=== PATIENT | female | born 1960 | race Caucasian/White ===

== ENCOUNTER 2016-11-16 14:03 | Outpatient (CLI) | payer OTHER | END 2016-11-16 14:04 | disposition home or self-care (01) | DX: Z79.899 Other long term (current) drug therapy (principal) ==

== ENCOUNTER 2017-03-09 10:32 | Outpatient (CLI) | payer OTHER ==
--- NOTE | 2017-03-09 14:31 | Ultrasound Report ---
LEFT BREAST ULTRASOUND: 03/09/2017 CLINICAL INDICATION: Palpable abnormality. TECHNIQUE: Real-time scanning was performed with personal financial representative static images obtained. FINDINGS: Ultrasound of the left breast was performed, directed to the palpable abnormality identified by the patient. Unremarkable parenchymal lobules are seen. No discrete solid or cystic mass is appreciated. No sonographically suspicious findings are seen. IMPRESSION: NEGATIVE EXAMINATION. RECOMMENDATION: ROUTINE ANNUAL SCREENING UNLESS OTHERWISE CLINICALLY INDICATED. BIRADS CATEGORY 1-NEGATIVE. JOB #: [id number] EXT JOB #: [id number] [facility]
--- NOTE | 2017-03-09 17:13 | Mammography Report ---
DIGITAL DIAGNOSTIC BILATERAL MAMMOGRAM: 03/09/2017 CLINICAL INDICATION: Palpable abnormality left breast. TECHNIQUE: Bilateral CC and MLO views, left true lateral view. A marker was placed at the site of p alpable abnormality identified by the patient. COMPARISON: 04/22/2016, 02/18/2015, 11/16/2013, 11/09/2011, 10/21/2010, 08/25/2009. The breasts demonstrate scattered fibroglandular densities bilaterally. No suspicious masses, cluste red microcalcifications, or regions of architectural distortion are identified. Specifically, no chano mographic abnormality is seen in the left upper-outer quadrant, at the site of palpable abnormality i dentified with the marker. Please also refer to left breast ultrasound of the same day. IMPRESSION: NEGATIVE EXAMINATION. RECOMMENDATION: ROUTINE ANNUAL SCREENING UNLESS OTHERWISE CLINICALLY INDICATED. BIRADS CATEGORY: 1, NEGATIVE. STANDARD QUALIFYING STATEMENTS 1. This examination was reviewed with the aid of Computed-Aided Detection (CAD). 2. A negative or benign imaging report should not delay biopsy if clinically suspicious findings are present. Consider surgical consultation if warranted. More than 5% of cancers are not identified b y imaging. 3. Dense breasts may obscure an underlying neoplasm. JOB #: [id number] EXT JOB #:[id number]
== END 2017-03-09 10:33 | disposition home or self-care (01) ==
LOC: DI 10:32
PROVIDERS: ATTEND Internal Medicine
DX: N63 Unspecified lump in breast (principal)
CPT/HCPCS: 76642; 77066

== ENCOUNTER 2017-04-27 10:35 | Outpatient (CLI) | payer OTHER ==
[2017-04-27 18:25] LABS: BASOPHILS # (AUTO) 0.1 10^3/uL (0.0-0.1); BASOPHILS % (AUTO) 1.2 %; EOSINOPHILS % (AUTO) 0.9 %; HCT - HEMATOCRIT 41.1 % (37.0-47.0); HGB - HEMOGLOBIN 13.6 g/dL (12.0-16.0); LYMPHOCYTES # (AUTO) 1.9 10^3/uL (1.5-3.5); LYMPHOCYTES % (AUTO) 36.4 %; MEAN CORPUSCULAR HGB CONC 33.2 g/dL (32.0-36.0); MEAN CORPUSCULAR VOLUME 93.4 fL (81.0-99.0); MEAN PLATELET VOLUME 7.8 fL (7.9-10.8); MONOCYTES # (AUTO) 0.3 10^3/uL (0.0-1.0); MONOCYTES % (AUTO) 6.7 %; NEUTROPHILS # (AUTO) 2.8 10^3/uL (1.5-6.6); NEUTROPHILS % (AUTO) 54.8 %; RED CELL DISTRIBUTION WIDTH 13.5 % (12.0-15.0); UNCORRECTED WHITE BLOOD COUNT 5.1 x10^3/uL; WHITE BLOOD COUNT 5.1 x10^3/uL (4.8-10.8)
[2017-04-27 18:27] LABS: BILIRUBIN,URINE NEGATIVE (NEGATIVE); PH,URINE 6.5 PH (5.0-7.5)
[2017-04-27 18:30] LABS: UA CHARGE (STRIP ONLY) YES; UR CULTURE IF IND NOT INDICATED
[2017-04-27 18:50] LABS: ALBUMIN/GLOBULIN RATIO 1.5 (1.0-2.2); BUN - BLOOD UREA NITROGEN 14 mg/dL (6-20); CALCIUM 9.2 mg/dL (8.5-10.3); CARBON DIOXIDE - CO2 30 mmol/L (21-32); CHLORIDE 96 mmol/L (101-111); CHOL/HDL RATIO 3.3 (<4.4); CHOLESTEROL 239 mg/dL; CREATININE 0.6 mg/dL (0.4-1.0); GFR - MDRD 103 (>89); GLUCOSE 116 mg/dL (70-100); HDL CHOLESTEROL 72 mg/dL; LDL/HDL RATIO 2.1 (<4.4); POTASSIUM 4.4 mmol/L (3.5-5.0); SODIUM 134 mmol/L (135-145); TRIGLYCERIDES 68 mg/dL; VLDL CHOLESTEROL 14 mg/dL
[2017-04-27 19:03] LABS: HEMOGLOBIN A1C 0.53 g/dL
== END 2017-04-27 10:36 | disposition home or self-care (01) ==
LOC: LAB.F 10:35
PROVIDERS: ATTEND Internal Medicine
DX: Z00.00 Encounter for general adult medical examination without abnormal findings (principal); I10 Essential (primary) hypertension; M19.90 Unspecified osteoarthritis, unspecified site; M81.0 Age-related osteoporosis without current pathological fracture; E78.5 Hyperlipidemia, unspecified; R73.9 Hyperglycemia, unspecified; D72.819 Decreased white blood cell count, unspecified
CPT/HCPCS: 36415; 80050; 80061; 81001; 81003; 83036; 87086

== ENCOUNTER 2017-05-10 08:17 | Outpatient (CLI) | payer OTHER ==
--- NOTE | 2017-05-10 12:53 | DEXA Report ---
DEXA SCAN: 05/10/2017 CLINICAL INDICATION: Osteoporosis. TECHNIQUE: Dual energy x-ray absorptiometry (DXA) was performed on a [employer] system. Regions measured are the AP spine, femoral neck, and, if needed, forearm. COMPARISON: None. In accordance with the International Society for Clinical Densitometry (ISCD) guidelines, data from previous exams may be reanalyzed using current recommendations and techniques. This is done to allow a more accurate basis for comparison with the current study. FINDINGS: The data for the lumbar spine is as follows: REGION BMD (g/cm/cm) T-SCORE Z-SCORE L1 0.669 -3.8 -2.9 L2 0.743 -3.8 -2.8 L3 0.937 -2.2 -1.2 L4 0.942 -2.2 -1.2 TOTAL 0.826 -3.0 -2.0 NOTE: All evaluable vertebrae are used for classification. The data for the hip is as follows: REGION BMD (g/cm/cm) T-SCORE Z-SCORE Neck 0.695 -2.5 -1.3 TOTAL 0.646 -2.9 -2.1 NOTE: The femoral neck or total proximal femur, whichever is lowest, is used for classification. IMPRESSION: THE WHO CLASSIFICATION BASED ON THE INTERNATIONAL REFERENCE STANDARD IS OSTEOPOROSIS. THE FRACTURE RISK IS HIGH. RECOMMENDATION: Patients with diagnosis of osteoporosis or osteopenia should have regular bone mineral density assessment. For those eligible for Medicare, routine testing is allowed once every 2 years. Testing frequency can be increased for patients who have rapidly progressing disease or for those who are receiving medical therapy to restore bone mass. COMMENT: World Health Organization (WHO) definitions for osteoporosis and osteopenia: NORMAL BMD: T-score at -1.0 or higher, fracture risk is low. OSTEOPENIA BMD: T-score between -1.0 and -2.5, fracture risk is increased. OSTEOPOROSIS BMD: T-score at -2.5 or lower, fracture risk high. National Osteoporosis Foundation recommends: 1. Obtain adequate dietary calcium (at least 1200 mg per day) and vitamin D (400 -800 international units per day). 2. Participate, as appropriate, in regular weightbearing and muscle- strengthening exercise. 3. Avoid tobacco use and reduce alcohol and caffeine intake. 4. For more detailed information see the website at www.NOF.org. MTDD
== END 2017-05-10 08:18 | disposition home or self-care (01) ==
LOC: DI 08:17
PROVIDERS: ATTEND Internal Medicine
DX: M81.0 Age-related osteoporosis without current pathological fracture (principal)
CPT/HCPCS: 77080

== ENCOUNTER 2017-07-26 11:16 | Outpatient (CLI) | payer OTHER ==
--- NOTE | 2017-07-26 18:10 | XRAY Report ---
TWO VIEW CHEST: 07/26/2017 CLINICAL INDICATION: Cough, rib pain. COMPARISON: 02/05/2015 Frontal and lateral views of the chest demonstrate a normal cardiac silhouette. The lungs are clear. No effusion or pneumothorax is present. IMPRESSION: NORMAL CHEST, UNCHANGED. JOB #: [id number] EXT JOB #:[id number]
== END 2017-07-26 11:17 | disposition home or self-care (01) ==
LOC: DI 11:16
PROVIDERS: ATTEND Internal Medicine
DX: R05 Cough (principal); R07.81 Pleurodynia
CPT/HCPCS: 71020

== ENCOUNTER 2018-06-08 10:31 | Outpatient (CLI) | payer OTHER ==
--- NOTE | 2018-06-08 12:46 | Ultrasound Report ---
Procedure Date: 06/08/2018 Accession Number: [id number] / [id number] Procedure: US - Abdomen Limited CPT Code: FULL RESULT: EXAM: Abdomen Limited DATE: 06/08/2018 12:01 PM CLINICAL HISTORY: RUQ PAIN COMPARISON: None. TECHNIQUE: Real-time scanning was performed with static images obtained. FINDINGS: Liver: Normal in size and echotexture. At least 15 cm. Main portal vein flow: Hepatopetal. Gallbladder: The gallbladder demonstrates a thin wall and no pericholecystic fluid and no calculi. There is no pericholecystic fluid. The sonographic Cintron's sign is negative. A 2 mm gallbladder polyp is noted. Biliary System: Common bile duct measures 4 mm. No intrahepatic or extrahepatic ductal dilatation. Pancreas: Visualized portion is unremarkable. Kidneys: Right: 10.4 cm longitudinally. Normal. No contour-deforming mass, stones, or hydronephrosis. The IVC is unremarkable by color Doppler. IMPRESSION: No evidence of cholecystitis or hepatitis. There is a 2 mm gallbladder polyp. Consensus guidelines are not universally excepted. Some literature advocates annual sonographic follow-up. RADIA
== END 2018-06-08 10:32 | disposition home or self-care (01) ==
LOC: DI 10:31
PROVIDERS: ATTEND Internal Medicine
DX: R10.11 Right upper quadrant pain (principal); K82.4 Cholesterolosis of gallbladder
CPT/HCPCS: 76705

== ENCOUNTER 2018-07-11 10:31 | Outpatient (CLI) | payer OTHER ==
--- NOTE | 2018-07-21 19:13 | Mammography Report ---
Reason: ROUTINE MAMMO Procedure Date: 07/11/2018 Accession Number: [id number] / [id number] Procedure: PANCHITO - Screening Mammo w/Reynaldo CPT Code: FULL RESULT: EXAM: Screening Mammo w/Reynaldo DATE: 07/11/2018 11:06 AM CLINICAL HISTORY: 57-year-old nulliparous female. TECHNIQUE: Bilateral CC and MLO views were obtained. COMPARISON: 03/09/2017, 04/22/2016, 02/18/2015, 11/16/2013. FINDINGS: The breasts demonstrate heterogeneously dense fibroglandular parenchyma bilaterally. No suspicious masses, clustered microcalcifications, or regions of architectural distortion are identified. IMPRESSION: Negative examination RECOMMENDATION: Routine annual screening unless otherwise clinically indicated. BIRADS CATEGORY 1: Negative STANDARD QUALIFYING STATEMENTS: 1. This examination was not reviewed with the aid of Computer-Aided Detection (CAD). 2. A negative or benign imaging report should not delay biopsy if clinically suspicious findings are present. Consider surgical consultation if warrented. More than 5% of cancers are not identified by imaging. 3. Dense breasts may obscure an underlying neoplasm. 4. This examination was reviewed with the aid of 3D imaging (tomography).
== END 2018-07-11 10:32 | disposition home or self-care (01) ==
LOC: DI 10:31
PROVIDERS: ATTEND Internal Medicine
DX: Z12.31 Encounter for screening mammogram for malignant neoplasm of breast (principal)
CPT/HCPCS: 77063; 77067

== ENCOUNTER 2019-06-19 08:04 | Outpatient (CLI) | payer OTHER ==
--- NOTE | 2019-06-19 16:33 | DEXA Report ---
Reason: OSTEOPOROSIS Procedure Date: 06/19/2019 Accession Number: [id number] / [id number] Procedure: DEX - Dexa Spine and/or Hip CPT Code: FULL RESULT: EXAM: Dexa Spine and/or Hip DATE: 06/19/2019 9:21 AM CLINICAL HISTORY: OSTEOPOROSIS TECHNIQUE: Dual energy x-ray absorptiometry (DXA) was performed on a [employer] System. Regions measured are the AP Spine, femoral neck, and if needed forearm. COMPARISON: 05/10/2017 In accordance with the International Society for Clinical Densitometry (ISCD) guidelines, data from previous exams may be reanalyzed using current recommendations and techniques. This is done to allow a more accurate basis for comparison with the current study. FINDINGS: The data for the lumbar spine is as follows: BMD (g/cm/cm) T-SCORE Z-SCORE REGION L1 0.721 -3.4 -2.2 L2 0.833 -3.1 -1.9 L3 0.915 -2.4 -1.2 L4 1.064 -1.1 0.0 TOTAL 0.880 -2.5 -1.3 NOTE: All evaluable vertebrae are used for classification The data for the hip is as follows: BMD (g/cm/cm) T-SCORE Z-SCORE REGION Neck 0.671 -2.6 -1.4 TOTAL 0.701 -2.4 -1.5 NOTE: The femoral neck or total proximal femur, whichever is lowest, is used for classification. DXA RESULTS SUMMARY: Spine SCAN DATE AGE BMD CHANGE VS CHANGE VS PREVIOUS PREVIOUS % 6[birth year]2019 [age] 0[age]880 0.054* 6.5* 05[birth year]10/2017 56.4 0.826 * Denotes significant change at the 95% confidence level. Denotes dissimilar scan types or analysis methods. DXA RESULTS SUMMARY: Hip SCAN DATE AGE BMD CHANGE VS CHANGE VS PREVIOUS PREVIOUS % [birth year]2019 58.5 0.701 0.055* 8.5* 05[birth year]10[birth year]2017 56.4 0.646 * Denotes significant change at the 95% confidence level. Denotes dissimilar scan types or analysis methods. IMPRESSION: THE WHO CLASSIFICATION BASED ON THE INTERNATIONAL REFERENCE STANDARD IS OSTEOPOROSIS. THE FRACTURE RISK IS HIGH. RECOMMENDATION: Patients with diagnosis of osteoporosis or osteopenia should have regular bone mineral density assessment. For those eligible for Medicare, routine testing is allowed once every 2 years. Testing frequency can be increased for patients who have rapidly progressing disease or for those who are receiving medical therapy to restore bone mass. COMMENT: World Health Organization (WHO) definitions for osteoporosis and osteopenia: NORMAL BMD: T-score at -1.0 or higher, fracture risk is low OSTEOPENIA BMD: T-score between -1.0 and -2.5, fracture risk is increased. OSTEOPOROSIS BMD: T-score at -2.5 or lower, fracture risk is high. National Osteoporosis Foundation recommends: 1. Obtain adequate dietary calcium (at least 1200 mg per day) and vitamin D (400-800 international units per day). 2. Participate, as appropriate, in regular weightbearing and muscle-strengthening exercise. 3. Avoid tobacco use and reduce alcohol and caffeine intake. 4. For more detailed information see the website at www.NOF.org.
--- NOTE | 2019-06-20 08:11 | Ultrasound Report ---
Reason: RUQ PAIN, POLYP OF GALLBLADDER Procedure Date: 06/19/2019 Accession Number: [id number] / [id number] Procedure: US - Abdomen Limited CPT Code: FULL RESULT: EXAM: ABDOMEN LIMITED EXAM DATE: 06/19/2019 08:46 AM INDICATION: RUQ PAIN, POLYP OF GALLBLADDER. COMPARISONS: 06/19/2019 8:43 AM. TECHNIQUE: Real-time scanning was performed with static images obtained. FINDINGS: Liver: Liver parenchyma is heterogeneous and mildly hyperechoic. No discrete liver masses or intrahepatic bile duct dilation. However, evaluation for masses is limited secondary to the echogenicity. Right liver measures 15.3 cm. Main portal vein flow: Hepatopetal. Gallbladder: 0.3 cm gallbladder polyp. No stones, wall thickening, or sonographic Cintron's sign. Biliary System: CBD measures 3.2 mm. No intrahepatic or extrahepatic ductal dilatation. Pancreas: Normal. Right kidney: 10.8 cm. No hydronephrosis. Abdominal aorta and IVC: Normal. Other: None. IMPRESSION: 1. No liver mass or intrahepatic dilation.Echogenic, fatty liver. No liver enlargement. 2. 0.3 cm gallbladder polyp. Otherwise, normal gallbladder and common bile duct. 3. Normal pancreas. RADIA
== END 2019-06-19 08:05 | disposition home or self-care (01) ==
LOC: DI 08:04
PROVIDERS: ATTEND Internal Medicine
DX: R10.11 Right upper quadrant pain (principal); K82.4 Cholesterolosis of gallbladder; M81.0 Age-related osteoporosis without current pathological fracture; K76.0 Fatty (change of) liver, not elsewhere classified
CPT/HCPCS: 76705; 77080

== ENCOUNTER 2019-06-29 08:19 | Outpatient (CLI) | payer OTHER ==
[2019-06-29] MEDS ORDERED: IOVERSOL 320 50 ML VIAL ONE (08:32)
[2019-06-29] MEDS ORDERED: IOVERSOL 320 100 ML VIAL IVP ONE (08:32)
--- NOTE | 2019-07-01 04:32 | CT Report ---
Reason: UNSPECIFIED ABDOMINAL PAIN Procedure Date: 06/29/2019 Accession Number: [id number] / [id number] Procedure: CT - Abdomen/Pelvis W CPT Code: FULL RESULT: EXAM: CT ABDOMEN AND PELVIS EXAM DATE: 06/29/2019 09:43 AM. CLINICAL HISTORY: UNSPECIFIED ABDOMINAL PAIN. COMPARISONS: None. TECHNIQUE: Routine helical CT imaging was performed through the abdomen and pelvis. IV contrast: OPTI 320 90ML. Enteric contrast: Yes. Reconstructions: Coronal and sagittal. In accordance with CT protocol optimization, one or more of the following dose reduction techniques were utilized for this exam: automated exposure control, adjustment of mA and/or KV based on patient size, or use of iterative reconstructive technique. FINDINGS: Lung Bases: Unremarkable. 2 nodules in the right lower lobe both measure 4 mm. Liver: Normal. No masses. Gallbladder/Bile Ducts: Unremarkable. Spleen: Normal. Pancreas: Normal. Adrenal Glands: Normal. Kidneys: Normal. No masses or hydronephrosis. Peritoneal Cavity/Bowel: Colonic diverticula. Otherwise normal caliber and contour of the large and small bowel.. No free fluid, free air or adenopathy. No masses or acute inflammatory process. The appendix is well visualized and normal. Pelvic Organs: Lobulated uterus likely reflects involvement by fibroids.. The bladder and visualized pelvic organs are within normal limits. Vasculature: No aneurysms or other significant abnormality. Bones: No significant abnormality. Other: None. IMPRESSION: 1. No acute process in the abdomen or pelvis. 2. Diverticulosis without findings of diverticulitis. 3. Two pulmonary nodules in the right lower lobe; both measure 4 mm. In the absence of known malignancy these are likely benign and no additional follow-up is recommended. 4. Lobulated uterine contour likely reflects fibroids. RADIA
== END 2019-06-29 08:20 | disposition home or self-care (01) ==
LOC: DI 08:19
PROVIDERS: ATTEND Internal Medicine
DX: R10.9 Unspecified abdominal pain (principal); K57.30 Diverticulosis of large intestine without perforation or abscess without bleeding; R91.8 Other nonspecific abnormal finding of lung field
CPT/HCPCS: 74177; Q9967

== ENCOUNTER 2019-07-11 13:37 | Outpatient (CLI) | payer OTHER ==
--- NOTE | 2019-07-16 14:48 | Mammography Report ---
Reason: SCREENING MAMMO Procedure Date: 07/11/2019 Accession Number: [id number] / [id number] Procedure: PANCHITO - Screening Mammo w/Reynaldo CPT Code: FULL RESULT: EXAM: Screening Mammo w/Reynaldo DATE: 07/11/2019 2:30 PM CLINICAL HISTORY: Routine screening TECHNIQUE: (B) - Bilateral CC and MLO views were obtained. COMPARISON: 07/11/2018, 03/09/2017 and 04/22/2016 PARENCHYMAL PATTERN: (A) - The breasts demonstrate scattered fibroglandular densities bilaterally. FINDINGS: No significant interval change. There are no suspicious masses, calcifications, or areas of distortion. IMPRESSION: Negative examination. BI-RADS category 1. RECOMMENDATION: (ANNUAL) - Recommend routine annual screening mammography. BI-RADS CATEGORY: (1) - Negative. STANDARD QUALIFYING STATEMENTS: 1. This examination was not reviewed with the aid of Computer-Aided Detection (CAD). 2. A negative or benign imaging report should not preclude biopsy if clinically suspicious findings are present. 3. Dense breasts may obscure an underlying neoplasm. 4. This examination was reviewed with the aid of 3D breast imaging (tomosynthesis).
== END 2019-07-11 13:38 | disposition home or self-care (01) ==
LOC: DI 13:37
PROVIDERS: ATTEND Internal Medicine
DX: Z12.31 Encounter for screening mammogram for malignant neoplasm of breast (principal)
CPT/HCPCS: 77063; 77067

== ENCOUNTER 2020-07-08 07:53 | Outpatient (CLI) | payer OTHER | END 2020-07-08 07:54 | disposition home or self-care (01) | LOC: DI 07:53 | PROVIDERS: ATTEND Internal Medicine | DX: I49.3 Ventricular premature depolarization (principal) | CPT/HCPCS: 93306 ==

== ENCOUNTER 2020-07-08 07:56 | Outpatient (CLI) | payer OTHER ==
--- NOTE | 2020-07-08 09:42 | CT Report ---
PROCEDURE: CHEST WO INDICATIONS: F/I PULMONARY NODULE TECHNIQUE: Noncontrast 5 mm thick sections acquired from the pulmonary apices to the posterior costophrenic angl es. 7 mm thick coronal and sagittal MIP reformats were then acquired. For radiation dose reduction, the following was used: automated exposure control, adjustment of mA and/or kV according to patient size. COMPARISON: Chest radiograph dated 07/26/[address] abdomen and pelvis dated 06/29/2019 FINDINGS: Image quality: Excellent. Lungs and pleura: No acute air space opacities. No pleural effusions or pneumothorax. Central and peripheral airways are patent and normal in caliber. A 4 mm right upper lobe pulmonary nodule seen o n axial image 143, series 4. There is a 3 mm right lower lobe pulmonary nodule seen on image 222, ser ies 4. A 3 mm right lower lobe pulmonary nodule seen on image 240, series 4. The right lower lobe nod ules appear stable accounting for slight differences in imaging technique. Mediastinum: Heart size is normal. No pericardial effusion. No mediastinal adenopathy by size crit eria. Thoracic aorta and central pulmonary arteries are normal in size. Esophagus is normal in [place]ha jaylin. No hiatal hernia. Bones and chest wall: No suspicious bony lesions. No acute vertebral body compression fractures. N o axillary or supraclavicular adenopathy by size criteria. The thyroid is normal in size. Abdomen: Visualized upper abdominal solid organs and bowel loops appear normal in the absence of con trast. IMPRESSION: 1. CT chest without acute cardiopulmonary abnormalities. 2. There are 3 sub-5 mm right sided pulmonary nodules, 2 of which remain stable since July 2017. Right upper lobe nodule was not previously imaged. Consider follow-up CT chest in one year to docume nt continued stability. Reviewed by: Raman Dai MD on 07/08/2020 9:41 AM PDT Approved by: Raman Dai MD on 07/08/2020 9:41 AM PDT Station ID: [id number]
== END 2020-07-08 07:57 | disposition home or self-care (01) ==
LOC: DI 07:56
PROVIDERS: ATTEND Internal Medicine
DX: R91.8 Other nonspecific abnormal finding of lung field (principal); I49.3 Ventricular premature depolarization
CPT/HCPCS: 71250; 93306

== ENCOUNTER 2020-07-29 08:56 | Outpatient (CLI) | payer OTHER ==
--- NOTE | 2020-07-29 13:26 | Mammography Report ---
BILATERAL DIGITAL SCREENING MAMMOGRAM 3D/2D: 07/29/2020 CLINICAL: Routine screening. Comparison is made to exams dated: 07/11/2019 mammogram, 07/11/2018 mammogram, 03/09/2017 mammogram, an d 04/22/2016 mammogram - [facility]. There are scattered fibroglandular elements in both breasts. No significant masses, calcifications, or other findings are seen in either breast. There has been no significant interval change. IMPRESSION: NEGATIVE There is no mammographic evidence of malignancy. A 1 year screening mammogram is recommended. This exam was interpreted at Station ID: [id number]. NOTE: For mammograms, a report in lay terms will be sent to the patient. Approximately 15% of breast malignancies will not be visualized mammographically. In the management of a palpable breast mass, a negative mammogram must not discourage biopsy of a clinically suspicious lesion. Electronically Signed By: Frank tiwari/abhijit:07/29/2020 09:41:14 ACR BI-RADS Category 1: Negative 3341F PARENCHYMAL PATTERN: (A) - The breast(s) demonstrate(s) scattered fibroglandular densities. BI-RADS CATEGORY: (1) - 1 RECOMMENDATION: (ANNUAL) - Recommend routine annual screening mammography. [id number] 1 year screening LATERALITY: (B)
== END 2020-07-29 08:57 | disposition home or self-care (01) ==
LOC: DI 08:56
PROVIDERS: ATTEND Internal Medicine
DX: Z12.31 Encounter for screening mammogram for malignant neoplasm of breast (principal)
CPT/HCPCS: 77063; 77067

== ENCOUNTER 2021-07-30 07:59 | Outpatient (CLI) | payer OTHER ==
--- NOTE | 2021-07-30 21:24 | CT Report ---
PROCEDURE: CHEST WO INDICATIONS: PULMONARY NODULES TECHNIQUE: Noncontrast 1mm axial images were acquired from the pulmonary apices to the posterior costophrenic an gles. Axial 5 mm soft tissue kernel reconstructions were performed as well as 8 mm axial MIP and cor onal and sagittal 5 mm reformations. For radiation dose reduction, the following was used: automate d exposure control, adjustment of mA and/or kV according to patient size. COMPARISON: 07/08/2020. On that prior study, 3 pulmonary nodules were discussed. FINDINGS: Image quality: Excellent. Lungs and pleura: Pulmonary nodules are as follows: Nodule 1: Right upper lobe. Previous image 143/4 and current image 118/4. 4 mm, unchanged. Nodule 2: Right lower lobe, 3 mm, previous image 222/4 and current image 195/4 Nodule 3: Right lower lobe, 3 mm, previous image 241/4 and current image 214/4 Also present is a fissural nodule measuring approximately 4 mm in the left major fissure, unchanged. Reference previous image 185/4 and current image 158/4. Interval development of extensive subtle groundglass opacities distributed throughout both lungs. Fin dings are consistent with active inflammation. They are relatively diffuse. Consider viral pneumoniti s versus hypersensitivity pneumonitis. No pleural effusions or pneumothorax. Central and peripheral airways are patent and normal in calibe r. Mediastinum: Heart size is normal. No pericardial effusion. No mediastinal adenopathy by size crit eria. Thoracic aorta and central pulmonary arteries are normal in size. Esophagus is normal in mustapha jaylin. No hiatal hernia. Bones and chest wall: No suspicious bony lesions. No vertebral body compression fractures. No axil yolanda or supraclavicular adenopathy by size criteria. The thyroid is normal in size and there are no incidental findings. Abdomen: Visualized upper abdominal solid organs and bowel loops appear normal in the absence of con trast. IMPRESSION: 1. Stable bilateral pulmonary nodules, likely representing benign disease. 2. Interval development of extensive patchy bilateral groundglass opacities. These are consistent wit h active infection or inflammation. Consider viral pneumonia versus hypersensitivity pneumonitis. CLINICAL RECOMMENDATION STATEMENTS: In patients <35 years with an ITN detected on CT, MRI, or extrathyroidal ultrasound, the Committee re commends further evaluation with dedicated thyroid ultrasound if the nodule is "e1 cm and has no susp icious imaging features, and if the patient has normal life expectancy. In patients "e35 years with an ITN detected on CT, MRI, or extrathyroidal ultrasound, the Committee r ecommends further evaluation with dedicated thyroid ultrasound if the nodule is "e1.5 cm and has no s uspicious imaging features, and if the patient has normal life expectancy. (ACR, 2014) Reviewed by: Hernandez Garcia MD on 07/30/2021 9:22 PM PDT Approved by: Hernandez Garcia MD on 07/30/2021 9:22 PM PDT Station ID: [id number]
== END 2021-07-30 08:00 | disposition home or self-care (01) ==
LOC: DI 07:59
PROVIDERS: ATTEND Internal Medicine
DX: R91.8 Other nonspecific abnormal finding of lung field (principal); N60.82 Other benign mammary dysplasias of left breast

== ENCOUNTER 2021-07-30 08:01 | Outpatient (CLI) | payer OTHER ==
--- NOTE | 2021-07-31 09:53 | Mammography Report ---
BILATERAL DIGITAL DIAGNOSTIC MAMMOGRAM 3D/2D: 07/30/2021 CLINICAL: Palpable left breast lump. Comparison is made to exams dated: 07/29/2020 mammogram, 07/11/2019 mammogram, 07/11/2018 mammogram, 07/2017 ultrasound, 03/09/2017 mammogram, and 04/22/2016 mammogram - [facility]. The re are scattered fibroglandular elements in both breasts. There is a new 0.5 cm round mass with a circumscribed margin in the left breast at 12 o'clock posteri or depth. No other significant masses, calcifications, or other findings are seen in either breast. IMPRESSION: INCOMPLETE: NEEDS ADDITIONAL IMAGING EVALUATION The new 0.5 cm round mass in the left breast is indeterminate. An ultrasound is recommended. This exam was interpreted at Station ID: [id number]. NOTE: For mammograms, a report in lay terms will be sent to the patient. Approximately 15% of breast malignancies will not be visualized mammographically. In the management of a palpable breast mass, a negative mammogram must not discourage biopsy of a clinically suspicious lesion. Electronically Signed By: Brendan Brian acr/:07/30/2021 09:52:09 ACR BI-RADS Category 0: Incomplete 3340F PARENCHYMAL PATTERN: (A) - The breast(s) demonstrate(s) scattered fibroglandular densities. BI-RADS CATEGORY: (0) - 0 Ultrasound [id number] Immediate follow-up LATERALITY: (L)
--- NOTE | 2021-07-31 09:53 | Ultrasound Report ---
LIMITED ULTRASOUND OF LEFT BREAST: 07/30/2021 CLINICAL: Palpable left breast lump. Comparison is made to exams dated: 07/30/2021 mammogram, 07/29/2020 mammogram, 07/11/2019 mammogram, 08/2018 mammogram, 03/09/2017 ultrasound, and 03/09/2017 mammogram - [facility]. Color flow and real-time ultrasound of the left breast 1 o'clock region were performed. Costa scale images of the real-time examination were reviewed. There is a benign 0.5 cm cyst in the left breast at 12 o'clock posterior depth. IMPRESSION: BENIGN There is no sonographic evidence of malignancy. The 0.5 cm cyst in the left breast is consistent with a sebaceous cyst and is benign. A 1 year screening mammogram is recommended. This exam was interpreted at Station ID: [id number]. Electronically Signed By: Brendan Brian acr/abhijit:07/30/2021 10:18:11 Ultrasound BI-RADS: 2 Benign BI-RADS CATEGORY: (2) - 2 RECOMMENDATION: (ANNUAL) - Recommend routine annual screening mammography. [id number] 1 year screening LATERALITY: (B)
== END 2021-07-30 08:02 | disposition home or self-care (01) ==
LOC: DI 08:01
PROVIDERS: ATTEND Internal Medicine
DX: N60.82 Other benign mammary dysplasias of left breast (principal)

== ENCOUNTER 2021-10-21 11:23 | Outpatient (CLI) | payer OTHER ==
--- NOTE | 2021-10-21 16:57 | CT Report ---
PROCEDURE: CHEST WO INDICATIONS: GROUND GLASS OPACITIES TECHNIQUE: Noncontrast 1mm axial images were acquired from the pulmonary apices to the posterior costophrenic an gles. Axial 5 mm soft tissue kernel reconstructions were performed as well as 8 mm axial MIP and cor onal and sagittal 5 mm reformations. For radiation dose reduction, the following was used: automate d exposure control, adjustment of mA and/or kV according to patient size. COMPARISON: CT chest 07/30/2021, 07/18/2020 FINDINGS: Image quality: Excellent. Lungs and pleura: There is interval near complete resolution of the previously described patchy groun d glass opacities with a few residual indistinct groundglass opacities. A few scattered pulmonary nod ules are redemonstrated including within the right upper lobe on series 4 image 119 measuring 4 mm. A right lower lobe nodule 3 mm nodule is present on series 4 image 184. A right lower lobe 3 mm nodule is present on series 4 image 213. Findings are stable compared to the prior studies. No new suspicio us nodules or mass lesions. No pleural effusions or pneumothorax. The trachea and central airways are patent. Mediastinum: Heart size is normal. No pericardial effusion. No mediastinal adenopathy by size crit eria. Thoracic aorta and central pulmonary arteries are normal in size. Esophagus is normal in [place]ha jaylin. No hiatal hernia. Bones and chest wall: No suspicious bony lesions. No vertebral body compression fractures. No axil yolanda or supraclavicular adenopathy by size criteria. The thyroid demonstrates no discrete nodules. Abdomen: Visualized upper abdominal solid organs and bowel loops appear normal in the absence of con trast. IMPRESSION: 1. Interval near-complete resolution of previously described patchy groundglass opacities compatible with a resolving inflammatory or infectious process. 2. Stable small pulmonary nodules as described compatible with a benign process. Reviewed by: Eliu Caballero MD on 10/21/2021 4:56 PM PST Approved by: Eliu Caballero MD on 10/21/2021 4:56 PM PST Station ID: [id number]
== END 2021-10-21 11:24 | disposition home or self-care (01) ==
LOC: DI 11:23
PROVIDERS: ATTEND Internal Medicine
DX: R91.8 Other nonspecific abnormal finding of lung field (principal)

== ENCOUNTER 2022-08-02 08:00 | Outpatient (CLI) | payer OTHER ==
[2022-08-02 15:49] LABS: BASOPHILS # (AUTO) 0.1 10^3/uL (0.0-0.1); BASOPHILS % (AUTO) 1.6 %; EOSINOPHILS # (AUTO) 0.2 10^3/uL (0.0-0.7); EOSINOPHILS % (AUTO) 3.9 %; HCT - HEMATOCRIT 43.6 % (37.0-47.0); HGB - HEMOGLOBIN 14.4 g/dL (12.0-16.0); LYMPHOCYTES # (AUTO) 1.5 10^3/uL (1.5-3.5); LYMPHOCYTES % (AUTO) 29.5 %; MEAN CORPUSCULAR HEMOGLOBIN 32.3 pg (27.0-31.0); MEAN CORPUSCULAR VOLUME 97.8 fL (81.0-99.0); MEAN PLATELET VOLUME 9.9 fL (7.9-10.8); MONOCYTES # (AUTO) 0.5 10^3/uL (0.0-1.0); MONOCYTES % (AUTO) 9.1 %; NEUTROPHILS # (AUTO) 2.7 10^3/uL (1.5-6.6); NEUTROPHILS % (AUTO) 55.7 %; PLT - PLATELET COUNT 313 10^3/uL (130-450); RED BLOOD COUNT 4.46 10^6/uL (4.20-5.40); RED CELL DISTRIBUTION WIDTH 11.8 % (12.0-15.0); WHITE BLOOD COUNT 4.9 x10^3/uL (4.8-10.8)
[2022-08-02 16:01] LABS: ALBUMIN 4.4 g/dL (3.2-5.5); ALBUMIN/GLOBULIN RATIO 1.6 (1.0-2.2); ALKALINE PHOSPHATASE 58 IU/L (42-121); ALT ALANINE AMINOTRANSFERASE 36 IU/L (10-60); AST ASPARTATE AMINOTRANSFERASE 38 IU/L (10-42); BILIRUBIN,TOTAL 0.7 mg/dL (0.2-1.0); BUN - BLOOD UREA NITROGEN 14 mg/dL (6-20); CALCIUM 9.3 mg/dL (8.5-10.3); CARBON DIOXIDE - CO2 30 mmol/L (21-32); CHLORIDE 94 mmol/L (101-111); CHOL/HDL RATIO 3.6 (<4.4); CHOLESTEROL 296 mg/dL; CREATININE 0.7 mg/dL (0.4-1.0); GFR - MDRD 85 (>89); GLUCOSE 90 mg/dL (70-100); HDL CHOLESTEROL 82 mg/dL; LDL CHOLESTEROL,CALCULATED 194 mg/dL; LDL/HDL RATIO 2.4 (<4.4); POTASSIUM 3.9 mmol/L (3.5-5.0); SODIUM 134 mmol/L (135-145); TOTAL PROTEIN 7.2 g/dL (6.7-8.2); TRIGLYCERIDES 98 mg/dL; VLDL CHOLESTEROL 20 mg/dL
[2022-08-02 20:45] LABS: ESTIMATED AVERAGE GLUCOSE 100 mg/dL (70-100); HEMOGLOBIN A1c% 5.1 % (4.27-6.07)
== END 2022-08-02 23:59 | disposition home or self-care (01) ==
LOC: LAB.R 08:00
PROVIDERS: ATTEND Internal Medicine
DX: Z00.00 Encounter for general adult medical examination without abnormal findings (principal); K76.0 Fatty (change of) liver, not elsewhere classified; Z86.010 Personal history of colon polyps; R73.9 Hyperglycemia, unspecified; E78.5 Hyperlipidemia, unspecified; I10 Essential (primary) hypertension; D72.819 Decreased white blood cell count, unspecified; M81.0 Age-related osteoporosis without current pathological fracture; R91.8 Other nonspecific abnormal finding of lung field
CPT/HCPCS: 80050; 80061; 82306; 83036; 83721

== ENCOUNTER 2022-08-09 09:08 | Outpatient (CLI) | payer OTHER ==
--- NOTE | 2022-08-10 11:34 | Mammography Report ---
BILATERAL DIGITAL SCREENING MAMMOGRAM 3D/2D: 08/09/2022 CLINICAL: Routine screening. Comparison is made to exams dated: 07/30/2021 mammogram, 07/29/2020 mammogram, 07/11/2019 mammogram, 08/2018 mammogram, and 03/09/2017 mammogram - [facility]. There are scattered areas of fibroglandular density in both breasts (category b / 25%-50% glandular t issue). No significant masses, calcifications, or other findings are seen in either breast. There has been no significant interval change. IMPRESSION: NEGATIVE There is no mammographic evidence of malignancy. A 1 year screening mammogram is recommended. Based on the Tyrer Cuzick model (a risk assessment model) the patients lifetime risk is 8.3% and her 10 year risk is 3.5%. According to the ACR, ACS, and NCCN guidelines, an annual breast MRI exam leslie g with mammogram is recommended if the patients lifetime risk is 20% or greater. This exam was interpreted at Station ID: [id number]. NOTE: For mammograms, a report in lay terms will be sent to the patient. Approximately 15% of breast malignancies will not be visualized mammographically. In the management of a palpable breast mass, a negative mammogram must not discourage biopsy of a clinically suspicious lesion. Electronically Signed By: Fadia pinto/abhijit:08/09/2022 12:14:05 ACR BI-RADS Category 1: Negative 3341F PARENCHYMAL PATTERN: (A) - The breast(s) demonstrate(s) scattered fibroglandular densities. BI-RADS CATEGORY: (1) - 1 RECOMMENDATION: (ANNUAL) - Recommend routine annual screening mammography. [id number] 1 year screening LATERALITY: (B)
== END 2022-08-09 09:09 | disposition home or self-care (01) ==
LOC: DI 09:08
PROVIDERS: ATTEND Internal Medicine
DX: Z12.31 Encounter for screening mammogram for malignant neoplasm of breast (principal)

== ENCOUNTER 2023-06-23 06:49 | Emergency (ER) | payer OTHER ==
[2023-06-23 07:21] LABS: BASOPHILS # (AUTO) 0.1 10^3/uL (0.0-0.1); BASOPHILS % (AUTO) 0.9 %; EOSINOPHILS # (AUTO) 0.1 10^3/uL (0.0-0.7); HCT - HEMATOCRIT 44.6 % (37.0-47.0); HGB - HEMOGLOBIN 15.4 g/dL (12.0-16.0); LYMPHOCYTES # (AUTO) 0.9 10^3/uL (1.5-3.5); LYMPHOCYTES % (AUTO) 15.2 %; MEAN CORPUSCULAR HGB CONC 34.5 g/dL (32.0-36.0); MEAN CORPUSCULAR VOLUME 95.5 fL (81.0-99.0); MEAN PLATELET VOLUME 10.1 fL (7.9-10.8); MONOCYTES # (AUTO) 0.5 10^3/uL (0.0-1.0); MONOCYTES % (AUTO) 7.7 %; NEUTROPHILS # (AUTO) 4.4 10^3/uL (1.5-6.6); NEUTROPHILS % (AUTO) 74.9 %; PLT - PLATELET COUNT 201 10^3/uL (130-450); RED BLOOD COUNT 4.67 10^6/uL (4.20-5.40); RED CELL DISTRIBUTION WIDTH 12.1 % (12.0-15.0); WHITE BLOOD COUNT 5.9 x10^3/uL (4.8-10.8)
[2023-06-23 07:43] LABS: ALBUMIN 4.5 g/dL (3.2-5.5); ALBUMIN/GLOBULIN RATIO 1.4 (1.0-2.2); BILIRUBIN,TOTAL 1.1 mg/dL (0.2-1.0); CALCIUM 10.2 mg/dL (8.5-10.3); CREATININE 0.8 mg/dL (0.6-1.3); POTASSIUM 3.1 mmol/L (3.5-4.5); TOTAL PROTEIN 7.7 g/dL (6.4-8.9)
[2023-06-23] MEDS ORDERED: SODIUM CHLORIDE 0.9% 1,000 ML IV STA ×2 (07:48→08:36)
[2023-06-23] MEDS ORDERED: ONDANSETRON 4 MG/2 ML VIAL IVP STA (07:49)
[2023-06-23 08:07] LABS: TROPONIN I HIGH SENSITIVITY 7.5 ng/L (2.3-14.8)
--- NOTE | 2023-06-23 08:09 | XRAY Report ---
PROCEDURE: Chest 1 View X-Ray INDICATIONS: Chest pain TECHNIQUE: One view of the chest was acquired. COMPARISON: CT chest dated 10/21/2021 and chest 2 views dated 2616. FINDINGS: Surgical changes and devices: None. Lungs and pleura: No pleural effusions or pneumothorax. Lungs are clear. Mediastinum: Mediastinal contours appear normal. Heart size is normal. Bones and chest wall: No suspicious bony lesions. Overlying soft tissues appear unremarkable. IMPRESSION: No acute cardiopulmonary process. Findings are concordant with preliminary interpretation provided by [facility]. Reviewed by: Mauricio Pimentel MD on 06/23/2023 8:08 AM PDT Approved by: Mauricio Pimentel MD on 06/23/2023 8:08 AM PDT Station ID: [id number]
[2023-06-23] MEDS ORDERED: POTASSIUM CHLORIDE 20 MEQ TABLET PO STA (08:37)
--- NOTE | 2023-06-23 08:52 | ED Physician Documentation ---
History of Present Illness - Stated complaint Stated Complaint: CHEST PX, VOMIT, NAUSEA - Chief complaint Chief Complaint: Cardiac - History obtained from History obtained from: Patient - Additonal information Additional information: The patient comes to the emergency department for chief complaint of heart racing, nausea, shaking, and shortness of breath for the last couple of weeks. She states that she has never had these symptoms before. She did not start with any illness in particular. No history of thyroid issues. She states that initially, the symptoms started more mild but seem to have gotten worse over the last couple of weeks. She states that anytime she tries to drink water, she ends up regurgitating "white foam". She feels like she keeps some of the water in, but that she has not been able to drink as much as usual. She has been able to continue having Alcoholic drinks a few times a week. She states she does not drink every day. She states she has a sense of shortness of breath when she walks around, and somewhat less so when she is just at rest. No chest pain. She states that she has not been urinating as much as usual lately. She has had some mild diarrhea. She has a history of anxiety. No history of PE. No other complaints at this time. PD PAST MEDICAL HISTORY - Past Medical History Past Medical History: Yes Cardiovascular: Hypertension Psych: Depression Musculoskeletal: Osteoarthritis - Past Surgical History Past Surgical History: Yes Ortho: Knee replacement HEENT: Tonsil/Adenoidectomy - Present Medications Home Medications: Ambulatory Orders Medication Instructions Recorded Confirmed ALPRAZolam [Alprazolam] 0.5 mg PO DAILY 06/23/23 06/23/23 Citalopram Hydrobromide [Celexa] 20 mg PO DAILY 06/23/23 06/23/23 Ibuprofen [Motrin] 1 tablet PO Q8H PRN 06/23/23 06/23/23 Losartan Potassium 25 mg PO DAILY 06/23/23 06/23/23 Ondansetron Odt [Zofran] 4 mg TL Q6H PRN #10 tablet 06/23/23 amLODIPine [Norvasc] 5 mg PO DAILY 06/23/23 06/23/23 glucosamine HCL [Glucosamine HCl] 1,500 mg PO DAILY 06/23/23 06/23/23 hydroCHLOROthiazide 25 mg PO DAILY 06/23/23 06/23/23 [Hydrochlorothiazide] - Allergies Allergies/Adverse Reactions: Allergies Allergy/AdvReac Type Severity Reaction Status Date / Time No Known Drug Allergies Allergy Verified 06/23/23 07:07 - Social History Does the pt smoke?: No Smoking Status: Never smoker Does the pt drink ETOH?: Yes Does the pt have substance abuse?: No PD ED PE NORMAL - Vitals Vital signs reviewed: Yes - General General: Alert and oriented X 3, No acute distress, Well developed/nourished - HEENT HEENT: Atraumatic, PERRL, EOMI, Moist mucous membranes - Neck Neck: Supple, no meningeal sign, Thyroid normal - Cardiac Cardiac: Strong equal pulses, Other (Mild tachycardia. 3 out of 6 systolic murmur. Regular rhythm.) - Respiratory Respiratory: No respiratory distress, Clear bilaterally - Abdomen Abdomen: Soft, Non tender, Non distended - Derm Derm: Normal color, Warm and dry, No rash - Extremities Extremities: No deformity, No edema - Neuro Neuro: Alert and oriented X 3, block operator 2-12 intact, Normal speech - Psych Psych: Normal mood, Normal affect Results - Vitals Vitals: Vital Signs - 24 hr 06/23/23 06/23/23 06/23/23 07:04 07:37 08:07 Temperature 36.6 C Heart Rate 125 H 97 99 Respiratory 16 16 16 Rate Blood Pressure 129/97 H 116/91 H 139/91 H O2 Saturation 99 99 95 06/23/23 06/23/23 06/23/23 08:30 09:00 09:30 Temperature 37.1 C Heart Rate 83 96 84 Respiratory 16 20 16 Rate Blood Pressure 136/86 H 133/84 H 129/74 O2 Saturation 94 96 98 06/23/23 06/23/23 06/23/23 10:00 10:30 11:00 Temperature Heart Rate 84 79 86 Respiratory 15 14 14 Rate Blood Pressure 134/78 H 127/80 136/83 H O2 Saturation 98 94 98 06/23/23 06/23/23 06/23/23 11:30 12:23 12:49 Temperature Heart Rate 85 80 84 Respiratory 16 17 18 Rate Blood Pressure 130/84 H 118/77 128/81 H O2 Saturation 94 94 94 Oxygen O2 Source Room air - EKG (time done) 0700 EKG releavant findings:: EKG personally interpreted by author of this note. Relevant findings are: Rate: Rate (enter#) (122) Rhythm: Sinus tachycardia [place]: LAD Intervals: Normal [place] Ischemia: Q waves (small, inf leads) Compare to prior EKG: Old EKG unavailable Computer interpretation: Agree with computer - Labs Labs: Laboratory Tests 06/23/23 06/23/23 06/23/23 07:15 07:15 07:15 WBC 5.9 RBC 4.67 Hgb 15.4 Hct 44.6 MCV 95.5 MCH 33.0 H MCHC 34.5 RDW 12.1 Plt Count 201 MPV 10.1 Neut # (Auto) 4.4 Lymph # (Auto) 0.9 L [place] # (Auto) 0.5 Eos # (Auto) 0.1 Baso # (Auto) 0.1 Absolute Nucleated RBC 0.00 Nucleated RBC % 0.0 D-Dimer Sodium 133 L Potassium 3.1 L Chloride 89 L Carbon Dioxide 32 Anion Gap 12.0 BUN 19 Creatinine 0.8 Estimated GFR (MDRD) 73 L Glucose 173 H Calcium 10.2 Total Bilirubin 1.1 H AST 271 H ALT 270 H Alkaline Phosphatase 117 Troponin I High Sens 7.5 B-Natriuretic Peptide 19 Total Protein 7.7 Albumin 4.5 Globulin 3.2 Albumin/Globulin Ratio 1.4 Lipase 68 TSH Urine Opiates Screen Ur Oxycodone Screen Urine Methadone Screen Ur Propoxyphene Screen Ur Barbiturates Screen Ur Tricyclics Screen Ur Phencyclidine Scrn Ur Amphetamine Screen U Methamphetamines Scrn U Benzodiazepines Scrn Urine Cocaine Screen U Cannabinoids Screen 06/23/23 06/23/23 06/23/23 07:15 07:15 10:09 WBC RBC Hgb Hct MCV MCH MCHC RDW Plt Count MPV Neut # (Auto) Lymph # (Auto) [place] # (Auto) Eos # (Auto) Baso # (Auto) Absolute Nucleated RBC Nucleated RBC % D-Dimer 302.4 H Sodium Potassium Chloride Carbon Dioxide Anion Gap BUN Creatinine Estimated GFR (MDRD) Glucose Calcium Total Bilirubin AST ALT Alkaline Phosphatase Troponin I High Sens B-Natriuretic Peptide Total Protein Albumin Globulin Albumin/Globulin Ratio Lipase TSH 2.43 Urine Opiates Screen NEGATIVE Ur Oxycodone Screen NEGATIVE Urine Methadone Screen NEGATIVE Ur Propoxyphene Screen NEGATIVE Ur Barbiturates Screen NEGATIVE Ur Tricyclics Screen NEGATIVE Ur Phencyclidine Scrn NEGATIVE Ur Amphetamine Screen NEGATIVE U Methamphetamines Scrn NEGATIVE U Benzodiazepines Scrn POSITIVE H Urine Cocaine Screen NEGATIVE U Cannabinoids Screen POSITIVE H - Rads (name of study) CXR Relevant Findings:: Final report received, See rad report (neg) abd US Relevant Findings:: Final report received, See rad report (Hepatomegaly otherwise negative) CTA chest Relevant Findings:: Final report received, See rad report (Negative) PD Medical Decision Making - ED course Complexity details: reviewed results, re-evaluated patient, considered differential, d/w patient, d/w family ED course: The patient was worked up extensively including with laboratory studies, chest x-ray, EKG, and ultimately, CT scan of the chest. The patient's TSH was normal. Her BNP was also normal. LFTs were elevated broadly and right upper quadrant ultrasound of the abdomen was performed and negative other than hepatomegaly. Patient's D-dimer was elevated and so she was sent for a CTA of the chest. In the meantime, she had been given 2 L of 0.9 normal saline with drastic normalization of her heart rate to the 70's-low 80's. The patient CTA of the chest was negative. I feel that most likely at least some of her symptoms are attributable to dehydration, but the patient is also likely drinking more than she admits. I discussed her hepatomegaly with her. Patient has been given Zofran and Ativan in the emergency department to have helped her symptoms. She will be given a small prescription for each, but is encouraged to get help with her drinking. Departure - Departure Disposition: 01 Home, Self Care Clinical Impression: Anxiety, Alcoholic liver disease, unspecified, Dehydration Dyspnea Qualifiers: Dyspnea type: unspecified Qualified Code(s): R06.00 - Dyspnea, unspecified Condition: Stable Instructions: ED Dehydration, ED Panic Attack, ED Dyspnea Shortness of Breath, ED Alcohol Abuse Prescriptions: Ondansetron Odt [Zofran] 4 mg TL Q6H PRN #10 tablet PRN Reason: Nausea / Vomiting Comments: Your laboratory studies show that your thyroid function is normal and that your liver is under some stress, most likely from the drinking. The ultrasound did not show any gallstones or other inflammation to explain your elevated liver enzymes. However, your liver itself is enlarged. It is important that you curtail your drinking and that you get help with this if needed. The lab that we did to determine whether you may have a blood clot was elevated and since you are having some racing of your heart and shortness of breath along with this, we did send you for a CT scan of your chest which did not show a clot. Your heart rate has responded very well to the 2 L of saline solution that we gave you through the IV. It is very important that you be sure you are drinking at least 8 to 10 cups of water every day. This should be outside of any coffee, alcohol, or other beverages you are consuming. You may take your medications as usual. Since you have run out of your Xanax early, you will need to call your doctors office to discuss having another prescription for this sent in. A prescription for the nausea medication has been [facility] in [place] at your request. Please pick this up and take as needed. Forms: PCP List
[2023-06-23 10:16] LABS: MUDS CUTOFF CONCENTRATIONS CUTOFF CONC BELOW:
[2023-06-23 10:36] LABS: AMPHETAMINE SCREEN,URINE NEGATIVE (NEGATIVE); BARBITURATE SCREEN,UR NEGATIVE (NEGATIVE); BENZODIAZEPINES SCREEN, URINE POSITIVE (NEGATIVE); COCAINE SCREEN URINE NEGATIVE (NEGATIVE); METHADONE SCREEN, URINE NEGATIVE (NEGATIVE); METHAMPHETAMINES SCREEN, URINE NEGATIVE (NEGATIVE); OPIATE SCREEN, URINE NEGATIVE (NEGATIVE); OXYCODONE SCREEN, URINE NEGATIVE (NEGATIVE); PROPOXYPHENE SCREEN, URINE NEGATIVE (NEGATIVE); THC CANNABINOID SCREEN, URINE POSITIVE (NEGATIVE); TRICYCLIC ANTIDEPRESSANT,URINE NEGATIVE (NEGATIVE)
[2023-06-23 10:48] VITALS: O2SAT 94
[2023-06-23] MEDS ORDERED: LORazepam 1 MG TABLET PO STA (10:58)
--- NOTE | 2023-06-23 11:27 | Ultrasound Report ---
PROCEDURE: Abdomen Limited INDICATIONS: N/V, elev LFTs TECHNIQUE: Real-time focused scanning was performed of the abdomen, with image documentation. COMPARISONS: None. FINDINGS: Liver: Increased liver echogenicity, commonly mild hepatic steatosis. Gallbladder: Unremarkable. Biliary ducts: Intrahepatic bile ducts are non-dilated. Extrahepatic bile duct caliber measures 6.5 mm. Normal is 6-7 mm or less in diameter, or 10 mm or less post-cholecystectomy. Pancreas: Visualized portions of the pancreas are sonographically normal. Right kidney: Normal in size and echotexture. Right kidney measures 11.6 cm long. No hydronephrosis or nephrolithiasis. No solid masses. No complex renal cystic lesions which require follow-up. Miscellaneous: No free abdominal fluid. IMPRESSION: Diffusely coarsened and echogenic hepatic parenchyma consistent with hepatic steatosis. Findings may explain patient's elevated liver function tests. Otherwise, no acute sonographic abnormalities identi fied. Reviewed by: Raman Dai MD on 06/23/2023 11:25 AM PDT Approved by: Raman Dai MD on 06/23/2023 11:25 AM PDT Station ID: [id number]
--- NOTE | 2023-06-23 12:46 | CT Report ---
PROCEDURE: ANGIO CHEST W/WO INDICATIONS: dyspnea, tachycardia, elev d-dimer CONTRAST: 80ml Omni 300 TECHNIQUE: After the administration of intravenous contrast, 2 mm axial images were acquired from the pulmonary apices to the posterior costophrenic angles during the arterial phase. In addition, 1 mm lung kernel and 5 mm soft tissue kernel reconstructions were performed. 3-dimensional coronal oblique maximum int ensity projection (MIP) reformats, 8 mm axial MIP, and 5 mm coronal and sagittal MPR reformats were t hen performed through the thorax. For radiation dose reduction, the following was used: automated exp osure control, adjustment of mA and/or kV according to patient size. COMPARISON: None FINDINGS: Image quality: Excellent. Large vessels: No filling defects within the opacified pulmonary arteries, accounting for motion and contrast timing. No evidence of acute aortic syndrome or aortic aneurysm. Lungs and pleura: No consolidation. No pleural effusions. No pneumothorax. A few small pulmonary nod ules. For instance, the 2 mm solid nodule in the lateral right lower lobe (series 4, image 164), and the 2 mm solid nodule in the lateral right lower lobe (series 4, image 152). Mediastinum: Heart size is normal. No pericardial effusion. No large vessel abnormality. No mediastin al adenopathy by size criteria. Chest wall and lower neck: Thyroid is unremarkable. No axillary or supraclavicular adenopathy by size . Subcutaneous nodule in the upper left chest wall (series 3, image 27). Bones: No aggressive osseous abnormality. Upper Abdomen: Marked hepatic steatosis. IMPRESSION: No pulmonary embolus. Subcutaneous days nodule in the upper left chest wall measuring 1.1 cm. This probably represents a se baceous cyst. Recommend direct visualization to exclude melanoma. Marked hepatic steatosis. A few solid pulmonary micronodules. Consider 12 month follow-up if this patient is at high risk for d eveloping lung cancer, per Fleischner Society guidelines. Reviewed by: Pato Ashton on 06/23/2023 12:44 PM PDT Approved by: Pato Ashton on 06/23/2023 12:44 PM PDT Station ID: [id number]
[2023-06-23 12:58] VITALS: BP 128/81
[2023-06-23] MEDS ORDERED: iohexoL-300 100 ML VIAL IVP ONE (15:31)
== END 2023-06-23 13:22 | disposition home or self-care (01) ==
LOC: ED 06:49
DX: F41.9 Anxiety disorder, unspecified (principal); E86.0 Dehydration; K70.9 Alcoholic liver disease, unspecified; R06.00 Dyspnea, unspecified; R79.1 Abnormal coagulation profile
CPT/HCPCS: 36415; 71045; 71275; 76705; 80053; 80306; 83690; 83880; 84443; 84484; 85025; 85379; 93005; 96361; 96374; 99284; A9270; J8499; Q9967

== ENCOUNTER 2023-08-21 08:38 | Outpatient (CLI) | payer OTHER | END 2023-08-21 08:39 | disposition short-term general hospital (02) | LOC: EMS 08:38 | DX: I21.9 Acute myocardial infarction, unspecified (principal); S69.91XA Unspecified injury of right wrist, hand and finger(s), initial encounter; R55 Syncope and collapse; R42 Dizziness and giddiness; I95.9 Hypotension, unspecified; W10.8XXA Fall (on) (from) other stairs and steps, initial encounter; Y92.008 Other place in unspecified non-institutional (private) residence as the place of occurrence of the external cause | CPT/HCPCS: A0425; A0427 ==

== ENCOUNTER 2023-10-02 08:20 | Outpatient (CLI) | payer OTHER | END 2023-10-02 08:21 | disposition critical access hospital (66) | LOC: EMS 08:20 | DX: S01.112A Laceration without foreign body of left eyelid and periocular area, initial encounter (principal); R46.4 Slowness and poor responsiveness; W18.30XA Fall on same level, unspecified, initial encounter; Y92.008 Other place in unspecified non-institutional (private) residence as the place of occurrence of the external cause; R42 Dizziness and giddiness; R11.2 Nausea with vomiting, unspecified; R00.0 Tachycardia, unspecified; R10.817 Generalized abdominal tenderness | CPT/HCPCS: A0425; A0429 ==

== ENCOUNTER 2023-10-02 08:53 | Inpatient (IN) | payer OTHER ==
[2023-10-02] MEDS ORDERED: SODIUM CHLORIDE 0.9% 1,000 ML IV STA ×2 (09:07→10:13)
[2023-10-02] MEDS ORDERED: ONDANSETRON 4 MG/2 ML VIAL IVP STA (09:07)
[2023-10-02 09:19] LABS: BASOPHILS % (AUTO) 0.4 %; HCT - HEMATOCRIT 45.4 % (37.0-47.0); HGB - HEMOGLOBIN 15.1 g/dL (12.0-16.0); LYMPHOCYTES # (AUTO) 0.2 10^3/uL (1.5-3.5); LYMPHOCYTES % (AUTO) 4.3 %; MEAN CORPUSCULAR HGB CONC 33.3 g/dL (32.0-36.0); MEAN CORPUSCULAR VOLUME 96.2 fL (81.0-99.0); MEAN PLATELET VOLUME 9.9 fL (7.9-10.8); MONOCYTES # (AUTO) 0.4 10^3/uL (0.0-1.0); MONOCYTES % (AUTO) 8.4 %; NEUTROPHILS # (AUTO) 4.1 10^3/uL (1.5-6.6); NEUTROPHILS % (AUTO) 86.9 %; PLT - PLATELET COUNT 332 10^3/uL (130-450); RED BLOOD COUNT 4.72 10^6/uL (4.20-5.40); RED CELL DISTRIBUTION WIDTH 11.9 % (12.0-15.0); WHITE BLOOD COUNT 4.7 x10^3/uL (4.8-10.8)
[2023-10-02 09:24] LABS: ALBUMIN 3.1 g/dL (3.2-5.5); ALBUMIN/GLOBULIN RATIO 1.1 (1.0-2.2); ALKALINE PHOSPHATASE 47 IU/L (42-121); ALT ALANINE AMINOTRANSFERASE 19 IU/L (10-60); AST ASPARTATE AMINOTRANSFERASE 34 IU/L (10-42); BUN - BLOOD UREA NITROGEN 47 mg/dL (6-20); CALCIUM 9.2 mg/dL (8.5-10.3); CARBON DIOXIDE - CO2 30 mmol/L (21-32); CHLORIDE 92 mmol/L (101-111); CREATININE 1.1 mg/dL (0.6-1.3); ETOH - ETHANOL < 10.0 mg/dL; GFR - MDRD 50 (>89); GLUCOSE 234 mg/dL (74-104); POTASSIUM 3.4 mmol/L (3.5-4.5); SODIUM 134 mmol/L (135-145)
[2023-10-02 09:36] LABS: LIPASE < 10 U/L (11-82)
[2023-10-02 09:45] LABS: RBC MORPHOLOGY (MULTIPLE) 1+ ANISOCYTOSIS (NORMAL); SLIDE REVIEW? Indicated
[2023-10-02] MEDS ORDERED: iohexoL-300 100 ML VIAL IVP ONE (09:57)
--- NOTE | 2023-10-02 10:11 | CT Report ---
PROCEDURE: ABDOMEN/PELVIS W INDICATIONS: R abd pain CONTRAST: 100ml omni 300 TECHNIQUE: After the administration of intravenous contrast, 5 mm thick sections acquired from the diaphragms to the symphysis. 5 mm thick coronal and sagittal reformats were acquired. For radiation dose reducti on, the following was used: automated exposure control, adjustment of mA and/or kV according to mandy ent size. COMPARISON: None FINDINGS: Image quality: Excellent. Lung bases and heart: Unremarkable. Liver: No solid mass. Gallbladder and biliary tree: No radiopaque stones or wall thickening. No biliary dilation. Spleen: No splenomegaly. Pancreas: No pancreatic ductal dilation. Adrenals: No adrenal nodule. Kidneys and ureters: No hydronephrosis. No renal cystic lesion which requires follow up. No solid mas s. Bowel and peritoneum: Diffuse bowel wall thickening, with wall striation. There is moderate volume fr ee air and free fluid, and peritoneal thickening. The appendix is not identified, but would be in the left lower quadrant (series 5, image 17). Lymph nodes: No central or retroperitoneal adenopathy. Vessels: No infrarenal aortic aneurysm. PELVIS Reproductive organs: Unremarkable. Bladder: No abnormal wall thickening, accounting for underdistension. Pelvic lymph nodes: No pelvic adenopathy by size criteria. Bones: No aggressive osseous abnormality. Other: No significant ventral or inguinal hernia. IMPRESSION: Moderate volume free air, free fluid and peritonitis. No source of bowel perforation is present, but is highly suspected. The appendix is is not identified, but would be in the left lower quadrant. No e vidence of diverticulitis. Severe small bowel edema, most likely reactive. Patent SMA. Above discussed with Stephanie Pinedo MD at the time of dictation. Reviewed by: Pato Ashton on 10/02/2023 9:10 AM [facility] Approved by: Pato Ashton on 10/02/2023 9:10 AM [facility] Station ID: [id number]
--- NOTE | 2023-10-02 10:13 | CT Report ---
PROCEDURE: CERVICAL SPINE WO INDICATIONS: fall head injury/LOC TECHNIQUE: Noncontrast 3 mm thick sections acquired from the skull base to the T4 level. Sagittal and coronal r eformats were then constructed. For radiation dose reduction, the following was used: automated exp osure control, adjustment of mA and/or kV according to patient size. COMPARISON: None. FINDINGS: Image quality: Excellent. Bones: No fractures or dislocations. Visualized superior ribs are intact. Soft tissues: Prevertebral soft tissues are normal in thickness. No paravertebral hematomas. No ap ical pneumothoraces. IMPRESSION: No acute, displaced fracture or traumatic subluxation. Reviewed by: Pato Ashton on 10/02/2023 9:12 AM [facility] Approved by: Pato Ashton on 10/02/2023 9:12 AM [facility] Station ID: [id number]
--- NOTE | 2023-10-02 10:16 | CT Report ---
PROCEDURE: HEAD WO INDICATIONS: fall/head inj/LOC TECHNIQUE: Noncontrast 4.5 mm thick angled axial sections acquired from the foramen magnum to the vertex. For r adiation dose reduction, the following was used: automated exposure control, adjustment of mA and/or kV according to patient size. COMPARISON: None. FINDINGS: Image quality: Excellent. CSF spaces: Basal cisterns are patent. No extra-axial fluid collections. Ventricles are normal in size and shape. Brain: No midline shift. No intracranial masses or hemorrhage. [place]-white matter interface is norm al. Skull and face: Calvarium and visualized facial bones are intact, without suspicious lesions. Sinuses: Visualized sinuses and mastoids are clear. IMPRESSION: No acute intracranial pathology. Reviewed by: Pato Ashton on 10/02/2023 9:15 AM [facility] Approved by: Pato Ashton on 10/02/2023 9:15 AM [facility] Station ID: [id number]
[2023-10-02] MEDS ORDERED: PIPERACILLIN/TAZOBACTAM 3.375 GM in SODIUM CHLORIDE 0.9% MINIBAG 100 ML IV STA (10:24)
--- NOTE | 2023-10-02 10:24 | ED Physician Documentation ---
History of Present Illness - Stated complaint Stated Complaint: GLF - Chief complaint Chief Complaint: Trauma Hd/Nk - History obtained from History obtained from: Patient - Additonal information Additional information: Patient is brought to the emergency department by EMS for chief complaint of syncopal episode dizziness today, As well as abdominal pain for 4 days. The patient states she saw her primary doctor on the first did the abdominal pain and nothing specific was identified as a cause. The patient states the pain has worsened and she just has not had any appetite. She has been nauseated but has not been able to vomit. No fevers or chills. She states that she has not had much stool output. Medics reports she told them she was taking laxatives but she tells me that she has not. Patient has a history of alcoholism but states that she is not currently drinking. No tremors. She states that she had just gotten up from being down and was walking to the bathroom when she suddenly became lightheaded. She remembers falling to the floor at which time she bumped her head and then believes she lost consciousness right around that same time. She is not on any anticoagulants. No other complaints at this time. PD PAST MEDICAL HISTORY - Past Medical History Past Medical History: Yes Cardiovascular: Hypertension Psych: Depression Musculoskeletal: Osteoarthritis - Past Surgical History Past Surgical History: Yes Ortho: Knee replacement HEENT: Tonsil/Adenoidectomy - Present Medications Home Medications: Ambulatory Orders Medication Instructions Recorded Confirmed ALPRAZolam [Alprazolam] 0.5 mg PO DAILY 06/23/23 06/23/23 Citalopram Hydrobromide [Celexa] 20 mg PO DAILY 06/23/23 06/23/23 Ibuprofen [Motrin] 1 tablet PO Q8H PRN 06/23/23 06/23/23 Losartan Potassium 25 mg PO DAILY 06/23/23 06/23/23 Ondansetron Odt [Zofran] 4 mg TL Q6H PRN #10 tablet 06/23/23 amLODIPine [Norvasc] 5 mg PO DAILY 06/23/23 06/23/23 glucosamine HCL [Glucosamine HCl] 1,500 mg PO DAILY 06/23/23 06/23/23 hydroCHLOROthiazide 25 mg PO DAILY 06/23/23 06/23/23 [Hydrochlorothiazide] - Allergies Allergies/Adverse Reactions: Allergies Allergy/AdvReac Type Severity Reaction Status Date / Time No Known Drug Allergies Allergy Verified 10/02/23 09:08 - Social History Does the pt smoke?: No Smoking Status: Never smoker Does the pt drink ETOH?: Yes Does the pt have substance abuse?: No - Immunizations Immunizations are current?: Yes - POLST Patient has POLST: No PD ED PE NORMAL - Vitals Vital signs reviewed: Yes - General General: No acute distress, Well developed/nourished, Other (Awake, slow to answer, but answers seem appropriate.) - HEENT HEENT: Atraumatic, PERRL, EOMI, Moist mucous membranes - Neck Neck: Supple, no meningeal sign, No bony TTP, Other (C-collar in place.) - Cardiac Cardiac: RRR, No murmur - Respiratory Respiratory: No respiratory distress, Clear bilaterally - Abdomen Abdomen: Soft, Non distended, Other (Diffuse exquisite tenderness with voluntary guarding. 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, Normal speech, Other (Awake, grossly intact.) - Psych Psych: Normal mood, Normal affect Results - Vitals Vitals: Vital Signs - 24 hr 10/02/23 10/02/23 10/02/23 09:01 10:17 10:33 Temperature 36.0 C L Heart Rate 109 H 104 H 96 Respiratory 32 H 29 H 25 H Rate Blood Pressure 130/94 H 127/78 130/89 H O2 Saturation 95 93 92 10/02/23 11:09 Temperature Heart Rate 109 H Respiratory 16 Rate Blood Pressure 124/82 H O2 Saturation 95 Oxygen O2 Source Room air - Labs Labs: Laboratory Tests 10/02/23 10/02/23 09:00 09:00 WBC 4.7 L RBC 4.72 Hgb 15.1 Hct 45.4 MCV 96.2 MCH 32.0 H MCHC 33.3 RDW 11.9 L Plt Count 332 MPV 9.9 Neut # (Auto) 4.1 Lymph # (Auto) 0.2 L Alcorn # (Auto) 0.4 Eos # (Auto) 0.0 Baso # (Auto) 0.0 Absolute Nucleated RBC 0.00 Nucleated RBC % 0.0 Manual Slide Review Indicated RBC Morph Micro Appear 1+ ANISOCYTOSIS Sodium 134 L Potassium 3.4 L Chloride 92 L Carbon Dioxide 30 Anion Gap 12.0 BUN 47 H Creatinine 1.1 Estimated GFR (MDRD) 50 L Glucose 234 H Calcium 9.2 Total Bilirubin 2.0 H AST 34 ALT 19 Alkaline Phosphatase 47 Total Protein 6.0 L Albumin 3.1 L Globulin 2.9 Albumin/Globulin Ratio 1.1 Lipase < 10 L Ethyl Alcohol < 10.0 - Rads (name of study) Head CT Relevant Findings:: Final report received, See rad report (No acute findings) Cervical spine CT Relevant Findings:: Final report received, See rad report (No acute findings) CT abdomen pelvis With contrast Relevant Findings:: Final report received, See rad report (Diffuse free air with peritonitis. No specific source found. No diverticuli. Appendix not visualized.) PD Medical Decision Making - ED course Complexity details: reviewed old records, reviewed results, re-evaluated patient, considered differential, d/w patient, d/w [facility] consultant ED course: The patient was worked up with laboratory studies including CBC which showed slightly low white blood cell count, ER abdominal panel which was unremarkable, and lactic acid level which was 3.7. She was sent for CT scans of the head, neck, and abdomen pelvis. She was cleared from her c-collar after the cervical spine CT came back negative. Head CT was also negative. The patient was found to have free air and diffuse peritonitis strongly suspicious for perforated viscus. I spoke with Dr. Wilburn who is on-call for surgery and he did come and see the patient in the ED and ultimately took her to the operating room. The patient was advised of the findings and started on Zosyn in the meantime. Departure - Departure Disposition: 66 [facility] DC/Xfer Clinical Impression: Perforated abdominal viscus Condition: Serious Forms: PCP List
[2023-10-02] MEDS ORDERED: HYDROmorphone 1 MG/ML CARPUJECT IVP STA (11:28)
--- NOTE | 2023-10-02 11:53 | HISTORY & PHYSICAL EXAMINATION ---
Chief Complaint - Chief Complaint Chief Complaint: abdominal pain History of Present Illness - History Obtained From Records Reviewed: yes History obtained from: pt Exam Limitations: none - History of Present Illness HPI Comment/Other: mid to upper abdominal pain starting 5 days ago. much worse and pain everywhere. fell due to weakness/ illness. states otherwise health had been ok. History - Past Medical History Cardiovascular: reports: Hypertension Psych: reports: Depression Musculoskeletal: reports: Osteoarthritis - Past Surgical History Ortho: reports: Knee replacement HEENT: reports: Tonsil/Adenoidectomy - POLST Patient has POLST: No Meds/Allgy - Home Medications Home Medications: Ambulatory Orders Medication Instructions Recorded Confirmed ALPRAZolam [Alprazolam] 0.5 mg PO DAILY 06/23/23 10/02/23 Citalopram Hydrobromide [Celexa] 20 mg PO DAILY 06/23/23 10/02/23 Ibuprofen [Motrin] 1 tablet PO Q8H PRN 06/23/23 10/02/23 Losartan Potassium 25 mg PO DAILY 06/23/23 10/02/23 Ondansetron Odt [Zofran] 4 mg TL Q6H PRN #10 tablet 06/23/23 10/02/23 amLODIPine [Norvasc] 5 mg PO DAILY 06/23/23 10/02/23 glucosamine HCL [Glucosamine HCl] 1,500 mg PO DAILY 06/23/23 10/02/23 hydroCHLOROthiazide 25 mg PO DAILY 06/23/23 10/02/23 [Hydrochlorothiazide] - Allergies Allergies/Adverse Reactions: Allergies Allergy/AdvReac Type Severity Reaction Status Date / Time No Known Drug Allergies Allergy Verified 10/02/23 09:08 Exam - Vital Signs Reviewed Vital Signs: Yes Vital Signs: Vital Signs x48h Temp Pulse Resp BP Pulse Ox 10/02/23 11:32 106 H 29 H 110/78 93 10/02/23 11:09 109 H 16 124/82 H 95 10/02/23 10:33 96 25 H 130/89 H 92 10/02/23 10:17 104 H 29 H 127/78 93 10/02/23 09:01 36.0 C L 109 H 32 H 130/94 H 95 - Physical Exam General Appearance: positive: Alert, Mild distress Eyes Bilateral: positive: PERRL, EOMI, No scleral icterus Neck: positive: No JVD, Trachea midline Respiratory: positive: No respiratory distress Cardiovascular: positive: Regular rate & rhythm Abdomen: positive: Other (moderate distension. diffuse tenderness with rigid abdomen and peritonitis) Neurologic/Psychiatric: positive: Oriented x3 Conclusion/Plan - Problem List (1) Perforated abdominal viscus Conclusion/Plan: rigid abdomen with diffuse peritonitis. plan x lap, possibe repair ruptured stomach, possible colectomy and colostomy. parq held and consent obtained - Lab Results Fish Bones: 10/02/23 09:00 10/02/23 09:00 - Diagnostic Imaging Results Diagnostic Imaging Results: positive: Read independently (free air and fluid through out her abdomen. diverticulosis present. significant inflammation entire abdomen)
[2023-10-02] MEDS ORDERED: ePHEDrine 50 MG/ML VIAL IVP ONE (11:56)
[2023-10-02] MEDS ORDERED: HYDROmorphone 1 MG/ML CARPUJECT ONE (11:56)
[2023-10-02] MEDS ORDERED: fentaNYL 100 MCG/2 ML VIAL ONE (11:56)
[2023-10-02] MEDS ORDERED: PHENYLEPHRINE HCL 0.5 MG/5 ML AMPULE ONE ×2 (11:56→13:24)
[2023-10-02] MEDS ORDERED: LIDOCAINE-PF 2% 10 ML AMP SUBQ ONE (11:56)
[2023-10-02] MEDS ORDERED: PROPOFOL 200 MG/20 ML VIAL IVP ONE (11:56)
[2023-10-02] MEDS ORDERED: ROCURONIUM 50 MG/5 ML VIAL ONE (11:56)
[2023-10-02] MEDS ORDERED: SUGAMMADEX 200 MG/2 ML VIAL IVP ONE (11:56)
[2023-10-02] MEDS ORDERED: ONDANSETRON 4 MG/2 ML VIAL ONE (11:56)
[2023-10-02] MEDS ORDERED: MIDAZOLAM 2 MG/2 ML VIAL ONE (11:56)
[2023-10-02] MEDS ORDERED: BUPIVACAINE 0.25% PF 10 ML VIAL ONE (12:04)
[2023-10-02] MEDS ORDERED: BUPIVACAINE 0.25% PF 30 ML VIAL ONE (12:04)
[2023-10-02] MEDS ORDERED: ePHEDrine 50 MG/ML VIAL IVP PRN (12:24)
[2023-10-02] MEDS ORDERED: ONDANSETRON 4 MG/2 ML VIAL IVP PRN (12:24)
[2023-10-02] MEDS ORDERED: fentaNYL 100 MCG/2 ML VIAL IVP PRN (12:24)
[2023-10-02] MEDS ORDERED: NALOXONE 0.4 MG/ML VIAL IVP PRN (12:24)
[2023-10-02] MEDS ORDERED: HYDROmorphone 0.5 MG/0.5 ML SYRINGE IVP PRN (12:24)
[2023-10-02] MEDS ORDERED: ATROPINE ABBOJECT 1 MG/10 ML SYRINGE IVP PRN (12:24)
[2023-10-02] MEDS ORDERED: MORPHINE 2 MG/ML CARPUJECT IVP PRN (12:24)
--- NOTE | 2023-10-02 12:24 | ANESTHESIA ---
Pre-Anesthesia VS, & Labs - Diagnosis free air, perforation - Procedure exploratory laparotomy Vital Signs: Temp Pulse Resp BP Pulse Ox O2 Flow Rate 36.0 C L 102 H 20 101/77 97 10/02/23 09:01 10/02/23 12:00 10/02/23 12:00 10/02/23 12:00 10/02/23 12:00 Height: 5 ft 6 in Weight (kg): 68.855 kg Body Mass Index: 24.5 BMI Classification: Normal - NPO >8 hours - Is Patient ?: No - Lab Results Current Lab Results: Laboratory Tests 10/02/23 10:46: Lactic Acid 3.2 H* 10/02/23 09:00: Sodium 134 L, Potassium 3.4 L, Chloride 92 L, Carbon Dioxide 30, Anion Gap 12.0, BUN 47 H, Creatinine 1.1, Estimated GFR (MDRD) 50 L, Glucose 234 H, Calcium 9.2, Total Bilirubin 2.0 H, AST 34, ALT 19, Alkaline Phosphatase 47, Total Protein 6.0 L, Albumin 3.1 L, Globulin 2.9, Albumin/Globulin Ratio 1.1, Lipase < 10 L, Ethyl Alcohol < 10.0 10/02/23 09:00: WBC 4.7 L, RBC 4.72, Hgb 15.1, Hct 45.4, MCV 96.2, MCH 32.0 H, MCHC 33.3, RDW 11.9 L, Plt Count 332, MPV 9.9, Neut # (Auto) 4.1, Lymph # (Auto) 0.2 L, Phillips # (Auto) 0.4, Eos # (Auto) 0.0, Baso # (Auto) 0.0, Absolute Nucleated RBC 0.00, Nucleated RBC % 0.0, Manual Slide Review Indicated, RBC Morph Micro Appear 1+ ANISOCYTOSIS Fish Bones: 10/02/23 09:00 10/02/23 09:00 Home Medications and Allergies ALPRAZolam [Alprazolam] 0.5 mg PO DAILY 06/23/23 Citalopram Hydrobromide [Celexa] 20 mg PO DAILY 06/23/23 Ibuprofen [Motrin] 1 tablet PO Q8H PRN 06/23/23 Losartan Potassium 25 mg PO DAILY 06/23/23 amLODIPine [Norvasc] 5 mg PO DAILY 06/23/23 glucosamine HCL [Glucosamine HCl] 1,500 mg PO DAILY 06/23/23 hydroCHLOROthiazide [Hydrochlorothiazide] 25 mg PO DAILY 06/23/23 Allergies/Adverse Reactions: Allergies Allergy/AdvReac Type Severity Reaction Status Date / Time No Known Drug Allergies Allergy Verified 10/02/23 09:08 Anes History & Medical History - Anesthetic History Anesthesia Complications: reports: No previous complications Family history of Anesthesia Complications: Denies Family history of Malignant Hyperthermia: Denies - Medical History Cardiovascular: reports: Hypertension Pulmonary: reports: None Gastrointestinal: reports: Other Urinary: reports: None Neuro: reports: None Musculoskeletal: reports: Osteoarthritis Endocrine/Autoimmune: reports: None Smoking Status: Never smoker Psychosocial: reports: Alcohol, Cannabis History of Cancer?: No - Surgical History Eyes Ears Nose Throat (EENT): reports: Tonsil/Adenoidectomy Orthopedic: reports: Knee replacement Exam General: Alert, Oriented x3, Cooperative Dental: Poor dentition Mouth Openin Fingerbreadth Neck Mobility: Normal Mallampati classification: II Thyromental Distance: 4-6 cm Respiratory: Lungs clear Cardiovascular: Regular rate Plan Anesthesia Type: General Consent for Procedure(s) Verified and Reviewed: Yes Code Status: Attempt Resuscitation ASA classification: 3-Severe systemic disease Is this case an emergency?: Yes
[2023-10-02] MEDS ORDERED: LACTATED RINGERS 1,000 ML IV SCH (13:00)
[2023-10-02] MEDS ORDERED: BUPIVACAINE 0.25% PF 30 ML VIAL SUBQ ONE (13:21)
[2023-10-02] MEDS ORDERED: ACETAMINOPHEN 1,000 MG/100 ML 1,000 MG/100 ML BAG IV ONE (13:47)
[2023-10-02] MEDS ORDERED: LACTATED RINGERS 1,000 ML IV ONE ×2 (15:14→15:22)
[2023-10-02] MEDS ORDERED: SODIUM CHLORIDE FLUSH 0.9% 10 ML SYRINGE IVP PRN (15:19)
--- NOTE | 2023-10-02 15:39 | OPERATIVE REPORT ---
Operative Report - General Admit Date: 10/02/23 Procedure Date: 10/02/23 Planned Procedure: ex lap for perforated viscous Pre-Op Diagnosis: perforated viscous with rigid abdomen and diffuse peritonitis Procedure Performed: ex lap, sigmoid colectomy, colostomy Post Op Diagnosis: perforated diverticulitis with diffuse soilage abdomen - Procedure Note Primary Surgeon: ayse campbell Anesthesia Technique: General ET tube, Local Pathology: sigmoid colon Estimated Blood Loss (mL): 5 Drain/Tube Type: Other (none) Indications: rigid abdomen with diffuse peritonitis Findings: as above Complications: none - Other Other Information/Narrative: The patient was properly identified brought to the operating room and placed in supine position. Sequential compression devices were placed. General endotracheal anesthesia was induced. NG tube and Pradhan catheter were placed. She was prepped and draped in a sterile fashion and given preoperative antibiotics. on CT scan she had free fluid and free air throughout her abdomen including in her pelvis and over the dome of her right lobe of her liver. She stated she first developed upper abdominal pain 5 days prior to surgery. A 5 cm incision was made just cephalad of her umbilicus. Exploratory laparotomy was performed. She had significant thin purulent fluid cephalad of her liver. She had stool particles throughout her abdomen. She had significant thick stool in her pelvis. Incision was then extended right lateral of her umbilicus and towards the pelvis. Abdomen is further opened. She had multiple loops of bowel which were adherent to 1 another with pockets of thick stool within the mesentery. The abdomen was thoroughly irrigated. The sigmoid colon was mobilized along the white line of Toldt. She had a segment of sigmoid colon approximately 8 cm which was very hard and had a 4 mm hole. The distal descending colon proximal sigmoid and colon was divided with a linear stapler. Mesentery was taken taken down with clamps and 2-0 Vicryl ties. The mid to distal sigmoid colon was then divided with a TA stapler. 0 Prolene sutures were placed at the ends of the stapled anastomosis. Specimen was removed. The sigmoid colon was further mobilized by the mesentery. Hemostasis was assured. The abdomen was further thoroughly irrigated and inspected and cleaned of loose of feculent debris. She had a considerable amount of exudate throughout her small bowel which was densely adherent to the small bowel and left on her small bowel. A 3 to 4 cm incision was made left lower abdomen over the rectus. Sigmoid colon was brought up for a stoma. Omentum was brought down beneath the incision. Fascia was closed with 2 running #1 PDS sutures. Subcutaneous tissue was irrigated. Stoma was fashioned with interrupted 3-0 Vicryl suture. Stoma was pink and viable. Bag was placed. Skin edges were loosely reapproximated in the umbilical area otherwise left open. Moist gauze was applied to the open wound followed by dry gauze. She tolerated the procedure well was awakened and brought to recovery in good condition.
--- NOTE | 2023-10-02 16:27 | ANESTHESIA POST OP EVALUATION ---
Anesthesia Post Eval - Post Anesthesia Eval Vitals: Last Vital Signs Temp 36.3 C L 10/02/23 16:00 Pulse 105 H 10/02/23 16:10 Resp 11 L 10/02/23 16:10 BP 113/75 10/02/23 16:10 Pulse Ox 98 10/02/23 16:10 O2 Flow Rate CV Function Including HR & BP: Stable Pain Control: Satisfactory Nausea & Vomiting: Negative Mental Status: Baseline Respiratory Status: Airway Patent Hydration Status: Satisfactory Anesthesia Complications: None
[2023-10-02] MEDS: D5.45NS W/20 MEQ KCL 1,000 ML IV SCH (17:10)
[2023-10-02] MEDS: PIPERACILLIN/TAZOBACTAM 3.375 GM in SODIUM CHLORIDE 0.9% MINIBAG 100 ML IV SCH ×2 (17:10→22:08)
[2023-10-02] MEDS: SODIUM CHLORIDE FLUSH 0.9% 10 ML SYRINGE IVP SCH (17:11)
[2023-10-02] MEDS ORDERED: SODIUM CHLORIDE 0.9% 500 ML IV ONE ×2 (18:11→18:15)
[2023-10-02] MEDS: FAMOTIDINE 20 MG TABLET PO SCH (21:57)
[2023-10-03] MEDS: D5.45NS W/20 MEQ KCL 1,000 ML IV SCH ×3 (01:09→17:19)
[2023-10-03] MEDS: SODIUM CHLORIDE FLUSH 0.9% 10 ML SYRINGE IVP SCH ×3 (01:09→16:43)
[2023-10-03] MEDS: PIPERACILLIN/TAZOBACTAM 3.375 GM in SODIUM CHLORIDE 0.9% MINIBAG 100 ML IV SCH ×4 (03:40→21:38)
[2023-10-03] MEDS: ACETAMINOPHEN 325 MG TABLET PO PRN ×4 (04:39→18:29)
--- NOTE | 2023-10-03 06:45 | PROVIDER PROGRESS NOTE ---
Subjective - General Admit Date: 10/02/23 Procedure Date: 10/02/23 Post Op Days: 1 - Other Other Information/Narrative: General Surgery Progress Note Hospital Day # 2 - Perforated sigmoid diverticulitis with peritonitis POD # 1, Left colectomy, colostomy ASSESSMENT: 1) Hemodynamically stable 18 hours after operative source control of her intra- abdominal infection. UOP has been marginally adequate. She is mentating reasonably well. Her abdominal pain is under control. She is thirsty. Ostomy is pink and edematous as expected. 2) Right wrist fracture - splint in place. Will look for out-patient report as this occurred 5 days ago according to patient PLAN: 1) Continue IV Zosyn for 4-7 days 2) May have ice chips 3) Labs this morning 4) Consider adding Ketorolac - will check serum Creatinine first 5) Continue maintenance IV fluids and bolus as required 6) Continue VTEP (Heparin/SCDs) 7) Consider OOB later today 8) Consider removing NGT later today or tomorrow <><><><><> PERTINENT INTERVAL ISSUES: Blood culture initial report: Gm - organisms S: Thirsty, moderated abdominal discomfort. OBJECTIVE: I/O: See below VS: See below EXAMINATION: MENTAL STATUS: AAO; Lethargic but easily awakened. Answers questions approp riately EYES: Pupils equal, round and reactive to light, sclera anicteric, EARS, NOSE, MOUTH, THROAT: Normal hearing, Oral mucous membranes desiccated; NECK: No crepitus, lymphadenopathy, or thyromegaly LUNGS: Clear to auscultation without wheezing; No use of accessory muscles to breathe CARDIOVASCULAR: Heart-NSR; II/ CORINNE; ABD: Soft, non-distended, Incision clean with gauze in open areas of wound. No purulence or cellulitis; LLQ ostomy pink and edematous EXTREMITIES: No clubbing, cyanosis, infections; Brace right wrist SKIN: Anicteric; No rashes, lesions, ulcerations LABS: See below CULTURES: Blood: Gm - organisms IMAGING: None today ANTIMICROBIALS: Zosyn PAIN CONTROL: Dilaudid IV prn, Oxycodone PO prn, Acetaminophen VTEP: Chemical: Heparin, 5,000 units SQ Q 12 hrs Mechanical: SCD Zelalem Frankel MD General Surgery Service Objective - Patient Data Vital Signs: Vital Signs x48h Temp Pulse Resp BP Pulse Ox O2 Flow Rate 10/03/23 06:00 97 19 127/84 H 95 2 10/03/23 05:00 104 H 21 121/85 H 96 2 10/03/23 04:00 106 H 20 120/75 96 2 10/03/23 03:00 97.7 F 110 H 19 120/79 96 2 10/03/23 02:00 105 H 17 115/81 H 98 2 10/03/23 01:00 104 H 16 109/77 96 2 10/03/23 00:00 104 H 14 110/80 97 2 10/02/23 23:00 105 H 13 117/83 H 93 2 Weight: Weight 10/01/23 10/02/23 10/03/23 23:59 23:59 23:59 Weight (kg) 73.5 kg Intake & Output: Intake and Output Totals x24h 10/01/23 10/02/23 10/03/23 23:59 23:59 23:59 Intake Total 2802.083 1167.5 Output Total 362 175 Balance 2440.083 992.5 - Lab Results Lab Results: 10/02/23 09:00 10/02/23 09:00 Other Lab Results: Lab Results x24hrs 10/02/23 10/02/23 10/02/23 Range/Units 20:40 10:46 09:00 WBC (4.8-10.8) x10^3/uL RBC (4.20-5.40) 10^6/uL Hgb (12.0-16.0) g/dL Hct (37.0-47.0) % MCV (81.0-99.0) fL MCH (27.0-31.0) pg MCHC (32.0-36.0) g/dL RDW (12.0-15.0) % Plt Count (130-450) 10^3/uL MPV (7.9-10.8) fL Neut # (Auto) (1.5-6.6) 10^3/uL Lymph # (Auto) (1.5-3.5) 10^3/uL Addison # (Auto) (0.0-1.0) 10^3/uL Eos # (Auto) (0.0-0.7) 10^3/uL Baso # (Auto) (0.0-0.1) 10^3/uL Absolute Nucleated RBC x10^3/uL Nucleated RBC % /100WBC Manual Slide Review RBC Morph Micro Appear (NORMAL) Sodium 134 L (135-145) mmol/L Potassium 3.4 L (3.5-4.5) mmol/L Chloride 92 L (101-111) mmol/L Carbon Dioxide 30 (21-32) mmol/L Anion Gap 12.0 (6-13) BUN 47 H (6-20) mg/dL Creatinine 1.1 (0.6-1.3) mg/dL Estimated GFR (MDRD) 50 L (>89) Glucose 234 H (74-104) mg/dL Lactic Acid 3.2 H* (0.5-2.2) mmol/L Calcium 9.2 (8.5-10.3) mg/dL Total Bilirubin 2.0 H (0.2-1.0) mg/dL AST 34 (10-42) IU/L ALT 19 (10-60) IU/L Alkaline Phosphatase 47 (42-121) IU/L Total Protein 6.0 L (6.4-8.9) g/dL Albumin 3.1 L (3.2-5.5) g/dL Globulin 2.9 (2.1-4.2) g/dL Albumin/Globulin Ratio 1.1 (1.0-2.2) Lipase < 10 L (11-82) U/L Nasal Screen MRSA (PCR) NEGATIVE (NEGATIVE) Ethyl Alcohol < 10.0 mg/dL 10/02/23 Range/Units 09:00 WBC 4.7 L (4.8-10.8) x10^3/uL RBC 4.72 (4.20-5.40) 10^6/uL Hgb 15.1 (12.0-16.0) g/dL Hct 45.4 (37.0-47.0) % MCV 96.2 (81.0-99.0) fL MCH 32.0 H (27.0-31.0) pg MCHC 33.3 (32.0-36.0) g/dL RDW 11.9 L (12.0-15.0) % Plt Count 332 (130-450) 10^3/uL MPV 9.9 (7.9-10.8) fL Neut # (Auto) 4.1 (1.5-6.6) 10^3/uL Lymph # (Auto) 0.2 L (1.5-3.5) 10^3/uL Addison # (Auto) 0.4 (0.0-1.0) 10^3/uL Eos # (Auto) 0.0 (0.0-0.7) 10^3/uL Baso # (Auto) 0.0 (0.0-0.1) 10^3/uL Absolute Nucleated RBC 0.00 x10^3/uL Nucleated RBC % 0.0 /100WBC Manual Slide Review Indicated RBC Morph Micro Appear 1+ ANISOCYTOSIS (NORMAL) Sodium (135-145) mmol/L Potassium (3.5-4.5) mmol/L Chloride (101-111) mmol/L Carbon Dioxide (21-32) mmol/L Anion Gap (6-13) BUN (6-20) mg/dL Creatinine (0.6-1.3) mg/dL Estimated GFR (MDRD) (>89) Glucose (74-104) mg/dL Lactic Acid (0.5-2.2) mmol/L Calcium (8.5-10.3) mg/dL Total Bilirubin (0.2-1.0) mg/dL AST (10-42) IU/L ALT (10-60) IU/L Alkaline Phosphatase (42-121) IU/L Total Protein (6.4-8.9) g/dL Albumin (3.2-5.5) g/dL Globulin (2.1-4.2) g/dL Albumin/Globulin Ratio (1.0-2.2) Lipase (11-82) U/L Nasal Screen MRSA (PCR) (NEGATIVE) Ethyl Alcohol mg/dL - Current Medications Current Medications: Current Medications Generic Name Dose Route Start Last Admin Trade Name Freq PRN Reason Stop Dose Admin Acetaminophen 650 mg 10/02/23 15:19 10/03/23 04:39 Acetaminophen 325 Mg Tablet PO 650 mg Q4HR PRN Administration Pain 1 to 4, or Fever Famotidine 20 mg 10/02/23 21:00 10/02/23 21:57 Famotidine 20 Mg Tablet PO 20 mg BID SANDRA Administration Potassium Chloride/Dextrose/Sod Cl 1,000 mls @ 125 mls/hr 10/02/23 16:00 10/03/23 01:09 D5.45ns W/20 Meq Kcl IV 125 mls/hr .Q8H SANDRA Administration Piperacillin Sod/Tazobactam 100 mls @ 200 mls/hr 10/02/23 16:00 10/03/23 04:31 Sod 3.375 gm/ Sodium Chloride IV Infused Q6H SANDRA Infusion Sodium Chloride 10 ml 10/02/23 17:00 10/03/23 01:09 Sodium Chloride Flush 0.9% 10 Ml Syringe IVP 10 ml 0100,0900,1700 SANDRA Administration
[2023-10-03 07:24] LABS: CREATININE 1.3 mg/dL (0.6-1.3); POTASSIUM 3.5 mmol/L (3.5-4.5)
[2023-10-03 07:30] LABS: EOSINOPHILS % (AUTO) 0.1 %; HCT - HEMATOCRIT 36.9 % (37.0-47.0); HGB - HEMOGLOBIN 12.1 g/dL (12.0-16.0); LYMPHOCYTES % (AUTO) 3.7 %; MEAN CORPUSCULAR HEMOGLOBIN 32.4 pg (27.0-31.0); MEAN CORPUSCULAR HGB CONC 32.8 g/dL (32.0-36.0); MEAN CORPUSCULAR VOLUME 98.7 fL (81.0-99.0); MEAN PLATELET VOLUME 10.3 fL (7.9-10.8); NEUTROPHILS % (AUTO) 88.6 %; PLT - PLATELET COUNT 297 10^3/uL (130-450); RED BLOOD COUNT 3.74 10^6/uL (4.20-5.40); RED CELL DISTRIBUTION WIDTH 12.5 % (12.0-15.0)
[2023-10-03 07:43] LABS: ABNORMAL LYMPHS % (MANUAL) 0 %
[2023-10-03 08:06] LABS: BAND NEUTROPHILS % (MANUAL) 26 %; LYMPHOCYTES # (MANUAL) 0.3 10^3/uL (1.5-3.5); LYMPHOCYTES % (MANUAL) 3 %; METAMYELOCYTES % (MANUAL) 4 %; MONOCYTES # (MANUAL) 0.8 10^3/uL (0.0-1.0); NEUTROPHILS # (MANUAL) 5.7 10^3/uL (1.5-6.6); RBC MORPHOLOGY (MULTIPLE) 1+ ANISOCYTOSIS (NORMAL); REACTIVE LYMPHS % (MANUAL) 1 %
[2023-10-03 08:07] LABS: DIFFERENTIAL COMMENT MANUAL DIFFERENTIAL; PLATELET ESTIMATE, MANUAL NORMAL (130-450,000) (NORMAL)
[2023-10-03] MEDS: FAMOTIDINE 20 MG TABLET PO SCH ×2 (08:40→19:53)
[2023-10-03] MEDS: CITALOPRAM HYDROBROMIDE 20 MG TABLET PO SCH (08:50)
[2023-10-03] MEDS: HEPARIN 5,000 UNIT/ML VIAL SUBQ SCH ×2 (09:16→20:10)
[2023-10-03] MEDS ORDERED: SODIUM CHLORIDE 0.9% 500 ML IV ONE (14:36)
--- NOTE | 2023-10-03 14:41 | PROVIDER PROGRESS NOTE ---
Progress Note General Surgery Afternoon Progress Note S: Patient is more awake. Pain under good control with Tylenol. O: VSS afeb; Awake and much more alert than this morning; Abdomen is soft; Stoma pink; Lungs clear UOP just above low normal; NGT with 250 ml output since this morning. A: Stable. May benefit from a fluid bolus. Plan: NS bolus (500 ml) over 2 hours Leave NGT in ICU tonight but may be transferred to floor if unit bed is needed. Zelalem Frankel MD General Surgery Service
--- NOTE | 2023-10-03 15:38 | PHARMACY PROGRESS NOTE ---
- Best Possible Medication History Admit Date and Time: 10/02/23 1125 Processed by: Pharmacy Medication History completed: Yes Patient Interview: Completed Secondary Source(s): Insurance records As the person ultimately responsible for medication therapy, providers are able to order a medication from an existing home medication list in [facility] via the "Reconcile Routine" prior to Confirmation of that medication by donor support technician. Such practice is discouraged except when the physician, in their clinical judgment, deems that a medical need exists for a medication without regard to previous use.
[2023-10-03] MEDS: oxyCODONE 5 MG TABLET PO PRN (16:10)
[2023-10-03] MEDS ORDERED: ACETAMINOPHEN 1,000 MG/100 ML 1,000 MG/100 ML BAG IV PRN (19:40)
[2023-10-03] MEDS: HYDROmorphone 0.5 MG/0.5 ML SYRINGE IVP PRN (21:38)
[2023-10-04] MEDS: D5.45NS W/20 MEQ KCL 1,000 ML IV SCH ×3 (01:14→17:19)
[2023-10-04] MEDS: SODIUM CHLORIDE FLUSH 0.9% 10 ML SYRINGE IVP SCH ×3 (02:11→15:37)
[2023-10-04] MEDS: PIPERACILLIN/TAZOBACTAM 3.375 GM in SODIUM CHLORIDE 0.9% MINIBAG 100 ML IV SCH ×4 (04:21→21:24)
[2023-10-04] MEDS: HYDROmorphone 0.5 MG/0.5 ML SYRINGE IVP PRN ×2 (04:21→21:24)
--- NOTE | 2023-10-04 06:50 | PROVIDER PROGRESS NOTE ---
Subjective - General Admit Date: 10/02/23 Procedure Date: 10/02/23 Post Op Days: 2 Procedure Performed: Exploratory laparotomy, sigmoid colectomy, colostomy, washout - Review of Systems Wound/Incisions: positive: Dressing dry and intact - Other Other Information/Narrative: Patient is lethargic and sleepy. According to her family member, this is usual behavior for her following surgery. She does awaken and answer questions and complains of no discomfort. Objective - Patient Data Vital Signs: Vital Signs x48h Temp Pulse Resp BP Pulse Ox O2 Flow Rate 10/04/23 06:00 95 15 109/67 95 2 10/04/23 05:00 96 13 106/61 94 2 10/04/23 04:00 98.6 F 97 15 113/76 95 2 10/04/23 03:00 98 17 106/74 95 2 10/04/23 02:00 92 15 105/67 93 10/04/23 01:00 91 18 97/63 92 10/04/23 00:00 90 12 104/68 93 10/03/23 23:30 2 10/03/23 23:00 92 14 108/70 92 Weight: Weight 10/02/23 10/03/23 10/04/23 23:59 23:59 23:59 Weight (kg) 73.5 kg Intake & Output: Intake and Output Totals x24h 10/02/23 10/03/23 10/04/23 23:59 23:59 23:59 Intake Total 2802.083 4047.5 1089.583 Output Total 362 1550 440 Balance 2440.083 2497.5 649.583 - Lab Results Lab Results: 10/03/23 06:51 10/03/23 06:51 Other Lab Results: Lab Results x24hrs 10/03/23 10/03/23 Range/Units 06:51 06:51 WBC 7.0 (4.8-10.8) x10^3/uL RBC 3.74 L (4.20-5.40) 10^6/uL Hgb 12.1 (12.0-16.0) g/dL Hct 36.9 L (37.0-47.0) % MCV 98.7 (81.0-99.0) fL MCH 32.4 H (27.0-31.0) pg MCHC 32.8 (32.0-36.0) g/dL RDW 12.5 (12.0-15.0) % Plt Count 297 (130-450) 10^3/uL MPV 10.3 (7.9-10.8) fL Neut # (Auto) Not Reportable Lymph # (Auto) Not Reportable [place] # (Auto) Not Reportable Eos # (Auto) Not Reportable Baso # (Auto) Not Reportable Absolute Nucleated RBC Not Reportable Total Counted 100 Band Neuts % (Manual) 26 H (0 - 10) % Reactive Lymphs % (Man) 1 % Abnorm Lymph % (Manual) 0 % Metamyelocytes % 4 H ( - 0) % Nucleated RBC % Not Reportable Neutrophils # (Manual) 5.7 (1.5-6.6) 10^3/uL Lymphocytes # (Manual) 0.3 L (1.5-3.5) 10^3/uL Monocytes # (Manual) 0.8 (0.0-1.0) 10^3/uL Eosinophils # (Manual) 0.0 (0-0.7) 10^3/uL Basophils # (Manual) 0.0 (0-0.1) 10^3/uL Differential Comment MANUAL DIFFERENTIAL Platelet Estimate NORMAL (130-450,000) (NORMAL) RBC Morph Micro Appear 1+ ANISOCYTOSIS (NORMAL) Sodium 137 (135-145) mmol/L Potassium 3.5 (3.5-4.5) mmol/L Chloride 103 (101-111) mmol/L Carbon Dioxide 24 (21-32) mmol/L Anion Gap 10.0 (6-13) BUN 54 H (6-20) mg/dL Creatinine 1.3 (0.6-1.3) mg/dL Estimated GFR (MDRD) 42 L (>89) Glucose 252 H (74-104) mg/dL Calcium 8.0 L (8.5-10.3) mg/dL - Current Medications Current Medications: Current Medications Generic Name Dose Route Start Last Admin Trade Name Freq PRN Reason Stop Dose Admin Acetaminophen 650 mg 10/02/23 15:19 10/03/23 18:29 Acetaminophen 325 Mg Tablet PO 650 mg Q4HR PRN Administration Pain 1 to 4, or Fever Citalopram Hydrobromide 20 mg 10/03/23 09:00 10/03/23 08:50 Citalopram Hydrobromide 20 Mg Tablet PO 20 mg DAILY SANDRA Administration Famotidine 20 mg 10/02/23 21:00 10/03/23 19:53 Famotidine 20 Mg Tablet PO Not Given BID [facility] Heparin Sodium (Porcine) 5,000 unit 10/03/23 09:00 10/03/23 20:10 Heparin 5,000 Unit/Ml Vial SUBQ 5,000 unit BID [facility] Administration Hydromorphone HCl 0.5 mg 10/02/23 15:19 10/04/23 04:21 Hydromorphone 0.5 Mg/0.5 Ml Syringe IVP 0.5 mg Q2H PRN Administration Pain 8 to 10 Potassium Chloride/Dextrose/Sod Cl 1,000 mls @ 125 mls/hr 10/02/23 16:00 10/04/23 01:14 D5.45ns W/20 Meq Kcl IV 125 mls/hr .Q8H SANDRA Administration Piperacillin Sod/Tazobactam 100 mls @ 200 mls/hr 10/02/23 16:00 10/04/23 04:54 Sod 3.375 gm/ Sodium Chloride IV Infused Q6H SANDRA Infusion Oxycodone HCl 5 mg 10/02/23 15:19 10/03/23 16:10 Oxycodone 5 Mg Tablet PO 5 mg Q4HR PRN Administration Pain 5 to 7 Sodium Chloride 10 ml 10/02/23 17:00 10/04/23 02:11 Sodium Chloride Flush 0.9% 10 Ml Syringe IVP 10 ml 0100,0900,1700 [facility] Administration - Physical Exam Wound/Incisions: positive: Dressing dry and intact, No drainage, Other (Colostomy pink and viable. No air or stool in pouch) General Appearance: positive: No acute distress, Lethargic Eyes Bilateral: positive: Normal inspection Respiratory: positive: Chest non-tender, No respiratory distress Cardiovascular: positive: Regular rate & rhythm, Systolic murmur Abdomen: positive: Nml bowel sounds, No distention Skin: positive: Color nml, Warm Extremities: positive: Non-tender, Other (Right wrist brace) ABX Reporting Has patient been on IV antibiotics over the past 48 hours?: Yes Impression/Plan - Problem List Problem List: Assessment: 1) S/P laparotomy for intra-abdominal infection due to perforated diverticulitis. UOP has improved. She pulled out her NGT last night and has tolerated sips without gastric drainage. She remains somewhat lethargic. Her tachycardia has improved. 2) Right wrist fracture Plan: 1) Oral meds for pain control; May also have sips and chips 2) PT and SS consult for discharge planning/preparation 3) Transfer to surgical floor 4) Continue IV Zosyn for at least 5 days 5) Labs today 6) OOB in chair today
[2023-10-04 07:29] LABS: BASOPHILS % (AUTO) 0.1 %; EOSINOPHILS % (AUTO) 0.6 %; HCT - HEMATOCRIT 33.7 % (37.0-47.0); HGB - HEMOGLOBIN 10.9 g/dL (12.0-16.0); LYMPHOCYTES % (AUTO) 10.2 %; MEAN CORPUSCULAR HEMOGLOBIN 32.4 pg (27.0-31.0); MEAN CORPUSCULAR HGB CONC 32.3 g/dL (32.0-36.0); MEAN CORPUSCULAR VOLUME 100.3 fL (81.0-99.0); MEAN PLATELET VOLUME 9.8 fL (7.9-10.8); MONOCYTES % (AUTO) 2.1 %; NEUTROPHILS % (AUTO) 86.1 %; PLT - PLATELET COUNT 296 10^3/uL (130-450); RED BLOOD COUNT 3.36 10^6/uL (4.20-5.40); RED CELL DISTRIBUTION WIDTH 12.7 % (12.0-15.0); WHITE BLOOD COUNT 9.1 x10^3/uL (4.8-10.8)
[2023-10-04 07:34] LABS: ABNORMAL LYMPHS % (MANUAL) 0 %
[2023-10-04 07:47] LABS: CALCIUM 8.3 mg/dL (8.5-10.3); CREATININE 0.6 mg/dL (0.6-1.3); POTASSIUM 3.5 mmol/L (3.5-4.5)
[2023-10-04] MEDS: ACETAMINOPHEN 325 MG TABLET PO PRN ×3 (08:07→20:30)
[2023-10-04 08:08] LABS: BAND NEUTROPHILS % (MANUAL) 1 %; EOSINOPHILS # (MANUAL) 0.1 10^3/uL (0-0.7); LYMPHOCYTES # (MANUAL) 0.9 10^3/uL (1.5-3.5); LYMPHOCYTES % (MANUAL) 10 %; MONOCYTES # (MANUAL) 0.2 10^3/uL (0.0-1.0); MYELOCYTES % (MANUAL) 1 %; NEUTROPHILS # (MANUAL) 7.8 10^3/uL (1.5-6.6)
[2023-10-04 08:12] LABS: DIFFERENTIAL COMMENT MANUAL DIFFERENTIAL; PLATELET ESTIMATE, MANUAL NORMAL (130-450,000) (NORMAL); PLATELET MORPHOLOGY NORMAL APPEARANCE (NORMAL); RBC MORPHOLOGY (MULTIPLE) NORMAL APPEARANCE (NORMAL)
[2023-10-04] MEDS: HEPARIN 5,000 UNIT/ML VIAL SUBQ SCH ×2 (08:42→20:31)
[2023-10-04] MEDS: FAMOTIDINE 20 MG TABLET PO SCH ×2 (12:40→20:31)
[2023-10-04] MEDS: CITALOPRAM HYDROBROMIDE 20 MG TABLET PO SCH (14:15)
[2023-10-04] MEDS: KETOROLAC 30 MG/ML VIAL IVP SCH ×2 (15:35→21:24)
[2023-10-05] MEDS: SODIUM CHLORIDE FLUSH 0.9% 10 ML SYRINGE IVP SCH ×3 (01:28→16:00)
[2023-10-05] MEDS: D5.45NS W/20 MEQ KCL 1,000 ML IV SCH ×3 (01:28→17:13)
[2023-10-05] MEDS: KETOROLAC 30 MG/ML VIAL IVP SCH ×3 (04:17→16:00)
[2023-10-05] MEDS: PIPERACILLIN/TAZOBACTAM 3.375 GM in SODIUM CHLORIDE 0.9% MINIBAG 100 ML IV SCH ×4 (04:17→21:41)
[2023-10-05] MEDS: ONDANSETRON ODT 4 MG TABLET TL PRN (05:03)
--- NOTE | 2023-10-05 07:04 | PROVIDER PROGRESS NOTE ---
Subjective - General Admit Date: 10/02/23 Procedure Date: 10/02/23 Post Op Days: 3 Procedure Performed: Exploratory laparotomy, sigmoid colectomy, colostomy, washout - Review of Systems Wound/Incisions: positive: Dressing dry and intact, No drainage, Other (Colostomy pink and viable. No air or stool in pouch) - Other Other Information/Narrative: General Surgery Progress Note S: Awakes and will answer questions but is drowsy and a bit disoriented. Asking to go home soon. No complaint of abdominal pain. Tolerating Ice chips. No nausea or vomiting after NGT removal O: VSS, afeb; Lungs clear; Heart NSR; Abd soft, non-distended, ostomy viable now with stool in the pouch Labs: see below A: Progressing well although still disoriented and drowsy, albeit less so every day Plan: 1) Check BMP to make sure her creatinine doesn't rise with the use of ketorolac 2) Start clear liquids but maintain her current IV rate 3) Increase activity 4) Delayed Primary Closure of the midline wound is planned by Dr. Wilburn at the bedside tomorrow Zelalem Frankel MD General Surgery Service Objective - Patient Data Vital Signs: Vital Signs x48h Temp Pulse Pulse Resp BP Pulse Ox O2 Flow Rate 10/05/23 04:13 98.1 F 85 17 127/84 H 95 1 10/05/23 01:00 98.2 F 81 18 130/82 H 92 1 10/04/23 23:45 1 Weight: Weight 10/03/23 10/04/23 10/05/23 23:59 23:59 23:59 Weight (kg) 73.5 kg Intake & Output: Intake and Output Totals x24h 10/03/23 10/04/23 10/05/23 23:59 23:59 23:59 Intake Total 4047.5 3499.583 1100 Output Total 1550 815 425 Balance 2497.5 2684.583 675 - Lab Results Lab Results: 10/04/23 07:07 10/04/23 07:07 Other Lab Results: Lab Results x24hrs 10/04/23 10/04/23 10/04/23 Range/Units 07:07 07:07 07:07 WBC 9.1 (4.8-10.8) x10^3/uL RBC 3.36 L (4.20-5.40) 10^6/uL Hgb 10.9 L (12.0-16.0) g/dL Hct 33.7 L (37.0-47.0) % MCV 100.3 H (81.0-99.0) fL MCH 32.4 H (27.0-31.0) pg MCHC 32.3 (32.0-36.0) g/dL RDW 12.7 (12.0-15.0) % Plt Count 296 (130-450) 10^3/uL MPV 9.8 (7.9-10.8) fL Neut # (Auto) Not Reportable Lymph # (Auto) Not Reportable [place] # (Auto) Not Reportable Eos # (Auto) Not Reportable Baso # (Auto) Not Reportable Absolute Nucleated RBC Not Reportable Total Counted 100 Band Neuts % (Manual) 1 (0 - 10) % Abnorm Lymph % (Manual) 0 % Myelocytes % 1 H ( - 0) % Nucleated RBC % Not Reportable Neutrophils # (Manual) 7.8 H (1.5-6.6) 10^3/uL Lymphocytes # (Manual) 0.9 L (1.5-3.5) 10^3/uL Monocytes # (Manual) 0.2 (0.0-1.0) 10^3/uL Eosinophils # (Manual) 0.1 (0-0.7) 10^3/uL Basophils # (Manual) 0.0 (0-0.1) 10^3/uL Differential Comment MANUAL DIFFERENTIAL Platelet Estimate NORMAL (130-450,000) (NORMAL) Platelet Morphology NORMAL APPEARANCE (NORMAL) RBC Morph Micro Appear NORMAL APPEARANCE (NORMAL) Sodium 138 (135-145) mmol/L Potassium 3.5 (3.5-4.5) mmol/L Chloride 106 (101-111) mmol/L Carbon Dioxide 27 (21-32) mmol/L Anion Gap 5.0 L (6-13) BUN 34 H (6-20) mg/dL Creatinine 0.6 (0.6-1.3) mg/dL Estimated GFR (MDRD) 101 (>89) Glucose 139 H (74-104) mg/dL Lactic Acid 1.4 (0.5-2.2) mmol/L Calcium 8.3 L (8.5-10.3) mg/dL - Current Medications Current Medications: Current Medications Generic Name Dose Route Start Last Admin Trade Name Freq PRN Reason Stop Dose Admin Acetaminophen 650 mg 10/02/23 15:19 10/04/23 20:30 Acetaminophen 325 Mg Tablet PO 650 mg Q4HR PRN Administration Pain 1 to 4, or Fever Citalopram Hydrobromide 20 mg 10/03/23 09:00 10/04/23 14:15 Citalopram Hydrobromide 20 Mg Tablet PO 20 mg DAILY SANDRA Administration Famotidine 20 mg 10/02/23 21:00 10/04/23 20:31 Famotidine 20 Mg Tablet PO 20 mg BID SANDRA Administration Heparin Sodium (Porcine) 5,000 unit 10/03/23 09:00 10/04/23 20:31 Heparin 5,000 Unit/Ml Vial SUBQ 5,000 unit BID SANDRA Administration Hydromorphone HCl 0.5 mg 10/02/23 15:19 10/04/23 21:24 Hydromorphone 0.5 Mg/0.5 Ml Syringe IVP 0.5 mg Q2H PRN Administration Pain 8 to 10 Potassium Chloride/Dextrose/Sod Cl 1,000 mls @ 125 mls/hr 10/02/23 16:00 10/05/23 01:28 D5.45ns W/20 Meq Kcl IV 125 mls/hr .Q8H SANDRA Administration Piperacillin Sod/Tazobactam 100 mls @ 200 mls/hr 10/02/23 16:00 10/05/23 04:58 Sod 3.375 gm/ Sodium Chloride IV Infused Q6H SANDRA Infusion Ketorolac Tromethamine 30 mg 10/04/23 16:00 10/05/23 04:17 Ketorolac 30 Mg/Ml Vial IVP 10/05/23 16:01 30 mg Q6H SANDRA Administration Ondansetron HCl 4 mg 10/02/23 15:19 10/05/23 05:03 Ondansetron Odt 4 Mg Tablet TL 4 mg Q6HR PRN Administration Nausea / Vomiting Oxycodone HCl 5 mg 10/02/23 15:19 10/03/23 16:10 Oxycodone 5 Mg Tablet PO 5 mg Q4HR PRN Administration Pain 5 to 7 Sodium Chloride 10 ml 10/02/23 15:19 10/05/23 04:17 Sodium Chloride Flush 0.9% 10 Ml Syringe IVP 10 ml PRN PRN Administration NEEDED PER PROVIDER ORDERS Sodium Chloride 10 ml 10/02/23 17:00 10/05/23 01:28 Sodium Chloride Flush 0.9% 10 Ml Syringe IVP 10 ml 0100,0900,1700 SANDRA Administration
[2023-10-05 07:32] LABS: CALCIUM 8.5 mg/dL (8.5-10.3); CREATININE 0.5 mg/dL (0.6-1.3); POTASSIUM 3.7 mmol/L (3.5-4.5)
[2023-10-05] MEDS: FAMOTIDINE 20 MG TABLET PO SCH ×2 (09:26→21:41)
[2023-10-05] MEDS: oxyCODONE 5 MG TABLET PO PRN (09:26)
[2023-10-05] MEDS: CITALOPRAM HYDROBROMIDE 20 MG TABLET PO SCH (09:26)
[2023-10-05] MEDS: HEPARIN 5,000 UNIT/ML VIAL SUBQ SCH ×2 (09:59→21:48)
[2023-10-05] MEDS: HYDROmorphone 0.5 MG/0.5 ML SYRINGE IVP PRN (17:22)
[2023-10-06] MEDS: D5.45NS W/20 MEQ KCL 1,000 ML IV SCH (00:33)
[2023-10-06] MEDS: SODIUM CHLORIDE FLUSH 0.9% 10 ML SYRINGE IVP SCH ×4 (00:33→15:02)
[2023-10-06] MEDS: ACETAMINOPHEN 325 MG TABLET PO PRN (00:39)
[2023-10-06] MEDS: PIPERACILLIN/TAZOBACTAM 3.375 GM in SODIUM CHLORIDE 0.9% MINIBAG 100 ML IV SCH ×4 (03:51→22:28)
[2023-10-06] MEDS ORDERED: SODIUM CHLORIDE 0.9% 500 ML IV ONE ×2 (06:15→07:03)
--- NOTE | 2023-10-06 07:11 | PROVIDER PROGRESS NOTE ---
Progress Note General Surgery Progress Note S: Asked to evaluate Mrs Swann by the nursing staff because she was found to be SOB this morning. There was a small bile stain on her clothing and when her oral pharynx was aspirated, some bilios fluid was suctioned. A ENVIRONMENTAL MONITORING SPECIALIST event occurred and she was placed on Bipap, a bolus of IV fluid was started, and a CXR was obtained. I was called to evaluate the patient. O: Her VS are normal and her O2 sat in > 95% on Bipap. She is awake and aware of my presence and is expresses displeasure with the Bipap mask. Her lungs are clear from anterior examination without rhonci or rales. Her cardiac exam is normal. Her abdomen is soft, minimally distended, with bile, stool and air in the ostomy pouch. There is no edema of her lower extremities and no calf discomfort. Labs: Pending CXR: To my exam she has a moderate sized right pleural effusion. Left lung is clear. Review of her net I/O since admission indicates that she is +10,000 ml since admission A: Acute respiratory failure related to volume overload and possible aspiration. At the present time her oxygenation is supported using Bipap but she will need diuresis, volume restriction, and possibly right thoracentesis. PE is a possibility but she has been on VTEP. A CTA might be warranted. Plan: 1) Transfer to ICU 2) Stop IV saline bolus and decrease maintenance IV fluids to 50 ml/hr 3) Continue Bipap support 4) EKG, Troponin, CBC, BMP, 5) Medical Hospitalist Consult Zelalem Frankel MD General Surgery Service
--- NOTE | 2023-10-06 08:02 | XRAY Report ---
PROCEDURE: Chest 1 View X-Ray INDICATIONS: Low SpO2 TECHNIQUE: One view of the chest was acquired. COMPARISON: Chest x-ray, 06/23/2023. FINDINGS: Surgical changes and devices: None. Lungs and pleura: Large right pleural effusion. Right basilar consolidation or atelectasis. Bilatera l perihilar infiltrates. No pneumothorax. Mediastinum: Mediastinal contours appear normal. Heart size is normal. Bones and chest wall: No suspicious bony lesions. Overlying soft tissues appear unremarkable. IMPRESSION: 1. New large right pleural effusion. 2. Bilateral perihilar infiltrates may be secondary to bilateral pneumonia or pulmonary edema. 3. Right basilar consolidation or atelectasis. Findings are concordant with preliminary interpretation provided by [facility]. Reviewed by: James Plaza MD on 10/06/2023 8:01 AM PST Approved by: James Plaza MD on 10/06/2023 8:01 AM PST Station ID: [id number]
[2023-10-06] MEDS: FUROSEMIDE 40 MG/4 ML VIAL IVP SCH (08:16)
[2023-10-06 08:22] LABS: ABG PH 7.37 (7.35-7.45)
[2023-10-06 08:23] LABS: ABG BASE EXCESS 1.6 mmol/L (-2.0-3.0); ABG HCO3 27.5 mmol/L (22.0-26.0); ABG OXYGEN SATURATION 96 % (94-98); ABG PCO2 49 mmHg (34-45); ABG PO2 84 mmHg (80-100); ABG RESPIRATORY RATE 20 b/min; ALLEN TEST POSITIVE
[2023-10-06 08:45] LABS: CALCIUM 8.4 mg/dL (8.5-10.3); CREATININE 0.4 mg/dL (0.6-1.3); POTASSIUM 4.5 mmol/L (3.5-4.5)
[2023-10-06] MEDS: HYDROmorphone 0.5 MG/0.5 ML SYRINGE IVP PRN ×3 (09:01→22:08)
[2023-10-06] MEDS: CITALOPRAM HYDROBROMIDE 20 MG TABLET PO SCH (09:41)
[2023-10-06] MEDS: HEPARIN 5,000 UNIT/ML VIAL SUBQ SCH ×2 (09:45→21:00)
[2023-10-06] MEDS: FAMOTIDINE 20 MG TABLET PO SCH (10:00)
[2023-10-06] MEDS: LORazepam 2 MG/ML VIAL IVP PRN ×3 (10:47→16:16)
[2023-10-06 11:03] LABS: BASOPHILS % (AUTO) 0.1 %; HCT - HEMATOCRIT 36.5 % (37.0-47.0); HGB - HEMOGLOBIN 11.4 g/dL (12.0-16.0); LYMPHOCYTES # (AUTO) 0.7 10^3/uL (1.5-3.5); MEAN CORPUSCULAR HEMOGLOBIN 31.4 pg (27.0-31.0); MEAN CORPUSCULAR HGB CONC 31.2 g/dL (32.0-36.0); MEAN CORPUSCULAR VOLUME 100.6 fL (81.0-99.0); MEAN PLATELET VOLUME 9.8 fL (7.9-10.8); MONOCYTES # (AUTO) 0.4 10^3/uL (0.0-1.0); MONOCYTES % (AUTO) 2.9 %; NEUTROPHILS # (AUTO) 11.2 10^3/uL (1.5-6.6); NEUTROPHILS % (AUTO) 89.7 %; PLT - PLATELET COUNT 352 10^3/uL (130-450); RED BLOOD COUNT 3.63 10^6/uL (4.20-5.40); RED CELL DISTRIBUTION WIDTH 13.1 % (12.0-15.0); WHITE BLOOD COUNT 12.4 x10^3/uL (4.8-10.8)
[2023-10-06 11:06] LABS: SLIDE REVIEW? Indicated
[2023-10-06 11:46] LABS: PLATELET ESTIMATE, MANUAL NORMAL (130-450,000) (NORMAL); PLATELET MORPHOLOGY NORMAL APPEARANCE (NORMAL); RBC MORPHOLOGY (MULTIPLE) 1+ MACROCYTOSIS (NORMAL); WBC MORPHOLOGY (MULTIPLE) NORMAL APPEARANCE (NORMAL)
[2023-10-06] MEDS: FAMOTIDINE 20 MG/2 ML VIAL IVP SCH ×2 (11:52→21:40)
--- NOTE | 2023-10-06 16:16 | CT Report ---
PROCEDURE: CHEST WO INDICATIONS: right lung infiltrate vs effusion? TECHNIQUE: Noncontrast 1mm axial images were acquired from the pulmonary apices to the posterior costophrenic an gles. Axial 5 mm soft tissue kernel reconstructions were performed as well as 8 mm axial MIP and cor onal and sagittal 5 mm reformations. For radiation dose reduction, the following was used: automate d exposure control, adjustment of mA and/or kV according to patient size. COMPARISON: CT angiogram of the chest dated 06/23/2023 FINDINGS: Image quality: Excellent. Lungs and pleura: There is mucous plugging involving the right lower lobe pulmonary bronchus. Referen ce axial image 28 of series 2. There is collapse and probable consolidation as well involving the lef t lower lobe. There is a mild to moderate right pleural effusion. There is a small left pleural effus ion with minimal left basilar atelectasis. There is minimal patchy infiltrate in the anterior medial right upper lobe. Mediastinum: Heart size is normal. No pericardial effusion. No large vessel abnorma lity. No mediastinal adenopathy by size criteria. Chest wall and lower neck: Thyroid is unremarkable. No axillary or supraclavicular adenopathy by size . Bones: No aggressive osseous abnormality. Upper Abdomen: Unremarkable. IMPRESSION: 1. There is mucous plugging in the right lower lobe pulmonary bronchus. 2. There is collapse and probable consolidation involving the right lower lobe. 3. There is collapse of the right middle lobe. 4. Mild to moderate right pleural effusion. 5. Minimal focal anterior right upper lobe pneumonia. 6. Small left pleural effusion with minimal left basilar atelectasis. Reviewed by: Hernandez Garcia MD on 10/06/2023 4:15 PM PST Approved by: Hernandez Garcia MD on 10/06/2023 4:15 PM PST Station ID: [id number]
--- NOTE | 2023-10-06 18:47 | CONSULTATION NOTE ---
Referring Provider Name of Referring Provider:: Dr. Maier Consult Date: 10/06/23 Chief Complaint - Chief Complaint Chief Complaint: Sudden shortness of breath History of Present Illness - Admitted From Admitted From:: Home via EMS - History Obtained From Records Reviewed: [facility] History obtained from: Surgeon and nurse Exam Limitations: BiPAP mask - History of Present Illness HPI Comment/Other: This is a 62-year-old female who has a past medical history of hypertension, depression and osteoarthritis with knee replacement that presented to the emergency room October 02 with mid to upper abdominal pain 5 days prior to admission. Pain became diffuse, generalized, and was so severe that she fell. When she came to the emergency room she was afebrile, tachycardic in the low 100s, tachypneic at 32, blood pressure 130/92 with a pulse ox of 95% on room air. She had a moderately distended abdomen with diffuse tenderness that was also rigid with peritonitis. On CT scan she had free air and fluid throughout her abdomen with diverticulosis present. She was taken to the operating room on October 02 and had a perforated diverticulitis with diffuse spillage of stool into her abdomen. She had an exploratory lap, sigmoid colectomy, and a colostomy now. Postoperatively there is been slow progress. Her bowels been slow to open but she is getting some gas and stool in her ostomy bag now. This started a day ago. She has not had any fevers. She has been consistently tachycardic throughout her stay at 103-112. Blood pressure has been stable in the 120s to 130s. Today she is mildly hypertensive at 151/87, 148/94. In reviewing her fluid balance she has been consistently positive at over 2-1/2 L a day. Weight was 68.8 kg on admission. She is 72.5 kg today. Rapid response was called this morning where she was found very short of breath this morning. She was struggling to breathe and it looks like she had aspirated because her oropharynx had vomitus in it. Bile on her clothing. She was given Lasix, put on BiPAP and transferred to the ICU. A chest x-ray was obtained and shows a right pleural effusion. I ordered a chest CT prior to evaluating her in the chest CT shows mucous plugging in the right lower lobe, collapse and conso lidation of the right lower lobe, collapse of the right middle lobe, mild to moderate pleural effusion, and minimal right upper lobe pneumonia. History - Past Medical History Cardiovascular: reports: Hypertension Respiratory: reports: None Neuro: reports: None Endocrine/Autoimmune: reports: None GI: reports: Other : reports: None Psych: reports: Depression Musculoskeletal: reports: Osteoarthritis Other Past Medical History: Fall 5 days ago per chart review - Past Surgical History Ortho: reports: Knee replacement HEENT: reports: Tonsil/Adenoidectomy - POLST Patient has POLST: No Meds/Allgy - Home Medications Home Medications: Ambulatory Orders Medication Instructions Recorded Confirmed ALPRAZolam [Alprazolam] 0.5 mg PO HS PRN 06/23/23 10/03/23 Citalopram Hydrobromide [Celexa] 20 mg PO DAILY 06/23/23 10/02/23 Ibuprofen [Motrin] 1 tablet PO Q8H PRN 06/23/23 10/02/23 Losartan Potassium 25 mg PO DAILY 06/23/23 10/02/23 amLODIPine [Norvasc] 5 mg PO DAILY 06/23/23 10/02/23 hydroCHLOROthiazide 25 mg PO DAILY 06/23/23 10/02/23 [Hydrochlorothiazide] - Allergies Allergies/Adverse Reactions: Allergies Allergy/AdvReac Type Severity Reaction Status Date / Time No Known Drug Allergies Allergy Verified 10/02/23 09:08 Review of Systems - Constitutional Constitutional: reports: Fatigue, Weakness, Poor appetite - Eyes Eyes: reports: Vision loss (Chronic). denies: Pain, Irritation - Ears, Nose & Throat Ears, Nose & Throat: reports: Hearing loss (Mild with aging and chronic) - Cardiovascular Cariovascular: reports: Decr. exercise tolerance. denies: Irregular heart rate, Palpitations, Chest pain - Respiratory Respiratory: reports: Cough - Gastrointestinal Gastrointestinal: reports: Bloating - Genitourinary Genitourinary: reports: Incontinence - Musculoskeletal Musculoskeletal: reports: Muscle weakness (generalized) - Integumentary Integumentary: denies: Rash - Psychiatric Psychiatric: reports: Depression - Endocrine Endocrine: denies: Polyuria, Polydypsia, Polyphagia - Hematologic/Lymphatic Hematologic/Lymphatic: denies: Anemia, Bruising, Petechiae Exam - Vital Signs Reviewed Vital Signs: Yes Vital Signs: Vital Signs x48h Pulse Pulse Resp BP BP Pulse Ox O2 Flow Rate 10/06/23 18:27 105 H 10/06/23 17:00 100 24 148/94 H 97 10/06/23 16:16 102 H 10/06/23 16:00 100 21 151/87 H 100 10/06/23 15:00 86 13 128/79 97 10/06/23 14:00 87 14 135/83 H 94 10/06/23 13:00 85 19 153/90 H 90 L 10/06/23 12:59 90 10/06/23 12:00 83 11 L 106/71 94 3 10/06/23 11:00 100 21 142/90 H 97 5 - Physical Exam General Appearance: positive: No acute distress, Alert (BiPAP mask is on. Answering questions appropriately.) Eyes Bilateral: positive: PERRL ENT: positive: Pharynx nml Neck: positive: No JVD. negative: Stiff neck Respiratory: positive: Other (Diminished breath sounds right mid side compared to left side of lung. Rhonchi both midlung simental. Diminished at bases. No respiratory distress. Comfortable. Really does not like the BiPAP) Cardiovascular: positive: Regular rate & rhythm Abdomen: positive: Other (Bloated. But ostomy bag has stool and air. No real tenderness.) Skin: positive: Warm, Dry Extremities: positive: Full ROM, Pedal edema Neurologic/Psychiatric: positive: Oriented x3, CN's nml (2-12), Motor nml Conclusion/Plan - Problem List (1) Acute respiratory failure with hypoxia Conclusion/Plan: Combination of factors. She has fluid overload but was well-tolerated up until this morning. Now with mucous plug on CT with complete consolidation because of obstruction.Once transferred to the ICU she is already improved tremendously. Alert, appropriate, no longer struggling to breathe. Plan: Aggressive pulmonary toilet, chest PT, and diuresis. I may need to have intervention with bronchoscopy tomorrow but I do not know if we have the equipment for general surgery to do this. (2) Perforated abdominal viscus Conclusion/Plan: Status post exploratory lap, colectomy, and colostomy. Postop day #4. She will continue to be followed by surgery for her wounds, and any surgical interventions needed She is on Zosyn. Today would be day #5. Will defer to general surgery about when they are going to stop antibiotics. No fevers, white cell count has been low or normal until this morning when she bumped to 12.4. I think the bump in white cell count is due more to the consolidation of the lung with collapsed not abdominal infection. (3) Nutrition deficiency due to insufficient food Conclusion/Plan: She had not eaten for a few days prior to admission. And has not eaten very much since surgery. Yesterday she ate maybe 10%. Plan: PPN. Encourage p.o. intake if possible. (4) Generalized weakness Conclusion/Plan: This unfortunate patient has had a sudden severe illness. Surgery. Now with a colostomy. She has been very, very slow to progress. Reluctant to get up out of bed. I would recommend physical therapy make sure she gets out of bed tomorrow. In respiratory therapy do work with incentive spirometry, positive end expiratory pressure with something like a valve. - Lab Results Lab results reviewed: Yes Fish Bones: 10/06/23 10:57 10/06/23 08:16 - Diagnostic Imaging Results Diagnostic Imaging Results: positive: Final report reviewed - Other Other Results/Comments: EKG was unremarkable for ischemic changes. Troponin was 11.8.
[2023-10-06] MEDS: FAT EMULSION 20% 250 ML IV SCH (19:10)
[2023-10-06] MEDS ORDERED: ACETAMINOPHEN 650 MG SUPP PR PRN (21:26)
[2023-10-06] MEDS: PPN (CLINIMIX E 4.25/5) 2,000 ML with MULTIVITAMIN 10 ML, TRACE ELEMENTS 1 ML IV SCH ×3 (21:38)
[2023-10-06] MEDS: ACETAMINOPHEN 1,000 MG/100 ML 1,000 MG/100 ML BAG IV PRN (22:03)
[2023-10-07] MEDS: SODIUM CHLORIDE FLUSH 0.9% 10 ML SYRINGE IVP SCH ×3 (01:22→19:26)
[2023-10-07] MEDS: PIPERACILLIN/TAZOBACTAM 3.375 GM in SODIUM CHLORIDE 0.9% MINIBAG 100 ML IV SCH ×4 (03:34→22:35)
[2023-10-07 05:40] LABS: CALCIUM, IONIZED 1.08 mmol/L (1.15-1.33); VBG PH 7.5 (7.31-7.41)
[2023-10-07 05:46] LABS: BASOPHILS # (AUTO) 0.1 10^3/uL (0.0-0.1); BASOPHILS % (AUTO) 0.5 %; EOSINOPHILS % (AUTO) 0.3 %; HGB - HEMOGLOBIN 10.2 g/dL (12.0-16.0); LYMPHOCYTES # (AUTO) 0.9 10^3/uL (1.5-3.5); LYMPHOCYTES % (AUTO) 8.3 %; MEAN CORPUSCULAR HEMOGLOBIN 32.4 pg (27.0-31.0); MEAN CORPUSCULAR HGB CONC 31.9 g/dL (32.0-36.0); MEAN CORPUSCULAR VOLUME 101.6 fL (81.0-99.0); MEAN PLATELET VOLUME 10.8 fL (7.9-10.8); MONOCYTES # (AUTO) 0.4 10^3/uL (0.0-1.0); MONOCYTES % (AUTO) 3.7 %; NEUTROPHILS # (AUTO) 9.6 10^3/uL (1.5-6.6); NEUTROPHILS % (AUTO) 85.8 %; PLT - PLATELET COUNT 271 10^3/uL (130-450); RED BLOOD COUNT 3.15 10^6/uL (4.20-5.40); RED CELL DISTRIBUTION WIDTH 13.4 % (12.0-15.0); WHITE BLOOD COUNT 11.2 x10^3/uL (4.8-10.8)
[2023-10-07 06:04] LABS: CALCIUM 8.4 mg/dL (8.5-10.3); CREATININE 0.4 mg/dL (0.6-1.3); MAGNESIUM 1.7 mg/dL (1.7-2.3); PHOSPHORUS 4.3 mg/dL (2.5-5.0); POTASSIUM 3.4 mmol/L (3.5-4.5)
[2023-10-07] MEDS ORDERED: CALCIUM GLUC 1,000MG/50ML-NACL 1,000 MG/50 ML BAG IV ONE ×3 (06:30→20:48)
[2023-10-07] MEDS ORDERED: MAGNESIUM SULFATE 2 GRAM 2 GM/50 ML BAG IV ONE ×2 (06:30→14:08)
[2023-10-07] MEDS: POTASSIUM CHLOR 10 MEQ/100 ML 10 MEQ/100 ML BAG IV SCH ×10 (06:59→23:18)
--- NOTE | 2023-10-07 08:30 | PROVIDER PROGRESS NOTE ---
Progress Note General Surgery Progress Note Kourtney has a mucous plug contributing to her respiratory distress. I have been asked to perform bronchoscopy to eliminate the plug. Kourtney is breathing better today. i discussed the procedure with her and then obtained witnessed verbal consent for the bronchoscopy and associated anesthesia from her brother. The procedure will be performed this morning. Zelalem Frankel MD General Surgery Service
[2023-10-07] MEDS: CITALOPRAM HYDROBROMIDE 20 MG TABLET PO SCH (08:54)
[2023-10-07] MEDS: HEPARIN 5,000 UNIT/ML VIAL SUBQ SCH ×2 (09:10→22:05)
[2023-10-07] MEDS: FAT EMULSION 20% 250 ML IV SCH ×2 (09:15→19:48)
[2023-10-07] MEDS: FAMOTIDINE 20 MG/2 ML VIAL IVP SCH ×2 (09:15→20:35)
[2023-10-07] MEDS: ACETAMINOPHEN 1,000 MG/100 ML 1,000 MG/100 ML BAG IV PRN ×2 (09:25→21:00)
[2023-10-07] MEDS: FUROSEMIDE 40 MG/4 ML VIAL IVP SCH (09:25)
[2023-10-07] MEDS ORDERED: PROPOFOL 200 MG/20 ML VIAL IVP ONE (11:20)
[2023-10-07] MEDS ORDERED: fentaNYL 100 MCG/2 ML VIAL ONE (11:20)
[2023-10-07] MEDS ORDERED: LIDOCAINE-PF 2% 10 ML AMP SUBQ ONE (11:20)
[2023-10-07] MEDS ORDERED: MIDAZOLAM 2 MG/2 ML VIAL ONE (11:20)
[2023-10-07] MEDS ORDERED: ROCURONIUM 50 MG/5 ML VIAL ONE (11:21)
--- NOTE | 2023-10-07 11:36 | ANESTHESIA ---
Pre-Anesthesia VS, & Labs - Diagnosis mucous plug - Procedure brochoscopy with lavage Vital Signs: Temp Pulse Resp BP Pulse Ox O2 Flow Rate 37.9 C 89 20 146/85 H 99 3 10/07/23 08:00 10/07/23 11:00 10/07/23 11:00 10/07/23 11:00 10/07/23 11:00 10/06/23 12:00 Height: 5 ft 6 in Weight (kg): 73.2 kg Body Mass Index: 26.0 BMI Classification: Overweight - NPO >8 hours - Is Patient ?: No - Lab Results Current Lab Results: Laboratory Tests 10/07/23 05:06: VBG pH 7.500 H, Ionized Calcium 1.08 L 10/07/23 05:06: Sodium 142, Potassium 3.4 L, Chloride 106, Carbon Dioxide 31, Anion Gap 5.0 L, BUN 19, Creatinine 0.4 L, Estimated GFR (MDRD) 162, Glucose 137 H, Calcium 8.4 L, Phosphorus 4.3, Magnesium 1.7, Prealbumin 5 L, Triglycerides 218 10/07/23 05:06: WBC 11.2 H, RBC 3.15 L, Hgb 10.2 L, Hct 32.0 L, MCV 101.6 H, MCH 32.4 H, MCHC 31.9 L, RDW 13.4, Plt Count 271, MPV 10.8, Neut # (Auto) 9.6 H, Lymph # (Auto) 0.9 L, Bath # (Auto) 0.4, Eos # (Auto) 0.0, Baso # (Auto) 0.1, Absolute Nucleated RBC 0.00, Nucleated RBC % 0.0 10/06/23 10:57: WBC 12.4 H, RBC 3.63 L, Hgb 11.4 L, Hct 36.5 L, MCV 100.6 H, MCH 31.4 H, MCHC 31.2 L, RDW 13.1, Plt Count 352, MPV 9.8, Neut # (Auto) 11.2 H, Lymph # (Auto) 0.7 L, Bath # (Auto) 0.4, Eos # (Auto) 0.0, Baso # (Auto) 0.0, Absolute Nucleated RBC 0.00, Nucleated RBC % 0.0, Manual Slide Review Indicated, WBC Morphology NORMAL APPEARANCE, Platelet Estimate NORMAL (130-450,000), Platelet Morphology NORMAL APPEARANCE, RBC Morph Micro Appear 1+ MACROCYTOSIS 10/06/23 08:16: Sodium 139, Potassium 4.5, Chloride 110, Carbon Dioxide 23, Anion Gap 6.0, BUN 18, Creatinine 0.4 L, Estimated GFR (MDRD) 162, Glucose 153 H , Calcium 8.4 L 10/06/23 07:20: Bld Gas Analysis Time 0720, Sample Site RIGHT RADIAL, ABG pH 7.37, ABG pCO2 49 H, ABG pO2 84, ABG HCO3 27.5 H, ABG Total CO2 29.0, ABG O2 Saturation 96, ABG Base Excess 1.6, Anuj Test POSITIVE, Respiration Rate 20, O2 Delivery Device BiPAP, FiO2 60.00, EPAP 5, IPAP 14 10/06/23 06:38: Troponin I High Sens 11.8 10/05/23 07:10: Sodium 137, Potassium 3.7, Chloride 106, Carbon Dioxide 27, Anion Gap 4.0 L, BUN 28 H, Creatinine 0.5 L, Estimated GFR (MDRD) 125, Glucose 152 H, Calcium 8.5 10/04/23 07:07: Sodium 138, Potassium 3.5, Chloride 106, Carbon Dioxide 27, Anion Gap 5.0 L, BUN 34 H, Creatinine 0.6, Estimated GFR (MDRD) 101, Glucose 139 H, Calcium 8.3 L 10/04/23 07:07: WBC 9.1, RBC 3.36 L, Hgb 10.9 L, Hct 33.7 L, MCV 100.3 H, MCH 32.4 H, MCHC 32.3, RDW 12.7, Plt Count 296, MPV 9.8, Neut # (Auto) Not Reportable, Lymph # (Auto) Not Reportable, Bath # (Auto) Not Reportable, Eos # (Auto) Not Reportable, Baso # (Auto) Not Reportable, Absolute Nucleated RBC Not Reportable, Total Counted 100, Band Neuts % (Manual) 1, Abnorm Lymph % (Manual) 0, Myelocytes % 1 H, Nucleated RBC % Not Reportable, Neutrophils # (Manual) 7.8 H, Lymphocytes # (Manual) 0.9 L, Monocytes # (Manual) 0.2, Eosinophils # (Manual) 0.1, Basophils # (Manual) 0.0, Differential Comment MANUAL DIFFERENTIAL, Platelet Estimate NORMAL (130-450,000), Platelet Morphology NORMAL APPEARANCE, RBC Morph Micro Appear NORMAL APPEARANCE 10/04/23 07:07: Lactic Acid 1.4 10/03/23 06:51: Sodium 137, Potassium 3.5, Chloride 103, Carbon Dioxide 24, Anion Gap 10.0, BUN 54 H, Creatinine 1.3, Estimated GFR (MDRD) 42 L, Glucose 252 H, Calcium 8.0 L 10/03/23 06:51: WBC 7.0, RBC 3.74 L, Hgb 12.1, Hct 36.9 L, MCV 98.7, MCH 32.4 H, MCHC 32.8, RDW 12.5, Plt Count 297, MPV 10.3, Neut # (Auto) Not Reportable, Lymph # (Auto) Not Reportable, Bath # (Auto) Not Reportable, Eos # (Auto) Not Reportable, Baso # (Auto) Not Reportable, Absolute Nucleated RBC Not Reportable, Total Counted 100, Band Neuts % (Manual) 26 H, Reactive Lymphs % (Man) 1, Abnorm Lymph % (Manual) 0, Metamyelocytes % 4 H, Nucleated RBC % Not Reportable, Neutrophils # (Manual) 5.7, Lymphocytes # (Manual) 0.3 L, Monocytes # (Manual) 0.8, Eosinophils # (Manual) 0.0, Basophils # (Manual) 0.0, Differential Comment MANUAL DIFFERENTIAL, Platelet Estimate NORMAL (130-450,000), RBC Morph Micro Appear 1+ ANISOCYTOSIS 10/02/23 10:46: Lactic Acid 3.2 H* 10/02/23 09:00: Sodium 134 L, Potassium 3.4 L, Chloride 92 L, Carbon Dioxide 30, Anion Gap 12.0, BUN 47 H, Creatinine 1.1, Estimated GFR (MDRD) 50 L, Glucose 234 H, Calcium 9.2, Total Bilirubin 2.0 H, AST 34, ALT 19, Alkaline Phosphatase 47, Total Protein 6.0 L, Albumin 3.1 L, Globulin 2.9, Albumin/Globulin Ratio 1.1, Lipase < 10 L, Ethyl Alcohol < 10.0 10/02/23 09:00: WBC 4.7 L, RBC 4.72, Hgb 15.1, Hct 45.4, MCV 96.2, MCH 32.0 H, MCHC 33.3, RDW 11.9 L, Plt Count 332, MPV 9.9, Neut # (Auto) 4.1, Lymph # (Auto) 0.2 L, Bath # (Auto) 0.4, Eos # (Auto) 0.0, Baso # (Auto) 0.0, Absolute Nucleated RBC 0.00, Nucleated RBC % 0.0, Manual Slide Review Indicated, RBC Morph Micro Appear 1+ ANISOCYTOSIS Lab results reviewed: Yes Fish Bones: 10/07/23 05:06 10/07/23 05:06 Home Medications and Allergies Active Medications Acetaminophen (Acetaminophen 325 Mg Tablet) 650 mg PO Q4HR PRN PRN Reason: Pain 1 to 4, or Fever Last Admin: 10/06/23 00:39 Dose: 650 mg Acetaminophen (Acetaminophen 650 Mg Supp) 650 mg SD Q6HR PRN PRN Reason: Pain or Fever > 38C (100.4F) Citalopram Hydrobromide (Citalopram Hydrobromide 20 Mg Tablet) 20 mg PO DAILY [facility] Last Admin: 10/07/23 08:54 Dose: Not Given Famotidine (Famotidine 20 Mg/2 Ml Vial) 20 mg IVP BID [facility] Last Admin: 10/07/23 09:15 Dose: 20 mg Furosemide (Furosemide 40 Mg/4 Ml Vial) 40 mg IVP DAILY [facility] Last Admin: 10/07/23 09:25 Dose: 40 mg Heparin Sodium (Porcine) (Heparin 5,000 Unit/Ml Vial) 5,000 unit SUBQ BID [facility] Last Admin: 10/07/23 09:10 Dose: 5,000 unit Hydromorphone HCl (Hydromorphone 0.5 Mg/0.5 Ml Syringe) 0.5 mg IVP Q2H PRN PRN Reason: Pain 8 to 10 Last Admin: 10/06/23 22:08 Dose: 0.5 mg Piperacillin Sod/Tazobactam (Sod 3.375 gm/ Sodium Chloride) 100 mls @ 200 mls/hr IV Q6H [facility] Last Infusion: 10/07/23 10:22 Dose: Infused Multivitamins 10 ml/ TRACE ELEMENTS 1 ml/ Amino Acids/Electrolytes/Dextrose 2,011 mls @ 63 mls/hr IV 1900 [facility]; Protocol Last Admin: 10/06/23 21:38 Dose: 63 mls/hr Fat Emulsion Intravenous (Intralipid 20%) 250 mls @ 21 mls/hr IV 1900 [facility] Last Admin: 10/07/23 09:15 Dose: 21 mls/hr Acetaminophen (Acetaminophen) 1,000 mg in 100 mls @ 400 mls/hr IV Q6HR PRN PRN Reason: FEVER > 100.5 F Last Infusion: 10/07/23 09:47 Dose: Infused Lorazepam (Lorazepam 2 Mg/Ml Vial) 0.5 mg IVP Q2H PRN PRN Reason: Anxiety Last Admin: 10/06/23 16:16 Dose: 0.5 mg Ondansetron HCl (Ondansetron Odt 4 Mg Tablet) 4 mg TL Q6HR PRN PRN Reason: Nausea / Vomiting Last Admin: 10/05/23 05:03 Dose: 4 mg Ondansetron HCl (Ondansetron 4 Mg/2 Ml Vial) 4 mg IVP Q6HR PRN PRN Reason: Nausea / Vomiting Oxycodone HCl (Oxycodone 5 Mg Tablet) 5 mg PO Q4HR PRN PRN Reason: Pain 5 to 7 Last Admin: 10/03/23 16:10 Dose: 5 mg Sodium Chloride (Sodium Chloride Flush 0.9% 10 Ml Syringe) 10 ml IVP 0100,0900,1700 [facility] Last Admin: 10/07/23 09:16 Dose: Not Given Sodium Chloride (Sodium Chloride Flush 0.9% 10 Ml Syringe) 10 ml IVP PRN PRN PRN Reason: NEEDED PER PROVIDER ORDERS ALPRAZolam [Alprazolam] 0.5 mg PO HS PRN 06/23/23 Citalopram Hydrobromide [Celexa] 20 mg PO DAILY 06/23/23 Ibuprofen [Motrin] 1 tablet PO Q8H PRN 06/23/23 Losartan Potassium 25 mg PO DAILY 06/23/23 amLODIPine [Norvasc] 5 mg PO DAILY 06/23/23 hydroCHLOROthiazide [Hydrochlorothiazide] 25 mg PO DAILY 06/23/23 Allergies/Adverse Reactions: Allergies Allergy/AdvReac Type Severity Reaction Status Date / Time No Known Drug Allergies Allergy Verified 10/02/23 09:08 Anes History & Medical History - Anesthetic History Anesthesia Complications: reports: No previous complications - Medical History Cardiovascular: reports: Hypertension Pulmonary: reports: None Gastrointestinal: reports: Other Urinary: reports: None Neuro: reports: None Musculoskeletal: reports: Osteoarthritis Endocrine/Autoimmune: reports: None Smoking Status: Never smoker Psychosocial: reports: Alcohol, Cannabis Other Past Medical History: Fall 5 days ago per chart review - Surgical History Eyes Ears Nose Throat (EENT): reports: Tonsil/Adenoidectomy Orthopedic: reports: Knee replacement Exam General: Mild distress Dental: Poor dentition Mouth Openin Fingerbreadth Neck Mobility: Normal Mallampati classification: II Thyromental Distance: 4-6 cm Respiratory: Decreased breath sounds (RLL) Cardiovascular: Regular rate (tachy t/o stay) Neurological: Normal speech Mental/Cognitive Status: Normal for patient Cognitive Status: Within normal limits Plan Anesthesia Type: General Consent for Procedure(s) Verified and Reviewed: Yes Code Status: Attempt Resuscitation ASA classification: 3-Severe systemic disease Is this case an emergency?: Yes
[2023-10-07] MEDS ORDERED: METOCLOPRAMIDE 10 MG/2 ML VIAL IVP PRN (11:39)
[2023-10-07] MEDS ORDERED: MORPHINE 2 MG/ML CARPUJECT IVP PRN (11:39)
[2023-10-07] MEDS ORDERED: HYDROmorphone 0.5 MG/0.5 ML SYRINGE IVP PRN (11:39)
[2023-10-07] MEDS ORDERED: ePHEDrine 50 MG/ML VIAL IVP PRN (11:39)
[2023-10-07] MEDS ORDERED: ATROPINE ABBOJECT 1 MG/10 ML SYRINGE IVP PRN (11:39)
[2023-10-07] MEDS ORDERED: ONDANSETRON 4 MG/2 ML VIAL IVP PRN (11:39)
[2023-10-07] MEDS ORDERED: fentaNYL 100 MCG/2 ML VIAL IVP PRN (11:39)
[2023-10-07] MEDS ORDERED: NALOXONE 0.4 MG/ML VIAL IVP PRN (11:39)
[2023-10-07] MEDS ORDERED: LACTATED RINGERS 1,000 ML IV SCH (12:00)
[2023-10-07] MEDS ORDERED: SUGAMMADEX 200 MG/2 ML VIAL IVP ONE (12:20)
--- NOTE | 2023-10-07 12:23 | OPERATIVE REPORT ---
Operative Report - General Admit Date: 10/02/23 - Other Other Information/Narrative: PROCEDURE DATE: 10/07/2023 SURGEON: Vicente Frankel MD, FACS PREOPERATIVE DIAGNOSIS: Kourtney is a 62 year old femalewhom I am asked by Dr. Herman to perform bronchoscopy for the following reason: Mucous plug right lower lobe bronchus on CT of the lung performed 10/06/2023. The patient has been on BiPap and receiving pulmonary hygiene for the last 24 hours. Her clinical (pulmonary) status today is improved POSTOPERATIVE DIAGNOSIS: No evidence of mucous plug in the RLL or any portion of the tracheal bronchial tree. NAME OF PROCEDURE: Flexible bronchoscopy LOCATION of PROCEDURE: OR ANESTHESIA: IV sedation SPECIMEN: None DESCRIPTION OF PROCEDURE FOLLOWS: Consent for the procedure was obtained from the patients POA as the patient was somewhat disorientated. The patient was brought to the operating room where a surgical time out was performed indicating the patient and the procedure to be performed. An adaptor was placed on the end of the endotracheal tube to permit continuous ventilation during the procedure. An intubating flexible bronchoscope was inserted through the adapter into the endotracheal tube and the examination was begun. The distal trachea appeared normal. The kamari was normal and not distorted. The right mainstem bronchus was normal and the right upper lobe bronchial orifice was open and normal. The truncus intermedius was normal and the middle and lower lobe bronchi were patent and without mucous plugs. There was no bile staining in the right tracheal bronchial tree. The origin of the left mainstem bronchus was normal. The orifices of the left upper lobe, left lower lobe, and lingula appeared normal. The bronchoscope and adaptor were removed. The patient tolerated the procedure well. ASSESSMENT: No bronchoscopic evidence of mucous plugs or bile staining. RECOMMENDATION: Continue respiratory support and management of suspected aspiration pneumonia.
[2023-10-07] MEDS ORDERED: LACTATED RINGERS 400 ML IV ONE (12:38)
--- NOTE | 2023-10-07 13:01 | ANESTHESIA POST OP EVALUATION ---
Anesthesia Post Eval - Post Anesthesia Eval Vitals: Last Vital Signs Temp 36.2 C L 10/07/23 12:50 Pulse 88 10/07/23 12:50 Resp 14 10/07/23 12:50 BP 134/81 H 10/07/23 12:50 Pulse Ox 100 10/07/23 12:50 O2 Flow Rate 3 10/06/23 12:00 CV Function Including HR & BP: Stable Pain Control: Satisfactory Nausea & Vomiting: Negative Mental Status: Baseline Respiratory Status: Airway Patent Hydration Status: Satisfactory Anesthesia Complications: None
[2023-10-07 13:55] LABS: CALCIUM, IONIZED 1.03 mmol/L (1.15-1.33); VBG PH 7.538 (7.31-7.41)
[2023-10-07 14:07] LABS: MAGNESIUM 1.7 mg/dL (1.7-2.3); POTASSIUM 3.1 mmol/L (3.5-4.5)
[2023-10-07] MEDS: SODIUM CHLORIDE FLUSH 0.9% 10 ML SYRINGE IVP PRN (14:29)
[2023-10-07] MEDS: HYDROmorphone 0.5 MG/0.5 ML SYRINGE IVP PRN ×3 (15:28→22:17)
--- NOTE | 2023-10-07 17:08 | PROVIDER PROGRESS NOTE ---
Progress Note October 07, 2023 5 PM This morning I saw the patient and she was stable on BiPAP. She had been on BiPAP overnight. Oxygenating well at 100% saturation with 40% FiO2. We had started PPN on her last night but not lipids. Today lipids will be resumed. She then underwent a bronchoscopy to see if we could do a bronchoalveolar lavage of the mucous plug causing collapse of her right upper lung. She was clear on the bronchoalveolar lavage. Since return from the bronchoscopy she is now on 2 L nasal cannula. 97% saturated. Exam: Temperature is 37, heart rate 95, blood pressure 159/89. Respirations 18. 96% saturated on 2 L. Intermittently she has a pain that is 10 out of 10 over her incisional site. Flat affect. While she hears me and stares at me as a speak to her, I I do not get an active response for her. It is delayed. Speech is sometimes difficult to hear. Unfortunate I do not know what this woman's baseline is. She has been ill and slowly recovering from her surgery. Lungs are clear with diminished breath sounds at the bases. Shallow unlabored respiration. Regular rate and rhythm Abdomen is tender over the incision site. Is a vertical incision and the upper incision is open then you have closed incision and then the lower incision is also open. There is no drainage, redness, heat. This is mostly where her pain is over this incisional site. Hypoactive bowel sounds. No rebound or guarding. Pradhan is draining yellow clear urine. Ostomy bag does have air and scant stool. Mild edema of ankles. Her wrist is in a brace from the fracture. She tells me that she knows that she is in the hospital, and why she is here. But's conversation is slow, difficult for me to understand because of her speech. I cannot tell if this is a baseline impediment or not. No focal deficits. Will use her hands to reach for things. Even the bad wrist. Lab: Sodium 142, potassium 3.4. On ICU protocol. BUN 19, creatinine 0.4. Random glucose 137. Calcium 8.4, phosphorus 4.3, magnesium 1.7. Prealbumin 5. White cell count is 11.2. She had been normal on the fourth and the fifth and then bumped up with her respiratory event to 12.4 yesterday. There is no bandemia. She is on antibiotics. Hemoglobin is 10.2. On admission she was 15.1. Platelets are 271. Conclusion/Plan - Problem List (1) Acute respiratory failure with hypoxia resolved Conclusion/Plan: From a combination of factors. She has fluid overload that was well-tolerated up until 12/7 am. Had sudden drop in 02 sats with respiratory distress that resulted in transfer to ICU with use of BiPap until today. Mucous plug seen on CT with complete consolidation because of obstruction.Once transferred to the ICU she improved tremendously. Alert, appropriate, no longer struggling to breathe. Remained on BiPAP until this morning. When she came back from the OR and there was no mucous plug and no collapsing, she has been on nasal cannula. Plan: She was already on antibiotics for the perforated abdominal viscus. I have not added to change antibiotics. Mucous plug not visualized. Lungs look open. Oxygenation has improved. Down to 2 L nasal cannula. I would anticipate transitioning her back to [facility] status by tomorrow if she stays stable overnight in ICU (2) Perforated abdominal viscus Conclusion/Plan: Status post exploratory lap, colectomy, and colostomy. Postop day #5. She will continue to be followed by surgery for her wounds, and any surgical interventions needed She is on Zosyn. Today would be day #6. Will defer to general surgery about when they are going to stop antibiotics. No fevers, white cell count has been low or normal until 12/7 am when she bumped to 12.4. I think the bump in white cell count is due more to the consolidation of the lung with collapsed not abdominal infection. Her incisions are clean and not infected. Long-term plan is to leave the upper and lower part of incision to close by secondary intention. She is not to return to the OR. I have let nursing know that they need to emphasize colostomy education for this patient. She lives alone. She will not be able to do this with the broken wrist. She does have a brother that can help her but he also needs to be brought into the hospital for us to teach him ostomy care. We are starting to think that she may need placement for a short time until her wrist can be taken out of the cast. PT and OT will be working with her (3) Nutrition deficiency due to insufficient food Conclusion/Plan: She had not eaten for a few days prior to admission. And has not eaten very much since surgery. 10/05 she ate maybe 10%. PPN started October 06. To continue today. But we are going to encourage her to do p.o. intake as well.Glucose is mildly elevated with the PPN. But I will not be using sliding scale insulin unless she is consistently above 180. (4) Generalized weakness Conclusion/Plan: This unfortunate patient has had a sudden severe illness. Surgery. Now with a colostomy. She has been very, very slow to progress. Reluctant to get up out of bed. I would recommend physical therapy make sure she gets out of bed tomorrow. In respiratory therapy do work with incentive spirometry, positive end expiratory pressure with something like a valve.
[2023-10-07] MEDS: PPN (CLINIMIX E 4.25/5) 2,000 ML with MULTIVITAMIN 10 ML, TRACE ELEMENTS 1 ML IV SCH ×3 (18:47)
[2023-10-07 20:25] LABS: CALCIUM, IONIZED 1.04 mmol/L (1.15-1.33); VBG PH 7.508 (7.31-7.41)
[2023-10-07 20:37] LABS: MAGNESIUM 2.1 mg/dL (1.7-2.3); POTASSIUM 3.4 mmol/L (3.5-4.5)
[2023-10-07] MEDS: ONDANSETRON 4 MG/2 ML VIAL IVP PRN (22:22)
[2023-10-08] MEDS: POTASSIUM CHLOR 10 MEQ/100 ML 10 MEQ/100 ML BAG IV SCH ×8 (00:19→18:26)
[2023-10-08] MEDS: SODIUM CHLORIDE FLUSH 0.9% 10 ML SYRINGE IVP SCH ×3 (01:05→16:12)
[2023-10-08] MEDS: HYDROmorphone 0.5 MG/0.5 ML SYRINGE IVP PRN ×3 (02:57→13:18)
[2023-10-08] MEDS: PIPERACILLIN/TAZOBACTAM 3.375 GM in SODIUM CHLORIDE 0.9% MINIBAG 100 ML IV SCH ×4 (03:15→22:13)
[2023-10-08 05:28] LABS: CALCIUM, IONIZED 1.07 mmol/L (1.15-1.33); VBG PH 7.466 (7.31-7.41)
[2023-10-08] MEDS ORDERED: CALCIUM GLUC 1,000MG/50ML-NACL 1,000 MG/50 ML BAG IV ONE ×2 (05:58→14:00)
[2023-10-08] MEDS: CITALOPRAM HYDROBROMIDE 20 MG TABLET PO SCH (07:44)
[2023-10-08] MEDS: FAMOTIDINE 20 MG/2 ML VIAL IVP SCH ×2 (08:10→22:03)
[2023-10-08] MEDS: LORazepam 2 MG/ML VIAL IVP PRN ×6 (08:10→23:12)
[2023-10-08] MEDS: FUROSEMIDE 40 MG/4 ML VIAL IVP SCH (08:10)
[2023-10-08] MEDS: ACETAMINOPHEN 1,000 MG/100 ML 1,000 MG/100 ML BAG IV PRN ×3 (08:10→21:26)
[2023-10-08] MEDS: HEPARIN 5,000 UNIT/ML VIAL SUBQ SCH (08:10)
[2023-10-08 08:13] LABS: MAGNESIUM 1.8 mg/dL (1.7-2.3); PHOSPHORUS 3.7 mg/dL (2.5-5.0); POTASSIUM 3.6 mmol/L (3.5-4.5)
[2023-10-08] MEDS ORDERED: MAGNESIUM SULFATE 2 GRAM 2 GM/50 ML BAG IV ONE (08:27)
--- NOTE | 2023-10-08 08:37 | PROVIDER PROGRESS NOTE ---
Subjective - General Admit Date: 10/02/23 Procedure Date: 10/02/23 Post Op Days: 6 Procedure Performed: Exploratory laparotomy, sigmoid colectomy, colostomy, washout - Review of Systems Wound/Incisions: positive: Dressing dry and intact, No drainage, Other (Colostomy pink and viable. No air or stool in pouch) - Other Other Information/Narrative: General Surgery Progress Note S: Awake and alert; On the phone calling for a taxi. No complaint of SOB. Mild incisional discomfort O: VSS, afeb; Lungs clear with decreased sounds right base; no rales or wheezing; Heart NSR; Abdomen soft, active BS, small amount of bile and fecal material in ostomy pouch; ostomy pink and viable; Midline wound clean with BID local wound care. Labs: See remainder of this note A: Clinically improved with good respiratory effort and no evidence of respiratory distress; GI tract function; no wound issues. Dementia persists - unknown if this is her baseline Recommendations: 1) Continue PPN and slowly start clears 2) PT/OT to assist in strengthening 3) Will likely require HH referral or SNF for wound and ostomy care 4) Appreciate Medical hospitalist involvement with her care Zelalem Fraknel MD General Surgery Service Objective - Patient Data Vital Signs: Vital Signs x48h Temp Pulse Resp BP Pulse Ox O2 Flow Rate 10/08/23 08:00 98 21 155/91 H 96 2 10/08/23 07:00 94 16 153/87 H 96 2 10/08/23 06:00 98.8 F 89 16 149/88 H 2 10/08/23 05:00 88 17 141/88 H 97 2 10/08/23 04:00 88 15 147/89 H 97 2 10/08/23 03:00 97.9 F 89 19 156/92 H 95 2 10/08/23 02:00 89 17 156/95 H 97 2 10/08/23 01:00 86 17 148/97 H 96 2 Weight: Weight 10/06/23 10/07/23 10/08/23 23:59 23:59 23:59 Weight (kg) 72.5 kg 73.2 kg 71 kg Intake & Output: Intake and Output Totals x24h 10/06/23 10/07/23 10/08/23 23:59 23:59 23:59 Intake Total 3000.00 3302.283 800 Output Total 4050 3300 915 Balance -1050.00 2.283 -115 - Lab Results Lab Results: 10/07/23 05:06 10/08/23 07:24 Other Lab Results: Lab Results x24hrs 10/08/23 10/08/23 10/07/23 Range/Units 07:24 04:35 20:05 VBG pH 7.466 H 7.508 H (7.31-7.41) Ionized Calcium 1.07 L 1.04 L (1.15-1.33) mmol/L Potassium 3.6 (3.5-4.5) mmol/L Phosphorus 3.7 (2.5-5.0) mg/dL Magnesium 1.8 (1.7-2.3) mg/dL 10/07/23 10/07/23 10/07/23 Range/Units 20:05 13:47 13:47 VBG pH 7.538 H (7.31-7.41) Ionized Calcium 1.03 L (1.15-1.33) mmol/L Potassium 3.4 L 3.1 L (3.5-4.5) mmol/L Phosphorus (2.5-5.0) mg/dL Magnesium 2.1 1.7 (1.7-2.3) mg/dL - Current Medications Current Medications: Current Medications Generic Name Dose Route Start Last Admin Trade Name Freq PRN Reason Stop Dose Admin Acetaminophen 650 mg 10/02/23 15:19 10/06/23 00:39 Acetaminophen 325 Mg Tablet PO 650 mg Q4HR PRN Administration Pain 1 to 4, or Fever Citalopram Hydrobromide 20 mg 10/03/23 09:00 10/08/23 07:44 Citalopram Hydrobromide 20 Mg Tablet PO Not Given DAILY [facility] Famotidine 20 mg 10/06/23 12:00 10/08/23 08:10 Famotidine 20 Mg/2 Ml Vial IVP 20 mg BID [facility] Administration Furosemide 40 mg 10/06/23 09:00 10/08/23 08:10 Furosemide 40 Mg/4 Ml Vial IVP 40 mg DAILY [facility] Administration Heparin Sodium (Porcine) 5,000 unit 10/03/23 09:00 10/08/23 08:10 Heparin 5,000 Unit/Ml Vial SUBQ 5,000 unit BID [facility] Administration Hydromorphone HCl 0.5 mg 10/02/23 15:19 10/08/23 06:26 Hydromorphone 0.5 Mg/0.5 Ml Syringe IVP 0.5 mg Q2H PRN Administration Pain 8 to 10 Piperacillin Sod/Tazobactam 100 mls @ 200 mls/hr 10/02/23 16:00 10/08/23 03:55 Sod 3.375 gm/ Sodium Chloride IV Infused Q6H [facility] Infusion Multivitamins 10 ml/ TRACE 2,011 mls @ 63 mls/hr 10/06/23 19:00 10/07/23 18:47 ELEMENTS 1 ml/ Amino Acids/ IV 63 mls/hr Electrolytes/Dextrose 1900 [facility] Administration Protocol Fat Emulsion Intravenous 250 mls @ 21 mls/hr 10/06/23 19:00 10/08/23 07:44 Intralipid 20% IV Infused 1900 [facility] Infusion Acetaminophen 1,000 mg in 100 mls @ 400 mls/hr 10/06/23 21:27 10/08/23 08:29 Acetaminophen IV Infused Q6HR PRN Infusion FEVER > 100.5 F Lorazepam 0.5 mg 10/06/23 10:32 10/08/23 08:10 Lorazepam 2 Mg/Ml Vial IVP 0.5 mg Q2H PRN Administration Anxiety Ondansetron HCl 4 mg 10/02/23 15:19 10/05/23 05:03 Ondansetron Odt 4 Mg Tablet TL 4 mg Q6HR PRN Administration Nausea / Vomiting Ondansetron HCl 4 mg 10/02/23 15:19 10/07/23 22:22 Ondansetron 4 Mg/2 Ml Vial IVP 4 mg Q6HR PRN Administration Nausea / Vomiting Oxycodone HCl 5 mg 10/02/23 15:19 10/03/23 16:10 Oxycodone 5 Mg Tablet PO 5 mg Q4HR PRN Administration Pain 5 to 7 Sodium Chloride 10 ml 10/06/23 09:00 10/08/23 08:10 Sodium Chloride Flush 0.9% 10 Ml Syringe IVP 10 ml 0100,0900,1700 [facility] Administration Sodium Chloride 10 ml 10/06/23 07:17 10/07/23 14:29 Sodium Chloride Flush 0.9% 10 Ml Syringe IVP 10 ml PRN PRN Administration NEEDED PER PROVIDER ORDERS
[2023-10-08] MEDS: oxyCODONE 5 MG TABLET PO PRN (09:53)
[2023-10-08] MEDS: ONDANSETRON 4 MG/2 ML VIAL IVP PRN (10:50)
[2023-10-08 12:13] LABS: VBG PH 7.5 (7.31-7.41)
[2023-10-08 12:14] LABS: CALCIUM, IONIZED 1.07 mmol/L (1.15-1.33)
[2023-10-08 12:30] LABS: MAGNESIUM 2.3 mg/dL (1.7-2.3); POTASSIUM 3.5 mmol/L (3.5-4.5)
[2023-10-08] MEDS ORDERED: POTASSIUM CHLORIDE 20 MEQ/15 ML UDC PO SCH (14:00)
[2023-10-08] MEDS ORDERED: PROMETHAZINE INJ 25 MG in SODIUM CHLORIDE 0.9% 50 ML IV PRN (14:14)
[2023-10-08] MEDS: PROCHLORPERAZINE 10 MG/2 ML VIAL IVP PRN (14:21)
[2023-10-08] MEDS ORDERED: SODIUM CHLORIDE 0.9% 50 ML IV ONE (15:15)
--- NOTE | 2023-10-08 15:41 | XRAY Report ---
PROCEDURE: Chest 1 View X-Ray INDICATIONS: rigid belly, postop pain TECHNIQUE: One view of the chest was acquired. COMPARISON: None. FINDINGS: Surgical changes and devices: None. Lungs and pleura: There is moderate right pleural effusion with right basilar consolidation or atelec tasis. Left lung is clear. Increased pulmonary vascularity. No pneumothorax. Mediastinum: Mediastinal contours appear normal. Heart size is normal. Bones and chest wall: No suspicious bony lesions. Overlying soft tissues appear unremarkable. IMPRESSION: Persistent moderate right pleural effusion with right basilar consolidation or atelectasis. Reviewed by: James Plaza MD on 10/08/2023 3:39 PM PST Approved by: James Plaza MD on 10/08/2023 3:39 PM PST Station ID: [id number]
--- NOTE | 2023-10-08 15:42 | XRAY Report ---
PROCEDURE: Abdomen 1 View X-Ray INDICATIONS: rigid belly, inc pain in postop pat TECHNIQUE: One view of the abdomen acquired. COMPARISON: None. FINDINGS: Surgical changes and devices: None. Bowel: Air-filled loops of small and large bowel with a large dilated stomach. There are a few loops within the right lower quadrant suspicious for ileus versus obstructive etiologies. Soft tissues: No suspicious abdominal calcifications. Visualized solid organ contours appear normal in size. Bones: No suspicious bony lesions. IMPRESSION: Prominent loops of small bowel within the right abdomen concerning for ileus versus obstructive etiol ogies. Air-filled stomach. Reviewed by: John Back MD on 10/08/2023 2:40 PM AKST Approved by: John Back MD on 10/08/2023 2:40 PM [place] Station ID: [id number]
--- NOTE | 2023-10-08 15:43 | PROVIDER PROGRESS NOTE ---
Progress Note October 08, 2023 3:30 PM Stable all day today. But in the last hour or so a change in status.Speech seems slightly garbled. She is talking to me but I really do not understand what she is saying. It does not help that the BiPAP is back on again because of certain respiratory distress. It muffles her speech. Lungs have rhonchi but they are not worsening. All day yesterday her pulse was in the 80s but She is tachycardic at 104, 108 in the last hour. Hypertensive at 150/100. Slightly tachypneic at 27. But she is smiling. Reaches for my hand and says "thank you very much". But I do not think she knows where she is or who I am. She had vomiting and Zofran is not helping. Belly is now distended, firm. Last fever was October 06 at 8:00 at night. Exam: Blood pressure 150/100, respirations 27, 104 pulse. 50% FiO2 on BiPAP with 96% saturated. Alert, I do not think she is oriented, but is trying to speak to me. Occasionally a clear sentence will come through. Supple neck Coarse upper airway sounds. While she is tachypneic, there is no use of accessory muscles. She is laying at about 30 degrees and comfortable. Tachycardic regular rate and rhythm Abdomen is firm, slightly distended and tympanitic. Very few bowel sounds today and more diminished than yesterday. Also more tympanitic than yesterday. Ostomy bag does have air and stool in it. Nurse just emptied it of air about an hour ago. Pradhan is draining clear yellow urine. Bandages covering the wound. I looked at general surgery notes and the wound is looking good. Surrounding skin without erythema or redness or tenderness. No leg edema with overall diffuse muscle mass in this very thin lady Oriented to person and place. Speech is garbled intermittently right now but she uses both her arms to raise her hands toward me. She then grabs my right hand and shakes my right hand using both of her hands even with her right splint in place. Moving legs spontaneously to reposition herself and make her self are comfortable. Per PT notes today: Pt remains significantly limited in mobility, ADLs, and cognition. Today she is A&O to self and situation but unclear about date, location, CLOF and dc plan. Pt states she can go home and "my brother can help me." Pt remains maxAx2 for bed mobility, unable to perform ostomy care or other ADLs due to confusion and R wrist fracture (pt R handed). Able to move BLE but significant strength loss and unable to transfer EOB or OOB today due to pain, variable sats, confusion and weakness. Pt may benefit from continued PT in acute setting to improve mobility. PT cont to rec dc to SNF as pt is far below reported baseline of indep mobility. Lab: Potassium normal today has has been phosphorus calcium and magnesium. I had not ordered CBC or CMP because the patient seemed to be slightly improving yesterday Conclusion/Plan - Problem List (1) Perforated abdominal viscus Conclusion/Plan: Status post exploratory lap, colectomy, and colostomy. October 06 she had a postop complication of mucous plug causing collapse of right lung. Bronchoscopy the next day showed that it had resolved. Today is Postop day #6. Again another setback with regards to respiratory distress back on BiPAP. And a change in abdominal exam. She had an episode of emesis, and belly seems more distended and tympanitic. Not more painful. But she is uncomfortable. Ostomy is pink, and gas and stool are in the bag.Her incisions are clean and not infected. Long-term plan is to leave the upper and lower part of incision to close by secondary intention. She is not to return to the OR. She is on Zosyn. Today would be day #7. Plan: Stat chest x-ray Stat CBC and CMP Stat KUB Compazine IV push since Zofran is not helping Phenergan will also be ordered if Compazine does not help Today she will be stopping her Zosyn when she finishes her last dose of the day. I would revisit that if the chest x-ray and KUB show me something else (2) Acute respiratory failure with hypoxia resolved Conclusion/Plan: From a combination of factors. When she came back from the OR and there was no mucous plug and no collapsing, she has been on nasal cannula. She has fluid overload that was well-tolerated up until 12/7 am. Had sudden drop in 02 sats with respiratory distress that resulted in transfer to ICU with use of BiPap until 10/07. Mucous plug seen on CT with complete consolidation because of obstruction. Once transferred to the ICU she improved immediately with the Bipap. She was alert, appropriate, no longer struggling to breathe. Remained on BiPAP until 12/8 am. All day on the she was stable off Bipap. Oxygen needs stable. PT is working with her. Bronchoscopy was done on the to see if the mucous plug needed to be addressed. A flexible bronchoscope was inserted through adapter into the endotracheal tube and right mainstem bronchus was normal in the right upper lobe bronchial orifice was open and normal. Truncus intermedius was normal in the middle and lower lobe bronchi were patent and without mucous plug. Plan: Start chest x-ray and reassessment to see what her lung looks like (3) Nutrition deficiency due to insufficient food Conclusion/Plan: She had not eaten for a few days prior to admission. And has not eaten very much since surgery. 10/05 she ate maybe 10%. PPN started October 06. She has stayed on PPN on the and has 1 more bag today. I would like to reassess her later this afternoon. I have started clear liquids. If she can keep p.o. down, I Would have discontinued the PPN after today's bag. But in view of the vomiting, tympanitic belly, I will keep her on PPN and TPN (4) Generalized weakness Conclusion/Plan: This unfortunate patient has had a sudden severe illness. Surgery. Now with a colostomy. She has been very, very slow to progress. Reluctant to get up out of bed. I would recommend physical therapy make sure she gets out of bed tomorrow. In respiratory therapy do work with incentive spirometry, positive end expiratory pressure with something like a valve. She keeps on telling physical therapy that she wants to go home. But it is very clear that she is unable to ambulate on her own. Much less change her ostomy bag because of the right wrist fracture. And family has not come in to learn how to do ostomy care.
[2023-10-08 17:05] LABS: ABG PCO2 43 mmHg (34-45); ABG PH 7.46 (7.35-7.45)
[2023-10-08 17:06] LABS: ABG BASE EXCESS 5.5 mmol/L (-2.0-3.0); ABG HCO3 29.9 mmol/L (22.0-26.0); ABG MODE OF VENTILATION SYNCHRONOUS/TIMES; ABG OXYGEN SATURATION 98 % (94-98); ABG PO2 102 mmHg (80-100); ABG TCO2 31.2 MMOL/L (21.0-29.0); ALLEN TEST POSITIVE
--- NOTE | 2023-10-08 17:49 | XRAY Report ---
PROCEDURE: Chest for Line Placement INDICATIONS: NGT TECHNIQUE: One view of the chest was acquired. COMPARISON: Chest radiograph October 08, 2023, abdominal radiograph October 08, 2023 FINDINGS: Surgical changes and devices: Enteric tube courses below the diaphragm with the side port projecting over the gastric bubble. Lungs and pleura: Limited evaluation of the chest. Partially visualized right effusion. Right basila r consolidation and/or atelectasis. No pneumothorax Mediastinum: Mediastinal contours appear normal. Heart size is normal. Bones and chest wall: No suspicious bony lesions. Overlying soft tissues appear unremarkable. IMPRESSION: Enteric tube projects over the stomach. Persistent pleural effusion with right lower lobe consolidation. Reviewed by: John Back MD on 10/08/2023 4:48 PM AKST Approved by: John Back MD on 10/08/2023 4:48 PM AKST Station ID: [id number]
[2023-10-08 17:54] LABS: BASOPHILS # (AUTO) 0.1 10^3/uL (0.0-0.1); BASOPHILS % (AUTO) 0.5 %; EOSINOPHILS % (AUTO) 0.1 %; HCT - HEMATOCRIT 37.7 % (37.0-47.0); HGB - HEMOGLOBIN 12.2 g/dL (12.0-16.0); LYMPHOCYTES # (AUTO) 0.6 10^3/uL (1.5-3.5); LYMPHOCYTES % (AUTO) 4.9 %; MEAN CORPUSCULAR HEMOGLOBIN 31.9 pg (27.0-31.0); MEAN CORPUSCULAR HGB CONC 32.4 g/dL (32.0-36.0); MEAN CORPUSCULAR VOLUME 98.7 fL (81.0-99.0); MEAN PLATELET VOLUME 9.4 fL (7.9-10.8); MONOCYTES # (AUTO) 0.4 10^3/uL (0.0-1.0); MONOCYTES % (AUTO) 3.3 %; NEUTROPHILS # (AUTO) 10.7 10^3/uL (1.5-6.6); NEUTROPHILS % (AUTO) 90.3 %; PLT - PLATELET COUNT 538 10^3/uL (130-450); RED BLOOD COUNT 3.82 10^6/uL (4.20-5.40); RED CELL DISTRIBUTION WIDTH 13.3 % (12.0-15.0); WHITE BLOOD COUNT 11.9 x10^3/uL (4.8-10.8)
[2023-10-08 18:10] LABS: ALBUMIN 2.6 g/dL (3.2-5.5); ALBUMIN/GLOBULIN RATIO 0.7 (1.0-2.2); BILIRUBIN,TOTAL 0.6 mg/dL (0.2-1.0); CALCIUM 8.7 mg/dL (8.5-10.3); CREATININE 0.5 mg/dL (0.6-1.3); POTASSIUM 3.8 mmol/L (3.5-4.5); TOTAL PROTEIN 6.2 g/dL (6.4-8.9)
[2023-10-08] MEDS: PPN (CLINIMIX E 4.25/5) 2,000 ML with MULTIVITAMIN 10 ML, TRACE ELEMENTS 1 ML IV SCH ×3 (18:34)
--- NOTE | 2023-10-08 22:02 | ANESTHESIA PROCEDURE NOTE ---
Anesth Central Line Template - Central Line Central Line Preparation: Unable to obtain consent, Time out completed, Ultra sound used, Sterile prep and drape Central line location: Right IJ Central line type: Triple lumen Central line catheter tip site resides: Superior vena cava (SVC) Central line aftercare: Chlorhexidine disc placed, Secured, Placement confirmed (first CVL tip noted to be in subclavian vein projecting lateral from midline against flow, removed with pressure dressing x 5 mins. New 20cm triple lumen placed at R again after sterile prep drape. Sutured at 18, caps easily aspirate and flush x 3. Dressing applied. Call for new PXCR), No pneumothorax, No complications, Bundle checklist complete, Pt tolerated well, Other Other Info/Details: secured at 16cm, 3 caps easily aspirate and flush blood, secured, dressing. PCXR reveals CVL tip in SCV but heading lateral from midline against flow. Removed, replaced. New 20cm placed at R IJ, wire to ectopy, cath then threaded t o 18, caps easily aspirate and flush x 3. PCXR reveals tip in SVC
--- NOTE | 2023-10-08 23:11 | XRAY Report ---
PROCEDURE: Chest for Line Placement INDICATIONS: ne R IJ CVL TECHNIQUE: One view of the chest was acquired. COMPARISON: Prior chest plain film and CT 10/06/2023. FINDINGS: Surgical changes and devices: An esophagogastric tube extends into the gastric lumen. A right-sided central line deviates laterally to overlie the right axillary soft tissues.. Lungs and pleura: A moderately large right pleural effusion layers posteriorly rather than subpulmon ic as was previously the case. No pneumothorax. Mediastinum: Mediastinal contours appear normal. Heart size is normal. Bones and chest wall: No suspicious bony lesions. Overlying soft tissues appear unremarkable. IMPRESSION: Esophagogastric tube in normal position. Right-sided central line deviates laterally and it is unclea r whether it is traversing into a vascular structure during this deviation or whether it is free with in the soft tissues instead. Moderately large right free-flowing pleural effusion. No pneumothorax. Reviewed by: Florentino Taylor MD on 10/08/2023 11:10 PM PST Approved by: Florentino Taylor MD on 10/08/2023 11:10 PM PST Station ID: [id number]
--- NOTE | 2023-10-09 00:35 | XRAY Report ---
PROCEDURE: Chest for Line Placement INDICATIONS: new CVL @R IJ TECHNIQUE: One view of the chest was acquired. COMPARISON: Prior chest plain films from 10/06/2023 and earlier same day.. FINDINGS: Surgical changes and devices: Central line placed from right internal jugular approach, with tip ext ending into the superior right atrium. Esophagogastric tube extends below the imaging margin at least into the gastric body.. Lungs and pleura: Moderate right pleural effusion, no pneumothorax. Lungs are edematous, right grea ter than left. Mediastinum: Mediastinal contours appear normal. Heart size is normal. Bones and chest wall: No suspicious bony lesions. Overlying soft tissues appear unremarkable. IMPRESSION: Right pleural effusion, bilateral pulmonary edema greater on the right than the left. Esophagogastric tube positioning normal. Central line positioning extends into the superior right atrium. No pneumot horax after central line placement. Reviewed by: Florentino Taylor MD on 10/09/2023 12:33 AM PST Approved by: Florentino Taylor MD on 10/09/2023 12:33 AM PST Station ID: [id number]
[2023-10-09] MEDS: SODIUM CHLORIDE FLUSH 0.9% 10 ML SYRINGE IVP SCH ×3 (01:21→16:46)
[2023-10-09] MEDS: HEPARIN 5,000 UNIT/ML VIAL SUBQ SCH ×3 (01:21→20:55)
[2023-10-09 02:02] LABS: CALCIUM, IONIZED 1.1 mmol/L (1.15-1.33); VBG PH 7.431 (7.31-7.41)
[2023-10-09 02:28] LABS: PHOSPHORUS 3.9 mg/dL (2.5-5.0); POTASSIUM 3.5 mmol/L (3.5-4.5)
[2023-10-09] MEDS ORDERED: POTASSIUM CHLOR 20 MEQ/100 ML 20 MEQ/100 ML BAG IV ONE ×6 (02:49→20:36)
[2023-10-09] MEDS ORDERED: CALCIUM GLUC 1,000MG/50ML-NACL 1,000 MG/50 ML BAG IV ONE ×3 (02:49→15:30)
[2023-10-09] MEDS: ONDANSETRON 4 MG/2 ML VIAL IVP PRN (03:20)
[2023-10-09] MEDS: LORazepam 2 MG/ML VIAL IVP PRN ×6 (04:42→19:23)
[2023-10-09 06:18] LABS: ALBUMIN 2.3 g/dL (3.2-5.5); ALBUMIN/GLOBULIN RATIO 0.7 (1.0-2.2); BILIRUBIN,TOTAL 0.4 mg/dL (0.2-1.0); CALCIUM 8.6 mg/dL (8.5-10.3); CREATININE 0.3 mg/dL (0.6-1.3); MAGNESIUM 1.9 mg/dL (1.7-2.3); PHOSPHORUS 3.5 mg/dL (2.5-5.0); POTASSIUM 3.7 mmol/L (3.5-4.5); TOTAL PROTEIN 5.6 g/dL (6.4-8.9)
[2023-10-09 06:48] LABS: CALCIUM, IONIZED 1.12 mmol/L (1.15-1.33); VBG PH 7.458 (7.31-7.41)
[2023-10-09 07:32] LABS: BASOPHILS # (AUTO) 0.1 10^3/uL (0.0-0.1); BASOPHILS % (AUTO) 0.7 %; EOSINOPHILS # (AUTO) 0.1 10^3/uL (0.0-0.7); EOSINOPHILS % (AUTO) 0.6 %; HGB - HEMOGLOBIN 10.1 g/dL (12.0-16.0); LYMPHOCYTES # (AUTO) 0.7 10^3/uL (1.5-3.5); LYMPHOCYTES % (AUTO) 5.2 %; MEAN CORPUSCULAR HEMOGLOBIN 31.9 pg (27.0-31.0); MEAN CORPUSCULAR HGB CONC 32.6 g/dL (32.0-36.0); MEAN CORPUSCULAR VOLUME 97.8 fL (81.0-99.0); MEAN PLATELET VOLUME 10.6 fL (7.9-10.8); MONOCYTES # (AUTO) 0.6 10^3/uL (0.0-1.0); MONOCYTES % (AUTO) 4.8 %; NEUTROPHILS # (AUTO) 11.2 10^3/uL (1.5-6.6); NEUTROPHILS % (AUTO) 87.9 %; PLT - PLATELET COUNT 373 10^3/uL (130-450); RED BLOOD COUNT 3.17 10^6/uL (4.20-5.40); RED CELL DISTRIBUTION WIDTH 13.4 % (12.0-15.0); WHITE BLOOD COUNT 12.7 x10^3/uL (4.8-10.8)
[2023-10-09] MEDS: FAMOTIDINE 20 MG/2 ML VIAL IVP SCH ×2 (07:55→19:59)
[2023-10-09] MEDS: FUROSEMIDE 40 MG/4 ML VIAL IVP SCH (07:55)
--- NOTE | 2023-10-09 08:14 | PROVIDER PROGRESS NOTE ---
Subjective - General Admit Date: 10/02/23 Procedure Date: 10/02/23 Post Op Days: 7 Procedure Performed: Exploratory laparotomy, sigmoid colectomy, colostomy, washout - Review of Systems Wound/Incisions: positive: Dressing dry and intact, No drainage, Other (Colostomy pink and viable. Air and bile in pouch; BID dressings changes in progress) - Other Other Information/Narrative: Sleepy; Mild abdominal discomfort; No SOB or CP Objective - Patient Data Vital Signs: Vital Signs x48h Temp Pulse Resp BP Pulse Ox O2 Flow Rate 10/09/23 07:00 105 H 22 141/77 H 96 2 10/09/23 06:00 102 H 26 H 144/89 H 96 2 10/09/23 05:00 101 H 25 H 144/79 H 96 2 10/09/23 04:00 98.1 F 90 22 139/80 H 95 2 10/09/23 03:00 87 21 109/66 97 2 10/09/23 02:00 87 20 100/68 98 2 10/09/23 01:00 87 20 103/66 100 2 Weight: Weight 10/07/23 10/08/23 10/09/23 23:59 23:59 23:59 Weight (kg) 73.2 kg 74 kg 69.5 kg Intake & Output: Intake and Output Totals x24h 10/07/23 10/08/23 10/09/23 23:59 23:59 23:59 Intake Total 3302.283 3558.100 190 Output Total 3300 5601 1532 Balance 2.283 -2042.900 -1342 - Lab Results Lab Results: 10/09/23 05:30 10/09/23 05:30 Other Lab Results: Lab Results x24hrs 10/09/23 10/09/23 10/09/23 Range/Units 05:30 05:30 05:30 WBC 12.7 H (4.8-10.8) x10^3/uL RBC 3.17 L (4.20-5.40) 10^6/uL Hgb 10.1 L (12.0-16.0) g/dL Hct 31.0 L (37.0-47.0) % MCV 97.8 (81.0-99.0) fL MCH 31.9 H (27.0-31.0) pg MCHC 32.6 (32.0-36.0) g/dL RDW 13.4 (12.0-15.0) % Plt Count 373 (130-450) 10^3/uL MPV 10.6 (7.9-10.8) fL Neut # (Auto) 11.2 H (1.5-6.6) 10^3/uL Lymph # (Auto) 0.7 L (1.5-3.5) 10^3/uL Whitman # (Auto) 0.6 (0.0-1.0) 10^3/uL Eos # (Auto) 0.1 (0.0-0.7) 10^3/uL Baso # (Auto) 0.1 (0.0-0.1) 10^3/uL Absolute Nucleated RBC 0.00 x10^3/uL Nucleated RBC % 0.0 /100WBC Bld Gas Analysis Time Sample Site ABG pH (7.35-7.45) ABG pCO2 (34-45) mmHg ABG pO2 (80-100) mmHg ABG HCO3 (22.0-26.0) mmol/L ABG Total CO2 (21.0-29.0) MMOL/L ABG O2 Saturation (94-98) % ABG Base Excess (-2.0-3.0) mmol/L Anuj Test VBG pH 7.458 H (7.31-7.41) Ionized Calcium 1.12 L (1.15-1.33) mmol/L O2 Delivery Device Vent Mode FiO2 EPAP cmH2O IPAP cmH2O Sodium 137 (135-145) mmol/L Potassium 3.7 (3.5-4.5) mmol/L Chloride 99 L (101-111) mmol/L Carbon Dioxide 34 H (21-32) mmol/L Anion Gap 4.0 L (6-13) BUN 18 (6-20) mg/dL Creatinine 0.3 L (0.6-1.3) mg/dL Estimated GFR (MDRD) 225 (>89) Glucose 134 H (74-104) mg/dL Calcium 8.6 (8.5-10.3) mg/dL Phosphorus 3.5 (2.5-5.0) mg/dL Magnesium 1.9 (1.7-2.3) mg/dL Total Bilirubin 0.4 (0.2-1.0) mg/dL AST 15 (10-42) IU/L ALT 8 L (10-60) IU/L Alkaline Phosphatase 73 (42-121) IU/L Total Protein 5.6 L (6.4-8.9) g/dL Albumin 2.3 L (3.2-5.5) g/dL Globulin 3.3 (2.1-4.2) g/dL Albumin/Globulin Ratio 0.7 L (1.0-2.2) Prealbumin 7 L (17-34) mg/dL Triglycerides 211 (48-352) mg/dL 10/09/23 10/09/23 10/08/23 Range/Units 01:30 01:30 17:40 WBC (4.8-10.8) x10^3/uL RBC (4.20-5.40) 10^6/uL Hgb (12.0-16.0) g/dL Hct (37.0-47.0) % MCV (81.0-99.0) fL MCH (27.0-31.0) pg MCHC (32.0-36.0) g/dL RDW (12.0-15.0) % Plt Count (130-450) 10^3/uL MPV (7.9-10.8) fL Neut # (Auto) (1.5-6.6) 10^3/uL Lymph # (Auto) (1.5-3.5) 10^3/uL Whitman # (Auto) (0.0-1.0) 10^3/uL Eos # (Auto) (0.0-0.7) 10^3/uL Baso # (Auto) (0.0-0.1) 10^3/uL Absolute Nucleated RBC x10^3/uL Nucleated RBC % /100WBC Bld Gas Analysis Time Sample Site ABG pH (7.35-7.45) ABG pCO2 (34-45) mmHg ABG pO2 (80-100) mmHg ABG HCO3 (22.0-26.0) mmol/L ABG Total CO2 (21.0-29.0) MMOL/L ABG O2 Saturation (94-98) % ABG Base Excess (-2.0-3.0) mmol/L Anuj Test VBG pH 7.431 H (7.31-7.41) Ionized Calcium 1.10 L (1.15-1.33) mmol/L O2 Delivery Device Vent Mode FiO2 EPAP cmH2O IPAP cmH2O Sodium 136 (135-145) mmol/L Potassium 3.5 3.8 (3.5-4.5) mmol/L Chloride 95 L (101-111) mmol/L Carbon Dioxide 34 H (21-32) mmol/L Anion Gap 7.0 (6-13) BUN 18 (6-20) mg/dL Creatinine 0.5 L (0.6-1.3) mg/dL Estimated GFR (MDRD) 125 (>89) Glucose 130 H (74-104) mg/dL Calcium 8.7 (8.5-10.3) mg/dL Phosphorus 3.9 (2.5-5.0) mg/dL Magnesium 2.0 (1.7-2.3) mg/dL Total Bilirubin 0.6 (0.2-1.0) mg/dL AST 17 (10-42) IU/L ALT 9 L (10-60) IU/L Alkaline Phosphatase 76 (42-121) IU/L Total Protein 6.2 L (6.4-8.9) g/dL Albumin 2.6 L (3.2-5.5) g/dL Globulin 3.6 (2.1-4.2) g/dL Albumin/Globulin Ratio 0.7 L (1.0-2.2) Prealbumin (17-34) mg/dL Triglycerides (48-352) mg/dL 10/08/23 10/08/23 10/08/23 Range/Units 17:40 16:42 12:05 WBC 11.9 H (4.8-10.8) x10^3/uL RBC 3.82 L (4.20-5.40) 10^6/uL Hgb 12.2 (12.0-16.0) g/dL Hct 37.7 (37.0-47.0) % MCV 98.7 (81.0-99.0) fL MCH 31.9 H (27.0-31.0) pg MCHC 32.4 (32.0-36.0) g/dL RDW 13.3 (12.0-15.0) % Plt Count 538 H (130-450) 10^3/uL MPV 9.4 (7.9-10.8) fL Neut # (Auto) 10.7 H (1.5-6.6) 10^3/uL Lymph # (Auto) 0.6 L (1.5-3.5) 10^3/uL Whitman # (Auto) 0.4 (0.0-1.0) 10^3/uL Eos # (Auto) 0.0 (0.0-0.7) 10^3/uL Baso # (Auto) 0.1 (0.0-0.1) 10^3/uL Absolute Nucleated RBC 0.00 x10^3/uL Nucleated RBC % 0.0 /100WBC Bld Gas Analysis Time 1646 Sample Site RIGHT RADIAL ABG pH 7.46 H (7.35-7.45) ABG pCO2 43 (34-45) mmHg ABG pO2 102 H (80-100) mmHg ABG HCO3 29.9 H (22.0-26.0) mmol/L ABG Total CO2 31.2 H (21.0-29.0) MMOL/L ABG O2 Saturation 98 (94-98) % ABG Base Excess 5.5 H (-2.0-3.0) mmol/L Anuj Test POSITIVE VBG pH 7.500 H (7.31-7.41) Ionized Calcium 1.07 L (1.15-1.33) mmol/L O2 Delivery Device BiPAP Vent Mode SYNCHRONOUS/TIMES FiO2 50.00 EPAP 5 cmH2O IPAP 10 cmH2O Sodium (135-145) mmol/L Potassium (3.5-4.5) mmol/L Chloride (101-111) mmol/L Carbon Dioxide (21-32) mmol/L Anion Gap (6-13) BUN (6-20) mg/dL Creatinine (0.6-1.3) mg/dL Estimated GFR (MDRD) (>89) Glucose (74-104) mg/dL Calcium (8.5-10.3) mg/dL Phosphorus (2.5-5.0) mg/dL Magnesium (1.7-2.3) mg/dL Total Bilirubin (0.2-1.0) mg/dL AST (10-42) IU/L ALT (10-60) IU/L Alkaline Phosphatase (42-121) IU/L Total Protein (6.4-8.9) g/dL Albumin (3.2-5.5) g/dL Globulin (2.1-4.2) g/dL Albumin/Globulin Ratio (1.0-2.2) Prealbumin (17-34) mg/dL Triglycerides (48-352) mg/dL 10/08/23 10/08/23 Range/Units 12:05 07:24 WBC (4.8-10.8) x10^3/uL RBC (4.20-5.40) 10^6/uL Hgb (12.0-16.0) g/dL Hct (37.0-47.0) % MCV (81.0-99.0) fL MCH (27.0-31.0) pg MCHC (32.0-36.0) g/dL RDW (12.0-15.0) % Plt Count (130-450) 10^3/uL MPV (7.9-10.8) fL Neut # (Auto) (1.5-6.6) 10^3/uL Lymph # (Auto) (1.5-3.5) 10^3/uL Whitman # (Auto) (0.0-1.0) 10^3/uL Eos # (Auto) (0.0-0.7) 10^3/uL Baso # (Auto) (0.0-0.1) 10^3/uL Absolute Nucleated RBC x10^3/uL Nucleated RBC % /100WBC Bld Gas Analysis Time Sample Site ABG pH (7.35-7.45) ABG pCO2 (34-45) mmHg ABG pO2 (80-100) mmHg ABG HCO3 (22.0-26.0) mmol/L ABG Total CO2 (21.0-29.0) MMOL/L ABG O2 Saturation (94-98) % ABG Base Excess (-2.0-3.0) mmol/L Anuj Test VBG pH (7.31-7.41) Ionized Calcium (1.15-1.33) mmol/L O2 Delivery Device Vent Mode FiO2 EPAP cmH2O IPAP cmH2O Sodium (135-145) mmol/L Potassium 3.5 3.6 (3.5-4.5) mmol/L Chloride (101-111) mmol/L Carbon Dioxide (21-32) mmol/L Anion Gap (6-13) BUN (6-20) mg/dL Creatinine (0.6-1.3) mg/dL Estimated GFR (MDRD) (>89) Glucose (74-104) mg/dL Calcium (8.5-10.3) mg/dL Phosphorus 3.7 (2.5-5.0) mg/dL Magnesium 2.3 1.8 (1.7-2.3) mg/dL Total Bilirubin (0.2-1.0) mg/dL AST (10-42) IU/L ALT (10-60) IU/L Alkaline Phosphatase (42-121) IU/L Total Protein (6.4-8.9) g/dL Albumin (3.2-5.5) g/dL Globulin (2.1-4.2) g/dL Albumin/Globulin Ratio (1.0-2.2) Prealbumin (17-34) mg/dL Triglycerides (48-352) mg/dL - Current Medications Current Medications: Current Medications Generic Name Dose Route Start Last Admin Trade Name Freq PRN Reason Stop Dose Admin Acetaminophen 650 mg 10/02/23 15:19 10/06/23 00:39 Acetaminophen 325 Mg Tablet PO 650 mg Q4HR PRN Administration Pain 1 to 4, or Fever Citalopram Hydrobromide 20 mg 10/03/23 09:00 10/08/23 07:44 Citalopram Hydrobromide 20 Mg Tablet PO Not Given DAILY SANDRA Famotidine 20 mg 10/06/23 12:00 10/09/23 07:55 Famotidine 20 Mg/2 Ml Vial IVP 20 mg BID SANDRA Administration Furosemide 40 mg 10/06/23 09:00 10/09/23 07:55 Furosemide 40 Mg/4 Ml Vial IVP 40 mg DAILY SANDRA Administration Heparin Sodium (Porcine) 5,000 unit 10/03/23 09:00 10/09/23 01:21 Heparin 5,000 Unit/Ml Vial SUBQ 5,000 unit BID SANDRA Administration Hydromorphone HCl 0.5 mg 10/02/23 15:19 10/08/23 13:18 Hydromorphone 0.5 Mg/0.5 Ml Syringe IVP 0.5 mg Q2H PRN Administration Pain 8 to 10 Multivitamins 10 ml/ TRACE 2,011 mls @ 63 mls/hr 10/06/23 19:00 10/08/23 18:34 ELEMENTS 1 ml/ Amino Acids/ IV 63 mls/hr Electrolytes/Dextrose 1900 SANDRA Administration Protocol Fat Emulsion Intravenous 250 mls @ 21 mls/hr 10/06/23 19:00 10/08/23 07:44 Intralipid 20% IV Infused 1900 [facility] Infusion Acetaminophen 1,000 mg in 100 mls @ 400 mls/hr 10/06/23 21:27 10/08/23 22:02 Acetaminophen IV Infused Q6HR PRN Infusion FEVER > 100.5 F Promethazine HCl 25 mg/ Sodium 51 mls @ 100 mls/hr 10/08/23 14:14 10/08/23 18:10 Chloride IV Infused Q6H PRN Infusion Nausea / Vomiting Lorazepam 1 mg 10/08/23 15:33 10/09/23 07:47 Lorazepam 2 Mg/Ml Vial IVP 1 mg Q2H PRN Administration Anxiety Ondansetron HCl 4 mg 10/02/23 15:19 10/05/23 05:03 Ondansetron Odt 4 Mg Tablet TL 4 mg Q6HR PRN Administration Nausea / Vomiting Ondansetron HCl 4 mg 10/02/23 15:19 10/09/23 03:20 Ondansetron 4 Mg/2 Ml Vial IVP 4 mg Q6HR PRN Administration Nausea / Vomiting Oxycodone HCl 5 mg 10/02/23 15:19 10/08/23 09:53 Oxycodone 5 Mg Tablet PO 5 mg Q4HR PRN Administration Pain 5 to 7 Prochlorperazine Edisylate 10 mg 10/08/23 14:14 10/08/23 14:21 Prochlorperazine 10 Mg/2 Ml Vial IVP 10 mg Q6HR PRN Administration Nausea / Vomiting Sodium Chloride 10 ml 10/06/23 09:00 10/09/23 07:55 Sodium Chloride Flush 0.9% 10 Ml Syringe IVP 10 ml 0100,0900,1700 SANDRA Administration Sodium Chloride 10 ml 10/06/23 07:17 10/07/23 14:29 Sodium Chloride Flush 0.9% 10 Ml Syringe IVP 10 ml PRN PRN Administration NEEDED PER PROVIDER ORDERS - Physical Exam Comments/Other: VSS, Afeb; Mild tachycardia; Lungs clear by anterior exam; Heart without murmur; Abdomen is much softer than yesterday; Bile and air in ostomy pouch; ostomy pink; Wound with two open areas without infection (wet->dry dressings) 2,800 ml out from NGT since placement yesterday evening Right IJ placed for venous access issues last night by anesthesia. CXR last night shows NGT in gastric lumen, Right IJ in SVC, evidence of right pleural effusion (all images reviewed by me - MIAH) 4 kg weight loss over last 3-4 days - on diuretic On Heparin 5,000U SQ BID Completed 7 days of IV antibiotic yesterday ABX Reporting Has patient been on IV antibiotics over the past 48 hours?: Yes Impression/Plan - Problem List Problem List: Assessment: 1) Respiratory failure - acute episode resolved. Patient underwent bronchoscopy (10/07/23), is on a diuretic and has responded well. She still has evidence of a right pleural effusion on CXR but it is not impeding her respiratory status 2) Fecal peritonitis - source control achieved with colectomy/colostomy last week (10/02/23), but she developed an ileus yesterday that required an NGT. She has responded well to this intervention with clinical evidence of slow resumption of bowel function. Given the degree of fecal peritonitis, she is at high risk for development of an intra-abdominal abscess. 3) Protein-calorie malnutrition - on PPN using a PICC. Wound consider starting full TPN through the central line that was placed last evening (10/08/23) until she demonstrates the capacity to take enough calories orally and this won't happen until her ileus resolves which will take several more days 4) Dementia - stable. 5) VTEP - on Heparin BID 6) Midline wound - permit to heal by secondary intention with either continuation of BID local wound care or placement of a wound vac Recommendations: 1) Continue diuresis with Lasix; Consider US guided thoracentesis of right pleural effusion 2) Monitor for development of intra-abdominal abscess (fever, persistent ileus; leukocytosis). CT of chest and abdomen can be used to search for an abscess which could then be managed with IR drainage. 3) Start TPN 4) Continue VTEP (Heparin/SCDs) 5) Local wound care 6) NPO except sips/meds) 7) Continue multimodality pain control Pathology: Sigmoid colon - diverticulitis without evidence of malignancy Vicente Frankel MD General Surgery Service [phone]
[2023-10-09] MEDS: CITALOPRAM HYDROBROMIDE 20 MG TABLET PO SCH (08:37)
[2023-10-09 10:13] LABS: CALCIUM, IONIZED 1.05 mmol/L (1.15-1.33); VBG PH 7.511 (7.31-7.41)
[2023-10-09] MEDS: ACETAMINOPHEN 1,000 MG/100 ML 1,000 MG/100 ML BAG IV PRN ×3 (12:07→23:56)
[2023-10-09] MEDS: SODIUM CHLORIDE FLUSH 0.9% 10 ML SYRINGE IVP PRN (13:19)
[2023-10-09] MEDS: HYDROmorphone 0.5 MG/0.5 ML SYRINGE IVP PRN (13:19)
[2023-10-09 14:13] LABS: CALCIUM, IONIZED 1.1 mmol/L (1.15-1.33); VBG PH 7.456 (7.31-7.41)
--- NOTE | 2023-10-09 15:04 | HISTORY & PHYSICAL EXAMINATION ---
History and Physical - History and Physical She spiked a fever on October 06. Then spiked another temperature last night 7:00. And spiked a temp again at noon and 1:00. I have stopped her Zosyn since she has been on it for 7 days. Yesterday she had a respiratory event again, again suspected aspiration since there was green bile in her mouth. Back on BiPAP. Belly was distended on KUB and I put in an NG tube. She put out close to 1500 cc with the NG tube being placed. And was up to 2400 cc last night before midnight. She does have some drainage from her ostomy site. Gas and a small amount of liquid brown watery stool. She had 50 cc out yesterday. Which was scant. Since midnight last night she is put out 275 as of this dictation. Exam: Temperature 37.8, heart rate 88, blood pressure 113/72, respirations 18, 2 L/min oxy mask is saturating her at 98%. Yesterday she kept on saying "thank you" and I could hear that clearly. But speech continues to be difficult to understand but she does try to speak to the nurses and to me. Overall she appears to be very frail ill appearing female, responsive to voice and questions No JVD Coarse wet lung sounds in all lung simental with diminished breath sounds at the right axilla. Sometimes she is tachypneic, sometimes not. With her fever she was 25 breaths a minute. This morning she was down to 20. Occasionally tachycardic regular rate and rhythm, especially with fever. No edema of the extremities. I would expect her to have anasarca considering her postoperative course but not. Neurologically she is alert and responsive to my voice, answers questions, but speech is garbled. Nurses being very good about providing constant reassurance. She gets very restless, agitated. Lab: CMP today with a chloride of 99. Carbon dioxide 34. BUN 18, creatinine 0.3. Her potassium and sodium are normal. Glucose is 134. Calcium, phosphorus, magnesium and LFTs are acceptable. Total protein 5.6 and dropping, albumin 2.3 and dropping. Her white cell count was normal on October 04. It went to 12.4 October 06 and continues to stay elevated at 12.7 today. Hemoglobin is 10.1. That is stable. Platelets are 373.
--- NOTE | 2023-10-09 15:05 | PROVIDER PROGRESS NOTE ---
Progress Note She spiked a fever on October 06. Then spiked another temperature last night 7:00. And spiked a temp again today at noon and 1:00. I had stopped her Zosyn last night since she has been on it for 7 days. Yesterday she had a respiratory event again, again suspected aspiration since there was green bile in her mouth. Back on BiPAP. Belly was distended on KUB and I put in an NG tube. She put out close to 1500 cc with the NG tube being placed. And was up to 2400 cc last night before midnight. chest x-ray showed continued right pleural effusion. Chest x-ray shows a continued right pleural effusion.She was a difficult IV stick. She lost access twice. And as such I had anesthesia put in a central line for as yesterday afternoon. She does have some output from her ostomy site. Gas and a small amount of liquid brown watery stool. She had 50 cc out yesterday. Which was scant. Since midnight last night she is put out 275 as of this dictation. In looking at her fluid balance she was positive on October 04, October 05, October 07. But she was negative a liter on October 06. -2 L on October 08. And as of this dictation -2 L as well. PPN was started 10/06. Exam: Temperature 37.8, heart rate 88, blood pressure 113/72, respirations 18, 2 L/min oxy mask is saturating her at 98%. Yesterday she kept on saying "thank you" and I could hear that clearly in spite of garbled speech and confusion. But speech continues to be difficult to understand, but she does try to speak to the nurses and to me. Overall she appears to be very frail ill appearing female, responsive to voice and questions No JVD And a new right IJ central line in place now Coarse wet lung sounds in all lung simental with diminished breath sounds at the r ight axilla. Sometimes she is tachypneic, sometimes not. With her fever she was 25 breaths a minute. This morning she was down to 20. Occasionally tachycardic regular rate and rhythm, especially with fever.Yesterday her abdomen had very infrequent bowel sounds. Today I am not hearing anything. I think she is as distended today she was yesterday and spite liquid in her ostomy bag. Ostomy is pink.No rebound or guarding No edema of the extremities. I would expect her to have anasarca considering her postoperative course but she does not have any on exam Neurologically she is alert and responsive to my voice, answers questions, but speech is garbled. Nurses being very good about providing constant reassurance. She gets very restless, agitated.She does move all extremities spontaneously. Lab: CMP today with a chloride of 99. Carbon dioxide 34. BUN 18, creatinine 0.3. Her potassium and sodium are normal. Glucose is 134. Calcium, phosphorus, magnesium and LFTs are acceptable. Total protein 5.6 and dropping, albumin 2.3 and dropping. Her white cell count was normal on October 04. It went to 12.4 October 06 and continues to stay elevated at 12.7 today. Hemoglobin is 10.1. That is stable. Platelets are 373. Conclusion/Plan - Problem List (1) Perforated abdominal viscus Conclusion/Plan: Status post exploratory lap, colectomy, and colostomy. October 06 she had a postop complication of mucous plug causing collapse of right lung. Bronchoscopy the next day showed that it had resolved. 10/08 was Postop day #6. Again another setback with regards to respiratory distress back on BiPAP. Nursing reports that there was bile in her mouth when she had episode of respiratory distress. Combine that with the abdominal exam of distention. She had an episode of emesis, and belly seems more distended and tympanitic. Not more painful. But she was uncomfortable. Nursing feels that she may have aspirated again. She now has an NG tube in because of the KUB distention. Quite a bit of NG drainage. Respiratory status is stable but tenuous on BiPAP because she keeps on pulling off the mask with her restlessness. Her incisions are clean and not infected. Long-term plan is to leave the upper and lower part of incision to close by secondary intention. She is not to return to the OR. Today continues to spike temperatures. She would be at risk for developing abscess 7 to 10 days postop and she is postop day 8. Plan: CT of chest abdomen and pelvis Resume Zosyn Blood and urine cultures (2) Acute respiratory failure with hypoxia resolved and now returned. Postoperatively there was fluid overload, then a mucous plug with consolidation seen on CT of the right lung from the plug. Bronchoscopy done after that and showed open right upper lung. But she continues to have a pleural effusion on chest x-ray done yesterday. Plan: CT of chest. I went to assess the size of the pleural fluid received consolidation has gone away or return. If necessary, I will order a thoracentesis for tomorrow. She is on subcu heparin for DVT prophylaxis and I have asked the nurses not to give her her morning heparin in preparation for possible thoracentesis tomorrow. (3) Nutrition deficiency due to insufficient food Conclusion/Plan: I started PPN on October 06. I then added clear liquids on the but she had the episode of emesis. So she is only on PPN with lipids. Now that central line was placed last night I am changing her to TPN with lipids today. She can have ice chips but no food. (4) Generalized weakness Conclusion/Plan: This unfortunate patient has had a sudden severe illness. Surgery. Now with a colostomy. She has been very, very slow to progress. Reluctant to get up out of bed. Physical therapy has worked with her. She keeps on telling physical therapy that she wants to go home. But she is not going to be able to as manifested by her generalized weakness. She lives alone. Yesterday and today she really has not been able to work with PT. Will see how she does by tomorrow depending on the CT chest abdomen and pelvis results.
[2023-10-09] MEDS ORDERED: PIPERACILLIN/TAZOBACTAM 3.375 GM in SODIUM CHLORIDE 0.9% MINIBAG 100 ML IV ONE (16:00)
[2023-10-09 17:26] LABS: CALCIUM, IONIZED 1.14 mmol/L (1.15-1.33); VBG PH 7.454 (7.31-7.41)
[2023-10-09] MEDS: TPN (CLINIMIX E 5/15) 2,000 ML with MULTIVITAMIN 10 ML, TRACE ELEMENTS 1 ML IV SCH ×3 (18:04)
[2023-10-09] MEDS: FAT EMULSION 20% 250 ML IV SCH (18:08)
[2023-10-09] MEDS ORDERED: iohexoL-300 100 ML VIAL IVP ONE (18:13)
[2023-10-09] MEDS: PIPERACILLIN/TAZOBACTAM 3.375 GM in SODIUM CHLORIDE 0.9% MINIBAG 100 ML IV SCH (18:20)
--- NOTE | 2023-10-09 18:30 | CT Report ---
PROCEDURE: CHEST W INDICATIONS: fever, postop for colectomy ostomy CONTRAST: 100ml omni 300 TECHNIQUE: After the administration of intravenous contrast, 1 mm axial images were acquired from the pulmonary apices through the posterior costophrenic angles. Axial 5 mm soft tissue kernel reconstructions were performed as well as 8 mm axial MIP and coronal and sagittal 5 mm reformations. For radiation dose reduction, the following was used: automated exposure control, adjustment of mA and/or kV according to patient size. COMPARISON: None. FINDINGS: Image quality: Excellent. Lungs and pleura: Compressive atelectasis within the right lower lobe. Increased groundglass opacitie s within the anterior right lung and to a lesser degree within the posterior aspect of the left lower lobe. Small right pleural effusion. Trace left pleural effusion No suspicious pulmonary nodules whic h require follow up. Mediastinum: Heart size is normal. No pericardial effusion. No large vessel abnormality. No mediastin al adenopathy by size criteria. Chest wall and lower neck: Thyroid is unremarkable. No axillary or supraclavicular adenopathy by size . Bones: No aggressive osseous abnormality. Upper Abdomen: Rim-enhancing crescentic shape fluid collection along the posterior aspect of the live r concerning for abscess. IMPRESSION: 1.New complete collapse of the right lower lobe with small to moderate-sized effusion. 2.Groundglass opacities within bilateral lungs concerning for infection. 3.Rim-enhancing fluid collection along the margin of the liver concerning for abscess. Reviewed by: John Back MD on 10/09/2023 5:28 PM [place] Approved by: John Back MD on 10/09/2023 5:28 PM [facility] Station ID: [id number]
--- NOTE | 2023-10-09 18:45 | CT Report ---
PROCEDURE: ABDOMEN/PELVIS W INDICATIONS: postop for colect/ostomy sepsis CONTRAST: 100ml omni 300 TECHNIQUE: After the administration of IV contrast, 5 mm thick sections acquired from the diaphragms to the symp hysis. 5 mm thick coronal and sagittal reformats were acquired. For radiation dose reduction, the f ollowing was used: automated exposure control, adjustment of mA and/or kV according to patient size. COMPARISON: CT chest from same day, FINDINGS: Image quality: Excellent. Lung bases and heart: Groundglass opacities within the visualized bilateral lungs. Small right pleura l effusion with compressive atelectasis. Trace left pleural effusion. On the posterior margins of the liver there is a crescentic loculated fluid-filled rim-enhancing keri ection extending down the colic gutter with additional fluid collection within the pelvis. This fluid collection measures at most 1.5 cm in thickness however extends down the length of the colic gutter. Liver: No solid mass. Gallbladder and biliary tree: No radiopaque stones or wall thickening. No biliary dilation. Spleen: No splenomegaly. Pancreas: No pancreatic ductal dilation. Adrenals: No adrenal nodule. Kidneys and ureters: No hydronephrosis. No renal cystic lesion which requires follow up. No solid mas s. Bowel and peritoneum: Post surgical changes with left abdominal wall ostomy. Midline incision site is open. Multiple air and fluid-filled loops of small bowel most prominent within the mid abdomen with no distinct transition point suggestive of ileus. There is mild under free fluid most prominent withi n the pelvis Lymph nodes: No central or retroperitoneal adenopathy. Vessels: No infrarenal aortic aneurysm. PELVIS Reproductive organs: Unremarkable. Bladder: Pradhan catheter is present. Intravesicular free air. Pelvic lymph nodes: No pelvic adenopathy by size criteria. Bones: No aggressive osseous abnormality. Other: No significant ventral or inguinal hernia. IMPRESSION: 1.A series of thin loculated rim-enhancing fluid collections along the inferior margin liver consiste nt with abscess. Additional smaller loculated fluid collections extending along the right paracolic c utter into the pelvis. 2.Dilated fluid-filled loops of bowel without transition point consistent with ileus. 3.Left abdominal ostomy 4.Post surgical changes along the anterior abdominal wall with open superficial abdominal incision. Reviewed by: John Back MD on 10/09/2023 5:43 PM [facility] Approved by: John Back MD on 10/09/2023 5:43 PM [place] Station ID: [id number]
[2023-10-09 20:29] LABS: CALCIUM, IONIZED 1.12 mmol/L (1.15-1.33); VBG PH 7.435 (7.31-7.41)
[2023-10-10] MEDS: SODIUM CHLORIDE FLUSH 0.9% 10 ML SYRINGE IVP SCH ×4 (02:26→23:16)
[2023-10-10] MEDS: PIPERACILLIN/TAZOBACTAM 3.375 GM in SODIUM CHLORIDE 0.9% MINIBAG 100 ML IV SCH ×2 (03:41→12:18)
[2023-10-10 05:14] LABS: BASOPHILS # (AUTO) 0.1 10^3/uL (0.0-0.1); BASOPHILS % (AUTO) 0.5 %; EOSINOPHILS # (AUTO) 0.1 10^3/uL (0.0-0.7); EOSINOPHILS % (AUTO) 0.6 %; HCT - HEMATOCRIT 31.1 % (37.0-47.0); HGB - HEMOGLOBIN 10.1 g/dL (12.0-16.0); LYMPHOCYTES # (AUTO) 0.8 10^3/uL (1.5-3.5); LYMPHOCYTES % (AUTO) 5.4 %; MEAN CORPUSCULAR HEMOGLOBIN 31.4 pg (27.0-31.0); MEAN CORPUSCULAR HGB CONC 32.5 g/dL (32.0-36.0); MEAN CORPUSCULAR VOLUME 96.6 fL (81.0-99.0); MEAN PLATELET VOLUME 9.6 fL (7.9-10.8); MONOCYTES # (AUTO) 0.8 10^3/uL (0.0-1.0); MONOCYTES % (AUTO) 5.5 %; NEUTROPHILS # (AUTO) 12.9 10^3/uL (1.5-6.6); NEUTROPHILS % (AUTO) 87.1 %; PLT - PLATELET COUNT 599 10^3/uL (130-450); RED BLOOD COUNT 3.22 10^6/uL (4.20-5.40); WHITE BLOOD COUNT 14.8 x10^3/uL (4.8-10.8)
[2023-10-10 05:24] LABS: CALCIUM, IONIZED 1.1 mmol/L (1.15-1.33); VBG PH 7.449 (7.31-7.41)
[2023-10-10 05:32] LABS: CALCIUM 8.3 mg/dL (8.5-10.3); CREATININE 0.3 mg/dL (0.6-1.3); MAGNESIUM 1.8 mg/dL (1.7-2.3); PHOSPHORUS 3.1 mg/dL (2.5-5.0); POTASSIUM 3.6 mmol/L (3.5-4.5)
[2023-10-10] MEDS: HYDROmorphone 0.5 MG/0.5 ML SYRINGE IVP PRN ×6 (05:39→23:14)
[2023-10-10] MEDS: ONDANSETRON 4 MG/2 ML VIAL IVP PRN (05:50)
[2023-10-10] MEDS ORDERED: CALCIUM GLUC 1,000MG/50ML-NACL 1,000 MG/50 ML BAG IV ONE ×2 (05:53→12:00)
[2023-10-10] MEDS ORDERED: POTASSIUM CHLOR 20 MEQ/100 ML 20 MEQ/100 ML BAG IV ONE (05:53)
[2023-10-10] MEDS ORDERED: MAGNESIUM SULFATE 2 GRAM 2 GM/50 ML BAG IV ONE (05:53)
[2023-10-10] MEDS: ACETAMINOPHEN 1,000 MG/100 ML 1,000 MG/100 ML BAG IV PRN ×2 (06:00→23:15)
[2023-10-10] MEDS: HEPARIN 5,000 UNIT/ML VIAL SUBQ SCH ×2 (08:38→21:14)
[2023-10-10] MEDS: FUROSEMIDE 40 MG/4 ML VIAL IVP SCH (08:39)
[2023-10-10] MEDS: oxyCODONE 5 MG TABLET PO PRN ×2 (08:40→13:41)
[2023-10-10] MEDS: FAMOTIDINE 20 MG/2 ML VIAL IVP SCH ×2 (08:40→21:14)
[2023-10-10] MEDS: CITALOPRAM HYDROBROMIDE 20 MG TABLET PO SCH (08:40)
[2023-10-10] MEDS ORDERED: TPN (CLINIMIX E 5/15) 2,000 ML with MULTIVITAMIN 10 ML, TRACE ELEMENTS 1 ML IV SCH ×3 (10:31)
--- NOTE | 2023-10-10 10:38 | PROVIDER PROGRESS NOTE ---
Subjective - General Admit Date: 10/02/23 Procedure Date: 10/02/23 Post Op Days: 8 Procedure Performed: Exploratory laparotomy, sigmoid colectomy, colostomy, washout - Review of Systems Wound/Incisions: positive: Dressing dry and intact, No drainage, Other (Colostomy pink and viable. Air and bile in pouch; BID dressings changes in progress) Objective - Patient Data Vital Signs: Vital Signs x48h Temp Pulse Resp BP Pulse Ox 10/10/23 10:00 37.7 C 95 15 132/85 H 94 10/10/23 08:00 37.8 C 89 20 132/84 H 96 10/10/23 07:03 38.2 C H 96 19 119/78 96 10/10/23 06:06 38.9 C H 98 19 140/84 H 92 10/10/23 05:00 38.6 C H 90 25 H 141/74 H 93 10/10/23 04:50 90 25 H 135/85 H 93 10/10/23 03:05 37.9 C 80 21 147/84 H 93 Weight: Weight 10/08/23 10/09/23 10/10/23 23:59 23:59 23:59 Weight (kg) 74 kg 70.5 kg 69 kg Intake & Output: Intake and Output Totals x24h 10/08/23 10/09/23 10/10/23 23:59 23:59 23:59 Intake Total 3558.100 2665.0 710 Output Total 5601 4502 3390 Balance -2042.900 -1837.0 -2680 - Lab Results Lab Results: 10/10/23 05:00 10/10/23 05:00 Other Lab Results: Lab Results x24hrs 10/10/23 10/10/23 10/10/23 Range/Units 05:00 05:00 05:00 WBC (4.8-10.8) x10^3/uL RBC (4.20-5.40) 10^6/uL Hgb (12.0-16.0) g/dL Hct (37.0-47.0) % MCV (81.0-99.0) fL MCH (27.0-31.0) pg MCHC (32.0-36.0) g/dL RDW (12.0-15.0) % Plt Count (130-450) 10^3/uL MPV (7.9-10.8) fL Neut # (Auto) (1.5-6.6) 10^3/uL Lymph # (Auto) (1.5-3.5) 10^3/uL [place] # (Auto) (0.0-1.0) 10^3/uL Eos # (Auto) (0.0-0.7) 10^3/uL Baso # (Auto) (0.0-0.1) 10^3/uL Absolute Nucleated RBC x10^3/uL Nucleated RBC % /100WBC VBG pH 7.449 H (7.31-7.41) Ionized Calcium 1.10 L (1.15-1.33) mmol/L Sodium 136 (135-145) mmol/L Potassium 3.6 (3.5-4.5) mmol/L Chloride 99 L (101-111) mmol/L Carbon Dioxide 31 (21-32) mmol/L Anion Gap 6.0 (6-13) BUN 17 (6-20) mg/dL Creatinine 0.3 L (0.6-1.3) mg/dL Estimated GFR (MDRD) 225 (>89) Glucose 162 H (74-104) mg/dL Calcium 8.3 L (8.5-10.3) mg/dL Phosphorus 3.1 (2.5-5.0) mg/dL Magnesium 1.8 (1.7-2.3) mg/dL 10/10/23 10/09/23 10/09/23 Range/Units 05:00 20:10 20:10 WBC 14.8 H (4.8-10.8) x10^3/uL RBC 3.22 L (4.20-5.40) 10^6/uL Hgb 10.1 L (12.0-16.0) g/dL Hct 31.1 L (37.0-47.0) % MCV 96.6 (81.0-99.0) fL MCH 31.4 H (27.0-31.0) pg MCHC 32.5 (32.0-36.0) g/dL RDW 13.0 (12.0-15.0) % Plt Count 599 H (130-450) 10^3/uL MPV 9.6 (7.9-10.8) fL Neut # (Auto) 12.9 H (1.5-6.6) 10^3/uL Lymph # (Auto) 0.8 L (1.5-3.5) 10^3/uL [place] # (Auto) 0.8 (0.0-1.0) 10^3/uL Eos # (Auto) 0.1 (0.0-0.7) 10^3/uL Baso # (Auto) 0.1 (0.0-0.1) 10^3/uL Absolute Nucleated RBC 0.00 x10^3/uL Nucleated RBC % 0.0 /100WBC VBG pH 7.435 H (7.31-7.41) Ionized Calcium 1.12 L (1.15-1.33) mmol/L Sodium (135-145) mmol/L Potassium 3.9 (3.5-4.5) mmol/L Chloride (101-111) mmol/L Carbon Dioxide (21-32) mmol/L Anion Gap (6-13) BUN (6-20) mg/dL Creatinine (0.6-1.3) mg/dL Estimated GFR (MDRD) (>89) Glucose (74-104) mg/dL Calcium (8.5-10.3) mg/dL Phosphorus (2.5-5.0) mg/dL Magnesium (1.7-2.3) mg/dL 10/09/23 10/09/23 10/09/23 Range/Units 17:17 17:17 13:53 WBC (4.8-10.8) x10^3/uL RBC (4.20-5.40) 10^6/uL Hgb (12.0-16.0) g/dL Hct (37.0-47.0) % MCV (81.0-99.0) fL MCH (27.0-31.0) pg MCHC (32.0-36.0) g/dL RDW (12.0-15.0) % Plt Count (130-450) 10^3/uL MPV (7.9-10.8) fL Neut # (Auto) (1.5-6.6) 10^3/uL Lymph # (Auto) (1.5-3.5) 10^3/uL [place] # (Auto) (0.0-1.0) 10^3/uL Eos # (Auto) (0.0-0.7) 10^3/uL Baso # (Auto) (0.0-0.1) 10^3/uL Absolute Nucleated RBC x10^3/uL Nucleated RBC % /100WBC VBG pH 7.454 H 7.456 H (7.31-7.41) Ionized Calcium 1.14 L 1.10 L (1.15-1.33) mmol/L Sodium (135-145) mmol/L Potassium 3.9 (3.5-4.5) mmol/L Chloride (101-111) mmol/L Carbon Dioxide (21-32) mmol/L Anion Gap (6-13) BUN (6-20) mg/dL Creatinine (0.6-1.3) mg/dL Estimated GFR (MDRD) (>89) Glucose (74-104) mg/dL Calcium (8.5-10.3) mg/dL Phosphorus (2.5-5.0) mg/dL Magnesium (1.7-2.3) mg/dL 10/09/23 Range/Units 13:53 WBC (4.8-10.8) x10^3/uL RBC (4.20-5.40) 10^6/uL Hgb (12.0-16.0) g/dL Hct (37.0-47.0) % MCV (81.0-99.0) fL MCH (27.0-31.0) pg MCHC (32.0-36.0) g/dL RDW (12.0-15.0) % Plt Count (130-450) 10^3/uL MPV (7.9-10.8) fL Neut # (Auto) (1.5-6.6) 10^3/uL Lymph # (Auto) (1.5-3.5) 10^3/uL [place] # (Auto) (0.0-1.0) 10^3/uL Eos # (Auto) (0.0-0.7) 10^3/uL Baso # (Auto) (0.0-0.1) 10^3/uL Absolute Nucleated RBC x10^3/uL Nucleated RBC % /100WBC VBG pH (7.31-7.41) Ionized Calcium (1.15-1.33) mmol/L Sodium (135-145) mmol/L Potassium 3.7 (3.5-4.5) mmol/L Chloride (101-111) mmol/L Carbon Dioxide (21-32) mmol/L Anion Gap (6-13) BUN (6-20) mg/dL Creatinine (0.6-1.3) mg/dL Estimated GFR (MDRD) (>89) Glucose (74-104) mg/dL Calcium (8.5-10.3) mg/dL Phosphorus (2.5-5.0) mg/dL Magnesium (1.7-2.3) mg/dL - Current Medications Current Medications: Current Medications Generic Name Dose Route Start Last Admin Trade Name Freq PRN Reason Stop Dose Admin Acetaminophen 650 mg 10/02/23 15:19 10/06/23 00:39 Acetaminophen 325 Mg Tablet PO 650 mg Q4HR PRN Administration Pain 1 to 4, or Fever Citalopram Hydrobromide 20 mg 10/03/23 09:00 10/10/23 08:40 Citalopram Hydrobromide 20 Mg Tablet PO 20 mg DAILY SANDAR Administration Famotidine 20 mg 10/06/23 12:00 10/10/23 08:40 Famotidine 20 Mg/2 Ml Vial IVP 20 mg BID SANDRA Administration Furosemide 40 mg 10/06/23 09:00 10/10/23 08:39 Furosemide 40 Mg/4 Ml Vial IVP 40 mg DAILY SANDRA Administration Heparin Sodium (Porcine) 5,000 unit 10/03/23 09:00 10/10/23 08:38 Heparin 5,000 Unit/Ml Vial SUBQ 5,000 unit BID SANDRA Administration Hydromorphone HCl 0.5 mg 10/02/23 15:19 10/10/23 07:59 Hydromorphone 0.5 Mg/0.5 Ml Syringe IVP 0.5 mg Q2H PRN Administration Pain 8 to 10 Fat Emulsion Intravenous 250 mls @ 21 mls/hr 10/06/23 19:00 10/10/23 06:04 Intralipid 20% IV Infused 1900 SANDRA Infusion Acetaminophen 1,000 mg in 100 mls @ 400 mls/hr 10/06/23 21:27 10/10/23 06:29 Acetaminophen IV Infused Q6HR PRN Infusion FEVER > 100.5 F Promethazine HCl 25 mg/ Sodium 51 mls @ 100 mls/hr 10/08/23 14:14 10/08/23 18:10 Chloride IV Infused Q6H PRN Infusion Nausea / Vomiting Multivitamins 10 ml/ TRACE 2,011 mls @ 83 mls/hr 10/09/23 19:00 10/09/23 18:04 ELEMENTS 1 ml/ Amino Ac/ IV 63 mls/hr Electrol/Dextrose/Calcium Q24H SANDRA Administration Protocol Piperacillin Sod/Tazobactam 100 mls @ 25 mls/hr 10/09/23 19:00 10/10/23 03:41 Sod 3.375 gm/ Sodium Chloride IV 25 mls/hr Q8H SANDRA Administration Lorazepam 1 mg 10/08/23 15:33 10/09/23 19:23 Lorazepam 2 Mg/Ml Vial IVP 1 mg Q2H PRN Administration Anxiety Ondansetron HCl 4 mg 10/02/23 15:19 10/05/23 05:03 Ondansetron Odt 4 Mg Tablet TL 4 mg Q6HR PRN Administration Nausea / Vomiting Ondansetron HCl 4 mg 10/02/23 15:19 10/10/23 05:50 Ondansetron 4 Mg/2 Ml Vial IVP 4 mg Q6HR PRN Administration Nausea / Vomiting Oxycodone HCl 5 mg 10/02/23 15:19 10/10/23 08:40 Oxycodone 5 Mg Tablet PO 5 mg Q4HR PRN Administration Pain 5 to 7 Prochlorperazine Edisylate 10 mg 10/08/23 14:14 10/08/23 14:21 Prochlorperazine 10 Mg/2 Ml Vial IVP 10 mg Q6HR PRN Administration Nausea / Vomiting Sodium Chloride 10 ml 10/06/23 09:00 10/10/23 02:26 Sodium Chloride Flush 0.9% 10 Ml Syringe IVP 10 ml 0100,0900,1700 SANDRA Administration Sodium Chloride 10 ml 10/06/23 07:17 10/09/23 13:19 Sodium Chloride Flush 0.9% 10 Ml Syringe IVP 10 ml PRN PRN Administration NEEDED PER PROVIDER ORDERS - Physical Exam Comments/Other: Pain controlled. Patient states she is cold this morning (ice packs in place). She was feeling nauseated, but improved with meds and NG placement yesterday. Increased ostomy output overnight per RN. Patient has not been out of bed due to changes in status and confusion for the last several days. She is interested in getting up today. ABX Reporting Has patient been on IV antibiotics over the past 48 hours?: Yes Impression/Plan - Problem List Problem List: 62 y/o F with: 1. perforated diverticulitis with feculent peritonitis - s/p ex lap with Astrid's, POD#8 - abx stopped POD#6, restarted POD#7, now on zosyn - delayed return of bowel function, as expected given surgery and findings, now with NG in place and on TPN for nutrition. Ostomy starting to work and NG output decreasing. Consider clamping trial and clears tomorrow if nausea improved. Will transition to PO nutrition when able to tolerate. - CT 12 shows small fluid collection extending along R pericolic gutter (1.5cm in largest dimension), not large enough for drain placement. If not improving, will consider repeat imaging in 3-5 days. - multimodal pain control, working to minimize use of narcotics and benzodiazepines as they may contribute to confusion - plan to increase activity today. Patient has not been working with PT for the last several days. - midline incision open to fascia 2/2 dirty procedure. Continue BID dressing changes, plan to allow wound to close by secondary intention. 2. acute respiratory failure - required transfer to ICU, now improving - s/p bronch on 10/07 - on diuretic - small R pleural effusion on repeat imaging yesterday 3. Dementia - patient's baseline function unknown - she continues to be confused this AM Prophylaxis: DVT: BID heparin, SCDs IS GI: pepcid BID Discharge planning: pending PT recs once able to evaluate
[2023-10-10 11:11] LABS: CALCIUM, IONIZED 1.07 mmol/L (1.15-1.33); VBG PH 7.457 (7.31-7.41)
[2023-10-10] MEDS ORDERED: CALCIUM CHLORIDE 1,000 MG in SODIUM CHLORIDE 0.9% 50 ML IV ONE (11:18)
[2023-10-10 11:19] LABS: POTASSIUM 3.3 mmol/L (3.5-4.5)
[2023-10-10] MEDS: POTASSIUM CHLOR 20 MEQ/100 ML 20 MEQ/100 ML BAG IV SCH ×2 (12:17→13:39)
[2023-10-10] MEDS: ACETAMINOPHEN 325 MG TABLET PO PRN ×2 (12:23→17:01)
--- NOTE | 2023-10-10 15:59 | PROVIDER PROGRESS NOTE ---
Subjective - Prog Note Date Prog Note Date: 10/10/23 Prog Note Time: 15:57 - Subjective Subjective: October 10, 2023 3:55 PM She is not completely oriented to situation and has a vague, slow psychomotor affect. But she has always been that way. Speech would be intermittently garbled. But today speech is fine. Able to have a normal conversation with me but poor insight about what is happening to her. Respiratory status has stayed stable with O2 sats on room air. She was able to come off BiPAP yesterday. But she has been febrile all day long. I have redone blood cultures, redone urine cultures. This is in spite of Zosyn being resumed. She has scant small amount coming out of her ostomy bag. Cough is phlegmy but not worse. Cough is weak. She is on TPN with lipids and I have her on ice chips. She says that her mouth is so dry. She really likes the pink sponges that I can dip in water and give to her. We are a critical access hospital. We usually attest that patients will be here 96 hours or less. Clearly this patient is here beyond that timeframe. We have not attempted transfer as of yet. We are well aware that we need to transfer to a higher level of care when we have exceeded the ability to deliver services here. We are getting to the point where we would need infectious disease, interventional radiology, and possibly another general surgery procedure. If this patient does not improve in the next 24 to 48 hours, I would recommend transfer to a higher level of care Current Medications - Current Medications Current Medications: Active Medications Acetaminophen (Acetaminophen 325 Mg Tablet) 650 mg PO Q4HR PRN PRN Reason: Pain 1 to 4, or Fever Last Admin: 10/10/23 12:23 Dose: 650 mg Acetaminophen (Acetaminophen 650 Mg Supp) 650 mg DE Q6HR PRN PRN Reason: Pain or Fever > 38C (100.4F) Citalopram Hydrobromide (Citalopram Hydrobromide 20 Mg Tablet) 20 mg PO DAILY COUNT INCLUDES THE [facility] Last Admin: 10/10/23 08:40 Dose: 20 mg Famotidine (Famotidine 20 Mg/2 Ml Vial) 20 mg IVP BID COUNT INCLUDES THE [facility] Last Admin: 10/10/23 08:40 Dose: 20 mg Furosemide (Furosemide 40 Mg/4 Ml Vial) 40 mg IVP DAILY COUNT INCLUDES THE [facility] Last Admin: 10/10/23 08:39 Dose: 40 mg Heparin Sodium (Porcine) (Heparin 5,000 Unit/Ml Vial) 5,000 unit SUBQ BID COUNT INCLUDES THE [facility] Last Admin: 10/10/23 08:38 Dose: 5,000 unit Hydromorphone HCl (Hydromorphone 0.5 Mg/0.5 Ml Syringe) 0.5 mg IVP Q2H PRN PRN Reason: Pain 8 to 10 Last Admin: 10/10/23 11:07 Dose: 0.5 mg Fat Emulsion Intravenous (Intralipid 20%) 250 mls @ 21 mls/hr IV 1900 SANDRA Last Infusion: 10/10/23 06:04 Dose: Infused Acetaminophen (Acetaminophen) 1,000 mg in 100 mls @ 400 mls/hr IV Q6HR PRN PRN Reason: FEVER > 100.5 F Last Infusion: 10/10/23 06:29 Dose: Infused Promethazine HCl 25 mg/ Sodium (Chloride) 51 mls @ 100 mls/hr IV Q6H PRN PRN Reason: Nausea / Vomiting Last Infusion: 10/08/23 18:10 Dose: Infused Multivitamins 10 ml/ TRACE ELEMENTS 1 ml/ Amino Ac/Electrol/Dextrose/Calcium 2,011 mls @ 83 mls/hr IV Q24H COUNT INCLUDES THE [facility]; Protocol Last Infusion: 10/10/23 13:38 Dose: 83 mls/hr Piperacillin Sod/Tazobactam (Sod 3.375 gm/ Sodium Chloride) 100 mls @ 25 mls/hr IV Q8H COUNT INCLUDES THE [facility] Last Admin: 10/10/23 12:18 Dose: 25 mls/hr Lorazepam (Lorazepam 2 Mg/Ml Vial) 1 mg IVP Q2H PRN PRN Reason: Anxiety Last Admin: 10/09/23 19:23 Dose: 1 mg Ondansetron HCl (Ondansetron Odt 4 Mg Tablet) 4 mg TL Q6HR PRN PRN Reason: Nausea / Vomiting Last Admin: 10/05/23 05:03 Dose: 4 mg Ondansetron HCl (Ondansetron 4 Mg/2 Ml Vial) 4 mg IVP Q6HR PRN PRN Reason: Nausea / Vomiting Last Admin: 10/10/23 05:50 Dose: 4 mg Oxycodone HCl (Oxycodone 5 Mg Tablet) 5 mg PO Q4HR PRN PRN Reason: Pain 5 to 7 Last Admin: 10/10/23 13:41 Dose: 5 mg Prochlorperazine Edisylate (Prochlorperazine 10 Mg/2 Ml Vial) 10 mg IVP Q6HR PRN PRN Reason: Nausea / Vomiting Last Admin: 10/08/23 14:21 Dose: 10 mg Sodium Chloride (Sodium Chloride Flush 0.9% 10 Ml Syringe) 10 ml IVP 0100,0900,1700 SANDRA Last Admin: 10/10/23 14:54 Dose: 10 ml Sodium Chloride (Sodium Chloride Flush 0.9% 10 Ml Syringe) 10 ml IVP PRN PRN PRN Reason: NEEDED PER PROVIDER ORDERS Last Admin: 10/09/23 13:19 Dose: 10 ml ALPRAZolam [Alprazolam] 0.5 mg PO HS PRN 06/23/23 Citalopram Hydrobromide [Celexa] 20 mg PO DAILY 06/23/23 Ibuprofen [Motrin] 1 tablet PO Q8H PRN 06/23/23 Losartan Potassium 25 mg PO DAILY 06/23/23 amLODIPine [Norvasc] 5 mg PO DAILY 06/23/23 hydroCHLOROthiazide [Hydrochlorothiazide] 25 mg PO DAILY 06/23/23 Objective - Vital Signs/Intake & Output Reviewed Vital Signs: Yes Vital Signs: Vital Signs Temp Pulse Resp BP Pulse Ox 10/10/23 15:00 38.6 C H 95 13 122/78 93 10/10/23 14:00 38.6 C H 95 13 122/78 93 10/10/23 13:00 38.7 C H 96 12 132/79 H 92 10/10/23 12:00 38.2 C H 91 13 132/83 H 93 Intake & Output: Intake & Output 10/07/23 10/08/23 10/09/23 10/10/23 23:59 23:59 23:59 23:59 Intake Total 3302.283 3558.100 2665.0 2242.7 Output Total 3300 5601 4502 3890 Balance 2.283 -2042.900 -1837.0 -1647.3 - Objective General Appearance: positive: No acute distress, Other (Again psychomotor slowing with vague affect. But appropriate to my questions. Alert to place, person. Does not remember that I am her doctor.She is sucking on the end of a spoon thinking that it is a straw as she tries to get ice out of a cup) Eyes Bilateral: positive: PERRL, EOMI ENT: positive: No signs of dehydration Neck: positive: No JVD. negative: Stiff neck Respiratory: positive: No respiratory distress, Rhonchi Cardiovascular: positive: Regular rate & rhythm Abdomen: positive: Other (Ostomy pink. Bag with air and liquid stool) Skin: positive: Warm, Dry Extremities: positive: Full ROM (Except for the right wrist in the splint/cast), No pedal edema Neurologic/Psychiatric: positive: CN's nml (2-12), Motor nml, Disoriented to time, Slurred/abnml speech (At times.). negative: Mood/affect nml - Lab Results Fish Bones: 10/10/23 05:00 10/10/23 10:47 Other Labs: Lab Results x24hrs 10/10/23 10/10/23 10/10/23 Range/Units 10:47 10:47 05:00 WBC (4.8-10.8) x10^3/uL RBC (4.20-5.40) 10^6/uL Hgb (12.0-16.0) g/dL Hct (37.0-47.0) % MCV (81.0-99.0) fL MCH (27.0-31.0) pg MCHC (32.0-36.0) g/dL RDW (12.0-15.0) % Plt Count (130-450) 10^3/uL MPV (7.9-10.8) fL Neut # (Auto) (1.5-6.6) 10^3/uL Lymph # (Auto) (1.5-3.5) 10^3/uL [place] # (Auto) (0.0-1.0) 10^3/uL Eos # (Auto) (0.0-0.7) 10^3/uL Baso # (Auto) (0.0-0.1) 10^3/uL Absolute Nucleated RBC x10^3/uL Nucleated RBC % /100WBC VBG pH 7.457 H 7.449 H (7.31-7.41) Ionized Calcium 1.07 L 1.10 L (1.15-1.33) mmol/L Sodium (135-145) mmol/L Potassium 3.3 L (3.5-4.5) mmol/L Chloride (101-111) mmol/L Carbon Dioxide (21-32) mmol/L Anion Gap (6-13) BUN (6-20) mg/dL Creatinine (0.6-1.3) mg/dL Estimated GFR (MDRD) (>89) Glucose (74-104) mg/dL Calcium (8.5-10.3) mg/dL Phosphorus 4.0 (2.5-5.0) mg/dL Magnesium 2.0 (1.7-2.3) mg/dL 10/10/23 10/10/23 10/10/23 Range/Units 05:00 05:00 05:00 WBC 14.8 H (4.8-10.8) x10^3/uL RBC 3.22 L (4.20-5.40) 10^6/uL Hgb 10.1 L (12.0-16.0) g/dL Hct 31.1 L (37.0-47.0) % MCV 96.6 (81.0-99.0) fL MCH 31.4 H (27.0-31.0) pg MCHC 32.5 (32.0-36.0) g/dL RDW 13.0 (12.0-15.0) % Plt Count 599 H (130-450) 10^3/uL MPV 9.6 (7.9-10.8) fL Neut # (Auto) 12.9 H (1.5-6.6) 10^3/uL Lymph # (Auto) 0.8 L (1.5-3.5) 10^3/uL [place] # (Auto) 0.8 (0.0-1.0) 10^3/uL Eos # (Auto) 0.1 (0.0-0.7) 10^3/uL Baso # (Auto) 0.1 (0.0-0.1) 10^3/uL Absolute Nucleated RBC 0.00 x10^3/uL Nucleated RBC % 0.0 /100WBC VBG pH (7.31-7.41) Ionized Calcium (1.15-1.33) mmol/L Sodium 136 (135-145) mmol/L Potassium 3.6 (3.5-4.5) mmol/L Chloride 99 L (101-111) mmol/L Carbon Dioxide 31 (21-32) mmol/L Anion Gap 6.0 (6-13) BUN 17 (6-20) mg/dL Creatinine 0.3 L (0.6-1.3) mg/dL Estimated GFR (MDRD) 225 (>89) Glucose 162 H (74-104) mg/dL Calcium 8.3 L (8.5-10.3) mg/dL Phosphorus 3.1 (2.5-5.0) mg/dL Magnesium 1.8 (1.7-2.3) mg/dL 10/09/23 10/09/23 10/09/23 Range/Units 20:10 20:10 17:17 WBC (4.8-10.8) x10^3/uL RBC (4.20-5.40) 10^6/uL Hgb (12.0-16.0) g/dL Hct (37.0-47.0) % MCV (81.0-99.0) fL MCH (27.0-31.0) pg MCHC (32.0-36.0) g/dL RDW (12.0-15.0) % Plt Count (130-450) 10^3/uL MPV (7.9-10.8) fL Neut # (Auto) (1.5-6.6) 10^3/uL Lymph # (Auto) (1.5-3.5) 10^3/uL [place] # (Auto) (0.0-1.0) 10^3/uL Eos # (Auto) (0.0-0.7) 10^3/uL Baso # (Auto) (0.0-0.1) 10^3/uL Absolute Nucleated RBC x10^3/uL Nucleated RBC % /100WBC VBG pH 7.435 H 7.454 H (7.31-7.41) Ionized Calcium 1.12 L 1.14 L (1.15-1.33) mmol/L Sodium (135-145) mmol/L Potassium 3.9 (3.5-4.5) mmol/L Chloride (101-111) mmol/L Carbon Dioxide (21-32) mmol/L Anion Gap (6-13) BUN (6-20) mg/dL Creatinine (0.6-1.3) mg/dL Estimated GFR (MDRD) (>89) Glucose (74-104) mg/dL Calcium (8.5-10.3) mg/dL Phosphorus (2.5-5.0) mg/dL Magnesium (1.7-2.3) mg/dL 10/09/23 Range/Units 17:17 WBC (4.8-10.8) x10^3/uL RBC (4.20-5.40) 10^6/uL Hgb (12.0-16.0) g/dL Hct (37.0-47.0) % MCV (81.0-99.0) fL MCH (27.0-31.0) pg MCHC (32.0-36.0) g/dL RDW (12.0-15.0) % Plt Count (130-450) 10^3/uL MPV (7.9-10.8) fL Neut # (Auto) (1.5-6.6) 10^3/uL Lymph # (Auto) (1.5-3.5) 10^3/uL [place] # (Auto) (0.0-1.0) 10^3/uL Eos # (Auto) (0.0-0.7) 10^3/uL Baso # (Auto) (0.0-0.1) 10^3/uL Absolute Nucleated RBC x10^3/uL Nucleated RBC % /100WBC VBG pH (7.31-7.41) Ionized Calcium (1.15-1.33) mmol/L Sodium (135-145) mmol/L Potassium 3.9 (3.5-4.5) mmol/L Chloride (101-111) mmol/L Carbon Dioxide (21-32) mmol/L Anion Gap (6-13) BUN (6-20) mg/dL Creatinine (0.6-1.3) mg/dL Estimated GFR (MDRD) (>89) Glucose (74-104) mg/dL Calcium (8.5-10.3) mg/dL Phosphorus (2.5-5.0) mg/dL Magnesium (1.7-2.3) mg/dL Assessment/Plan - Problem List (1) Fever Impression: It was explained to me by general surgery yesterday that they would anticipate abscesses to start forming in the second week. She is on course for developing abscesses since this is the second week after her surgery. As such I did a CT of abdomen and pelvis and the patient does have small abscesses going down the right paracolic gutter. I had resumed her Zosyn and she is still spiking temps. My thought processes include needing to broaden antibiotics to include staph. As such I have sent off a sputum culture. If she comes back as positive for staph, she will need to Zosyn changed to cefepime and Flagyl and the addition of bank. We cannot add Vanco to Zosyn. Stool spillage in the abdomen can also put her at risk for Genesis. I have sent off a [id number]. I called the lab as a miscellaneous lab order. If it is positive and indicates possible fungal infection, she needs to have Caspofungin 70 mg On day 1 followed by 50 mg IV every 24 hours. However I do not know if our pharmacy carries that. A less effective alternative would be fluconazole. Other source of the fever could be the atelectasis from the pleural effusion. But she is on good antibiotic coverage currently. Again, she is not a candidate for thoracentesis since the effusion is not large enough according to radiology. I am hoping that the blood cultures and urine culture will be resulted, at least by PCR, today to help guide my therapy. Sputum culture submitted today. (2) Perforated abdominal viscus Impression: Status post exploratory lap, colectomy, and colostomy. 10/06 she had a postop complication of mucous plug causing collapse of right lung. Sudden respiratory failure with Bipap in ICU. Bronchoscopy the next day 10/07 showed that it had resolved. Off Bipap. we were using PPN that day. On clears. 10/08 was Postop day #6. Again another setback with regards to respiratory distress back on BiPAP. Nursing reports that there was bile in her mouth when she had episode of respiratory distress. Combine that with the abdominal exam of distention. She had an episode of emesis, and belly seems more distended and tympanitic. Not more painful. But she was uncomfortable. Nursing feels that she may have aspirated again. I had an NG tube put in because of the KUB distention. Quite a bit of NG drainage. Respiratory status was stable but tenuous on BiPAP because she keeps on pulling off the mask with her restlessness. Central line inserted. Planned zosyn stop that night. 1210 On nasal cannula and able to come off BiPAP. She was calm. No longer r estless. A little confused about where she was and what was happening. But starting to spike temps. I reordered blood cultures and reordered a urine C&S. Both of those have been received and results are pending. I resumed Zosyn so she only missed 2 doses at most. I had stopped it on the evening of the . Her incisions are clean and not infected. Long-term plan is to leave the upper and lower part of incision to close by secondary intention. She is not to return to the OR. She would be at risk for developing abscess 7 to 10 days postop and she is postop day 8. I ordered CT of chest abdomen and pelvis. Chest CT shows mild pleural effusion. I specifically asked the radiologist if this was worse during thoracentesis Rain he said no. CT of the abdomen showed multiple small abscesses starting at the liver and going down the right paracolic gutter to the pelvis. The largest is 1.5 cm so there is no abscess to drain. General surgery says this would be expected considering this is the second week after spillage of stool in the abdomen. Today continues to spike temperatures. Plan: See plan for fever as above. Continue TPN with lipids I am anticipating a very prolonged postoperative stay. She is very weak, deconditioned. Nevertheless I will see if PT can at least get her out of bed today and put her in a chair. Unfortunately she does not have insurance for neither home health or rehab. So when she is finished with her acute care stay here, she will have to go home. I am again going to emphasize that this patient needs to be taught colostomy training. And family needs to be taught colostomy training. A barrier to this successful training will be the fact that she has a right wrist fracture. (2) Acute respiratory failure with hypoxia resolved and now returned. Postoperatively there was fluid overload, then a mucous plug with consolidation seen on CT of the right lung from the plug. Bronchoscopy done after that and showed open right upper lung. But she continues to have a pleural effusion on chest x-ray . CT shows the pleural effusion on October 09. But radiology does not feel it is large enough to do a thoracentesis on. I did think of PE as a cause of her sudden respiratory deterioration but this patient has been on DVT prophylaxis since postop day 1.She is off BiPAP and on nasal cannula and tolerating it well. (3) Nutrition deficiency due to insufficient food Conclusion/Plan: I started PPN on October 06. I then added clear liquids on the but she had the episode of emesis On the . She is now NPO. NG tube in place. Switch to TPN October 09. Central line placed October 08. (4) Generalized weakness Conclusion/Plan: This unfortunate patient has had a sudden severe illness. Surgery. Now with a colostomy. She has been very, very slow to progress. Reluctant to get up out of bed. Physical therapy has worked with her. She keeps on telling physical therapy that she wants to go home. But she is not going to be able to as manifested by her generalized weakness. She lives alone. She has not been able to work with physical therapy with these respiratory episodes. Today she is stable enough that have asked PT to please get her up out of bed and into a chair. Case management is explained to me that this patient does not have outpatient insurance that would allow her home health or custodial fa cility for rehab. We will have to work harder and making sure this patient is able to go home with good colostomy instruction. And that her family is sent home with good colostomy instruction.We do not have a colostomy education nurse.
--- NOTE | 2023-10-10 16:11 | XRAY Report ---
PROCEDURE: Wrist 2 View RT INDICATIONS: fracture in splint TECHNIQUE: 3 views of the wrist were acquired. COMPARISON: None. FINDINGS: Evaluation for osseous healing and alignment stability is limited due to lack of compariso n imaging. Evaluation of scapholunate interval is limited secondary to overlying hardware. Bones: Volar surgical plate and screw fixation of the distal radius fracture and dorsal surgical katarina te and screw fixation transfixing the distal radial diaphysis to third metacarpal neck is intact with no perihardware lucency to suggest hardware loosening. Fracture planes remain conspicuous. Ulnar neg ative variance with narrowing of the radiocarpal joint. Moderate first CMC osteoarthritis and scatter ed degenerative changes throughout the wrist.. No suspicious bony lesions. Soft tissues: No suspicious soft tissue calcifications or masses. IMPRESSION: Evaluation for osseous healing and alignment stability is limited due to lack of compari son imaging. Evaluation of scapholunate interval is limited secondary to overlying hardware. 1.Volar and dorsal surgical plate and screw fixations for comminuted distal radius fracture are intac t without complication. Fracture planes remain conspicuous. 2.Ulnar negative variance with narrowing of the radiocarpal joint. Reviewed by: Sonia Strauss MD on 10/10/2023 4:10 PM PST Approved by: Sonia Strauss MD on 10/10/2023 4:10 PM PST Station ID: [id number]
[2023-10-10] MEDS: TPN (CLINIMIX E 5/15) 2,000 ML with MULTIVITAMIN 10 ML, TRACE ELEMENTS 1 ML IV SCH ×3 (18:23)
[2023-10-10] MEDS: FAT EMULSION 20% 250 ML IV SCH (18:24)
[2023-10-10] MEDS: metroNIDAZOLE 500 MG/100 ML 500 MG/100 ML BAG IV SCH (18:42)
[2023-10-10] MEDS: SODIUM CHLORIDE FLUSH 0.9% 10 ML SYRINGE IVP PRN (21:18)
[2023-10-10] MEDS: CEFEPIME 1 GM in SODIUM CHLORIDE 0.9% MINIBAG 100 ML IV SCH (21:31)
[2023-10-11] MEDS: HYDROmorphone 0.5 MG/0.5 ML SYRINGE IVP PRN ×2 (01:12→20:37)
[2023-10-11] MEDS: SODIUM CHLORIDE FLUSH 0.9% 10 ML SYRINGE IVP PRN ×6 (01:12→23:31)
[2023-10-11] MEDS: metroNIDAZOLE 500 MG/100 ML 500 MG/100 ML BAG IV SCH ×3 (02:52→18:04)
[2023-10-11] MEDS: LORazepam 2 MG/ML VIAL IVP PRN ×2 (03:01→17:26)
[2023-10-11 05:26] LABS: BASOPHILS # (AUTO) 0.1 10^3/uL (0.0-0.1); BASOPHILS % (AUTO) 0.7 %; EOSINOPHILS # (AUTO) 0.1 10^3/uL (0.0-0.7); EOSINOPHILS % (AUTO) 0.7 %; HCT - HEMATOCRIT 28.5 % (37.0-47.0); HGB - HEMOGLOBIN 9.3 g/dL (12.0-16.0); LYMPHOCYTES # (AUTO) 1.1 10^3/uL (1.5-3.5); LYMPHOCYTES % (AUTO) 7.3 %; MEAN CORPUSCULAR HEMOGLOBIN 31.6 pg (27.0-31.0); MEAN CORPUSCULAR HGB CONC 32.6 g/dL (32.0-36.0); MEAN CORPUSCULAR VOLUME 96.9 fL (81.0-99.0); MEAN PLATELET VOLUME 9.3 fL (7.9-10.8); MONOCYTES # (AUTO) 0.9 10^3/uL (0.0-1.0); MONOCYTES % (AUTO) 6.1 %; NEUTROPHILS # (AUTO) 12.9 10^3/uL (1.5-6.6); NEUTROPHILS % (AUTO) 84.4 %; PLT - PLATELET COUNT 592 10^3/uL (130-450); RED BLOOD COUNT 2.94 10^6/uL (4.20-5.40); VBG PH 7.437 (7.31-7.41); WHITE BLOOD COUNT 15.3 x10^3/uL (4.8-10.8)
[2023-10-11 05:27] LABS: CALCIUM, IONIZED 1.09 mmol/L (1.15-1.33)
[2023-10-11 05:38] LABS: ALBUMIN 2.2 g/dL (3.2-5.5); ALBUMIN/GLOBULIN RATIO 0.7 (1.0-2.2); BILIRUBIN,TOTAL 0.3 mg/dL (0.2-1.0); CALCIUM 8.1 mg/dL (8.5-10.3); CREATININE 0.3 mg/dL (0.6-1.3); MAGNESIUM 1.8 mg/dL (1.7-2.3); POTASSIUM 3.8 mmol/L (3.5-4.5); TOTAL PROTEIN 5.4 g/dL (6.4-8.9)
[2023-10-11] MEDS: CEFEPIME 1 GM in SODIUM CHLORIDE 0.9% MINIBAG 100 ML IV SCH ×3 (05:56→22:17)
[2023-10-11] MEDS ORDERED: POTASSIUM CHLOR 20 MEQ/100 ML 20 MEQ/100 ML BAG IV ONE ×4 (06:20→19:53)
[2023-10-11] MEDS ORDERED: CALCIUM GLUC 1,000MG/50ML-NACL 1,000 MG/50 ML BAG IV ONE ×4 (06:20→20:00)
[2023-10-11] MEDS ORDERED: MAGNESIUM SULFATE 2 GRAM 2 GM/50 ML BAG IV ONE (06:20)
[2023-10-11] MEDS ORDERED: ACETAMINOPHEN 160 MG/5 ML SUSP UDC PO PRN (07:30)
[2023-10-11] MEDS: HEPARIN 5,000 UNIT/ML VIAL SUBQ SCH ×2 (08:04→20:40)
[2023-10-11] MEDS: CITALOPRAM HYDROBROMIDE 20 MG TABLET PO SCH (08:04)
[2023-10-11] MEDS: FUROSEMIDE 40 MG/4 ML VIAL IVP SCH (08:04)
[2023-10-11] MEDS: FAMOTIDINE 20 MG/2 ML VIAL IVP SCH ×2 (08:04→20:37)
[2023-10-11] MEDS: SODIUM CHLORIDE FLUSH 0.9% 10 ML SYRINGE IVP SCH ×3 (08:05→20:39)
[2023-10-11] MEDS: FLUCONAZOLE 200 MG/100 ML 50 ML IV SCH (08:16)
[2023-10-11] MEDS: ONDANSETRON 4 MG/2 ML VIAL IVP PRN (10:21)
--- NOTE | 2023-10-11 11:20 | PROVIDER PROGRESS NOTE ---
Subjective - Subjective Pt reports feeling: Improved (up in chair. no complaints. alert and communicating this am) Objective - Vital Signs/Intake & Output Vital Signs: Vital Signs x48h Temp Pulse Resp BP Pulse Ox 10/11/23 11:00 92 19 126/78 98 10/11/23 10:00 95 18 116/87 H 96 10/11/23 09:00 39.2 C H 17 137/87 H 92 10/11/23 08:12 39 C H 10/11/23 08:00 39.0 C H 92 17 149/77 H 95 10/11/23 07:00 38.7 C H 95 18 148/76 H 92 10/11/23 06:00 38.1 C H 93 19 140/80 H 93 10/11/23 05:00 37.6 C 86 14 110/71 94 10/11/23 04:00 37.3 C 88 16 106/74 95 Intake & Output: Intake & Output 10/08/23 10/09/23 10/10/23 10/11/23 23:59 23:59 23:59 23:59 Intake Total 3558.100 2665.0 3086.95 1779.2 Output Total 5601 4502 4480 2515 Balance -2042.900 -1837.0 -1393.05 -735.8 - Objective General Appearance: positive: No acute distress, Alert Eyes Bilateral: positive: PERRL Respiratory: positive: No respiratory distress Abdomen: positive: Non-tender, No distention, Other (ngt 400 thin green overnight. air and thin stool in stoma bag) Neurologic/Psychiatric: positive: Other (much more alert than has been since admit) - Lab Results Fish Bones: 10/11/23 05:09 10/11/23 05:09 Other Labs: Lab Results x24hrs 10/11/23 10/11/23 10/11/23 Range/Units 05:09 05:09 05:09 WBC 15.3 H (4.8-10.8) x10^3/uL RBC 2.94 L (4.20-5.40) 10^6/uL Hgb 9.3 L (12.0-16.0) g/dL Hct 28.5 L (37.0-47.0) % MCV 96.9 (81.0-99.0) fL MCH 31.6 H (27.0-31.0) pg MCHC 32.6 (32.0-36.0) g/dL RDW 13.0 (12.0-15.0) % Plt Count 592 H (130-450) 10^3/uL MPV 9.3 (7.9-10.8) fL Neut # (Auto) 12.9 H (1.5-6.6) 10^3/uL Lymph # (Auto) 1.1 L (1.5-3.5) 10^3/uL [place] # (Auto) 0.9 (0.0-1.0) 10^3/uL Eos # (Auto) 0.1 (0.0-0.7) 10^3/uL Baso # (Auto) 0.1 (0.0-0.1) 10^3/uL Absolute Nucleated RBC 0.00 x10^3/uL Nucleated RBC % 0.0 /100WBC VBG pH 7.437 H (7.31-7.41) Ionized Calcium 1.09 L (1.15-1.33) mmol/L Sodium (135-145) mmol/L Potassium (3.5-4.5) mmol/L Chloride (101-111) mmol/L Carbon Dioxide (21-32) mmol/L Anion Gap (6-13) BUN (6-20) mg/dL Creatinine (0.6-1.3) mg/dL Estimated GFR (MDRD) (>89) Glucose (74-104) mg/dL Calcium (8.5-10.3) mg/dL Phosphorus 3.4 (2.5-5.0) mg/dL Magnesium (1.7-2.3) mg/dL Total Bilirubin (0.2-1.0) mg/dL AST (10-42) IU/L ALT (10-60) IU/L Alkaline Phosphatase (42-121) IU/L Total Protein (6.4-8.9) g/dL Albumin (3.2-5.5) g/dL Globulin (2.1-4.2) g/dL Albumin/Globulin Ratio (1.0-2.2) Prealbumin (17-34) mg/dL Triglycerides (48-352) mg/dL 12/10/2210/10/23 10/10/23 Range/Units 05:09 16:07 10:47 WBC (4.8-10.8) x10^3/uL RBC (4.20-5.40) 10^6/uL Hgb (12.0-16.0) g/dL Hct (37.0-47.0) % MCV (81.0-99.0) fL MCH (27.0-31.0) pg MCHC (32.0-36.0) g/dL RDW (12.0-15.0) % Plt Count (130-450) 10^3/uL MPV (7.9-10.8) fL Neut # (Auto) (1.5-6.6) 10^3/uL Lymph # (Auto) (1.5-3.5) 10^3/uL [place] # (Auto) (0.0-1.0) 10^3/uL Eos # (Auto) (0.0-0.7) 10^3/uL Baso # (Auto) (0.0-0.1) 10^3/uL Absolute Nucleated RBC x10^3/uL Nucleated RBC % /100WBC VBG pH (7.31-7.41) Ionized Calcium (1.15-1.33) mmol/L Sodium 134 L (135-145) mmol/L Potassium 3.8 4.2 3.3 L (3.5-4.5) mmol/L Chloride 98 L (101-111) mmol/L Carbon Dioxide 32 (21-32) mmol/L Anion Gap 4.0 L (6-13) BUN 22 H (6-20) mg/dL Creatinine 0.3 L (0.6-1.3) mg/dL Estimated GFR (MDRD) 225 (>89) Glucose 155 H (74-104) mg/dL Calcium 8.1 L (8.5-10.3) mg/dL Phosphorus 4.0 (2.5-5.0) mg/dL Magnesium 1.8 2.0 (1.7-2.3) mg/dL Total Bilirubin 0.3 (0.2-1.0) mg/dL AST 12 (10-42) IU/L ALT 6 L (10-60) IU/L Alkaline Phosphatase 62 (42-121) IU/L Total Protein 5.4 L (6.4-8.9) g/dL Albumin 2.2 L (3.2-5.5) g/dL Globulin 3.2 (2.1-4.2) g/dL Albumin/Globulin Ratio 0.7 L (1.0-2.2) Prealbumin 8 L (17-34) mg/dL Triglycerides 157 (48-352) mg/dL - Diagnostic Imaging Diagnostic Imaging Results: positive: Read independently Assessment/Plan - Problem List (1) Perforated abdominal viscus Impression: slowly improving tpn iv abxs continue ngt today/ clamp trials d/c planning for snf
[2023-10-11] MEDS ORDERED: ACETAMINOPHEN 160 MG/5 ML SUSP UDC PO SCH (12:00)
[2023-10-11 12:16] LABS: CALCIUM, IONIZED 1.06 mmol/L (1.15-1.33); VBG PH 7.469 (7.31-7.41)
--- NOTE | 2023-10-11 14:02 | XRAY Report ---
PROCEDURE: Chest 2 View X-Ray INDICATIONS: leukocytosis, pleural effusion f/u TECHNIQUE: 2 views of the chest were acquired. COMPARISON: Chest x-ray 10/08/2023, CT chest 10/09/2023 FINDINGS: Surgical changes and devices: Right-sided central venouscatheter and nasogastric tube are unchanged. Lungs and pleura: Persistent appearance of hazy opacity within the right hemithorax predominantly at the base mildly improved compared to prior exam. Mediastinum: Mediastinal contours appear normal. Heart size is normal. Bones and chest wall: No suspicious bony lesions. Overlying soft tissues appear unremarkable. IMPRESSION: Persistent although improved appearance of hazy opacity within the right lung.. This likely represent s effusion. Underlying areas of pneumonia and/or atelectasis should be considered. Reviewed by: Shala Lopez MD on 10/11/2023 2:00 PM PST Approved by: Shala Lopez MD on 10/11/2023 2:00 PM [facility] Station ID: [id number]
[2023-10-11] MEDS: ACETAMINOPHEN 160 MG/5 ML SUSP UDC PO SCH ×3 (14:35→22:23)
--- NOTE | 2023-10-11 15:31 | PROVIDER PROGRESS NOTE ---
Subjective - Subjective Pt reports feeling: No change Objective - Vital Signs/Intake & Output Reviewed Vital Signs: Yes Vital Signs: Vital Signs Temp Pulse Resp BP Pulse Ox 10/11/23 15:00 37.7 C 83 17 130/76 94 10/11/23 14:00 37.7 C 82 20 124/84 H 95 10/11/23 13:00 38 C H 84 18 133/77 H 96 10/11/23 12:00 38 C H 85 17 125/85 H 97 Intake & Output: Intake & Output 10/08/23 10/09/23 10/10/23 10/11/23 23:59 23:59 23:59 23:59 Intake Total 3558.100 2665.0 3086.95 2129.2 Output Total 5601 4502 4480 3225 Balance -2042.900 -1837.0 -1393.05 -1095.8 - Objective General Appearance: positive: Lethargic Eyes Bilateral: positive: Normal inspection, EOMI ENT: positive: ENT inspection nml, No signs of dehydration, Other (disheveled) Neck: positive: Nml inspection Respiratory: positive: No respiratory distress, Other (diminished breath sounds) Cardiovascular: positive: Regular rate & rhythm Abdomen: positive: Non-tender, No distention Skin: positive: Warm, Dry Extremities: positive: Non-tender, No pedal edema Neurologic/Psychiatric: positive: Oriented x3, CN's nml (2-12), Motor nml, Other (Lethargic) - Lab Results Fish Bones: 10/16/23 04:25 10/14/23 04:30 Other Labs: Lab Results x24hrs 10/11/23 10/11/23 10/11/23 Range/Units 12:02 12:02 12:02 WBC (4.8-10.8) x10^3/uL RBC (4.20-5.40) 10^6/uL Hgb (12.0-16.0) g/dL Hct (37.0-47.0) % MCV (81.0-99.0) fL MCH (27.0-31.0) pg MCHC (32.0-36.0) g/dL RDW (12.0-15.0) % Plt Count (130-450) 10^3/uL MPV (7.9-10.8) fL Neut # (Auto) (1.5-6.6) 10^3/uL Lymph # (Auto) (1.5-3.5) 10^3/uL [place] # (Auto) (0.0-1.0) 10^3/uL Eos # (Auto) (0.0-0.7) 10^3/uL Baso # (Auto) (0.0-0.1) 10^3/uL Absolute Nucleated RBC x10^3/uL Nucleated RBC % /100WBC VBG pH 7.469 H (7.31-7.41) Ionized Calcium 1.06 L (1.15-1.33) mmol/L Sodium (135-145) mmol/L Potassium 3.7 (3.5-4.5) mmol/L Chloride (101-111) mmol/L Carbon Dioxide (21-32) mmol/L Anion Gap (6-13) BUN (6-20) mg/dL Creatinine (0.6-1.3) mg/dL Estimated GFR (MDRD) (>89) Glucose (74-104) mg/dL Calcium (8.5-10.3) mg/dL Phosphorus (2.5-5.0) mg/dL Magnesium 2.2 (1.7-2.3) mg/dL Total Bilirubin (0.2-1.0) mg/dL AST (10-42) IU/L ALT (10-60) IU/L Alkaline Phosphatase (42-121) IU/L Total Protein (6.4-8.9) g/dL Albumin (3.2-5.5) g/dL Globulin (2.1-4.2) g/dL Albumin/Globulin Ratio (1.0-2.2) Prealbumin (17-34) mg/dL Triglycerides (48-352) mg/dL 10/11/23 10/11/23 10/11/23 Range/Units 05:09 05:09 05:09 WBC 15.3 H (4.8-10.8) x10^3/uL RBC 2.94 L (4.20-5.40) 10^6/uL Hgb 9.3 L (12.0-16.0) g/dL Hct 28.5 L (37.0-47.0) % MCV 96.9 (81.0-99.0) fL MCH 31.6 H (27.0-31.0) pg MCHC 32.6 (32.0-36.0) g/dL RDW 13.0 (12.0-15.0) % Plt Count 592 H (130-450) 10^3/uL MPV 9.3 (7.9-10.8) fL Neut # (Auto) 12.9 H (1.5-6.6) 10^3/uL Lymph # (Auto) 1.1 L (1.5-3.5) 10^3/uL [place] # (Auto) 0.9 (0.0-1.0) 10^3/uL Eos # (Auto) 0.1 (0.0-0.7) 10^3/uL Baso # (Auto) 0.1 (0.0-0.1) 10^3/uL Absolute Nucleated RBC 0.00 x10^3/uL Nucleated RBC % 0.0 /100WBC VBG pH 7.437 H (7.31-7.41) Ionized Calcium 1.09 L (1.15-1.33) mmol/L Sodium (135-145) mmol/L Potassium (3.5-4.5) mmol/L Chloride (101-111) mmol/L Carbon Dioxide (21-32) mmol/L Anion Gap (6-13) BUN (6-20) mg/dL Creatinine (0.6-1.3) mg/dL Estimated GFR (MDRD) (>89) Glucose (74-104) mg/dL Calcium (8.5-10.3) mg/dL Phosphorus 3.4 (2.5-5.0) mg/dL Magnesium (1.7-2.3) mg/dL Total Bilirubin (0.2-1.0) mg/dL AST (10-42) IU/L ALT (10-60) IU/L Alkaline Phosphatase (42-121) IU/L Total Protein (6.4-8.9) g/dL Albumin (3.2-5.5) g/dL Globulin (2.1-4.2) g/dL Albumin/Globulin Ratio (1.0-2.2) Prealbumin (17-34) mg/dL Triglycerides (48-352) mg/dL 10/11/23 10/10/23 Range/Units 05:09 16:07 WBC (4.8-10.8) x10^3/uL RBC (4.20-5.40) 10^6/uL Hgb (12.0-16.0) g/dL Hct (37.0-47.0) % MCV (81.0-99.0) fL MCH (27.0-31.0) pg MCHC (32.0-36.0) g/dL RDW (12.0-15.0) % Plt Count (130-450) 10^3/uL MPV (7.9-10.8) fL Neut # (Auto) (1.5-6.6) 10^3/uL Lymph # (Auto) (1.5-3.5) 10^3/uL [place] # (Auto) (0.0-1.0) 10^3/uL Eos # (Auto) (0.0-0.7) 10^3/uL Baso # (Auto) (0.0-0.1) 10^3/uL Absolute Nucleated RBC x10^3/uL Nucleated RBC % /100WBC VBG pH (7.31-7.41) Ionized Calcium (1.15-1.33) mmol/L Sodium 134 L (135-145) mmol/L Potassium 3.8 4.2 (3.5-4.5) mmol/L Chloride 98 L (101-111) mmol/L Carbon Dioxide 32 (21-32) mmol/L Anion Gap 4.0 L (6-13) BUN 22 H (6-20) mg/dL Creatinine 0.3 L (0.6-1.3) mg/dL Estimated GFR (MDRD) 225 (>89) Glucose 155 H (74-104) mg/dL Calcium 8.1 L (8.5-10.3) mg/dL Phosphorus (2.5-5.0) mg/dL Magnesium 1.8 (1.7-2.3) mg/dL Total Bilirubin 0.3 (0.2-1.0) mg/dL AST 12 (10-42) IU/L ALT 6 L (10-60) IU/L Alkaline Phosphatase 62 (42-121) IU/L Total Protein 5.4 L (6.4-8.9) g/dL Albumin 2.2 L (3.2-5.5) g/dL Globulin 3.2 (2.1-4.2) g/dL Albumin/Globulin Ratio 0.7 L (1.0-2.2) Prealbumin 8 L (17-34) mg/dL Triglycerides 157 (48-352) mg/dL Assessment/Plan - Problem List (1) Fever Impression: She had fevers yesterday, and remains febrile for many hours today, despite being on scheduled Tylenol ordered by Gen surg and on antibx As per general surgery they would anticipate peritoneal abscesses to start forming in the second week. As such she had a CT of abdomen and pelvis and the patient does have (probable) small abscesses going down the right paracolic gutter. She was on Zosyn, then changed to cefepime and Flagyl on 10/11. We cannot add Vanco to Zosyn. Stool spillage in the abdomen can also put her at risk for Genesis. We have sent off a [id number], called the lab as a miscellaneous lab order. If it is positive and indicates possible fungal infection, she needs to have Caspofungin 70 mg On day 1 followed by 50 mg IV every 24 hours. However I do not know if our pharmacy carries that. A less effective alternative would be fluconazole. Other source of the fever could be the atelectasis from the pleural effusion. But she is on good antibiotic coverage currently. She is not a candidate for thoracentesis since the effusion is not large enough according to radiology. Sputum culture submitted today Plan: Cont Cefepime and Flagyl Add Fluconazole She probabaly needs IR management or surgery of those abdominal areas that may have pus. I recommend she be transferred to a larger facility with IR and GI surgeons and ID capabilities We are a critical access hospital. We usually attest that patients will be here 96 hours or less. Clearly this patient is here beyond that timeframe. We have not attempted transfer as of yet. We are well aware that we need to transfer to a higher level of care when we have exceeded the ability to deliver services here. (2) Perforated abdominal viscus Impression: As per surgical findings. She now has a colostomy (3) Post-op intra-abdominal abscess She has been on several iv antibx and has a very prolonged postoperative hospital stay. Her pain is controlled Plan: This patient needs to be taught colostomy training, and family needs to be taught colostomy training, since she cannot go to SNF from here (she has no insurance coverage for SNF or for Home Health). A barrier to this successful training will be the fact that she has a right wrist fracture. (4) Acute respiratory failure with hypoxia Conclusion/Plan: Hypoxia has been up and down. Postoperatively there was fluid overload, then a mucous plug with consolidation seen on CT of the right lung from the plug. Bronchoscopy done after that and showed open right upper lung. She continues to have a pleural effusion on chest x-ray and CT. But radiology did not feel it was large enough to do a thoracentesis on. She is on nasal cannula and tolerating it well. 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 Central line placed October 08. PPN was switched to TPN October 09. Plan: Diet advancement as per Gen surg (8) Generalized weakness Conclusion/Plan: This unfortunate patient has had a sudden severe illness, required surgery, now has a colostomy. She has been very, very slow to progress and improve. She was intermittently reluctant to get up out of bed. Physical therapy has worked with her. She keeps on telling physical therapy that she wants to go home. She lives alone. Case management explained that this patient does not have outpatient insurance that would allow her to have Home Health services or coverage to go to [facility] for rehab. Plan: We will have to make sure this patient is able to go home with good colostomy instruction, and that her family has good colostomy instruction. We also do not have a colostomy education nurse here anymore. (9) Wrist fracture The last Hospitalist requested an Orthopedic consult. The Orthopedic spoke to me, learned that the fracture was remote and there is already a plate in place, status post surgery done elsewhere. PT was to determine what restrictions are necessary to follow
[2023-10-11 15:54] LABS: CALCIUM, IONIZED 1.1 mmol/L (1.15-1.33); VBG PH 7.448 (7.31-7.41)
[2023-10-11] MEDS: oxyCODONE 5 MG TABLET PO PRN ×2 (17:26→23:35)
[2023-10-11] MEDS: TPN (CLINIMIX E 5/15) 2,000 ML with MULTIVITAMIN 10 ML, TRACE ELEMENTS 1 ML IV SCH ×3 (18:00)
[2023-10-11] MEDS: FAT EMULSION 20% 250 ML IV SCH (18:00)
[2023-10-11 19:06] LABS: CALCIUM, IONIZED 1.1 mmol/L (1.15-1.33); VBG PH 7.451 (7.31-7.41)
[2023-10-11 23:58] LABS: CALCIUM, IONIZED 1.13 mmol/L (1.15-1.33); VBG PH 7.4 (7.31-7.41)
[2023-10-12] MEDS: metroNIDAZOLE 500 MG/100 ML 500 MG/100 ML BAG IV SCH ×3 (02:35→19:39)
[2023-10-12] MEDS: ACETAMINOPHEN 160 MG/5 ML SUSP UDC PO SCH ×2 (02:36→06:23)
[2023-10-12] MEDS: oxyCODONE 5 MG TABLET PO PRN ×3 (03:56→20:05)
[2023-10-12] MEDS: SODIUM CHLORIDE FLUSH 0.9% 10 ML SYRINGE IVP PRN (04:32)
[2023-10-12 04:38] LABS: VBG PH 7.492 (7.31-7.41)
[2023-10-12 04:39] LABS: CALCIUM, IONIZED 1.09 mmol/L (1.15-1.33)
[2023-10-12 04:43] LABS: BASOPHILS % (AUTO) 0.5 %; EOSINOPHILS % (AUTO) 0.6 %; HCT - HEMATOCRIT 28.6 % (37.0-47.0); HGB - HEMOGLOBIN 9.4 g/dL (12.0-16.0); LYMPHOCYTES % (AUTO) 9.4 %; MEAN CORPUSCULAR HEMOGLOBIN 31.8 pg (27.0-31.0); MEAN CORPUSCULAR HGB CONC 32.9 g/dL (32.0-36.0); MEAN CORPUSCULAR VOLUME 96.6 fL (81.0-99.0); MEAN PLATELET VOLUME 9.6 fL (7.9-10.8); NEUTROPHILS % (AUTO) 82.7 %; PLT - PLATELET COUNT 778 10^3/uL (130-450); RED BLOOD COUNT 2.96 10^6/uL (4.20-5.40); RED CELL DISTRIBUTION WIDTH 12.9 % (12.0-15.0); WHITE BLOOD COUNT 15.3 x10^3/uL (4.8-10.8)
[2023-10-12 04:49] LABS: ABNORMAL LYMPHS % (MANUAL) 0 %
[2023-10-12 04:55] LABS: CALCIUM 8.3 mg/dL (8.5-10.3); CREATININE 0.3 mg/dL (0.6-1.3); MAGNESIUM 1.9 mg/dL (1.7-2.3); PHOSPHORUS 3.2 mg/dL (2.5-5.0); POTASSIUM 4.1 mmol/L (3.5-4.5)
[2023-10-12 05:13] LABS: BAND NEUTROPHILS % (MANUAL) 1 %; BASOPHILS # (MANUAL) 0.2 10^3/uL (0-0.1); BASOPHILS % (MANUAL) 1 %; DIFFERENTIAL COMMENT MANUAL DIFFERENTIAL; LYMPHOCYTES % (MANUAL) 13 %; MONOCYTES # (MANUAL) 1.4 10^3/uL (0.0-1.0); NEUTROPHILS # (MANUAL) 11.8 10^3/uL (1.5-6.6); PLATELET ESTIMATE, MANUAL INCREASED (>450,000) (NORMAL); RBC MORPHOLOGY (MULTIPLE) NORMAL APPEARANCE (NORMAL)
[2023-10-12] MEDS: CEFEPIME 1 GM in SODIUM CHLORIDE 0.9% MINIBAG 100 ML IV SCH ×3 (05:42→21:56)
[2023-10-12] MEDS ORDERED: CALCIUM GLUC 1,000MG/50ML-NACL 1,000 MG/50 ML BAG IV ONE ×2 (06:00→09:32)
[2023-10-12] MEDS: FLUCONAZOLE 200 MG/100 ML 50 ML IV SCH (06:57)
[2023-10-12] MEDS: HYDROmorphone 0.5 MG/0.5 ML SYRINGE IVP PRN ×4 (07:24→23:43)
[2023-10-12] MEDS: IBUPROFEN 600 MG TABLET PO PRN ×2 (07:56→23:44)
[2023-10-12] MEDS: SODIUM CHLORIDE FLUSH 0.9% 10 ML SYRINGE IVP SCH ×3 (07:56→23:47)
[2023-10-12] MEDS: CITALOPRAM HYDROBROMIDE 20 MG TABLET PO SCH (07:56)
[2023-10-12] MEDS: FAMOTIDINE 20 MG/2 ML VIAL IVP SCH ×2 (07:58→20:05)
[2023-10-12] MEDS: FUROSEMIDE 40 MG/4 ML VIAL IVP SCH (07:59)
[2023-10-12] MEDS: HEPARIN 5,000 UNIT/ML VIAL SUBQ SCH ×2 (08:02→20:13)
--- NOTE | 2023-10-12 09:08 | PROVIDER PROGRESS NOTE ---
Subjective - Subjective Pt reports feeling: Improved (awake, alert, feels well. feels hungry) Objective - Vital Signs/Intake & Output Vital Signs: Vital Signs x48h Temp Pulse Resp BP Pulse Ox 10/12/23 08:00 38.1 C H 87 17 146/81 H 93 10/12/23 07:00 38.3 C H 90 15 128/76 94 10/12/23 06:00 38.0 C H 91 14 125/76 94 10/12/23 05:00 37.8 C 87 14 122/73 94 10/12/23 04:00 37.5 C 88 14 133/88 H 94 10/12/23 03:00 37.8 C 90 16 140/83 H 93 10/12/23 02:00 37.4 C 80 15 169/73 H 92 Intake & Output: Intake & Output 10/09/23 10/10/23 10/11/23 10/12/23 23:59 23:59 23:59 23:59 Intake Total 2665.0 3086.95 3580.183 1680.383 Output Total 4502 4480 4605 2705 Balance -1837.0 -1393.05 -1024.817 -1024.617 - Objective General Appearance: positive: No acute distress, Alert Neck: positive: No JVD, Trachea midline Respiratory: positive: No respiratory distress Abdomen: positive: Non-tender, No distention, Other (stoma with air and stool) Neurologic/Psychiatric: positive: Oriented x3 - Lab Results Fish Bones: 10/12/23 04:18 10/12/23 04:18 Other Labs: Lab Results x24hrs 10/12/23 10/12/23 10/12/23 Range/Units 04:18 04:18 04:18 WBC 15.3 H (4.8-10.8) x10^3/uL RBC 2.96 L (4.20-5.40) 10^6/uL Hgb 9.4 L (12.0-16.0) g/dL Hct 28.6 L (37.0-47.0) % MCV 96.6 (81.0-99.0) fL MCH 31.8 H (27.0-31.0) pg MCHC 32.9 (32.0-36.0) g/dL RDW 12.9 (12.0-15.0) % Plt Count 778 H (130-450) 10^3/uL MPV 9.6 (7.9-10.8) fL Neut # (Auto) Not Reportable Lymph # (Auto) Not Reportable [place] # (Auto) Not Reportable Eos # (Auto) Not Reportable Baso # (Auto) Not Reportable Absolute Nucleated RBC Not Reportable Total Counted 100 Band Neuts % (Manual) 1 (0 - 10) % Abnorm Lymph % (Manual) 0 % Nucleated RBC % Not Reportable Neutrophils # (Manual) 11.8 H (1.5-6.6) 10^3/uL Lymphocytes # (Manual) 2.0 (1.5-3.5) 10^3/uL Monocytes # (Manual) 1.4 H (0.0-1.0) 10^3/uL Eosinophils # (Manual) 0.0 (0-0.7) 10^3/uL Basophils # (Manual) 0.2 H (0-0.1) 10^3/uL Differential Comment MANUAL DIFFERENTIAL Platelet Estimate INCREASED (>450,000) (NORMAL) RBC Morph Micro Appear NORMAL APPEARANCE (NORMAL) VBG pH 7.492 H (7.31-7.41) Ionized Calcium 1.09 L (1.15-1.33) mmol/L Sodium 133 L (135-145) mmol/L Potassium 4.1 (3.5-4.5) mmol/L Chloride 100 L (101-111) mmol/L Carbon Dioxide 30 (21-32) mmol/L Anion Gap 3.0 L (6-13) BUN 19 (6-20) mg/dL Creatinine 0.3 L (0.6-1.3) mg/dL Estimated GFR (MDRD) 225 (>89) Glucose 149 H (74-104) mg/dL Calcium 8.3 L (8.5-10.3) mg/dL Phosphorus 3.2 (2.5-5.0) mg/dL Magnesium 1.9 (1.7-2.3) mg/dL 10/11/23 10/11/23 10/11/23 Range/Units 23:23 23:23 18:55 WBC (4.8-10.8) x10^3/uL RBC (4.20-5.40) 10^6/uL Hgb (12.0-16.0) g/dL Hct (37.0-47.0) % MCV (81.0-99.0) fL MCH (27.0-31.0) pg MCHC (32.0-36.0) g/dL RDW (12.0-15.0) % Plt Count (130-450) 10^3/uL MPV (7.9-10.8) fL Neut # (Auto) Lymph # (Auto) [place] # (Auto) Eos # (Auto) Baso # (Auto) Absolute Nucleated RBC Total Counted Band Neuts % (Manual) (0 - 10) % Abnorm Lymph % (Manual) % Nucleated RBC % Neutrophils # (Manual) (1.5-6.6) 10^3/uL Lymphocytes # (Manual) (1.5-3.5) 10^3/uL Monocytes # (Manual) (0.0-1.0) 10^3/uL Eosinophils # (Manual) (0-0.7) 10^3/uL Basophils # (Manual) (0-0.1) 10^3/uL Differential Comment Platelet Estimate (NORMAL) RBC Morph Micro Appear (NORMAL) VBG pH 7.400 7.451 H (7.31-7.41) Ionized Calcium 1.13 L 1.10 L (1.15-1.33) mmol/L Sodium (135-145) mmol/L Potassium 4.1 (3.5-4.5) mmol/L Chloride (101-111) mmol/L Carbon Dioxide (21-32) mmol/L Anion Gap (6-13) BUN (6-20) mg/dL Creatinine (0.6-1.3) mg/dL Estimated GFR (MDRD) (>89) Glucose (74-104) mg/dL Calcium (8.5-10.3) mg/dL Phosphorus (2.5-5.0) mg/dL Magnesium (1.7-2.3) mg/dL 10/11/23 10/11/23 10/11/23 Range/Units 18:55 15:25 15:25 WBC (4.8-10.8) x10^3/uL RBC (4.20-5.40) 10^6/uL Hgb (12.0-16.0) g/dL Hct (37.0-47.0) % MCV (81.0-99.0) fL MCH (27.0-31.0) pg MCHC (32.0-36.0) g/dL RDW (12.0-15.0) % Plt Count (130-450) 10^3/uL MPV (7.9-10.8) fL Neut # (Auto) Lymph # (Auto) [place] # (Auto) Eos # (Auto) Baso # (Auto) Absolute Nucleated RBC Total Counted Band Neuts % (Manual) (0 - 10) % Abnorm Lymph % (Manual) % Nucleated RBC % Neutrophils # (Manual) (1.5-6.6) 10^3/uL Lymphocytes # (Manual) (1.5-3.5) 10^3/uL Monocytes # (Manual) (0.0-1.0) 10^3/uL Eosinophils # (Manual) (0-0.7) 10^3/uL Basophils # (Manual) (0-0.1) 10^3/uL Differential Comment Platelet Estimate (NORMAL) RBC Morph Micro Appear (NORMAL) VBG pH 7.448 H (7.31-7.41) Ionized Calcium 1.10 L (1.15-1.33) mmol/L Sodium (135-145) mmol/L Potassium 3.9 3.9 (3.5-4.5) mmol/L Chloride (101-111) mmol/L Carbon Dioxide (21-32) mmol/L Anion Gap (6-13) BUN (6-20) mg/dL Creatinine (0.6-1.3) mg/dL Estimated GFR (MDRD) (>89) Glucose (74-104) mg/dL Calcium (8.5-10.3) mg/dL Phosphorus (2.5-5.0) mg/dL Magnesium (1.7-2.3) mg/dL 10/11/23 10/11/23 10/11/23 Range/Units 12:02 12:02 12:02 WBC (4.8-10.8) x10^3/uL RBC (4.20-5.40) 10^6/uL Hgb (12.0-16.0) g/dL Hct (37.0-47.0) % MCV (81.0-99.0) fL MCH (27.0-31.0) pg MCHC (32.0-36.0) g/dL RDW (12.0-15.0) % Plt Count (130-450) 10^3/uL MPV (7.9-10.8) fL Neut # (Auto) Lymph # (Auto) [place] # (Auto) Eos # (Auto) Baso # (Auto) Absolute Nucleated RBC Total Counted Band Neuts % (Manual) (0 - 10) % Abnorm Lymph % (Manual) % Nucleated RBC % Neutrophils # (Manual) (1.5-6.6) 10^3/uL Lymphocytes # (Manual) (1.5-3.5) 10^3/uL Monocytes # (Manual) (0.0-1.0) 10^3/uL Eosinophils # (Manual) (0-0.7) 10^3/uL Basophils # (Manual) (0-0.1) 10^3/uL Differential Comment Platelet Estimate (NORMAL) RBC Morph Micro Appear (NORMAL) VBG pH 7.469 H (7.31-7.41) Ionized Calcium 1.06 L (1.15-1.33) mmol/L Sodium (135-145) mmol/L Potassium 3.7 (3.5-4.5) mmol/L Chloride (101-111) mmol/L Carbon Dioxide (21-32) mmol/L Anion Gap (6-13) BUN (6-20) mg/dL Creatinine (0.6-1.3) mg/dL Estimated GFR (MDRD) (>89) Glucose (74-104) mg/dL Calcium (8.5-10.3) mg/dL Phosphorus (2.5-5.0) mg/dL Magnesium 2.2 (1.7-2.3) mg/dL Assessment/Plan - Problem List (1) Perforated abdominal viscus Impression: much improved. d/c ngt diet sips clears
[2023-10-12 09:29] LABS: CALCIUM, IONIZED 1.1 mmol/L (1.15-1.33); VBG PH 7.435 (7.31-7.41)
[2023-10-12] MEDS: ACETAMINOPHEN 325 MG TABLET PO SCH ×4 (10:51→22:59)
[2023-10-12 13:59] LABS: CALCIUM, IONIZED 1.13 mmol/L (1.15-1.33); VBG PH 7.432 (7.31-7.41)
[2023-10-12] MEDS ORDERED: FLUCONAZOLE 200 MG/100 ML 100 ML IV ONE (16:00)
--- NOTE | 2023-10-12 19:40 | PROVIDER PROGRESS NOTE ---
Objective - Vital Signs/Intake & Output Reviewed Vital Signs: Yes Vital Signs: Vital Signs Temp Pulse Resp BP Pulse Ox 10/12/23 19:03 37.9 C 70 21 124/69 96 10/12/23 18:00 38.0 C H 83 14 139/78 H 96 10/12/23 17:00 38.2 C H 84 15 138/84 H 96 10/12/23 16:18 88 17 142/85 H 95 Intake & Output: Intake & Output 10/09/23 10/10/23 10/11/23 10/12/23 23:59 23:59 23:59 23:59 Intake Total 2665.0 3086.95 3580.183 3121.000 Output Total 4502 4480 4605 3820 Balance -1837.0 -1393.05 -1024.817 -699.000 - Objective General Appearance: positive: Lethargic Eyes Bilateral: positive: No lid inflammation ENT: positive: ENT inspection nml, No signs of dehydration Neck: positive: Nml inspection, No JVD Respiratory: positive: No respiratory distress, Other (diminished breath sounds) Cardiovascular: positive: Regular rate & rhythm Abdomen: positive: Non-tender, No distention Skin: positive: Warm, Dry Extremities: positive: Non-tender, No pedal edema Neurologic/Psychiatric: positive: Oriented x3, CN's nml (2-12), Motor nml, Other (Lethargic) - Lab Results Fish Bones: 10/16/23 04:25 10/14/23 04:30 Other Labs: Lab Results x24hrs 10/12/23 10/12/23 10/12/23 Range/Units 13:49 09:12 04:18 WBC (4.8-10.8) x10^3/uL RBC (4.20-5.40) 10^6/uL Hgb (12.0-16.0) g/dL Hct (37.0-47.0) % MCV (81.0-99.0) fL MCH (27.0-31.0) pg MCHC (32.0-36.0) g/dL RDW (12.0-15.0) % Plt Count (130-450) 10^3/uL MPV (7.9-10.8) fL Neut # (Auto) Lymph # (Auto) [place] # (Auto) Eos # (Auto) Baso # (Auto) Absolute Nucleated RBC Total Counted Band Neuts % (Manual) (0 - 10) % Abnorm Lymph % (Manual) % Nucleated RBC % Neutrophils # (Manual) (1.5-6.6) 10^3/uL Lymphocytes # (Manual) (1.5-3.5) 10^3/uL Monocytes # (Manual) (0.0-1.0) 10^3/uL Eosinophils # (Manual) (0-0.7) 10^3/uL Basophils # (Manual) (0-0.1) 10^3/uL Differential Comment Platelet Estimate (NORMAL) RBC Morph Micro Appear (NORMAL) VBG pH 7.432 H 7.435 H 7.492 H (7.31-7.41) Ionized Calcium 1.13 L 1.10 L 1.09 L (1.15-1.33) mmol/L Sodium (135-145) mmol/L Potassium (3.5-4.5) mmol/L Chloride (101-111) mmol/L Carbon Dioxide (21-32) mmol/L Anion Gap (6-13) BUN (6-20) mg/dL Creatinine (0.6-1.3) mg/dL Estimated GFR (MDRD) (>89) Glucose (74-104) mg/dL Calcium (8.5-10.3) mg/dL Phosphorus (2.5-5.0) mg/dL Magnesium (1.7-2.3) mg/dL Miscellaneous Test (.) 10/12/23 10/12/23 10/11/23 Range/Units 04:18 04:18 23:23 WBC 15.3 H (4.8-10.8) x10^3/uL RBC 2.96 L (4.20-5.40) 10^6/uL Hgb 9.4 L (12.0-16.0) g/dL Hct 28.6 L (37.0-47.0) % MCV 96.6 (81.0-99.0) fL MCH 31.8 H (27.0-31.0) pg MCHC 32.9 (32.0-36.0) g/dL RDW 12.9 (12.0-15.0) % Plt Count 778 H (130-450) 10^3/uL MPV 9.6 (7.9-10.8) fL Neut # (Auto) Not Reportable Lymph # (Auto) Not Reportable [place] # (Auto) Not Reportable Eos # (Auto) Not Reportable Baso # (Auto) Not Reportable Absolute Nucleated RBC Not Reportable Total Counted 100 Band Neuts % (Manual) 1 (0 - 10) % Abnorm Lymph % (Manual) 0 % Nucleated RBC % Not Reportable Neutrophils # (Manual) 11.8 H (1.5-6.6) 10^3/uL Lymphocytes # (Manual) 2.0 (1.5-3.5) 10^3/uL Monocytes # (Manual) 1.4 H (0.0-1.0) 10^3/uL Eosinophils # (Manual) 0.0 (0-0.7) 10^3/uL Basophils # (Manual) 0.2 H (0-0.1) 10^3/uL Differential Comment MANUAL DIFFERENTIAL Platelet Estimate INCREASED (>450,000) (NORMAL) RBC Morph Micro Appear NORMAL APPEARANCE (NORMAL) VBG pH 7.400 (7.31-7.41) Ionized Calcium 1.13 L (1.15-1.33) mmol/L Sodium 133 L (135-145) mmol/L Potassium 4.1 (3.5-4.5) mmol/L Chloride 100 L (101-111) mmol/L Carbon Dioxide 30 (21-32) mmol/L Anion Gap 3.0 L (6-13) BUN 19 (6-20) mg/dL Creatinine 0.3 L (0.6-1.3) mg/dL Estimated GFR (MDRD) 225 (>89) Glucose 149 H (74-104) mg/dL Calcium 8.3 L (8.5-10.3) mg/dL Phosphorus 3.2 (2.5-5.0) mg/dL Magnesium 1.9 (1.7-2.3) mg/dL Miscellaneous Test (.) 10/11/23 10/10/23 Range/Units 23:23 16:07 WBC (4.8-10.8) x10^3/uL RBC (4.20-5.40) 10^6/uL Hgb (12.0-16.0) g/dL Hct (37.0-47.0) % MCV (81.0-99.0) fL MCH (27.0-31.0) pg MCHC (32.0-36.0) g/dL RDW (12.0-15.0) % Plt Count (130-450) 10^3/uL MPV (7.9-10.8) fL Neut # (Auto) Lymph # (Auto) [place] # (Auto) Eos # (Auto) Baso # (Auto) Absolute Nucleated RBC Total Counted Band Neuts % (Manual) (0 - 10) % Abnorm Lymph % (Manual) % Nucleated RBC % Neutrophils # (Manual) (1.5-6.6) 10^3/uL Lymphocytes # (Manual) (1.5-3.5) 10^3/uL Monocytes # (Manual) (0.0-1.0) 10^3/uL Eosinophils # (Manual) (0-0.7) 10^3/uL Basophils # (Manual) (0-0.1) 10^3/uL Differential Comment Platelet Estimate (NORMAL) RBC Morph Micro Appear (NORMAL) VBG pH (7.31-7.41) Ionized Calcium (1.15-1.33) mmol/L Sodium (135-145) mmol/L Potassium 4.1 (3.5-4.5) mmol/L Chloride (101-111) mmol/L Carbon Dioxide (21-32) mmol/L Anion Gap (6-13) BUN (6-20) mg/dL Creatinine (0.6-1.3) mg/dL Estimated GFR (MDRD) (>89) Glucose (74-104) mg/dL Calcium (8.5-10.3) mg/dL Phosphorus (2.5-5.0) mg/dL Magnesium (1.7-2.3) mg/dL Miscellaneous Test COMMENT (.) Assessment/Plan - Problem List (1) Fever Impression: She had fevers most of yesterday, and remains febrile for many hours today, de spite being on scheduled Tylenol ordered by Gen surg and on antibx. As per general surgery they would anticipate peritoneal abscesses to start forming in the second week. As such she had a CT of abdomen and pelvis and the patient does have (probable) small abscesses going down the right paracolic gutter. She was on Zosyn, then changed to cefepime and Flagyl on 10/11. We cannot add Vanco to Zosyn. Stool spillage in the abdomen can also put her at risk for Genesis. We have sent off a [id number], called the lab as a miscellaneous lab order. If it is positive and indicates possible fungal infection, she needs to have Caspofungin 70 mg On day 1 followed by 50 mg IV every 24 hours. However I do not know if our pharmacy carries that. A less effective alternative would be fluconazole. Other source of the fever could be the atelectasis from the pleural effusion. But she is on good antibiotic coverage currently. She is not a candidate for thoracentesis since the effusion is not large enough according to radiology. Sputum culture submitted today Plan: Cont Cefepime and Flagyl Add Fluconazole She probabaly needs IR management or surgery of those abdominal areas that may have pus. I recommend she be transferred to a larger facility with IR and GI surgeons and ID capabilities We are a critical access hospital. We usually attest that patients will be here 96 hours or less. Clearly this patient is here beyond that timeframe. We have not attempted transfer as of yet. We are well aware that we need to transfer to a higher level of care when we have exceeded the ability to deliver services here. (2) Perforated abdominal viscus Impression: As per surgical findings. She now has a colostomy (3) Post-op intra-abdominal abscess She has been on several iv antibx and has a very prolonged postoperative h ospital stay. Her pain is controlled Plan: This patient needs to be taught colostomy training, and family needs to be taught colostomy training, since she cannot go to SNF from here (she has no insurance coverage for SNF or for Home Health). A barrier to this successful training will be the fact that she has a right wrist fracture. (4) Acute respiratory failure with hypoxia Conclusion/Plan: Hypoxia has been up and down. Postoperatively there was fluid overload, then a mucous plug with consolidation seen on CT of the right lung from the plug. Bronchoscopy done after that and showed open right upper lung. She continues to have a pleural effusion on chest x-ray and CT. But radiology did not feel it was large enough to do a thoracentesis on. She is on nasal cannula and tolerating it well. 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 Central line placed October 08. PPN was switched to TPN October 09. Plan: Diet advancement as per Gen surg (8) Generalized weakness Conclusion/Plan: This unfortunate patient has had a sudden severe illness, required surgery, now has a colostomy. She has been very, very slow to progress and improve. She was intermittently reluctant to get up out of bed. Physical therapy has worked with her. She keeps on telling physical therapy that she wants to go home. She lives alone. Case management explained that this patient does not have outpatient insurance that would allow her to have Home Health services or coverage to go to [facility] for rehab. Plan: We will have to make sure this patient is able to go home with good colostomy instruction, and that her family has good colostomy instruction. We also do not have a colostomy education nurse here anymore. (9) Wrist fracture The last Hospitalist requested an Orthopedic consult. The Orthopedic spoke to me, learned that the fracture was remote and there is already a plate in place, status post surgery done elsewhere. PT was to determine what restrictions are necessary to follow
[2023-10-12] MEDS: FAT EMULSION 20% 250 ML IV SCH (19:42)
[2023-10-12] MEDS: TPN (CLINIMIX E 5/15) 2,000 ML with MULTIVITAMIN 10 ML, TRACE ELEMENTS 1 ML IV SCH ×3 (19:42)
[2023-10-13] MEDS: oxyCODONE 5 MG TABLET PO PRN ×3 (02:03→18:50)
[2023-10-13] MEDS: ACETAMINOPHEN 325 MG TABLET PO SCH ×6 (02:48→22:02)
[2023-10-13] MEDS: metroNIDAZOLE 500 MG/100 ML 500 MG/100 ML BAG IV SCH ×3 (02:49→18:51)
[2023-10-13] MEDS: HYDROmorphone 0.5 MG/0.5 ML SYRINGE IVP PRN ×3 (05:19→14:21)
[2023-10-13 05:51] LABS: BASOPHILS % (AUTO) 0.7 %; EOSINOPHILS % (AUTO) 0.7 %; HCT - HEMATOCRIT 27.6 % (37.0-47.0); HGB - HEMOGLOBIN 8.8 g/dL (12.0-16.0); LYMPHOCYTES % (AUTO) 11.9 %; MEAN CORPUSCULAR HEMOGLOBIN 30.8 pg (27.0-31.0); MEAN CORPUSCULAR HGB CONC 31.9 g/dL (32.0-36.0); MEAN CORPUSCULAR VOLUME 96.5 fL (81.0-99.0); MONOCYTES % (AUTO) 7.4 %; NEUTROPHILS % (AUTO) 78.4 %; RED BLOOD COUNT 2.86 10^6/uL (4.20-5.40); RED CELL DISTRIBUTION WIDTH 12.7 % (12.0-15.0); WHITE BLOOD COUNT 14.4 x10^3/uL (4.8-10.8)
[2023-10-13 05:58] LABS: CALCIUM, IONIZED 1.15 mmol/L (1.15-1.33); VBG PH 7.371 (7.31-7.41)
[2023-10-13 06:02] LABS: PLT - PLATELET COUNT 871 10^3/uL (130-450)
[2023-10-13 06:03] LABS: ABNORMAL LYMPHS % (MANUAL) 0 %; BAND NEUTROPHILS % (MANUAL) 0 %
[2023-10-13 06:11] LABS: CALCIUM 8.5 mg/dL (8.5-10.3); CREATININE 0.3 mg/dL (0.6-1.3); POTASSIUM 3.7 mmol/L (3.5-4.5)
[2023-10-13 06:28] LABS: DIFFERENTIAL COMMENT MANUAL DIFFERENTIAL; LYMPHOCYTES # (MANUAL) 1.6 10^3/uL (1.5-3.5); LYMPHOCYTES % (MANUAL) 11 %; MONOCYTES # (MANUAL) 1.9 10^3/uL (0.0-1.0); NEUTROPHILS # (MANUAL) 10.9 10^3/uL (1.5-6.6); PLATELET ESTIMATE, MANUAL INCREASED (>450,000) (NORMAL); RBC MORPHOLOGY (MULTIPLE) NORMAL APPEARANCE (NORMAL)
[2023-10-13 06:29] LABS: MAGNESIUM 1.9 mg/dL (1.7-2.3); PHOSPHORUS 3.6 mg/dL (2.5-5.0)
[2023-10-13] MEDS: CEFEPIME 1 GM in SODIUM CHLORIDE 0.9% MINIBAG 100 ML IV SCH ×3 (06:39→22:11)
[2023-10-13] MEDS ORDERED: POTASSIUM CHLOR 20 MEQ/100 ML 20 MEQ/100 ML BAG IV ONE (07:04)
--- NOTE | 2023-10-13 08:40 | PROVIDER PROGRESS NOTE ---
Subjective - Subjective Pt reports feeling: Improved (alert. feeling better. no nausea) Objective - Vital Signs/Intake & Output Reviewed Vital Signs: Yes Vital Signs: Vital Signs x48h Temp Pulse Resp BP Pulse Ox 10/13/23 07:00 37.0 C 78 13 129/80 95 10/13/23 06:00 37.0 C 73 12 132/78 H 95 10/13/23 05:00 36.7 C 74 14 134/84 H 97 10/13/23 04:00 36.6 C 73 12 137/80 H 97 10/13/23 03:00 36.9 C 69 11 L 128/80 96 10/13/23 02:00 37.3 C 82 15 137/82 H 94 10/13/23 01:00 37.6 C 74 12 118/74 94 Intake & Output: Intake & Output 10/10/23 10/11/23 10/12/23 10/13/23 23:59 23:59 23:59 23:59 Intake Total 3086.95 3580.183 3321.000 200 Output Total 4480 4605 4200 455 Balance -1393.05 -1024.817 -879.000 -255 - Objective General Appearance: positive: No acute distress, Alert Neck: positive: No JVD, Trachea midline Respiratory: positive: No respiratory distress Abdomen: positive: Non-tender, No distention, Other (stoma with stool and air) Neurologic/Psychiatric: positive: Oriented x3 - Lab Results Fish Bones: 10/13/23 05:00 10/13/23 05:00 Other Labs: Lab Results x24hrs 10/13/23 10/13/23 10/13/23 Range/Units 05:00 05:00 05:00 WBC (4.8-10.8) x10^3/uL RBC (4.20-5.40) 10^6/uL Hgb (12.0-16.0) g/dL Hct (37.0-47.0) % MCV (81.0-99.0) fL MCH (27.0-31.0) pg MCHC (32.0-36.0) g/dL RDW (12.0-15.0) % Plt Count (130-450) 10^3/uL MPV (7.9-10.8) fL Neut # (Auto) Lymph # (Auto) [place] # (Auto) Eos # (Auto) Baso # (Auto) Absolute Nucleated RBC Total Counted Band Neuts % (Manual) (0 - 10) % Abnorm Lymph % (Manual) % Nucleated RBC % Neutrophils # (Manual) (1.5-6.6) 10^3/uL Lymphocytes # (Manual) (1.5-3.5) 10^3/uL Monocytes # (Manual) (0.0-1.0) 10^3/uL Eosinophils # (Manual) (0-0.7) 10^3/uL Basophils # (Manual) (0-0.1) 10^3/uL Differential Comment Platelet Estimate (NORMAL) RBC Morph Micro Appear (NORMAL) VBG pH 7.371 (7.31-7.41) Ionized Calcium 1.15 (1.15-1.33) mmol/L Sodium 136 (135-145) mmol/L Potassium 3.7 (3.5-4.5) mmol/L Chloride 101 (101-111) mmol/L Carbon Dioxide 29 (21-32) mmol/L Anion Gap 6.0 (6-13) BUN 19 (6-20) mg/dL Creatinine 0.3 L (0.6-1.3) mg/dL Estimated GFR (MDRD) 225 (>89) Glucose 149 H (74-104) mg/dL Calcium 8.5 (8.5-10.3) mg/dL Phosphorus 3.6 (2.5-5.0) mg/dL Magnesium 1.9 (1.7-2.3) mg/dL Miscellaneous Test (.) 10/13/23 10/12/23 10/12/23 Range/Units 05:00 13:49 09:12 WBC 14.4 H (4.8-10.8) x10^3/uL RBC 2.86 L (4.20-5.40) 10^6/uL Hgb 8.8 L (12.0-16.0) g/dL Hct 27.6 L (37.0-47.0) % MCV 96.5 (81.0-99.0) fL MCH 30.8 (27.0-31.0) pg MCHC 31.9 L (32.0-36.0) g/dL RDW 12.7 (12.0-15.0) % Plt Count 871 H* (130-450) 10^3/uL MPV 10.0 (7.9-10.8) fL Neut # (Auto) Not Reportable Lymph # (Auto) Not Reportable [place] # (Auto) Not Reportable Eos # (Auto) Not Reportable Baso # (Auto) Not Reportable Absolute Nucleated RBC Not Reportable Total Counted 100 Band Neuts % (Manual) 0 (0 - 10) % Abnorm Lymph % (Manual) 0 % Nucleated RBC % Not Reportable Neutrophils # (Manual) 10.9 H (1.5-6.6) 10^3/uL Lymphocytes # (Manual) 1.6 (1.5-3.5) 10^3/uL Monocytes # (Manual) 1.9 H (0.0-1.0) 10^3/uL Eosinophils # (Manual) 0.0 (0-0.7) 10^3/uL Basophils # (Manual) 0.0 (0-0.1) 10^3/uL Differential Comment MANUAL DIFFERENTIAL Platelet Estimate INCREASED (>450,000) (NORMAL) RBC Morph Micro Appear NORMAL APPEARANCE (NORMAL) VBG pH 7.432 H 7.435 H (7.31-7.41) Ionized Calcium 1.13 L 1.10 L (1.15-1.33) mmol/L Sodium (135-145) mmol/L Potassium (3.5-4.5) mmol/L Chloride (101-111) mmol/L Carbon Dioxide (21-32) mmol/L Anion Gap (6-13) BUN (6-20) mg/dL Creatinine (0.6-1.3) mg/dL Estimated GFR (MDRD) (>89) Glucose (74-104) mg/dL Calcium (8.5-10.3) mg/dL Phosphorus (2.5-5.0) mg/dL Magnesium (1.7-2.3) mg/dL Miscellaneous Test (.) 10/10/23 Range/Units 16:07 WBC (4.8-10.8) x10^3/uL RBC (4.20-5.40) 10^6/uL Hgb (12.0-16.0) g/dL Hct (37.0-47.0) % MCV (81.0-99.0) fL MCH (27.0-31.0) pg MCHC (32.0-36.0) g/dL RDW (12.0-15.0) % Plt Count (130-450) 10^3/uL MPV (7.9-10.8) fL Neut # (Auto) Lymph # (Auto) [place] # (Auto) Eos # (Auto) Baso # (Auto) Absolute Nucleated RBC Total Counted Band Neuts % (Manual) (0 - 10) % Abnorm Lymph % (Manual) % Nucleated RBC % Neutrophils # (Manual) (1.5-6.6) 10^3/uL Lymphocytes # (Manual) (1.5-3.5) 10^3/uL Monocytes # (Manual) (0.0-1.0) 10^3/uL Eosinophils # (Manual) (0-0.7) 10^3/uL Basophils # (Manual) (0-0.1) 10^3/uL Differential Comment Platelet Estimate (NORMAL) RBC Morph Micro Appear (NORMAL) VBG pH (7.31-7.41) Ionized Calcium (1.15-1.33) mmol/L Sodium (135-145) mmol/L Potassium (3.5-4.5) mmol/L Chloride (101-111) mmol/L Carbon Dioxide (21-32) mmol/L Anion Gap (6-13) BUN (6-20) mg/dL Creatinine (0.6-1.3) mg/dL Estimated GFR (MDRD) (>89) Glucose (74-104) mg/dL Calcium (8.5-10.3) mg/dL Phosphorus (2.5-5.0) mg/dL Magnesium (1.7-2.3) mg/dL Miscellaneous Test COMMENT (.) Assessment/Plan - Problem List (1) Perforated abdominal viscus Impression: doing well. clears as tolerated. no volume restriction d/c planning
[2023-10-13] MEDS: SODIUM CHLORIDE FLUSH 0.9% 10 ML SYRINGE IVP SCH ×3 (08:41→18:52)
[2023-10-13] MEDS: FAMOTIDINE 20 MG/2 ML VIAL IVP SCH ×2 (08:42→21:50)
[2023-10-13] MEDS: FUROSEMIDE 40 MG/4 ML VIAL IVP SCH (08:45)
[2023-10-13] MEDS: CITALOPRAM HYDROBROMIDE 20 MG TABLET PO SCH (09:03)
[2023-10-13] MEDS: FLUCONAZOLE 200 MG/100 ML 200 ML IV SCH (09:41)
[2023-10-13] MEDS: HEPARIN 5,000 UNIT/ML VIAL SUBQ SCH ×2 (09:45→21:59)
[2023-10-13] MEDS: ONDANSETRON 4 MG/2 ML VIAL IVP PRN (11:36)
--- NOTE | 2023-10-13 18:04 | PROVIDER PROGRESS NOTE ---
Assessment/Plan - Problem List (1) Fever Assessment/Plan: She had not had a fever today, but had fevers most of 10/11 and 10/12, despite being on scheduled Tylenol ordered by Gen surg and on antibx As per general surgery they would anticipate peritoneal abscesses to start forming in the second week. As such she had a CT of abdomen and pelvis and the patient does have (probable) small abscesses going down the right paracolic gutter. She was on Zosyn, then changed to cefepime and Flagyl on 10/11. We cannot add Vanco to Zosyn. Stool spillage in the abdomen can also put her at risk for Genesis. We have sent off a [id number], called the lab as a miscellaneous lab order. If it is positive and indicates possible fungal infection, she needs to have Caspofungin 70 mg On day 1 followed by 50 mg IV every 24 hours. However I do not know if our pharmacy carries that. A less effective alternative would be fluconazole. Other source of the fever could be the atelectasis from the pleural effusion. But she is on good antibiotic coverage currently. She is not a candidate for thoracentesis since the effusion is not large enough according to radiology. Sputum culture submitted today Plan: Cont Cefepime and Flagyl Add Fluconazole She probabaly needs IR management or surgery of those abdominal areas that may have pus. I recommend she be transferred to a larger facility with IR and GI surgeons and ID capabilities We are a critical access hospital. We usually attest that patients will be here 96 hours or less. Clearly this patient is here beyond that timeframe. We have not attempted transfer as of yet. We are well aware that we need to transfer to a higher level of care when we have exceeded the ability to deliver services here. (2) Perforated abdominal viscus Impression: As per surgical findings. She now has a colostomy (3) Post-op intra-abdominal abscess She has been on several iv antibx and has a very prolonged postoperative hospital stay. Her pain is controlled Plan: This patient needs to be taught colostomy training, and family needs to be taught colostomy training, since she cannot go to SNF from here (she has no insurance coverage for SNF or for Home Health). A barrier to this successful training will be the fact that she has a right wrist fracture. (4) Acute respiratory failure with hypoxia Conclusion/Plan: Hypoxia has been up and down. Postoperatively there was fluid overload, then a mucous plug with consolidation seen on CT of the right lung from the plug. Bronchoscopy done after that and showed open right upper lung. She continues to have a pleural effusion on chest x-ray and CT. But radiology did not feel it was large enough to do a thoracentesis on. She is on nasal cannula and tolerating it well. 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 Central line placed October 08. PPN was switched to TPN October 09. Plan: Diet advancement as per Gen surg (8) Generalized weakness Conclusion/Plan: This unfortunate patient has had a sudden severe illness, required surgery, now has a colostomy. She has been very, very slow to progress and improve. She was intermittently reluctant to get up out of bed. Physical therapy has worked with her. She keeps on telling physical therapy that she wants to go home. She lives alone. Case management explained that this patient does not have outpatient insurance that would allow her to have Home Health services or coverage to go to [facility] for rehab. Plan: We will have to make sure this patient is able to go home with good colostomy instruction, and that her family has good colostomy instruction. We also do not have a colostomy education nurse here anymore. (9) Wrist fracture The last Hospitalist requested an Orthopedic consult. The Orthopedic spoke to me, learned that the fracture was remote and there is already a plate in place, status post surgery done elsewhere. PT was to determine what restrictions are necessary to follow - Current Meds Current Meds: Current Medications Generic Name Dose Route Start Last Admin Trade Name Freq PRN Reason Stop Dose Admin Acetaminophen 650 mg 10/12/23 11:00 10/13/23 15:00 Acetaminophen 325 Mg Tablet PO Not Given Q4H [facility] Citalopram Hydrobromide 20 mg 10/03/23 09:00 10/13/23 09:03 Citalopram Hydrobromide 20 Mg Tablet PO 20 mg DAILY SANDRA Administration Famotidine 20 mg 10/06/23 12:00 10/13/23 08:42 Famotidine 20 Mg/2 Ml Vial IVP 20 mg BID SANDRA Administration Furosemide 40 mg 10/06/23 09:00 10/13/23 08:45 Furosemide 40 Mg/4 Ml Vial IVP 40 mg DAILY SANDRA Administration Heparin Sodium (Porcine) 5,000 unit 10/03/23 09:00 10/13/23 09:45 Heparin 5,000 Unit/Ml Vial SUBQ 5,000 unit BID SANDRA Administration Hydromorphone HCl 0.5 mg 10/13/23 11:28 10/13/23 14:21 Hydromorphone 0.5 Mg/0.5 Ml Syringe IVP 0.5 mg Q4H PRN Administration Breakthrough Pain Fat Emulsion Intravenous 250 mls @ 21 mls/hr 10/06/23 19:00 10/13/23 08:30 Intralipid 20% IV Infused 1900 SANDRA Infusion Multivitamins 10 ml/ TRACE 2,011 mls @ 83 mls/hr 10/09/23 19:00 10/12/23 19:42 ELEMENTS 1 ml/ Amino Ac/ IV 83 mls/hr Electrol/Dextrose/Calcium Q24H SANDRA Administration Protocol Cefepime HCl 1 gm/ Sodium 100 mls @ 200 mls/hr 10/10/23 22:00 10/13/23 15:00 Chloride IV Infused TID SANDRA Infusion Metronidazole 500 mg in 100 mls @ 100 mls/hr 10/10/23 19:00 10/13/23 12:30 Flagyl 500 Mg/100 Ml IV Infused Q8H SANDRA Infusion Fluconazole 200 mls @ 200 mls/hr 10/13/23 09:00 10/13/23 11:20 Diflucan 200 Mg/100 Ml IV Infused DAILY SANDRA Infusion Ibuprofen 600 mg 10/11/23 08:33 10/12/23 23:44 Ibuprofen 600 Mg Tablet PO 600 mg Q6HR PRN Administration Moderate Pain (Level 4-6) Ondansetron HCl 4 mg 10/02/23 15:19 10/05/23 05:03 Ondansetron Odt 4 Mg Tablet TL 4 mg Q6HR PRN Administration Nausea / Vomiting Ondansetron HCl 4 mg 10/02/23 15:19 10/13/23 11:36 Ondansetron 4 Mg/2 Ml Vial IVP 4 mg Q6HR PRN Administration Nausea / Vomiting Oxycodone HCl 5 mg 10/11/23 08:34 10/13/23 10:36 Oxycodone 5 Mg Tablet PO 5 mg Q4HR PRN Administration Severe Pain (Level 7-10) Prochlorperazine Edisylate 10 mg 10/08/23 14:14 10/08/23 14:21 Prochlorperazine 10 Mg/2 Ml Vial IVP 10 mg Q6HR PRN Administration Nausea / Vomiting Sodium Chloride 10 ml 10/06/23 09:00 10/13/23 14:21 Sodium Chloride Flush 0.9% 10 Ml Syringe IVP 10 ml 0100,0900,1700 SANDRA Administration Sodium Chloride 10 ml 10/06/23 07:17 10/12/23 04:32 Sodium Chloride Flush 0.9% 10 Ml Syringe IVP 30 ml PRN PRN Administration NEEDED PER PROVIDER ORDERS - Lab Result Fish Bone Diagrams: 10/16/23 04:25 10/14/23 04:30 - Additional Planning My Orders: My Active Orders 10/13/23 11:28 HYDROmorphone 0.5MG SYRINGE [Dilaudid 0.5MG Syringe] 0.5 mg IVP Q4H PRN LORazepam INJ [Ativan Inj (Vial)] 1 mg IVP Q4H PRN 10/14/23 05:00 BMP - BASIC METABOLIC PANEL [CHEM] DAILYLAB CBC - COMP BLD CT W/AUTO DIFF [HEME] DAILYLAB Subjective - Subjective Patient Reports: Feeling Better Nursing Reports: Other (More alert, has energy to talk) Objective Vital Signs: Vital Signs - 24 hr 10/12/23 10/12/23 10/12/23 19:03 20:00 21:00 Temperature 37.9 C 37.7 C 37.8 C Heart Rate [ 70 82 87 Monitoring electrodes] Respiratory 21 16 18 Rate Blood Pressure 124/69 135/76 H 124/78 [Right Brachial artery] O2 Saturation 96 96 95 10/12/23 10/12/23 10/13/23 22:00 23:00 00:00 Temperature 38.0 C H 38.2 C H 38.1 C H Heart Rate [ 89 89 91 Monitoring electrodes] Respiratory 15 17 18 Rate Blood Pressure 134/75 H 144/90 H 142/80 H [Right Brachial artery] O2 Saturation 95 99 93 10/13/23 10/13/23 10/13/23 01:00 02:00 03:00 Temperature 37.6 C 37.3 C 36.9 C Heart Rate [ 74 82 69 Monitoring electrodes] Respiratory 12 15 11 L Rate Blood Pressure 118/74 137/82 H 128/80 [Right Brachial artery] O2 Saturation 94 94 96 10/13/23 10/13/23 10/13/23 04:00 05:00 06:00 Temperature 36.6 C 36.7 C 37.0 C Heart Rate [ 73 74 73 Monitoring electrodes] Respiratory 12 14 12 Rate Blood Pressure 137/80 H 134/84 H 132/78 H [Right Brachial artery] O2 Saturation 97 97 95 10/13/23 10/13/23 10/13/23 07:00 13:00 16:18 Temperature 37.0 C 38.4 C H 38.1 C H Heart Rate [ 78 88 78 Monitoring electrodes] Respiratory 13 15 14 Rate Blood Pressure 129/80 150/91 H [Right Brachial artery] O2 Saturation 95 94 97 Oxygen O2 Source Room air I&O (Last 24 Hrs): Intake and Output Totals x24h 10/11/23 10/12/23 10/13/23 23:59 23:59 23:59 Intake Total 3580.183 3321.000 1800 Output Total 4605 4200 1955 Balance -1024.817 -879.000 -155 General: Other (Weak, awakens and speaks) HEENT: Mucous membr. moist/pink, Other (disheveled) Neck: Supple Neuro: Alert (Lethargic and weak) Cardiovascular: Regular rate Respiratory: No respiratory distress, Other (Dimnished breath sounds) Abdomen: Soft, No tenderness Extremities: No clubbing, No edema, No tenderness/swelling - Results Results: Laboratory Results WBC 14.4 x10^3/uL (4.8-10.8) H 10/13/23 05:00 RBC 2.86 10^6/uL (4.20-5.40) L 10/13/23 05:00 Hgb 8.8 g/dL (12.0-16.0) L 10/13/23 05:00 Hct 27.6 % (37.0-47.0) L 10/13/23 05:00 MCV 96.5 fL (81.0-99.0) 10/13/23 05:00 MCH 30.8 pg (27.0-31.0) 10/13/23 05:00 MCHC 31.9 g/dL (32.0-36.0) L 10/13/23 05:00 RDW 12.7 % (12.0-15.0) 10/13/23 05:00 Plt Count 871 10^3/uL (130-450) H* 10/13/23 05:00 MPV 10.0 fL (7.9-10.8) 10/13/23 05:00 Neut # (Auto) Not Reportable 10/13/23 05:00 Lymph # (Auto) Not Reportable 10/13/23 05:00 [place] # (Auto) Not Reportable 10/13/23 05:00 Eos # (Auto) Not Reportable 10/13/23 05:00 Baso # (Auto) Not Reportable 10/13/23 05:00 Absolute Nucleated RBC Not Reportable 10/13/23 05:00 Total Counted 100 10/13/23 05:00 Band Neuts % (Manual) 0 % (0-10) 10/13/23 05:00 Reactive Lymphs % (Man) 1 % 10/03/23 06:51 Abnorm Lymph % (Manual) 0 % 10/13/23 05:00 Metamyelocytes % 4 % (-0) H 10/03/23 06:51 Myelocytes % 1 % (-0) H 10/04/23 07:07 Nucleated RBC % Not Reportable 10/13/23 05:00 Neutrophils # (Manual) 10.9 10^3/uL (1.5-6.6) H 10/13/23 05:00 Lymphocytes # (Manual) 1.6 10^3/uL (1.5-3.5) 10/13/23 05:00 Monocytes # (Manual) 1.9 10^3/uL (0.0-1.0) H 10/13/23 05:00 Eosinophils # (Manual) 0.0 10^3/uL (0-0.7) 10/13/23 05:00 Basophils # (Manual) 0.0 10^3/uL (0-0.1) 10/13/23 05:00 Differential Comment MANUAL DIFFERENTIAL 10/13/23 05:00 Manual Slide Review Indicated 10/06/23 10:57 WBC Morphology NORMAL APPEARANCE (NORMAL) 10/06/23 10:57 Platelet Estimate INCREASED (>450,000) (NORMAL) 10/13/23 05:00 Platelet Morphology NORMAL APPEARANCE (NORMAL) 10/06/23 10:57 RBC Morph Micro Appear NORMAL APPEARANCE (NORMAL) 10/13/23 05:00 Bld Gas Analysis Time 1646 10/08/23 16:42 Sample Site RIGHT RADIAL 10/08/23 16:42 ABG pH 7.46 (7.35-7.45) H 10/08/23 16:42 ABG pCO2 43 mmHg (34-45) 10/08/23 16:42 ABG pO2 102 mmHg (80-100) H 10/08/23 16:42 ABG HCO3 29.9 mmol/L (22.0-26.0) H 10/08/23 16:42 ABG Total CO2 31.2 MMOL/L (21.0-29.0) H 10/08/23 16:42 ABG O2 Saturation 98 % (94-98) 10/08/23 16:42 ABG Base Excess 5.5 mmol/L (-2.0-3.0) H 10/08/23 16:42 Anuj Test POSITIVE 10/08/23 16:42 VBG pH 7.371 (7.31-7.41) 10/13/23 05:00 Ionized Calcium 1.15 mmol/L (1.15-1.33) 10/13/23 05:00 Respiration Rate 20 b/min 10/06/23 07:20 O2 Delivery Device BiPAP 10/08/23 16:42 Vent Mode SYNCHRONOUS/TIMES 10/08/23 16:42 FiO2 50.00 10/08/23 16:42 EPAP 5 cmH2O 10/08/23 16:42 IPAP 10 cmH2O 10/08/23 16:42 Sodium 136 mmol/L (135-145) 10/13/23 05:00 Potassium 3.7 mmol/L (3.5-4.5) 10/13/23 05:00 Chloride 101 mmol/L (101-111) 10/13/23 05:00 Carbon Dioxide 29 mmol/L (21-32) 10/13/23 05:00 Anion Gap 6.0 (6-13) 10/13/23 05:00 BUN 19 mg/dL (6-20) 10/13/23 05:00 Creatinine 0.3 mg/dL (0.6-1.3) L 10/13/23 05:00 Estimated GFR (MDRD) 225 (>89) 10/13/23 05:00 Glucose 149 mg/dL (74-104) H 10/13/23 05:00 Lactic Acid 1.4 mmol/L (0.5-2.2) 10/04/23 07:07 Calcium 8.5 mg/dL (8.5-10.3) 10/13/23 05:00 Phosphorus 3.6 mg/dL (2.5-5.0) 10/13/23 05:00 Magnesium 1.9 mg/dL (1.7-2.3) 10/13/23 05:00 Total Bilirubin 0.3 mg/dL (0.2-1.0) 10/11/23 05:09 AST 12 IU/L (10-42) 10/11/23 05:09 ALT 6 IU/L (10-60) L 10/11/23 05:09 Alkaline Phosphatase 62 IU/L (42-121) 10/11/23 05:09 Troponin I High Sens 11.8 ng/L (2.3-14.8) 10/06/23 06:38 Total Protein 5.4 g/dL (6.4-8.9) L 10/11/23 05:09 Albumin 2.2 g/dL (3.2-5.5) L 10/11/23 05:09 Globulin 3.2 g/dL (2.1-4.2) 10/11/23 05:09 Albumin/Globulin Ratio 0.7 (1.0-2.2) L 10/11/23 05:09 Prealbumin 8 mg/dL (17-34) L 10/11/23 05:09 Triglycerides 157 mg/dL (48-352) 10/11/23 05:09 Lipase < 10 U/L (11-82) L 10/02/23 09:00 Nasal Screen MRSA (PCR) NEGATIVE (NEGATIVE) 10/02/23 20:40 Ethyl Alcohol < 10.0 mg/dL 10/02/23 09:00 Miscellaneous Test COMMENT (.) 10/10/23 16:07
[2023-10-13] MEDS: TPN (CLINIMIX E 5/15) 2,000 ML with MULTIVITAMIN 10 ML, TRACE ELEMENTS 1 ML IV SCH ×3 (18:50)
[2023-10-13] MEDS: FAT EMULSION 20% 250 ML IV SCH (18:51)
[2023-10-13] MEDS: LORazepam 2 MG/ML VIAL IVP PRN (21:50)
[2023-10-13] MEDS: IBUPROFEN 600 MG TABLET PO PRN (21:57)
[2023-10-14] MEDS: ACETAMINOPHEN 325 MG TABLET PO SCH ×6 (02:51→22:33)
[2023-10-14] MEDS: metroNIDAZOLE 500 MG/100 ML 500 MG/100 ML BAG IV SCH ×3 (02:55→18:54)
[2023-10-14] MEDS: SODIUM CHLORIDE FLUSH 0.9% 10 ML SYRINGE IVP SCH ×3 (02:55→17:46)
[2023-10-14 05:11] LABS: BASOPHILS # (AUTO) 0.1 10^3/uL (0.0-0.1); BASOPHILS % (AUTO) 0.8 %; EOSINOPHILS # (AUTO) 0.1 10^3/uL (0.0-0.7); EOSINOPHILS % (AUTO) 0.7 %; HCT - HEMATOCRIT 26.1 % (37.0-47.0); HGB - HEMOGLOBIN 8.4 g/dL (12.0-16.0); LYMPHOCYTES # (AUTO) 1.8 10^3/uL (1.5-3.5); LYMPHOCYTES % (AUTO) 14.2 %; MEAN CORPUSCULAR HEMOGLOBIN 31.1 pg (27.0-31.0); MEAN CORPUSCULAR HGB CONC 32.2 g/dL (32.0-36.0); MEAN CORPUSCULAR VOLUME 96.7 fL (81.0-99.0); MEAN PLATELET VOLUME 9.8 fL (7.9-10.8); NEUTROPHILS # (AUTO) 9.3 10^3/uL (1.5-6.6); NEUTROPHILS % (AUTO) 74.5 %; WHITE BLOOD COUNT 12.4 x10^3/uL (4.8-10.8)
[2023-10-14 05:57] LABS: PLT - PLATELET COUNT 892 10^3/uL (130-450)
[2023-10-14] MEDS: oxyCODONE 5 MG TABLET PO PRN ×2 (06:20→22:33)
[2023-10-14] MEDS: CEFEPIME 1 GM in SODIUM CHLORIDE 0.9% MINIBAG 100 ML IV SCH ×3 (06:22→21:48)
[2023-10-14 07:23] LABS: DIFFERENTIAL COMMENT M; PLATELET ESTIMATE, MANUAL INCREASED (>450,000) (NORMAL); PLATELET MORPHOLOGY RARE GIANT PLATELETS (NORMAL)
[2023-10-14 07:25] LABS: ALBUMIN 2.2 g/dL (3.2-5.5); ALBUMIN/GLOBULIN RATIO 0.6 (1.0-2.2); BILIRUBIN,TOTAL 0.2 mg/dL (0.2-1.0); CALCIUM 8.8 mg/dL (8.5-10.3); CREATININE 0.3 mg/dL (0.6-1.3); MAGNESIUM 1.9 mg/dL (1.7-2.3); POTASSIUM 3.7 mmol/L (3.5-4.5); TOTAL PROTEIN 5.7 g/dL (6.4-8.9)
[2023-10-14] MEDS: IBUPROFEN 600 MG TABLET PO PRN (09:05)
[2023-10-14] MEDS: FUROSEMIDE 40 MG/4 ML VIAL IVP SCH (09:06)
[2023-10-14] MEDS: FAMOTIDINE 20 MG/2 ML VIAL IVP SCH (09:06)
[2023-10-14] MEDS: CITALOPRAM HYDROBROMIDE 20 MG TABLET PO SCH (09:06)
[2023-10-14] MEDS: HEPARIN 5,000 UNIT/ML VIAL SUBQ SCH ×2 (09:07→21:39)
[2023-10-14] MEDS: FLUCONAZOLE 200 MG/100 ML 200 ML IV SCH (09:07)
--- NOTE | 2023-10-14 09:42 | PROVIDER PROGRESS NOTE ---
Subjective - Subjective Pt reports feeling: Improved (feels well. no nausea or abdominal discomfort. feels hungry) Objective - Vital Signs/Intake & Output Vital Signs: Vital Signs x48h Temp Pulse Resp BP Pulse Ox 10/14/23 08:51 37.3 C 83 14 130/83 H 95 10/14/23 05:20 36.8 C 74 16 121/77 95 Intake & Output: Intake & Output 10/11/23 10/12/23 10/13/23 10/14/23 23:59 23:59 23:59 23:59 Intake Total 3580.183 3321.000 3940.067 790 Output Total 4605 4200 2740 500 Balance -1024.817 -937.920 4040.067 290 - Objective General Appearance: positive: No acute distress, Alert Eyes Bilateral: positive: PERRL, EOMI, No scleral icterus ENT: positive: No signs of dehydration Neck: positive: No JVD, Trachea midline Respiratory: positive: No respiratory distress Abdomen: positive: Non-tender, No distention, Other (lots of air in stoma bag) Neurologic/Psychiatric: positive: Oriented x3 - Lab Results Fish Bones: 10/14/23 04:30 10/14/23 04:30 Other Labs: Lab Results x24hrs 10/14/23 10/14/23 Range/Units 04:30 04:30 WBC 12.4 H (4.8-10.8) x10^3/uL RBC 2.70 L (4.20-5.40) 10^6/uL Hgb 8.4 L (12.0-16.0) g/dL Hct 26.1 L (37.0-47.0) % MCV 96.7 (81.0-99.0) fL MCH 31.1 H (27.0-31.0) pg MCHC 32.2 (32.0-36.0) g/dL RDW 13.0 (12.0-15.0) % Plt Count 892 H* (130-450) 10^3/uL MPV 9.8 (7.9-10.8) fL Neut # (Auto) 9.3 H (1.5-6.6) 10^3/uL Lymph # (Auto) 1.8 (1.5-3.5) 10^3/uL [place] # (Auto) 1.0 (0.0-1.0) 10^3/uL Eos # (Auto) 0.1 (0.0-0.7) 10^3/uL Baso # (Auto) 0.1 (0.0-0.1) 10^3/uL Absolute Nucleated RBC 0.00 x10^3/uL Band Neuts % (Manual) Not Reportable Abnorm Lymph % (Manual) Not Reportable Nucleated RBC % 0.0 /100WBC Neutrophils # (Manual) Not Reportable Lymphocytes # (Manual) Not Reportable Monocytes # (Manual) Not Reportable Eosinophils # (Manual) Not Reportable Basophils # (Manual) Not Reportable Differential Comment M Platelet Estimate INCREASED (>450,000) (NORMAL) Platelet Morphology RARE GIANT PLATELETS (NORMAL) Sodium 135 (135-145) mmol/L Potassium 3.7 (3.5-4.5) mmol/L Chloride 100 L (101-111) mmol/L Carbon Dioxide 29 (21-32) mmol/L Anion Gap 6.0 (6-13) BUN 21 H (6-20) mg/dL Creatinine 0.3 L (0.6-1.3) mg/dL Estimated GFR (MDRD) 225 (>89) Glucose 147 H (74-104) mg/dL Calcium 8.8 (8.5-10.3) mg/dL Phosphorus 4.0 (2.5-5.0) mg/dL Magnesium 1.9 (1.7-2.3) mg/dL Total Bilirubin 0.2 (0.2-1.0) mg/dL AST 14 (10-42) IU/L ALT 6 L (10-60) IU/L Alkaline Phosphatase 67 (42-121) IU/L Total Protein 5.7 L (6.4-8.9) g/dL Albumin 2.2 L (3.2-5.5) g/dL Globulin 3.5 (2.1-4.2) g/dL Albumin/Globulin Ratio 0.6 L (1.0-2.2) Prealbumin 8 L (17-34) mg/dL Triglycerides 138 (48-352) mg/dL Assessment/Plan - Problem List (1) Perforated abdominal viscus Impression: improving daily d/c amin regular diet
[2023-10-14] MEDS ORDERED: iohexoL-300 100 ML VIAL IVP ONE (17:17)
[2023-10-14] MEDS: SODIUM CHLORIDE FLUSH 0.9% 10 ML SYRINGE IVP PRN ×2 (17:46→19:01)
--- NOTE | 2023-10-14 19:12 | PROVIDER PROGRESS NOTE ---
Subjective - Subjective Pt reports feeling: Improved (Slt stronger, is OOB in chair in ICU) Objective - Vital Signs/Intake & Output Reviewed Vital Signs: Yes Vital Signs: Vital Signs Temp Pulse Resp BP Pulse Ox 10/14/23 17:00 36.9 C 84 18 140/86 H 96 Intake & Output: Intake & Output 10/11/23 10/12/23 10/13/23 10/14/23 23:59 23:59 23:59 23:59 Intake Total 3580.183 3321.000 3940.067 3741 Output Total 4605 4200 2740 1951 Balance -1024.817 -225.322 3436.067 1790 - Objective General Appearance: positive: No acute distress ENT: positive: ENT inspection nml, Other (Disheveled) Neck: positive: Nml inspection Respiratory: positive: No respiratory distress, Other (diminished breath sounds) Cardiovascular: positive: Regular rate & rhythm, No murmur Abdomen: positive: Non-tender, No distention Skin: positive: Warm, Dry Extremities: positive: Non-tender, No pedal edema Neurologic/Psychiatric: positive: Oriented x3, CN's nml (2-12), Motor nml - Lab Results Fish Bones: 10/16/23 04:25 10/14/23 04:30 Other Labs: Lab Results x24hrs 10/14/23 10/14/23 Range/Units 04:30 04:30 WBC 12.4 H (4.8-10.8) x10^3/uL RBC 2.70 L (4.20-5.40) 10^6/uL Hgb 8.4 L (12.0-16.0) g/dL Hct 26.1 L (37.0-47.0) % MCV 96.7 (81.0-99.0) fL MCH 31.1 H (27.0-31.0) pg MCHC 32.2 (32.0-36.0) g/dL RDW 13.0 (12.0-15.0) % Plt Count 892 H* (130-450) 10^3/uL MPV 9.8 (7.9-10.8) fL Neut # (Auto) 9.3 H (1.5-6.6) 10^3/uL Lymph # (Auto) 1.8 (1.5-3.5) 10^3/uL [place] # (Auto) 1.0 (0.0-1.0) 10^3/uL Eos # (Auto) 0.1 (0.0-0.7) 10^3/uL Baso # (Auto) 0.1 (0.0-0.1) 10^3/uL Absolute Nucleated RBC 0.00 x10^3/uL Band Neuts % (Manual) Not Reportable Abnorm Lymph % (Manual) Not Reportable Nucleated RBC % 0.0 /100WBC Neutrophils # (Manual) Not Reportable Lymphocytes # (Manual) Not Reportable Monocytes # (Manual) Not Reportable Eosinophils # (Manual) Not Reportable Basophils # (Manual) Not Reportable Differential Comment M Platelet Estimate INCREASED (>450,000) (NORMAL) Platelet Morphology RARE GIANT PLATELETS (NORMAL) Sodium 135 (135-145) mmol/L Potassium 3.7 (3.5-4.5) mmol/L Chloride 100 L (101-111) mmol/L Carbon Dioxide 29 (21-32) mmol/L Anion Gap 6.0 (6-13) BUN 21 H (6-20) mg/dL Creatinine 0.3 L (0.6-1.3) mg/dL Estimated GFR (MDRD) 225 (>89) Glucose 147 H (74-104) mg/dL Calcium 8.8 (8.5-10.3) mg/dL Phosphorus 4.0 (2.5-5.0) mg/dL Magnesium 1.9 (1.7-2.3) mg/dL Total Bilirubin 0.2 (0.2-1.0) mg/dL AST 14 (10-42) IU/L ALT 6 L (10-60) IU/L Alkaline Phosphatase 67 (42-121) IU/L Total Protein 5.7 L (6.4-8.9) g/dL Albumin 2.2 L (3.2-5.5) g/dL Globulin 3.5 (2.1-4.2) g/dL Albumin/Globulin Ratio 0.6 L (1.0-2.2) Prealbumin 8 L (17-34) mg/dL Triglycerides 138 (48-352) mg/dL Assessment/Plan - Problem List (1) Fever Impression: She had not had a fever on 10/13 or today, but had fevers most of 10/11 and 10/12, despite being on scheduled Tylenol ordered by Gen surg and on antibx As per general surgery they would anticipate peritoneal abscesses to start forming in the second week. As such she had a CT of abdomen and pelvis and the patient does have (probable) small abscesses going down the right paracolic gutter. She was on Zosyn, then changed to cefepime and Flagyl on 10/11. We cannot add Vanco to Zosyn. Stool spillage in the abdomen can also put her at risk for Genesis. We have sent off a [id number], called the lab as a miscellaneous lab order. If it is positive and indicates possible fungal infection, she needs to have Caspofungin 70 mg On day 1 followed by 50 mg IV every 24 hours. However I do not know if o pharmacy carries that. A less effective alternative would be fluconazole. Other source of the fever could be the atelectasis from the pleural effusion. But she is on good antibiotic coverage currently. She is not a candidate for thoracentesis since the effusion is not large enough according to radiology. Sputum culture submitted today Plan: Cont Cefepime and Flagyl Add Fluconazole She probabaly needs IR management or surgery of those abdominal areas that may have pus. I recommend she be transferred to a larger facility with IR and GI surgeons and ID capabilities We are a critical access hospital. We usually attest that patients will be here 96 hours or less. Clearly this patient is here beyond that timeframe. We have not attempted transfer as of yet. We are well aware that we need to transfer to a higher level of care when we have exceeded the ability to deliver services he re. (2) Perforated abdominal viscus Impression: As per surgical findings. She now has a colostomy (3) Post-op intra-abdominal abscess She has been on several iv antibx and has a very prolonged postoperative hospital stay. Her pain is controlled Plan: This patient needs to be taught colostomy training, and family needs to be taugh t colostomy training, since she cannot go to SNF from here (she has no insurance coverage for SNF or for Home Health). A barrier to this successful training will be the fact that she has a right wrist fracture. (4) Acute respiratory failure with hypoxia Conclusion/Plan: Hypoxia has been up and down. Postoperatively there was fluid overload, then a mucous plug with consolidation seen on CT of the right lung from the plug. Bronchoscopy done after that and showed open right upper lung. She continues to have a pleural effusion on chest x-ray and CT. But radiology did not feel it was large enough to do a thoracentesis on. She is on nasal cannula and tolerating it well. 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 Central line placed October 08. PPN was switched to TPN October 09. Plan: Diet advancement as per Gen surg (8) Generalized weakness Conclusion/Plan: This unfortunate patient has had a sudden severe illness, required surgery, now has a colostomy. She has been very, very slow to progress and improve. She was intermittently reluctant to get up out of bed. Physical therapy has worked with her. She keeps on telling physical therapy that she wants to go home. She lives alone. Case management explained that this patient does not have outpatient insurance that would allow her to have Home Health services or coverage to go to [facility] for rehab. Plan: We will have to make sure this patient is able to go home with good colostomy instruction, and that her family has good colostomy instruction. We also do not have a colostomy education nurse here anymore. (9) Wrist fracture The last Hospitalist requested an Orthopedic consult. The Orthopedic spoke to me, learned that the fracture was remote and there is already a plate in place, status post surgery done elsewhere. PT to determine what restrictions are necessary to follow
[2023-10-15] MEDS: IBUPROFEN 600 MG TABLET PO PRN ×3 (00:32→22:06)
[2023-10-15] MEDS: SODIUM CHLORIDE FLUSH 0.9% 10 ML SYRINGE IVP SCH ×3 (00:33→18:46)
[2023-10-15] MEDS: metroNIDAZOLE 500 MG/100 ML 500 MG/100 ML BAG IV SCH ×3 (02:26→18:45)
[2023-10-15] MEDS: oxyCODONE 5 MG TABLET PO PRN (02:31)
[2023-10-15] MEDS: ACETAMINOPHEN 325 MG TABLET PO SCH ×6 (02:32→22:17)
--- NOTE | 2023-10-15 03:25 | CT Report ---
PROCEDURE: ABDOMEN/PELVIS W INDICATIONS: POD #13, abd abcesses, daily fever CONTRAST: 100ml omni 300 TECHNIQUE: After the administration of intravenous contrast, 5 mm thick sections acquired from the diaphragms to the symphysis. 5 mm thick coronal and sagittal reformats were acquired. For radiation dose reducti on, the following was used: automated exposure control, adjustment of mA and/or kV according to mandy ent size. COMPARISON: 10/09/2023 FINDINGS: Image quality: Diagnostic. Lung bases and heart: Persistent small right pleural effusion with associated compressive atelectasis . Heart size is normal. Improved aeration of the left lung base. Liver: No solid mass. Gallbladder and biliary tree: Gallbladder is mildly distended. No radiodense gallstones. No intrahepa tic biliary ductal dilatation. Spleen: No splenomegaly. Pancreas: No pancreatic ductal dilation. Adrenals: No adrenal nodule. Kidneys and ureters: No hydronephrosis. No renal cystic lesion which requires follow up. No solid mas s. Bowel and peritoneum: Stable postsurgical changes from left abdominal wall ostomy. Mild persistent st randing surrounding segment of colon proximal to the ostomy. No evidence for wall thickening. Persist ent air-fluid levels within the nondilated colon. As before, proximal segments of the ascending colon demonstrate mild wall thickening near previously described right paracolic abscesses. Multiple loops of air and fluid-filled small bowel persist. Mild dilatation of small bowel loops in the ventral upp er and mid abdomen. No abnormal wall thickening. No transition point noted. Findings again likely rel ated to ileus. Stable appearance of rectal stump. No pneumatosis seen. Lymph nodes: No central or retroperitoneal adenopathy. Vessels: No infrarenal aortic aneurysm. PELVIS Reproductive organs: Stable appearance of retroverted uterus. Persistent hyperdense intrauterine area s likely representing fibroids. Bladder: Interval removal of Pradhan catheter. A few locules of air in the antidependent portion of the urinary bladder possibly related to previous Pradhan catheter. There is minimal parenchymal urinary bl adder wall thickening which is favored to be secondary to incomplete bladder distention. Pelvic lymph nodes: No pelvic adenopathy by size criteria. Bones: No aggressive osseous abnormality. Other: Stable postsurgical changes of the ventral midline abdomen. Central incision remains open. No evidence for abnormal fluid collections in the subcutaneous soft tissues. Stable appearance of left a bdominal ostomy. No parastomal fluid collections. Small amount of pelvic free fluid. Redemonstration of correction thick, multiloculated fluid collection with thin rim enhancement noted over the posterior, inferior wall of the right hepatic lobe and extends along the right paracolic gut ter into the pelvis. The paracolic and pelvic fluid collections appear to be stable to slightly small er in size and conspicuity. The perihepatic fluid collections appear larger and more prominent. For e susiele, inferior right hepatic lobe fluid collection previously measured approximately 1.1 cm in thi kness, now measuring 1.8 cm. There is associated mass effect of the adjacent liver. IMPRESSION: 1. Redemonstration of previously described multiple thin loculated rim-enhancing fluid collections al arcadio the posterior, inferior margin of the liver extending into the pelvis along the right paracolic g utter. These are again compatible with abscesses. The fluid collections within the paracolic outer an d pelvis appear stable to smaller in size. However, perihepatic collections appear more prominent and larger. No associated gas identified within these fluid collections. 2. Stable postsurgical changes of the anterior abdominal wall with open superficial abdominal incisio n. No new focal fluid collections identified. 3. Stable postsurgical changes of left abdominal ostomy. 4. Multiple persistent dilated fluid-filled loops of small bowel without transition point is again co nsistent with ileus. 5. Interval removal Pradhan catheter. Persistent locules of air are noted within the urinary bladder wi th minimal circumferential wall thickening. Although this is likely related to recent Pradhan removal, recommend clinical/laboratory correlation for potential cystitis. 6. Stable small right pleural effusion with associated compressive atelectasis. 7. Other nonacute findings as above. Reviewed by: Raman Marley MD on 10/15/2023 3:24 AM PST Approved by: Raman Marley MD on 10/15/2023 3:24 AM PST Station ID: [id number]
[2023-10-15] MEDS: CEFEPIME 1 GM in SODIUM CHLORIDE 0.9% MINIBAG 100 ML IV SCH ×3 (05:39→21:42)
[2023-10-15] MEDS: CITALOPRAM HYDROBROMIDE 20 MG TABLET PO SCH (09:12)
[2023-10-15] MEDS: FLUCONAZOLE 200 MG/100 ML 200 ML IV SCH (09:12)
[2023-10-15] MEDS: HEPARIN 5,000 UNIT/ML VIAL SUBQ SCH ×2 (09:13→21:31)
[2023-10-15 11:20] LABS: BASOPHILS # (AUTO) 0.1 10^3/uL (0.0-0.1); BASOPHILS % (AUTO) 0.6 %; EOSINOPHILS % (AUTO) 0.2 %; HCT - HEMATOCRIT 27.4 % (37.0-47.0); HGB - HEMOGLOBIN 8.9 g/dL (12.0-16.0); LYMPHOCYTES # (AUTO) 1.2 10^3/uL (1.5-3.5); MEAN CORPUSCULAR HGB CONC 32.5 g/dL (32.0-36.0); MEAN CORPUSCULAR VOLUME 95.5 fL (81.0-99.0); MEAN PLATELET VOLUME 9.5 fL (7.9-10.8); MONOCYTES % (AUTO) 6.5 %; NEUTROPHILS # (AUTO) 12.8 10^3/uL (1.5-6.6); NEUTROPHILS % (AUTO) 83.7 %; RED BLOOD COUNT 2.87 10^6/uL (4.20-5.40); RED CELL DISTRIBUTION WIDTH 13.3 % (12.0-15.0); WHITE BLOOD COUNT 15.3 x10^3/uL (4.8-10.8)
[2023-10-15 11:24] LABS: PLT - PLATELET COUNT 1196 10^3/uL (130-450)
--- NOTE | 2023-10-15 12:38 | PROVIDER PROGRESS NOTE ---
Subjective - General Admit Date: 10/02/23 Procedure Date: 10/02/23 Post Op Days: 13 Procedure Performed: Exploratory laparotomy, sigmoid colectomy, colostomy, washout - Review of Systems Wound/Incisions: positive: Dressing dry and intact, No drainage, Other (Colostomy pink and viable. Air and bile in pouch; BID dressings changes in progress) General: positive: No symptoms. negative: Fever HEENT: positive: No symptoms Pulmonary: positive: No symptoms Cardiovascular: positive: No symptoms Gastrointestinal: positive: Abdominal pain (Incisional discomfort.) Skin: positive: No symptoms Psychiatric: positive: No symptoms Objective - Patient Data Reviewed Vital Signs: Yes Vital Signs: Vital Signs x48h Temp Pulse Resp BP Pulse Ox 10/15/23 12:16 36.8 C 109 H 18 157/97 H 95 10/15/23 08:25 36.9 C 101 H 14 140/89 H 95 Weight: Weight 10/13/23 10/14/23 10/15/23 23:59 23:59 23:59 Weight (kg) 65 kg 63 kg 63 kg Intake & Output: Intake and Output Totals x24h 10/13/23 10/14/23 10/15/23 23:59 23:59 23:59 Intake Total 3940.067 4041 720 Output Total 2740 1951 200 Balance 5786.635 4285 520 - Lab Results Lab Results: 10/15/23 11:00 10/14/23 04:30 Other Lab Results: Lab Results x24hrs 10/15/23 Range/Units 11:00 WBC 15.3 H (4.8-10.8) x10^3/uL RBC 2.87 L (4.20-5.40) 10^6/uL Hgb 8.9 L (12.0-16.0) g/dL Hct 27.4 L (37.0-47.0) % MCV 95.5 (81.0-99.0) fL MCH 31.0 (27.0-31.0) pg MCHC 32.5 (32.0-36.0) g/dL RDW 13.3 (12.0-15.0) % Plt Count 1196 H* (130-450) 10^3/uL MPV 9.5 (7.9-10.8) fL Neut # (Auto) 12.8 H (1.5-6.6) 10^3/uL Lymph # (Auto) 1.2 L (1.5-3.5) 10^3/uL [place] # (Auto) 1.0 (0.0-1.0) 10^3/uL Eos # (Auto) 0.0 (0.0-0.7) 10^3/uL Baso # (Auto) 0.1 (0.0-0.1) 10^3/uL Absolute Nucleated RBC 0.00 x10^3/uL Nucleated RBC % 0.0 /100WBC - Imaging Results Radiology Imaging: positive: Final report received - Current Medications Current Medications: Current Medications Generic Name Dose Route Start Last Admin Trade Name Freq PRN Reason Stop Dose Admin Acetaminophen 650 mg 10/12/23 11:00 10/15/23 11:12 Acetaminophen 325 Mg Tablet PO Not Given Q4H SANDRA Citalopram Hydrobromide 20 mg 10/03/23 09:00 10/15/23 09:12 Citalopram Hydrobromide 20 Mg Tablet PO 20 mg DAILY SANDRA Administration Heparin Sodium (Porcine) 5,000 unit 10/03/23 09:00 10/15/23 09:13 Heparin 5,000 Unit/Ml Vial SUBQ 5,000 unit BID SANDRA Administration Hydromorphone HCl 0.5 mg 10/13/23 11:28 10/13/23 14:21 Hydromorphone 0.5 Mg/0.5 Ml Syringe IVP 0.5 mg Q4H PRN Administration Breakthrough Pain Cefepime HCl 1 gm/ Sodium 100 mls @ 200 mls/hr 10/10/23 22:00 10/15/23 06:25 Chloride IV Infused TID SANDRA Infusion Metronidazole 500 mg in 100 mls @ 100 mls/hr 10/10/23 19:00 10/15/23 12:01 Flagyl 500 Mg/100 Ml IV 100 mls/hr Q8H SANDRA Administration Fluconazole 200 mls @ 200 mls/hr 10/13/23 09:00 10/15/23 09:12 Diflucan 200 Mg/100 Ml IV 200 mls/hr DAILY SANDRA Administration Ibuprofen 600 mg 10/11/23 08:33 10/15/23 00:32 Ibuprofen 600 Mg Tablet PO 600 mg Q6HR PRN Administration Moderate Pain (Level 4-6) Lorazepam 1 mg 10/13/23 11:28 10/13/23 21:50 Lorazepam 2 Mg/Ml Vial IVP 1 mg Q4H PRN Administration Anxiety Ondansetron HCl 4 mg 10/02/23 15:19 10/05/23 05:03 Ondansetron Odt 4 Mg Tablet TL 4 mg Q6HR PRN Administration Nausea / Vomiting Ondansetron HCl 4 mg 10/02/23 15:19 10/13/23 11:36 Ondansetron 4 Mg/2 Ml Vial IVP 4 mg Q6HR PRN Administration Nausea / Vomiting Oxycodone HCl 5 mg 10/11/23 08:34 10/15/23 02:31 Oxycodone 5 Mg Tablet PO 5 mg Q4HR PRN Administration Severe Pain (Level 7-10) Prochlorperazine Edisylate 10 mg 10/08/23 14:14 10/08/23 14:21 Prochlorperazine 10 Mg/2 Ml Vial IVP 10 mg Q6HR PRN Administration Nausea / Vomiting Sodium Chloride 10 ml 10/06/23 09:00 10/15/23 09:12 Sodium Chloride Flush 0.9% 10 Ml Syringe IVP Not Given 0100,0900,1700 SANDRA Sodium Chloride 10 ml 10/06/23 07:17 10/14/23 19:01 Sodium Chloride Flush 0.9% 10 Ml Syringe IVP 10 ml PRN PRN Administration NEEDED PER PROVIDER ORDERS - Physical Exam Wound/Incisions: positive: Healing well, Other (Ostomy is pink and productive of stool and air. Excellent granulation tissue in open wound.) General Appearance: positive: No acute distress, Alert Eyes Bilateral: positive: No lid inflammation, Conjunctivae nml, No scleral icterus ENT: positive: No signs of dehydration Neck: positive: Trachea midline Respiratory: positive: Chest non-tender, No respiratory distress, Breath sounds nml Cardiovascular: positive: Regular rate & rhythm, No murmur, No gallop Abdomen: positive: Nml bowel sounds, Other (Se above for wound and ostomy.) Skin: positive: Color nml, Warm, Dry. negative: Diaphoresis, Pallor Neurologic/Psychiatric: positive: Oriented x3, Motor nml, Sensation nml, Mood/affect nml, Other (Worried about her hair being a mess.) ABX Reporting Has patient been on IV antibiotics over the past 48 hours?: Yes Impression/Plan - Problem List Problem List: D13 status post exploratory laparotomy with sigmoid colectomy, end colostomy, Goodwin's pouch, and abdominal washout 1)FEN On general diet tolerating it well. 2)ID Continues on antibiotics but CT scan showing prominence of fluid collection in the perihepatic space and white blood cell count is mildly elevated, platelet count is continuing to rise and patient has a mild tachycardia but no fever. Recommend continued antibiotics. Tapping the fluid collection in the perihepatic space via interventional radiology is likely to be beneficial. If an abscess is diagnosed this way it will also be treated this way. If an abscess is not found this will decrease my concern for an abscess. Open surgery to determine the etiology of the fluid collection in the perihepatic space this soon following her exploratory laparotomy would be fraught with difficulty and risk and should not be undertaken. On cefepime, fluconazole, and metronidazole. 3)DVT Prophylaxis. 4)Reactive thrombocytosis This is undoubtedly due to her infection/inflammation. This usually occurs 10 to 14 days out from an event. This may be further evidence that she has an abscess or it may be a reaction to her initial event. The risk of thrombosis secondary to reactive thrombocytosis is low. If treatment is going to be considered I would likely put her on low- dose aspirin. I am going to defer this decision with an eye towards possible interventional radiology drainage of the perihepatic fluid collection. If this fluid collection is not going to be drained then I would likely start her on a low-dose aspirin. We discussed the possibility of a colostomy takedown 8 to 12 months following her discharge from the hospital. I explained that I perform a colonoscopy of the colorectal stump and the remaining colon prior to any anastomotic attempt to ensure that there is no other issue with the colon that needs to be addressed operatively. I explained the different surgeons may have different approaches. She vocalized an understanding. In summary the patient has done exceptionally well following her surgery.
--- NOTE | 2023-10-15 12:51 | PROVIDER PROGRESS NOTE ---
Assessment/Plan - Problem List (1) Thrombocytosis Assessment/Plan: Her plt count has been increasing daily for several days (all labs were reviewed). It is > 1 million today. Per ID, this is a sign of abscess. The CT from a week ago showed pericolic fluid consistent with an abscess. That CT recommended a repeat done in 5 days which was done on 1215. That continues to show fluid in the right paracolic gutter and fluid around the liver. Her WBC has improved, howevere. I discussed these findings with Dr. Varma Gen Surg today Plan: Cont empiric iv antibx She needs IR management of those abdominal areas that may have pus. Dr Varma plans a drain placed by IR. I recommend she be transferred to a larger facility with IR and GI surgeons and ID capabilities We are a critical access hospital. We usually attest that patients will be here 96 hours or less. Clearly this patient is here beyond that timeframe. We have not attempted transfer as of yet. We are well aware that we need to transfer to a higher level of care when we have exceeded the ability to deliver services here. (2) Perforated abdominal viscus Impression: As per surgical findings. She now has a colostomy (3) Post-op intra-abdominal abscess She has been on several iv antibx and has a very prolonged postoperative hospital stay. Her pain is controlled Plan: This patient needs to be taught colostomy training, and family needs to be taught colostomy training, since she cannot go to SNF from here (she has no insurance coverage for SNF or for Home Health). A barrier to this successful training will be the fact that she has a right wrist fracture. (4) Acute respiratory failure with hypoxia Conclusion/Plan: Hypoxia has been up and down. Postoperatively there was fluid overload, then a mucous plug with consolidation seen on CT of the right lung from the plug. Bronchoscopy done after that and showed open right upper lung. She is on nasal cannula and tolerating it well. Plan: She needs to do IS to prevent atelectasis (5) Aspiraion pneumonitis due to regurgitated gastric secretions Conclusion/Plan: As per CXR Plan: Cont antibx (6) Mucous plug of bronchi Conclusion/Plan: This required suctioning and even a bronchoscopy and probably added to the HCAP (7) Nutrition deficiency due to insufficient food Conclusion/Plan: We started PPN and she had NG tube in place. Central line placed October 08. PPN was switched to TPN October 09. Plan: Diet advancement as per Gen surg (8) Generalized weakness Conclusion/Plan: She has been very, very slow to progress and improve. She was intermittently reluctant to get up out of bed. Physical therapy has worked with her. She keeps on telling physical therapy that she wants to go home. She lives alone. Case management explained that this patient does not have outpatient insurance that would allow her to have Home Health services or coverage to go to [facility] for rehab. Plan: We will have to make sure this patient is able to go home with good colostomy instruction, and that her family has good colostomy instruction. We also do not have a colostomy education nurse here anymore. (9) Wrist fracture Conclusion/Plan: The last Hospitalist requested an Orthopedic consult. The Orthopedic spoke to me, learned that the fracture was remote and there is already a plate in place, status post surgery done elsewhere. PT to determine what restrictions are necessary to follow (10) Fever Conclusion/Plan: RESOLVED - Current Meds Current Meds: Current Medications Generic Name Dose Route Start Last Admin Trade Name Freq PRN Reason Stop Dose Admin Acetaminophen 650 mg 10/12/23 11:00 10/15/23 11:12 Acetaminophen 325 Mg Tablet PO Not Given Q4H SANDRA Citalopram Hydrobromide 20 mg 10/03/23 09:00 10/15/23 09:12 Citalopram Hydrobromide 20 Mg Tablet PO 20 mg DAILY SANDRA Administration Heparin Sodium (Porcine) 5,000 unit 10/03/23 09:00 10/15/23 09:13 Heparin 5,000 Unit/Ml Vial SUBQ 5,000 unit BID SANDRA Administration Hydromorphone HCl 0.5 mg 10/13/23 11:28 10/13/23 14:21 Hydromorphone 0.5 Mg/0.5 Ml Syringe IVP 0.5 mg Q4H PRN Administration Breakthrough Pain Cefepime HCl 1 gm/ Sodium 100 mls @ 200 mls/hr 10/10/23 22:00 10/15/23 06:25 Chloride IV Infused TID SANDRA Infusion Metronidazole 500 mg in 100 mls @ 100 mls/hr 10/10/23 19:00 10/15/23 12:01 Flagyl 500 Mg/100 Ml IV 100 mls/hr Q8H SANDRA Administration Fluconazole 200 mls @ 200 mls/hr 10/13/23 09:00 10/15/23 09:12 Diflucan 200 Mg/100 Ml IV 200 mls/hr DAILY SANDRA Administration Ibuprofen 600 mg 10/11/23 08:33 10/15/23 00:32 Ibuprofen 600 Mg Tablet PO 600 mg Q6HR PRN Administration Moderate Pain (Level 4-6) Lorazepam 1 mg 10/13/23 11:28 10/13/23 21:50 Lorazepam 2 Mg/Ml Vial IVP 1 mg Q4H PRN Administration Anxiety Ondansetron HCl 4 mg 10/02/23 15:19 10/05/23 05:03 Ondansetron Odt 4 Mg Tablet TL 4 mg Q6HR PRN Administration Nausea / Vomiting Ondansetron HCl 4 mg 10/02/23 15:19 10/13/23 11:36 Ondansetron 4 Mg/2 Ml Vial IVP 4 mg Q6HR PRN Administration Nausea / Vomiting Oxycodone HCl 5 mg 10/11/23 08:34 10/15/23 02:31 Oxycodone 5 Mg Tablet PO 5 mg Q4HR PRN Administration Severe Pain (Level 7-10) Prochlorperazine Edisylate 10 mg 10/08/23 14:14 10/08/23 14:21 Prochlorperazine 10 Mg/2 Ml Vial IVP 10 mg Q6HR PRN Administration Nausea / Vomiting Sodium Chloride 10 ml 10/06/23 09:00 10/15/23 09:12 Sodium Chloride Flush 0.9% 10 Ml Syringe IVP Not Given 0100,0900,1700 SANDRA Sodium Chloride 10 ml 10/06/23 07:17 10/14/23 19:01 Sodium Chloride Flush 0.9% 10 Ml Syringe IVP 10 ml PRN PRN Administration NEEDED PER PROVIDER ORDERS - Lab Result Fish Bone Diagrams: 10/16/23 04:25 10/14/23 04:30 - Additional Planning My Orders: My Active Orders 10/14/23 Dinner DIET [Soft (Low Fiber) Diet] [DIET] 10/15/23 07:38 Miscellaenous Nursing Order [RC] QSHIFT 10/16/23 05:00 CBC - COMP BLD CT W/AUTO DIFF [HEME] DAILYLAB Subjective - Subjective Patient Reports: Resting Comfortably, No Complaints Objective Vital Signs: Vital Signs - 24 hr 10/14/23 10/14/23 10/15/23 17:00 21:09 00:30 Temperature 36.9 C 37.0 C 37.0 C Heart Rate [ 84 90 98 Monitoring electrodes] Respiratory 18 16 18 Rate Blood Pressure 140/86 H 123/70 116/76 [Right Brachial artery] O2 Saturation 96 96 92 10/15/23 10/15/23 10/15/23 04:25 08:25 12:16 Temperature 36.8 C 36.9 C 36.8 C Heart Rate [ 81 101 H 109 H Monitoring electrodes] Respiratory 18 14 18 Rate Blood Pressure 120/73 140/89 H 157/97 H [Right Brachial artery] O2 Saturation 93 95 95 Oxygen O2 Source Room air I&O (Last 24 Hrs): Intake and Output Totals x24h 10/13/23 10/14/23 10/15/23 23:59 23:59 23:59 Intake Total 3940.067 4041 720 Output Total 2740 1951 200 Balance 8037.096 4690 520 General: Alert, Oriented x3 HEENT: Mucous membr. moist/pink, Other (Disheveled) Neck: Supple Neuro: Alert, Non Focal Cardiovascular: Regular rate Respiratory: No respiratory distress, Other (Diminished breath sounds) Abdomen: Soft, No tenderness Extremities: No clubbing, No edema, No tenderness/swelling - Results Results: Laboratory Results WBC 15.3 x10^3/uL (4.8-10.8) H 10/15/23 11:00 RBC 2.87 10^6/uL (4.20-5.40) L 10/15/23 11:00 Hgb 8.9 g/dL (12.0-16.0) L 10/15/23 11:00 Hct 27.4 % (37.0-47.0) L 10/15/23 11:00 MCV 95.5 fL (81.0-99.0) 10/15/23 11:00 MCH 31.0 pg (27.0-31.0) 10/15/23 11:00 MCHC 32.5 g/dL (32.0-36.0) 10/15/23 11:00 RDW 13.3 % (12.0-15.0) 10/15/23 11:00 Plt Count 1196 10^3/uL (130-450) H* 10/15/23 11:00 MPV 9.5 fL (7.9-10.8) 10/15/23 11:00 Neut # (Auto) 12.8 10^3/uL (1.5-6.6) H 10/15/23 11:00 Lymph # (Auto) 1.2 10^3/uL (1.5-3.5) L 10/15/23 11:00 [place] # (Auto) 1.0 10^3/uL (0.0-1.0) 10/15/23 11:00 Eos # (Auto) 0.0 10^3/uL (0.0-0.7) 10/15/23 11:00 Baso # (Auto) 0.1 10^3/uL (0.0-0.1) 10/15/23 11:00 Absolute Nucleated RBC 0.00 x10^3/uL 10/15/23 11:00 Total Counted 100 10/13/23 05:00 Band Neuts % (Manual) Not Reportable 10/14/23 04:30 Reactive Lymphs % (Man) 1 % 10/03/23 06:51 Abnorm Lymph % (Manual) Not Reportable 10/14/23 04:30 Metamyelocytes % 4 % (-0) H 10/03/23 06:51 Myelocytes % 1 % (-0) H 10/04/23 07:07 Nucleated RBC % 0.0 /100WBC 10/15/23 11:00 Neutrophils # (Manual) Not Reportable 10/14/23 04:30 Lymphocytes # (Manual) Not Reportable 10/14/23 04:30 Monocytes # (Manual) Not Reportable 10/14/23 04:30 Eosinophils # (Manual) Not Reportable 10/14/23 04:30 Basophils # (Manual) Not Reportable 10/14/23 04:30 Differential Comment M 10/14/23 04:30 Manual Slide Review Indicated 10/06/23 10:57 WBC Morphology NORMAL APPEARANCE (NORMAL) 10/06/23 10:57 Platelet Estimate INCREASED (>450,000) (NORMAL) 10/14/23 04:30 Platelet Morphology RARE GIANT PLATELETS (NORMAL) 10/14/23 04:30 RBC Morph Micro Appear NORMAL APPEARANCE (NORMAL) 10/13/23 05:00 Bld Gas Analysis Time 1646 10/08/23 16:42 Sample Site RIGHT RADIAL 10/08/23 16:42 ABG pH 7.46 (7.35-7.45) H 10/08/23 16:42 ABG pCO2 43 mmHg (34-45) 10/08/23 16:42 ABG pO2 102 mmHg (80-100) H 10/08/23 16:42 ABG HCO3 29.9 mmol/L (22.0-26.0) H 10/08/23 16:42 ABG Total CO2 31.2 MMOL/L (21.0-29.0) H 10/08/23 16:42 ABG O2 Saturation 98 % (94-98) 10/08/23 16:42 ABG Base Excess 5.5 mmol/L (-2.0-3.0) H 10/08/23 16:42 Anuj Test POSITIVE 10/08/23 16:42 VBG pH 7.371 (7.31-7.41) 10/13/23 05:00 Ionized Calcium 1.15 mmol/L (1.15-1.33) 10/13/23 05:00 Respiration Rate 20 b/min 10/06/23 07:20 O2 Delivery Device BiPAP 10/08/23 16:42 Vent Mode SYNCHRONOUS/TIMES 10/08/23 16:42 FiO2 50.00 10/08/23 16:42 EPAP 5 cmH2O 10/08/23 16:42 IPAP 10 cmH2O 10/08/23 16:42 Sodium 135 mmol/L (135-145) 10/14/23 04:30 Potassium 3.7 mmol/L (3.5-4.5) 10/14/23 04:30 Chloride 100 mmol/L (101-111) L 10/14/23 04:30 Carbon Dioxide 29 mmol/L (21-32) 10/14/23 04:30 Anion Gap 6.0 (6-13) 10/14/23 04:30 BUN 21 mg/dL (6-20) H 10/14/23 04:30 Creatinine 0.3 mg/dL (0.6-1.3) L 10/14/23 04:30 Estimated GFR (MDRD) 225 (>89) 10/14/23 04:30 Glucose 147 mg/dL (74-104) H 10/14/23 04:30 Lactic Acid 1.4 mmol/L (0.5-2.2) 10/04/23 07:07 Calcium 8.8 mg/dL (8.5-10.3) 10/14/23 04:30 Phosphorus 4.0 mg/dL (2.5-5.0) 10/14/23 04:30 Magnesium 1.9 mg/dL (1.7-2.3) 10/14/23 04:30 Total Bilirubin 0.2 mg/dL (0.2-1.0) 10/14/23 04:30 AST 14 IU/L (10-42) 10/14/23 04:30 ALT 6 IU/L (10-60) L 10/14/23 04:30 Alkaline Phosphatase 67 IU/L (42-121) 10/14/23 04:30 Troponin I High Sens 11.8 ng/L (2.3-14.8) 10/06/23 06:38 Total Protein 5.7 g/dL (6.4-8.9) L 10/14/23 04:30 Albumin 2.2 g/dL (3.2-5.5) L 10/14/23 04:30 Globulin 3.5 g/dL (2.1-4.2) 10/14/23 04:30 Albumin/Globulin Ratio 0.6 (1.0-2.2) L 10/14/23 04:30 Prealbumin 8 mg/dL (17-34) L 10/14/23 04:30 Triglycerides 138 mg/dL (48-352) 10/14/23 04:30 Lipase < 10 U/L (11-82) L 10/02/23 09:00 Nasal Screen MRSA (PCR) NEGATIVE (NEGATIVE) 10/02/23 20:40 Ethyl Alcohol < 10.0 mg/dL 10/02/23 09:00 Miscellaneous Test COMMENT (.) 10/10/23 16:07
[2023-10-15] MEDS: LORazepam 2 MG/ML VIAL IVP PRN (22:06)
[2023-10-16] MEDS: SODIUM CHLORIDE FLUSH 0.9% 10 ML SYRINGE IVP SCH ×3 (01:01→15:00)
[2023-10-16] MEDS: SODIUM CHLORIDE FLUSH 0.9% 10 ML SYRINGE IVP PRN ×2 (01:02→20:36)
[2023-10-16] MEDS: ACETAMINOPHEN 325 MG TABLET PO SCH ×5 (02:50→19:52)
[2023-10-16] MEDS: oxyCODONE 5 MG TABLET PO PRN (03:04)
[2023-10-16] MEDS: metroNIDAZOLE 500 MG/100 ML 500 MG/100 ML BAG IV SCH ×3 (03:04→19:54)
[2023-10-16 04:41] LABS: BASOPHILS # (AUTO) 0.1 10^3/uL (0.0-0.1); BASOPHILS % (AUTO) 0.5 %; EOSINOPHILS # (AUTO) 0.1 10^3/uL (0.0-0.7); EOSINOPHILS % (AUTO) 0.5 %; HCT - HEMATOCRIT 25.1 % (37.0-47.0); HGB - HEMOGLOBIN 8.1 g/dL (12.0-16.0); LYMPHOCYTES # (AUTO) 1.3 10^3/uL (1.5-3.5); LYMPHOCYTES % (AUTO) 10.4 %; MEAN CORPUSCULAR HEMOGLOBIN 30.9 pg (27.0-31.0); MEAN CORPUSCULAR HGB CONC 32.3 g/dL (32.0-36.0); MEAN CORPUSCULAR VOLUME 95.8 fL (81.0-99.0); MONOCYTES # (AUTO) 0.9 10^3/uL (0.0-1.0); MONOCYTES % (AUTO) 7.5 %; NEUTROPHILS # (AUTO) 9.9 10^3/uL (1.5-6.6); NEUTROPHILS % (AUTO) 80.1 %; RED BLOOD COUNT 2.62 10^6/uL (4.20-5.40); RED CELL DISTRIBUTION WIDTH 13.3 % (12.0-15.0); WHITE BLOOD COUNT 12.4 x10^3/uL (4.8-10.8)
[2023-10-16 04:47] LABS: PLT - PLATELET COUNT 993 10^3/uL (130-450); SLIDE REVIEW? Indicated
[2023-10-16] MEDS: CEFEPIME 1 GM in SODIUM CHLORIDE 0.9% MINIBAG 100 ML IV SCH ×3 (05:42→22:29)
[2023-10-16 05:58] LABS: PLATELET ESTIMATE, MANUAL INCREASED (>450,000) (NORMAL); PLATELET MORPHOLOGY NORMAL APPEARANCE (NORMAL)
[2023-10-16] MEDS: CITALOPRAM HYDROBROMIDE 20 MG TABLET PO SCH (09:32)
[2023-10-16] MEDS: FLUCONAZOLE 200 MG/100 ML 200 ML IV SCH (09:32)
[2023-10-16] MEDS: HEPARIN 5,000 UNIT/ML VIAL SUBQ SCH ×2 (09:37→20:39)
--- NOTE | 2023-10-16 10:45 | PROVIDER PROGRESS NOTE ---
Subjective - Subjective Pt reports feeling: Improved (tolerating diet. ambulating better/ less assist) Objective - Vital Signs/Intake & Output Vital Signs: Vital Signs x48h Temp Pulse Resp BP Pulse Ox 10/16/23 08:31 36.8 C 83 16 131/80 H 94 10/16/23 04:25 36.6 C 87 16 129/79 94 Intake & Output: Intake & Output 10/13/23 10/14/23 10/15/23 10/16/23 23:59 23:59 23:59 23:59 Intake Total 3940.067 4041 1960 520 Output Total 2740 1951 450 600 Balance 8577.660 9949 1510 -80 - Objective General Appearance: positive: No acute distress, Alert ENT: positive: No signs of dehydration Neck: positive: No JVD, Trachea midline Respiratory: positive: No respiratory distress Abdomen: positive: Non-tender, No distention Neurologic/Psychiatric: positive: Oriented x3 - Lab Results Fish Bones: 10/16/23 04:25 10/14/23 04:30 Other Labs: Lab Results x24hrs 10/16/23 10/15/23 Range/Units 04:25 11:00 WBC 12.4 H 15.3 H (4.8-10.8) x10^3/uL RBC 2.62 L 2.87 L (4.20-5.40) 10^6/uL Hgb 8.1 L 8.9 L (12.0-16.0) g/dL Hct 25.1 L 27.4 L (37.0-47.0) % MCV 95.8 95.5 (81.0-99.0) fL MCH 30.9 31.0 (27.0-31.0) pg MCHC 32.3 32.5 (32.0-36.0) g/dL RDW 13.3 13.3 (12.0-15.0) % Plt Count 993 H* 1196 H* (130-450) 10^3/uL MPV 9.0 9.5 (7.9-10.8) fL Neut # (Auto) 9.9 H 12.8 H (1.5-6.6) 10^3/uL Lymph # (Auto) 1.3 L 1.2 L (1.5-3.5) 10^3/uL Foard # (Auto) 0.9 1.0 (0.0-1.0) 10^3/uL Eos # (Auto) 0.1 0.0 (0.0-0.7) 10^3/uL Baso # (Auto) 0.1 0.1 (0.0-0.1) 10^3/uL Absolute Nucleated RBC 0.00 0.00 x10^3/uL Nucleated RBC % 0.0 0.0 /100WBC Manual Slide Review Indicated Platelet Estimate INCREASED (>450,000) (NORMAL) Platelet Morphology NORMAL APPEARANCE (NORMAL) - Diagnostic Imaging Diagnostic Imaging Results: positive: Read independently (no significant abdominal fluid collection) Assessment/Plan - Problem List (1) Perforated abdominal viscus Impression: doing well. improving daily. continue present care
[2023-10-16] MEDS: ONDANSETRON 4 MG/2 ML VIAL IVP PRN (14:58)
--- NOTE | 2023-10-16 16:42 | PROVIDER PROGRESS NOTE ---
Assessment/Plan - Problem List (1) Thrombocytosis Assessment/Plan: (1) Thrombocytosis Assessment/Plan: Her plt count has been increasing daily for several days (all labs were revie tue). Per ID, this is a sign of abscess. Today the plt count finally dropped slightly The CT from a week ago showed pericolic fluid consistent with an abscess. That CT recommended a repeat done in 5 days which was done on 1214. That continues to show fluid in the right paracolic gutter and fluid around the liver. I discussed these findings with Dr. Varma on 1215. Plan: Cont empiric iv antibx She needs IR management of those abd areas that may have pus, I will order drain placed by IR tomorrow (we have no IR here on Tue), if they can do it at our small [facility] If WBC rises in a.m., or if plt count again rises, or if she becomes septic with hypotension, I recommend she be transferred to a larger facility with IR and GI surgeons and ID capabilities We are a critical access hospital. We usually attest that patients will be here 96 hours or less. Clearly this patient is here beyond that timeframe. We have not attempted transfer as of yet. We are well aware that we need to transfer to a higher level of care when we have exceeded the ability to deliver services here. (2) Perforated abdominal viscus Impression: As per surgical findings. She now has a colostomy (3) Post-op intra-abdominal abscess She has been on several iv antibx and has a very prolonged postoperative hospital stay. Her pain is controlled Plan: This patient needs to be taught colostomy training, and family needs to be taught colostomy training, since she cannot go to SNF from here (she has no insurance coverage for SNF or for Home Health). A barrier to this successful training will be the fact that she has a right wrist fracture. (4) Acute respiratory failure with hypoxia Conclusion/Plan: Hypoxia has been up and down. Postoperatively there was fluid overload, then a mucous plug with consolidation seen on CT of the right lung from the plug. Bronchoscopy done after that and showed open right upper lung. She is on nasal cannula and tolerating it well. 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 Central line placed October 08. PPN was switched to TPN October 09. Plan: Diet order as per Gen surg (8) Generalized weakness Conclusion/Plan: She has been very, very slow to progress and improve. She was intermittently reluctant to get up out of bed. Physical therapy has worked with her. She keeps on telling physical therapy that she wants to go home. She lives alone. Case management explained that this patient does not have outpatient insurance that would allow her to have Home Health services or coverage to go to [facility] for rehab. Plan: We will have to make sure this patient is able to go home with good colostomy instruction, and that her family has good colostomy instruction. We also do not have a colostomy education nurse here anymore. (9) Wrist fracture Conclusion/Plan: The last Hospitalist requested an Orthopedic consult. The Orthopedic spoke to me, learned that the fracture was remote and there is already a plate in place, status post surgery done elsewhere. PT to determine what restrictions are necessary to follow (10) Fever Conclusion/Plan: She spiked a fever of 38.2C again today at 1530 CT abd was recently repeated and did still show small fluid collections in the R pericoloic gutter and around the liver. Plan: Repeat bld cx x2 Obtain CXR>>she has a large R pleural effusion Cont Cefepime, Flagyl and Fluconazole She needs IR management of these abd areas and poss a thoracentesis. I will order IR to do thoracentesis and possibly place a drain tomorrow (we have no IR here on Sun). If WBC rises in a.m. or if plt count again rises, or if she becomes septic with hypotension, I recommend Gen Surgeon on who's service she is on, have her accepted in transfer to a larger facility with IR and GI surgeons and ID capabilities We are a critical access hospital. We usually attest that patients will be here 96 hours or less. Clearly this patient is here beyond that timeframe. We have not attempted transfer as of yet. We are well aware that we need to transfer to a higher level of care when we have exceeded the ability to deliver services here. - Current Meds Current Meds: Current Medications Generic Name Dose Route Start Last Admin Trade Name Freq PRN Reason Stop Dose Admin Acetaminophen 650 mg 10/12/23 11:00 10/16/23 14:58 Acetaminophen 325 Mg Tablet PO 650 mg Q4H SANDRA Administration Citalopram Hydrobromide 20 mg 10/03/23 09:00 10/16/23 09:32 Citalopram Hydrobromide 20 Mg Tablet PO 20 mg DAILY SANDRA Administration Heparin Sodium (Porcine) 5,000 unit 10/03/23 09:00 10/16/23 09:37 Heparin 5,000 Unit/Ml Vial SUBQ 5,000 unit BID SANDRA Administration Hydromorphone HCl 0.5 mg 10/13/23 11:28 10/13/23 14:21 Hydromorphone 0.5 Mg/0.5 Ml Syringe IVP 0.5 mg Q4H PRN Administration Breakthrough Pain Cefepime HCl 1 gm/ Sodium 100 mls @ 200 mls/hr 10/10/23 22:00 10/16/23 14:30 Chloride IV Infused TID SANDRA Infusion Metronidazole 500 mg in 100 mls @ 100 mls/hr 10/10/23 19:00 10/16/23 12:50 Flagyl 500 Mg/100 Ml IV 0 mls/hr Q8H SANDRA Infusion Fluconazole 200 mls @ 200 mls/hr 10/13/23 09:00 10/16/23 11:00 Diflucan 200 Mg/100 Ml IV Infused DAILY SANDRA Infusion Ibuprofen 600 mg 10/11/23 08:33 10/15/23 22:06 Ibuprofen 600 Mg Tablet PO 600 mg Q6HR PRN Administration Moderate Pain (Level 4-6) Lorazepam 1 mg 10/13/23 11:28 10/15/23 22:06 Lorazepam 2 Mg/Ml Vial IVP 1 mg Q4H PRN Administration Anxiety Ondansetron HCl 4 mg 10/02/23 15:19 10/05/23 05:03 Ondansetron Odt 4 Mg Tablet TL 4 mg Q6HR PRN Administration Nausea / Vomiting Ondansetron HCl 4 mg 10/02/23 15:19 10/16/23 14:58 Ondansetron 4 Mg/2 Ml Vial IVP 4 mg Q6HR PRN Administration Nausea / Vomiting Oxycodone HCl 5 mg 10/11/23 08:34 10/16/23 03:04 Oxycodone 5 Mg Tablet PO 5 mg Q4HR PRN Administration Severe Pain (Level 7-10) Prochlorperazine Edisylate 10 mg 10/08/23 14:14 10/08/23 14:21 Prochlorperazine 10 Mg/2 Ml Vial IVP 10 mg Q6HR PRN Administration Nausea / Vomiting Sodium Chloride 10 ml 10/06/23 09:00 10/16/23 15:00 Sodium Chloride Flush 0.9% 10 Ml Syringe IVP 10 ml 0100,0900,1700 SANDRA Administration Sodium Chloride 10 ml 10/06/23 07:17 10/16/23 01:02 Sodium Chloride Flush 0.9% 10 Ml Syringe IVP 10 ml PRN PRN Administration NEEDED PER PROVIDER ORDERS - Lab Result Fish Bone Diagrams: 10/16/23 04:25 10/14/23 04:30 Subjective - Subjective Patient Reports: Feeling Better, Resting Comfortably (working with PT) Objective Vital Signs: Vital Signs - 24 hr 10/15/23 10/16/23 10/16/23 21:25 01:00 04:25 Temperature 36.8 C 37.2 C 36.6 C Heart Rate [ 82 79 87 Monitoring electrodes] Respiratory 16 16 16 Rate Blood Pressure 122/72 130/72 129/79 [Right Brachial artery] O2 Saturation 95 98 94 10/16/23 10/16/23 10/16/23 08:31 12:44 15:30 Temperature 36.8 C 36.8 C 38.2 C H Heart Rate [ 83 83 113 H Monitoring electrodes] Respiratory 16 16 16 Rate Blood Pressure 131/80 H 131/80 H 138/88 H [Right Brachial artery] O2 Saturation 94 94 92 Oxygen O2 Source Room air I&O (Last 24 Hrs): Intake and Output Totals x24h 10/14/23 10/15/23 10/16/23 23:59 23:59 23:59 Intake Total 4041 1960 1716.667 Output Total 1951 450 600 Balance 0 1510 1116.667 General: Alert, Oriented x3 HEENT: Mucous membr. moist/pink, Other (disheveled) Neck: Supple Neuro: Alert, Non Focal Cardiovascular: Regular rate Respiratory: No respiratory distress Abdomen: Soft, Other (ostomy present) Extremities: No clubbing, No edema, No tenderness/swelling - Results Results: Laboratory Results WBC 12.4 x10^3/uL (4.8-10.8) H 10/16/23 04:25 RBC 2.62 10^6/uL (4.20-5.40) L 10/16/23 04:25 Hgb 8.1 g/dL (12.0-16.0) L 10/16/23 04:25 Hct 25.1 % (37.0-47.0) L 10/16/23 04:25 MCV 95.8 fL (81.0-99.0) 10/16/23 04:25 MCH 30.9 pg (27.0-31.0) 10/16/23 04:25 MCHC 32.3 g/dL (32.0-36.0) 10/16/23 04:25 RDW 13.3 % (12.0-15.0) 10/16/23 04:25 Plt Count 993 10^3/uL (130-450) H* 10/16/23 04:25 MPV 9.0 fL (7.9-10.8) 10/16/23 04:25 Neut # (Auto) 9.9 10^3/uL (1.5-6.6) H 10/16/23 04:25 Lymph # (Auto) 1.3 10^3/uL (1.5-3.5) L 10/16/23 04:25 Wise # (Auto) 0.9 10^3/uL (0.0-1.0) 10/16/23 04:25 Eos # (Auto) 0.1 10^3/uL (0.0-0.7) 10/16/23 04:25 Baso # (Auto) 0.1 10^3/uL (0.0-0.1) 10/16/23 04:25 Absolute Nucleated RBC 0.00 x10^3/uL 10/16/23 04:25 Total Counted 100 10/13/23 05:00 Band Neuts % (Manual) Not Reportable 10/14/23 04:30 Reactive Lymphs % (Man) 1 % 10/03/23 06:51 Abnorm Lymph % (Manual) Not Reportable 10/14/23 04:30 Metamyelocytes % 4 % (-0) H 10/03/23 06:51 Myelocytes % 1 % (-0) H 10/04/23 07:07 Nucleated RBC % 0.0 /100WBC 10/16/23 04:25 Neutrophils # (Manual) Not Reportable 10/14/23 04:30 Lymphocytes # (Manual) Not Reportable 10/14/23 04:30 Monocytes # (Manual) Not Reportable 10/14/23 04:30 Eosinophils # (Manual) Not Reportable 10/14/23 04:30 Basophils # (Manual) Not Reportable 10/14/23 04:30 Differential Comment M 10/14/23 04:30 Manual Slide Review Indicated 10/16/23 04:25 WBC Morphology NORMAL APPEARANCE (NORMAL) 10/06/23 10:57 Platelet Estimate INCREASED (>450,000) (NORMAL) 10/16/23 04:25 Platelet Morphology NORMAL APPEARANCE (NORMAL) 10/16/23 04:25 RBC Morph Micro Appear NORMAL APPEARANCE (NORMAL) 10/13/23 05:00 Bld Gas Analysis Time 1646 10/08/23 16:42 Sample Site RIGHT RADIAL 10/08/23 16:42 ABG pH 7.46 (7.35-7.45) H 10/08/23 16:42 ABG pCO2 43 mmHg (34-45) 10/08/23 16:42 ABG pO2 102 mmHg (80-100) H 10/08/23 16:42 ABG HCO3 29.9 mmol/L (22.0-26.0) H 10/08/23 16:42 ABG Total CO2 31.2 MMOL/L (21.0-29.0) H 10/08/23 16:42 ABG O2 Saturation 98 % (94-98) 10/08/23 16:42 ABG Base Excess 5.5 mmol/L (-2.0-3.0) H 10/08/23 16:42 Anuj Test POSITIVE 10/08/23 16:42 VBG pH 7.371 (7.31-7.41) 10/13/23 05:00 Ionized Calcium 1.15 mmol/L (1.15-1.33) 10/13/23 05:00 Respiration Rate 20 b/min 10/06/23 07:20 O2 Delivery Device BiPAP 10/08/23 16:42 Vent Mode SYNCHRONOUS/TIMES 10/08/23 16:42 FiO2 50.00 10/08/23 16:42 EPAP 5 cmH2O 10/08/23 16:42 IPAP 10 cmH2O 10/08/23 16:42 Sodium 135 mmol/L (135-145) 10/14/23 04:30 Potassium 3.7 mmol/L (3.5-4.5) 10/14/23 04:30 Chloride 100 mmol/L (101-111) L 10/14/23 04:30 Carbon Dioxide 29 mmol/L (21-32) 10/14/23 04:30 Anion Gap 6.0 (6-13) 10/14/23 04:30 BUN 21 mg/dL (6-20) H 10/14/23 04:30 Creatinine 0.3 mg/dL (0.6-1.3) L 10/14/23 04:30 Estimated GFR (MDRD) 225 (>89) 10/14/23 04:30 Glucose 147 mg/dL (74-104) H 10/14/23 04:30 Lactic Acid 1.4 mmol/L (0.5-2.2) 10/04/23 07:07 Calcium 8.8 mg/dL (8.5-10.3) 10/14/23 04:30 Phosphorus 4.0 mg/dL (2.5-5.0) 10/14/23 04:30 Magnesium 1.9 mg/dL (1.7-2.3) 10/14/23 04:30 Total Bilirubin 0.2 mg/dL (0.2-1.0) 10/14/23 04:30 AST 14 IU/L (10-42) 10/14/23 04:30 ALT 6 IU/L (10-60) L 10/14/23 04:30 Alkaline Phosphatase 67 IU/L (42-121) 10/14/23 04:30 Troponin I High Sens 11.8 ng/L (2.3-14.8) 10/06/23 06:38 Total Protein 5.7 g/dL (6.4-8.9) L 10/14/23 04:30 Albumin 2.2 g/dL (3.2-5.5) L 10/14/23 04:30 Globulin 3.5 g/dL (2.1-4.2) 10/14/23 04:30 Albumin/Globulin Ratio 0.6 (1.0-2.2) L 10/14/23 04:30 Prealbumin 8 mg/dL (17-34) L 10/14/23 04:30 Triglycerides 138 mg/dL (48-352) 10/14/23 04:30 Lipase < 10 U/L (11-82) L 10/02/23 09:00 Nasal Screen MRSA (PCR) NEGATIVE (NEGATIVE) 10/02/23 20:40 Ethyl Alcohol < 10.0 mg/dL 10/02/23 09:00 Miscellaneous Test COMMENT (.) 10/10/23 16:07
--- NOTE | 2023-10-16 18:54 | XRAY Report ---
PROCEDURE: Chest 1 View X-Ray INDICATIONS: FEVER, HAD PERFORATED COLON PREVIOUS ASPIRATION TECHNIQUE: One view of the chest was acquired. COMPARISON: 10/11/2023 FINDINGS: Surgical changes and devices: Right IJ central venous line. Lungs and pleura: Loculated right pleural effusion with some aeration in the right lower lung. There is obscuration of the hemidiaphragm contour. Left lung remains normally aerated. No pneumothorax. Mediastinum: Mediastinal contours appear normal. Heart size is normal. Bones and chest wall: No suspicious bony lesions. Overlying soft tissues appear unremarkable. IMPRESSION: 1. Loculated right pleural effusion with some improved aeration in the right lower lung. Reviewed by: Fadia Barnes MD on 10/16/2023 6:53 PM PST Approved by: Fadia Barnes MD on 10/16/2023 6:53 PM PST Station ID: [id number]
[2023-10-16] MEDS: LORazepam 2 MG/ML VIAL IVP PRN (20:36)
[2023-10-17] MEDS: ACETAMINOPHEN 325 MG TABLET PO SCH ×7 (00:02→22:56)
[2023-10-17] MEDS: SODIUM CHLORIDE FLUSH 0.9% 10 ML SYRINGE IVP SCH ×3 (00:02→18:58)
[2023-10-17] MEDS: oxyCODONE 5 MG TABLET PO PRN ×3 (00:03→20:00)
[2023-10-17] MEDS: HYDROmorphone 0.5 MG/0.5 ML SYRINGE IVP PRN ×4 (02:36→18:58)
[2023-10-17] MEDS: SODIUM CHLORIDE FLUSH 0.9% 10 ML SYRINGE IVP PRN ×2 (02:37→21:12)
[2023-10-17] MEDS: metroNIDAZOLE 500 MG/100 ML 500 MG/100 ML BAG IV SCH ×3 (02:41→18:46)
[2023-10-17] MEDS: CEFEPIME 1 GM in SODIUM CHLORIDE 0.9% MINIBAG 100 ML IV SCH ×3 (06:12→21:09)
[2023-10-17] MEDS: PROCHLORPERAZINE 10 MG/2 ML VIAL IVP PRN (09:18)
[2023-10-17] MEDS: FLUCONAZOLE 200 MG/100 ML 200 ML IV SCH (09:31)
[2023-10-17] MEDS: CITALOPRAM HYDROBROMIDE 20 MG TABLET PO SCH (09:32)
[2023-10-17] MEDS: ONDANSETRON ODT 4 MG TABLET TL PRN (11:57)
[2023-10-17] MEDS: HEPARIN 5,000 UNIT/ML VIAL SUBQ SCH ×2 (11:58→21:15)
--- NOTE | 2023-10-17 13:44 | PROVIDER PROGRESS NOTE ---
Subjective - Subjective Pt reports feeling: Improved (feels well. learning dressing care and brother can help) Objective - Vital Signs/Intake & Output Vital Signs: Vital Signs x48h Temp Pulse Resp BP Pulse Ox 10/17/23 08:41 37.7 C 116 H 20 151/92 H 91 L Intake & Output: Intake & Output 10/14/23 10/15/23 10/16/23 10/17/23 23:59 23:59 23:59 23:59 Intake Total 4041 1960 2490.000 400 Output Total 1951 450 950 625 Balance 0 1510 1540.000 -225 - Objective General Appearance: positive: No acute distress, Alert Eyes Bilateral: positive: PERRL, EOMI, No scleral icterus Respiratory: positive: No respiratory distress Abdomen: positive: Non-tender, No distention, Other (dressings c/d/i no erythema) - Lab Results Fish Bones: 10/16/23 04:25 10/14/23 04:30 Other Labs: Lab Results x24hrs 10/16/23 10/02/23 Range/Units 17:46 10:46 Lactic Acid 0.7 (0.5-2.2) mmol/L Miscellaneous Test COMMENT (.) Assessment/Plan - Problem List (1) Perforated abdominal viscus Impression: improving daily. home soon, when ambulating safely and able to perform dressing and stoma care
[2023-10-17 15:50] LABS: BASOPHILS # (AUTO) 0.1 10^3/uL (0.0-0.1); BASOPHILS % (AUTO) 0.5 %; EOSINOPHILS % (AUTO) 0.3 %; HCT - HEMATOCRIT 24.2 % (37.0-47.0); HGB - HEMOGLOBIN 7.5 g/dL (12.0-16.0); LYMPHOCYTES # (AUTO) 1.6 10^3/uL (1.5-3.5); LYMPHOCYTES % (AUTO) 10.8 %; MEAN CORPUSCULAR HEMOGLOBIN 30.1 pg (27.0-31.0); MEAN CORPUSCULAR VOLUME 97.2 fL (81.0-99.0); MEAN PLATELET VOLUME 8.8 fL (7.9-10.8); MONOCYTES # (AUTO) 1.1 10^3/uL (0.0-1.0); MONOCYTES % (AUTO) 7.1 %; NEUTROPHILS # (AUTO) 12.2 10^3/uL (1.5-6.6); NEUTROPHILS % (AUTO) 80.4 %; PLT - PLATELET COUNT 704 10^3/uL (130-450); RED BLOOD COUNT 2.49 10^6/uL (4.20-5.40); RED CELL DISTRIBUTION WIDTH 13.5 % (12.0-15.0); WHITE BLOOD COUNT 15.1 x10^3/uL (4.8-10.8)
--- NOTE | 2023-10-17 19:25 | PROVIDER PROGRESS NOTE ---
Assessment/Plan - Problem List (1) Thrombocytosis Assessment/Plan: Her plt count has been increasing daily for several days (all labs were reviewed). Per ID, this is a sign of abscess. On 10/16 the plt count finally dropped slightly The CT from a week ago showed pericolic fluid consistent with an abscess. That CT recommended a repeat done in 5 days which was done on 10/14. That continues to show fluid in the right paracolic gutter and fluid around the liver. I discussed these findings with Dr. Varma on 10/15, who was considering IR to place a drain. Plan: Cont empiric iv antibx She needs IR management if those abdominal areas have pus If WBC rises in a.m., or if plt count again rises, or if she becomes septic with hypotension, I recommend she be transferred to a larger facility with IR and GI surgeons and ID capabilities We are a critical access hospital. We usually attest that patients will be here 96 hours or less. Clearly this patient is here beyond that timeframe. We have not attempted transfer as of yet. We are well aware that we need to transfer to a higher level of care when we have exceeded the ability to deliver services here. (2) Perforated abdominal viscus Impression: As per surgical findings. She now has a colostomy (3) Post-op intra-abdominal abscess She has been on several iv antibx and has a very prolonged postoperative hospital stay. Her pain is controlled Plan: This patient needs to be taught colostomy training, and family needs to be taught colostomy training, since she cannot go to SNF from here (she has no insurance coverage for SNF or for Home Health). A barrier to this successful training will be the fact that she has a right wrist fracture. (4) Acute respiratory failure with hypoxia Conclusion/Plan: Hypoxia has been up and down. Postoperatively there was fluid overload, then a mucous plug with consolidation seen on CT of the right lung from the plug. Bronchoscopy done after that and showed open right upper lung. She was on nasal cannula and tolerating it well. (5) Aspiration pneumonitis due to regurgitated gastric secretions Conclusion/Plan: As per CXR, is clinically improving Plan: Cont antibx as in #1 (6) Mucous plug of bronchi Conclusion/Plan: RESOLVED This required suctioning and even a bronchoscopy and probably added to the HCAP (7) Nutrition deficiency due to insufficient food Conclusion/Plan: We started PPN and she had NG tube in place. Central line placed October 08. PPN was switched to TPN October 09. Plan: Diet order as per Gen surg (8) Generalized weakness Conclusion/Plan: She has been very, very slow to progress and improve. She was intermittently reluctant to get up out of bed. Physical therapy has worked with her. She keeps on telling physical therapy that she wants to go home. She lives alone. Case management explained that this patient does not have outpatient insurance that would allow her to have Home Health services or coverage to go to [facility] for rehab. Plan: We will have to make sure this patient is able to go home with good colostomy instruction, and that her family has good colostomy instruction. We also do not have a colostomy education nurse here anymore. (9) Wrist fracture Conclusion/Plan: The last Hospitalist requested an Orthopedic consult. The Orthopedic spoke to me, learned that the fracture was remote and there is already a plate in place, status post surgery done elsewhere. PT to determine what restrictions are necessary to follow (10) Fever Conclusion/Plan: She spiked a fever of 38.2C again on 10/[address] abd was recently repeated and did still show small fluid collections in the R pericoloic gutter and around the liver. Repeat bld cx x2 were done 10/16 CXR 10/16 showed a large R pleural effusion Plan: Cont Cefepime, Flagyl and Fluconazole She needs IR management of these abdominal areas and poss a thoracentesis. If WBC rises in a.m. or if plt count again rises, or if she becomes septic with hypotension, I recommend the Gen Surg service which she is on, have her accepted in transfer to a larger facility with IR and GI surgeons and ID capabilities We are a critical access hospital. We usually attest that patients will be here 96 hours or less. Clearly this patient is here beyond that timeframe. We have not attempted transfer as of yet. We are well aware that we need to transfer to a higher level of care when we have exceeded the ability to deliver services h ere. - Current Meds Current Meds: Current Medications Generic Name Dose Route Start Last Admin Trade Name Freq PRN Reason Stop Dose Admin Acetaminophen 650 mg 10/12/23 11:00 10/17/23 18:58 Acetaminophen 325 Mg Tablet PO Not Given Q4H SANDRA Citalopram Hydrobromide 20 mg 10/03/23 09:00 10/17/23 09:32 Citalopram Hydrobromide 20 Mg Tablet PO 20 mg DAILY SANDRA Administration Heparin Sodium (Porcine) 5,000 unit 10/03/23 09:00 10/17/23 11:58 Heparin 5,000 Unit/Ml Vial SUBQ 5,000 unit BID SANDRA Administration Hydromorphone HCl 0.5 mg 10/13/23 11:28 10/17/23 18:58 Hydromorphone 0.5 Mg/0.5 Ml Syringe IVP 0.5 mg Q4H PRN Administration Breakthrough Pain Cefepime HCl 1 gm/ Sodium 100 mls @ 200 mls/hr 10/10/23 22:00 10/17/23 14:40 Chloride IV Infused TID SANDRA Infusion Metronidazole 500 mg in 100 mls @ 100 mls/hr 10/10/23 19:00 10/17/23 18:46 Flagyl 500 Mg/100 Ml IV 100 mls/hr Q8H SANDRA Administration Fluconazole 200 mls @ 200 mls/hr 10/13/23 09:00 10/17/23 11:50 Diflucan 200 Mg/100 Ml IV Infused DAILY SANDRA Infusion Ibuprofen 600 mg 10/11/23 08:33 10/15/23 22:06 Ibuprofen 600 Mg Tablet PO 600 mg Q6HR PRN Administration Moderate Pain (Level 4-6) Lorazepam 1 mg 10/13/23 11:28 10/16/23 20:36 Lorazepam 2 Mg/Ml Vial IVP 1 mg Q4H PRN Administration Anxiety Ondansetron HCl 4 mg 10/02/23 15:19 10/17/23 11:57 Ondansetron Odt 4 Mg Tablet TL 4 mg Q6HR PRN Administration Nausea / Vomiting Ondansetron HCl 4 mg 10/02/23 15:19 10/16/23 14:58 Ondansetron 4 Mg/2 Ml Vial IVP 4 mg Q6HR PRN Administration Nausea / Vomiting Oxycodone HCl 5 mg 10/11/23 08:34 10/17/23 11:57 Oxycodone 5 Mg Tablet PO 5 mg Q4HR PRN Administration Severe Pain (Level 7-10) Prochlorperazine Edisylate 10 mg 10/08/23 14:14 10/17/23 09:18 Prochlorperazine 10 Mg/2 Ml Vial IVP 10 mg Q6HR PRN Administration Nausea / Vomiting Sodium Chloride 10 ml 10/06/23 09:00 10/17/23 18:58 Sodium Chloride Flush 0.9% 10 Ml Syringe IVP 10 ml 0100,0900,1700 SANDRA Administration Sodium Chloride 10 ml 10/06/23 07:17 10/17/23 02:37 Sodium Chloride Flush 0.9% 10 Ml Syringe IVP 10 ml PRN PRN Administration NEEDED PER PROVIDER ORDERS - Lab Result Fish Bone Diagrams: 10/18/23 04:45 10/18/23 04:45 - Additional Planning My Orders: My Active Orders 10/18/23 05:00 CBC - COMP BLD CT W/AUTO DIFF [HEME] DAILYLAB 10/19/23 05:00 CBC - COMP BLD CT W/AUTO DIFF [HEME] DAILYLAB Subjective - Subjective Patient Reports: Feeling Better, No Complaints Objective Vital Signs: Vital Signs - 24 hr 10/16/23 10/17/23 10/17/23 20:44 01:00 04:13 Temperature 37.2 C 37.3 C 36.6 C Heart Rate [ 91 103 H 96 Monitoring electrodes] Respiratory 16 20 16 Rate Blood Pressure 118/77 129/82 H 113/74 [Right Brachial artery] O2 Saturation 92 90 L 91 L 10/17/23 10/17/23 10/17/23 08:41 13:00 17:00 Temperature 37.7 C 36.2 C L 36.8 C Heart Rate [ 116 H 84 91 Monitoring electrodes] Respiratory 20 16 17 Rate Blood Pressure 151/92 H 119/77 138/80 H [Right Brachial artery] O2 Saturation 91 L 92 90 L Oxygen O2 Source Room air I&O (Last 24 Hrs): Intake and Output Totals x24h 10/15/23 10/16/23 10/17/23 23:59 23:59 23:59 Intake Total 1960 2490.000 960 Output Total 450 950 925 Balance 1510 1540.000 35 General: Alert HEENT: EOMI Neck: Supple Neuro: Alert, Non Focal Respiratory: No respiratory distress Abdomen: Soft Extremities: No clubbing, No edema - Results Results: Laboratory Results WBC 15.1 x10^3/uL (4.8-10.8) H 10/17/23 15:43 RBC 2.49 10^6/uL (4.20-5.40) L 10/17/23 15:43 Hgb 7.5 g/dL (12.0-16.0) L 10/17/23 15:43 Hct 24.2 % (37.0-47.0) L 10/17/23 15:43 MCV 97.2 fL (81.0-99.0) 10/17/23 15:43 MCH 30.1 pg (27.0-31.0) 10/17/23 15:43 MCHC 31.0 g/dL (32.0-36.0) L 10/17/23 15:43 RDW 13.5 % (12.0-15.0) 10/17/23 15:43 Plt Count 704 10^3/uL (130-450) H 10/17/23 15:43 MPV 8.8 fL (7.9-10.8) 10/17/23 15:43 Neut # (Auto) 12.2 10^3/uL (1.5-6.6) H 10/17/23 15:43 Lymph # (Auto) 1.6 10^3/uL (1.5-3.5) 10/17/23 15:43 [place] # (Auto) 1.1 10^3/uL (0.0-1.0) H 10/17/23 15:43 Eos # (Auto) 0.0 10^3/uL (0.0-0.7) 10/17/23 15:43 Baso # (Auto) 0.1 10^3/uL (0.0-0.1) 10/17/23 15:43 Absolute Nucleated RBC 0.00 x10^3/uL 10/17/23 15:43 Total Counted 100 10/13/23 05:00 Band Neuts % (Manual) Not Reportable 10/14/23 04:30 Reactive Lymphs % (Man) 1 % 10/03/23 06:51 Abnorm Lymph % (Manual) Not Reportable 10/14/23 04:30 Metamyelocytes % 4 % (-0) H 10/03/23 06:51 Myelocytes % 1 % (-0) H 10/04/23 07:07 Nucleated RBC % 0.0 /100WBC 10/17/23 15:43 Neutrophils # (Manual) Not Reportable 10/14/23 04:30 Lymphocytes # (Manual) Not Reportable 10/14/23 04:30 Monocytes # (Manual) Not Reportable 10/14/23 04:30 Eosinophils # (Manual) Not Reportable 10/14/23 04:30 Basophils # (Manual) Not Reportable 10/14/23 04:30 Differential Comment M 10/14/23 04:30 Manual Slide Review Indicated 10/16/23 04:25 WBC Morphology NORMAL APPEARANCE (NORMAL) 10/06/23 10:57 Platelet Estimate INCREASED (>450,000) (NORMAL) 10/16/23 04:25 Platelet Morphology NORMAL APPEARANCE (NORMAL) 10/16/23 04:25 RBC Morph Micro Appear NORMAL APPEARANCE (NORMAL) 10/13/23 05:00 Bld Gas Analysis Time 1646 10/08/23 16:42 Sample Site RIGHT RADIAL 10/08/23 16:42 ABG pH 7.46 (7.35-7.45) H 10/08/23 16:42 ABG pCO2 43 mmHg (34-45) 10/08/23 16:42 ABG pO2 102 mmHg (80-100) H 10/08/23 16:42 ABG HCO3 29.9 mmol/L (22.0-26.0) H 10/08/23 16:42 ABG Total CO2 31.2 MMOL/L (21.0-29.0) H 10/08/23 16:42 ABG O2 Saturation 98 % (94-98) 10/08/23 16:42 ABG Base Excess 5.5 mmol/L (-2.0-3.0) H 10/08/23 16:42 Anuj Test POSITIVE 10/08/23 16:42 VBG pH 7.371 (7.31-7.41) 10/13/23 05:00 Ionized Calcium 1.15 mmol/L (1.15-1.33) 10/13/23 05:00 Respiration Rate 20 b/min 10/06/23 07:20 O2 Delivery Device BiPAP 10/08/23 16:42 Vent Mode SYNCHRONOUS/TIMES 10/08/23 16:42 FiO2 50.00 10/08/23 16:42 EPAP 5 cmH2O 10/08/23 16:42 IPAP 10 cmH2O 10/08/23 16:42 Sodium 135 mmol/L (135-145) 10/14/23 04:30 Potassium 3.7 mmol/L (3.5-4.5) 10/14/23 04:30 Chloride 100 mmol/L (101-111) L 10/14/23 04:30 Carbon Dioxide 29 mmol/L (21-32) 10/14/23 04:30 Anion Gap 6.0 (6-13) 10/14/23 04:30 BUN 21 mg/dL (6-20) H 10/14/23 04:30 Creatinine 0.3 mg/dL (0.6-1.3) L 10/14/23 04:30 Estimated GFR (MDRD) 225 (>89) 10/14/23 04:30 Glucose 147 mg/dL (74-104) H 10/14/23 04:30 Lactic Acid 0.7 mmol/L (0.5-2.2) 10/16/23 17:46 Calcium 8.8 mg/dL (8.5-10.3) 10/14/23 04:30 Phosphorus 4.0 mg/dL (2.5-5.0) 10/14/23 04:30 Magnesium 1.9 mg/dL (1.7-2.3) 10/14/23 04:30 Total Bilirubin 0.2 mg/dL (0.2-1.0) 10/14/23 04:30 AST 14 IU/L (10-42) 10/14/23 04:30 ALT 6 IU/L (10-60) L 10/14/23 04:30 Alkaline Phosphatase 67 IU/L (42-121) 10/14/23 04:30 Troponin I High Sens 11.8 ng/L (2.3-14.8) 10/06/23 06:38 Total Protein 5.7 g/dL (6.4-8.9) L 10/14/23 04:30 Albumin 2.2 g/dL (3.2-5.5) L 10/14/23 04:30 Globulin 3.5 g/dL (2.1-4.2) 10/14/23 04:30 Albumin/Globulin Ratio 0.6 (1.0-2.2) L 10/14/23 04:30 Prealbumin 8 mg/dL (17-34) L 10/14/23 04:30 Triglycerides 138 mg/dL (48-352) 10/14/23 04:30 Lipase < 10 U/L (11-82) L 10/02/23 09:00 Nasal Screen MRSA (PCR) NEGATIVE (NEGATIVE) 10/02/23 20:40 Ethyl Alcohol < 10.0 mg/dL 10/02/23 09:00 Miscellaneous Test COMMENT (.) 10/10/23 16:07
[2023-10-17] MEDS: LORazepam 2 MG/ML VIAL IVP PRN (21:11)
[2023-10-18] MEDS: IBUPROFEN 600 MG TABLET PO PRN ×2 (01:12→16:27)
[2023-10-18] MEDS: ACETAMINOPHEN 325 MG TABLET PO SCH ×7 (02:44→22:46)
[2023-10-18] MEDS: SODIUM CHLORIDE FLUSH 0.9% 10 ML SYRINGE IVP SCH ×3 (02:44→16:27)
[2023-10-18] MEDS: metroNIDAZOLE 500 MG/100 ML 500 MG/100 ML BAG IV SCH ×3 (02:44→19:02)
[2023-10-18] MEDS: HYDROmorphone 0.5 MG/0.5 ML SYRINGE IVP PRN ×3 (04:00→17:26)
[2023-10-18 05:32] LABS: BASOPHILS # (AUTO) 0.1 10^3/uL (0.0-0.1); BASOPHILS % (AUTO) 0.5 %; EOSINOPHILS # (AUTO) 0.1 10^3/uL (0.0-0.7); EOSINOPHILS % (AUTO) 0.6 %; HCT - HEMATOCRIT 23.3 % (37.0-47.0); HGB - HEMOGLOBIN 7.4 g/dL (12.0-16.0); LYMPHOCYTES # (AUTO) 1.5 10^3/uL (1.5-3.5); LYMPHOCYTES % (AUTO) 11.5 %; MEAN CORPUSCULAR HEMOGLOBIN 30.8 pg (27.0-31.0); MEAN CORPUSCULAR HGB CONC 31.8 g/dL (32.0-36.0); MEAN CORPUSCULAR VOLUME 97.1 fL (81.0-99.0); MEAN PLATELET VOLUME 9.2 fL (7.9-10.8); MONOCYTES # (AUTO) 0.8 10^3/uL (0.0-1.0); MONOCYTES % (AUTO) 6.4 %; NEUTROPHILS # (AUTO) 10.3 10^3/uL (1.5-6.6); NEUTROPHILS % (AUTO) 80.1 %; PLT - PLATELET COUNT 660 10^3/uL (130-450); RED CELL DISTRIBUTION WIDTH 13.4 % (12.0-15.0); WHITE BLOOD COUNT 12.9 x10^3/uL (4.8-10.8)
[2023-10-18 05:53] LABS: ALBUMIN/GLOBULIN RATIO 0.6 (1.0-2.2); BILIRUBIN,TOTAL 0.3 mg/dL (0.2-1.0); CALCIUM 8.3 mg/dL (8.5-10.3); CREATININE 0.4 mg/dL (0.6-1.3); POTASSIUM 3.7 mmol/L (3.5-4.5); TOTAL PROTEIN 5.6 g/dL (6.4-8.9)
[2023-10-18] MEDS: CEFEPIME 1 GM in SODIUM CHLORIDE 0.9% MINIBAG 100 ML IV SCH ×3 (06:41→21:41)
[2023-10-18] MEDS: CITALOPRAM HYDROBROMIDE 20 MG TABLET PO SCH (08:34)
[2023-10-18] MEDS: FLUCONAZOLE 200 MG/100 ML 200 ML IV SCH (08:34)
[2023-10-18] MEDS: HEPARIN 5,000 UNIT/ML VIAL SUBQ SCH ×2 (08:34→21:41)
--- NOTE | 2023-10-18 12:16 | PROVIDER PROGRESS NOTE ---
Assessment/Plan - Problem List (1) Perforated abdominal viscus Assessment/Plan: (1) Thrombocytosis Assessment/Plan: --Case was discussed with general surgery who stated that the fluid seen on the CT abdomen/pelvis was quite small and would not be amenable to drainage. --Ultrasound of her lung was also performed which showed a small amount of fluid, again not amenable to thoracentesis. --Continuing with IV antibiotics. --I did discuss the possibility of transfer with general surgery, they felt that the patient did not require transfer to a higher level of care. (2) Perforated abdominal viscus Impression: As per surgical findings. She now has a colostomy (3) Post-op intra-abdominal abscess She has been on several iv antibx and has a very prolonged postoperative hospital stay. Her pain is controlled Plan: This patient needs to be taught colostomy training, and family needs to be taught colostomy training, since she cannot go to SNF from here (she has no insurance coverage for SNF or for Home Health). A barrier to this successful training will be the fact that she has a right wrist fracture. (4) Acute respiratory failure with hypoxia Conclusion/Plan: Hypoxia has been up and down. Postoperatively there was fluid overload, then a mucous plug with consolidation seen on CT of the right lung from the plug. Bronchoscopy done after that and showed open right upper lung. She was on nasal cannula and tolerating it well. --Ultrasound of her lung was performed today which was unremarkable for drainable effusion. (5) Aspiration pneumonitis due to regurgitated gastric secretions Conclusion/Plan: As per CXR, is clinically improving Plan: Cont antibx as in #1 (6) Mucous plug of bronchi Conclusion/Plan: RESOLVED This required suctioning and even a bronchoscopy and probably added to the HCAP (7) Nutrition deficiency due to insufficient food Conclusion/Plan: We started PPN and she had NG tube in place. Central line placed October 08. PPN was switched to TPN October 09. Plan: Diet order as per Gen surg (8) Generalized weakness Conclusion/Plan: She has been very, very slow to progress and improve. She was intermittently reluctant to get up out of bed. Physical therapy has worked with her. She keeps on telling physical therapy that she wants to go home. She lives alone. Case management explained that this patient does not have outpatient insurance that would allow her to have Home Health services or coverage to go to [facility] for rehab. Plan: We will have to make sure this patient is able to go home with good colostomy instruction, and that her family has good colostomy instruction. We also do not have a colostomy education nurse here anymore. (9) Wrist fracture Conclusion/Plan: The last Hospitalist requested an Orthopedic consult. The Orthopedic spoke to me, learned that the fracture was remote and there is already a plate in place, status post surgery done elsewhere. PT to determine what restrictions are necessary to follow (10) Fever Conclusion/Plan: -- Patient spiked a fever of 38.2 Celsius on 10/16. --I did discuss this with general surgery who felt the etiology was not intra- abdominal. An ultrasound was performed of her lung which did not show a significant amount of fluid. --Blood cultures obtained on 10/16 showed no growth to date. -- Will continue to monitor for fever. --She remains on cefepime, fluconazole, metronidazole. Will consider de- escalating if she remains afebrile for an additional 24 hours. - Current Meds Current Meds: Current Medications Generic Name Dose Route Start Last Admin Trade Name Freq PRN Reason Stop Dose Admin Acetaminophen 650 mg 10/12/23 11:00 10/18/23 11:03 Acetaminophen 325 Mg Tablet PO 650 mg Q4H SANDRA Administration Citalopram Hydrobromide 20 mg 10/03/23 09:00 10/18/23 08:34 Citalopram Hydrobromide 20 Mg Tablet PO 20 mg DAILY SANDRA Administration Heparin Sodium (Porcine) 5,000 unit 10/03/23 09:00 10/18/23 08:34 Heparin 5,000 Unit/Ml Vial SUBQ 5,000 unit BID SANDRA Administration Hydromorphone HCl 0.5 mg 10/13/23 11:28 10/18/23 11:09 Hydromorphone 0.5 Mg/0.5 Ml Syringe IVP 0.5 mg Q4H PRN Administration Breakthrough Pain Cefepime HCl 1 gm/ Sodium 100 mls @ 200 mls/hr 10/10/23 22:00 10/18/23 07:58 Chloride IV Infused TID SANDRA Infusion Metronidazole 500 mg in 100 mls @ 100 mls/hr 10/10/23 19:00 10/18/23 11:03 Flagyl 500 Mg/100 Ml IV 100 mls/hr Q8H SANDRA Administration Fluconazole 200 mls @ 200 mls/hr 10/13/23 09:00 10/18/23 10:41 Diflucan 200 Mg/100 Ml IV Infused DAILY SANDRA Infusion Ibuprofen 600 mg 10/11/23 08:33 10/18/23 01:12 Ibuprofen 600 Mg Tablet PO 600 mg Q6HR PRN Administration Moderate Pain (Level 4-6) Lorazepam 1 mg 10/13/23 11:28 10/17/23 21:11 Lorazepam 2 Mg/Ml Vial IVP 1 mg Q4H PRN Administration Anxiety Ondansetron HCl 4 mg 10/02/23 15:19 10/17/23 11:57 Ondansetron Odt 4 Mg Tablet TL 4 mg Q6HR PRN Administration Nausea / Vomiting Ondansetron HCl 4 mg 10/02/23 15:19 10/16/23 14:58 Ondansetron 4 Mg/2 Ml Vial IVP 4 mg Q6HR PRN Administration Nausea / Vomiting Oxycodone HCl 5 mg 10/11/23 08:34 10/17/23 20:00 Oxycodone 5 Mg Tablet PO 5 mg Q4HR PRN Administration Severe Pain (Level 7-10) Prochlorperazine Edisylate 10 mg 10/08/23 14:14 10/17/23 09:18 Prochlorperazine 10 Mg/2 Ml Vial IVP 10 mg Q6HR PRN Administration Nausea / Vomiting Sodium Chloride 10 ml 10/06/23 09:00 10/18/23 11:04 Sodium Chloride Flush 0.9% 10 Ml Syringe IVP 10 ml 0100,0900,1700 SANDRA Administration Sodium Chloride 10 ml 10/06/23 07:17 10/17/23 21:12 Sodium Chloride Flush 0.9% 10 Ml Syringe IVP 10 ml PRN PRN Administration NEEDED PER PROVIDER ORDERS - Lab Result Fish Bone Diagrams: 10/18/23 04:45 10/18/23 04:45 - Additional Planning My Orders: My Active Orders 10/18/23 11:35 Chest [US] Routine 10/19/23 05:00 CMP [COMPREHENSIVE METABOLIC PANEL] [CHEM] DAILYLAB 10/20/23 05:00 CMP [COMPREHENSIVE METABOLIC PANEL] [CHEM] DAILYLAB 10/21/23 05:00 CMP [COMPREHENSIVE METABOLIC PANEL] [CHEM] DAILYLAB 10/22/23 05:00 CMP [COMPREHENSIVE METABOLIC PANEL] [CHEM] DAILYLAB 10/23/23 05:00 CMP [COMPREHENSIVE METABOLIC PANEL] [CHEM] DAILYLAB 10/24/23 05:00 CMP [COMPREHENSIVE METABOLIC PANEL] [CHEM] DAILYLAB Subjective - Subjective Patient Reports: Feeling Better (No fever or chills.) Objective Vital Signs: Vital Signs - 24 hr 10/17/23 10/17/23 10/17/23 13:00 17:00 22:00 Temperature 36.2 C L 36.8 C 36.8 C Heart Rate [ 84 91 117 H Monitoring electrodes] Respiratory 16 17 16 Rate Blood Pressure 119/77 138/80 H 126/83 H [Right Brachial artery] O2 Saturation 92 90 L 92 10/18/23 10/18/23 10/18/23 00:50 04:23 08:13 Temperature 37.0 C 36.8 C 36.7 C Heart Rate [ 90 74 80 Monitoring electrodes] Respiratory 16 16 20 Rate Blood Pressure 115/72 112/67 126/74 [Right Brachial artery] O2 Saturation 93 93 92 Oxygen O2 Source Room air I&O (Last 24 Hrs): Intake and Output Totals x24h 10/16/23 10/17/23 10/18/23 23:59 23:59 23:59 Intake Total 2490.000 1560 670 Output Total 950 1575 100 Balance 1540.000 -15 570 General: Alert, Oriented x3 Neuro: Alert Cardiovascular: Regular rate, Normal S1, Normal S2 Respiratory: Chest non-tender Abdomen: Soft - Results Results: Laboratory Results WBC 12.9 x10^3/uL (4.8-10.8) H 10/18/23 04:45 RBC 2.40 10^6/uL (4.20-5.40) L 10/18/23 04:45 Hgb 7.4 g/dL (12.0-16.0) L 10/18/23 04:45 Hct 23.3 % (37.0-47.0) L 10/18/23 04:45 MCV 97.1 fL (81.0-99.0) 10/18/23 04:45 MCH 30.8 pg (27.0-31.0) 10/18/23 04:45 MCHC 31.8 g/dL (32.0-36.0) L 10/18/23 04:45 RDW 13.4 % (12.0-15.0) 10/18/23 04:45 Plt Count 660 10^3/uL (130-450) H 10/18/23 04:45 MPV 9.2 fL (7.9-10.8) 10/18/23 04:45 Neut # (Auto) 10.3 10^3/uL (1.5-6.6) H 10/18/23 04:45 Lymph # (Auto) 1.5 10^3/uL (1.5-3.5) 10/18/23 04:45 Guthrie # (Auto) 0.8 10^3/uL (0.0-1.0) 10/18/23 04:45 Eos # (Auto) 0.1 10^3/uL (0.0-0.7) 10/18/23 04:45 Baso # (Auto) 0.1 10^3/uL (0.0-0.1) 10/18/23 04:45 Absolute Nucleated RBC 0.00 x10^3/uL 10/18/23 04:45 Total Counted 100 10/13/23 05:00 Band Neuts % (Manual) Not Reportable 10/14/23 04:30 Reactive Lymphs % (Man) 1 % 10/03/23 06:51 Abnorm Lymph % (Manual) Not Reportable 10/14/23 04:30 Metamyelocytes % 4 % (-0) H 10/03/23 06:51 Myelocytes % 1 % (-0) H 10/04/23 07:07 Nucleated RBC % 0.0 /100WBC 10/18/23 04:45 Neutrophils # (Manual) Not Reportable 10/14/23 04:30 Lymphocytes # (Manual) Not Reportable 10/14/23 04:30 Monocytes # (Manual) Not Reportable 10/14/23 04:30 Eosinophils # (Manual) Not Reportable 10/14/23 04:30 Basophils # (Manual) Not Reportable 10/14/23 04:30 Differential Comment M 10/14/23 04:30 Manual Slide Review Indicated 10/16/23 04:25 WBC Morphology NORMAL APPEARANCE (NORMAL) 10/06/23 10:57 Platelet Estimate INCREASED (>450,000) (NORMAL) 10/16/23 04:25 Platelet Morphology NORMAL APPEARANCE (NORMAL) 10/16/23 04:25 RBC Morph Micro Appear NORMAL APPEARANCE (NORMAL) 10/13/23 05:00 Bld Gas Analysis Time 1646 10/08/23 16:42 Sample Site RIGHT RADIAL 10/08/23 16:42 ABG pH 7.46 (7.35-7.45) H 10/08/23 16:42 ABG pCO2 43 mmHg (34-45) 10/08/23 16:42 ABG pO2 102 mmHg (80-100) H 10/08/23 16:42 ABG HCO3 29.9 mmol/L (22.0-26.0) H 10/08/23 16:42 ABG Total CO2 31.2 MMOL/L (21.0-29.0) H 10/08/23 16:42 ABG O2 Saturation 98 % (94-98) 10/08/23 16:42 ABG Base Excess 5.5 mmol/L (-2.0-3.0) H 10/08/23 16:42 Anuj Test POSITIVE 10/08/23 16:42 VBG pH 7.371 (7.31-7.41) 10/13/23 05:00 Ionized Calcium 1.15 mmol/L (1.15-1.33) 10/13/23 05:00 Respiration Rate 20 b/min 10/06/23 07:20 O2 Delivery Device BiPAP 10/08/23 16:42 Vent Mode SYNCHRONOUS/TIMES 10/08/23 16:42 FiO2 50.00 10/08/23 16:42 EPAP 5 cmH2O 10/08/23 16:42 IPAP 10 cmH2O 10/08/23 16:42 Sodium 134 mmol/L (135-145) L 10/18/23 04:45 Potassium 3.7 mmol/L (3.5-4.5) 10/18/23 04:45 Chloride 101 mmol/L (101-111) 10/18/23 04:45 Carbon Dioxide 29 mmol/L (21-32) 10/18/23 04:45 Anion Gap 4.0 (6-13) L 10/18/23 04:45 BUN 16 mg/dL (6-20) 10/18/23 04:45 Creatinine 0.4 mg/dL (0.6-1.3) L 10/18/23 04:45 Estimated GFR (MDRD) 162 (>89) 10/18/23 04:45 Glucose 109 mg/dL (74-104) H 10/18/23 04:45 Lactic Acid 0.7 mmol/L (0.5-2.2) 10/16/23 17:46 Calcium 8.3 mg/dL (8.5-10.3) L 10/18/23 04:45 Phosphorus 4.0 mg/dL (2.5-5.0) 10/14/23 04:30 Magnesium 1.9 mg/dL (1.7-2.3) 10/14/23 04:30 Total Bilirubin 0.3 mg/dL (0.2-1.0) 10/18/23 04:45 AST 9 IU/L (10-42) L 10/18/23 04:45 ALT 5 IU/L (10-60) L 10/18/23 04:45 Alkaline Phosphatase 74 IU/L (42-121) 10/18/23 04:45 Troponin I High Sens 11.8 ng/L (2.3-14.8) 10/06/23 06:38 Total Protein 5.6 g/dL (6.4-8.9) L 10/18/23 04:45 Albumin 2.0 g/dL (3.2-5.5) L 10/18/23 04:45 Globulin 3.6 g/dL (2.1-4.2) 10/18/23 04:45 Albumin/Globulin Ratio 0.6 (1.0-2.2) L 10/18/23 04:45 Prealbumin 8 mg/dL (17-34) L 10/14/23 04:30 Triglycerides 138 mg/dL (48-352) 10/14/23 04:30 Lipase < 10 U/L (11-82) L 10/02/23 09:00 Nasal Screen MRSA (PCR) NEGATIVE (NEGATIVE) 10/02/23 20:40 Ethyl Alcohol < 10.0 mg/dL 10/02/23 09:00 Miscellaneous Test COMMENT (.) 10/10/23 16:07 ABX Reporting Has patient been on IV antibiotics over the past 48 hours?: Yes Current Medications - Current Medications Current Medications: Active Medications Generic Name Dose Route Start Last Admin Trade Name Freq PRN Reason Stop Dose Admin Acetaminophen 650 mg 10/12/23 11:00 10/18/23 15:02 Acetaminophen 325 Mg Tablet PO Not Given Q4H SANDRA Citalopram Hydrobromide 20 mg 10/03/23 09:00 10/18/23 08:34 Citalopram Hydrobromide 20 Mg Tablet PO 20 mg DAILY SANDRA Administration Heparin Sodium (Porcine) 5,000 unit 10/03/23 09:00 10/18/23 08:34 Heparin 5,000 Unit/Ml Vial SUBQ 5,000 unit BID SANDRA Administration Hydromorphone HCl 0.5 mg 10/13/23 11:28 10/18/23 11:09 Hydromorphone 0.5 Mg/0.5 Ml Syringe IVP 0.5 mg Q4H PRN Administration Breakthrough Pain Cefepime HCl 1 gm/ Sodium 100 mls @ 200 mls/hr 10/10/23 22:00 10/18/23 14:41 Chloride IV 200 mls/hr TID SANDRA Administration Metronidazole 500 mg in 100 mls @ 100 mls/hr 10/10/23 19:00 10/18/23 12:33 Flagyl 500 Mg/100 Ml IV Infused Q8H SANDRA Infusion Fluconazole 200 mls @ 200 mls/hr 10/13/23 09:00 10/18/23 10:41 Diflucan 200 Mg/100 Ml IV Infused DAILY SANDRA Infusion Ibuprofen 600 mg 10/11/23 08:33 10/18/23 01:12 Ibuprofen 600 Mg Tablet PO 600 mg Q6HR PRN Administration Moderate Pain (Level 4-6) Lorazepam 1 mg 10/13/23 11:28 10/17/23 21:11 Lorazepam 2 Mg/Ml Vial IVP 1 mg Q4H PRN Administration Anxiety Ondansetron HCl 4 mg 10/02/23 15:19 10/17/23 11:57 Ondansetron Odt 4 Mg Tablet TL 4 mg Q6HR PRN Administration Nausea / Vomiting Ondansetron HCl 4 mg 10/02/23 15:19 10/16/23 14:58 Ondansetron 4 Mg/2 Ml Vial IVP 4 mg Q6HR PRN Administration Nausea / Vomiting Oxycodone HCl 5 mg 10/11/23 08:34 10/18/23 15:02 Oxycodone 5 Mg Tablet PO 5 mg Q4HR PRN Administration Severe Pain (Level 7-10) Prochlorperazine Edisylate 10 mg 10/08/23 14:14 10/17/23 09:18 Prochlorperazine 10 Mg/2 Ml Vial IVP 10 mg Q6HR PRN Administration Nausea / Vomiting Sodium Chloride 10 ml 10/06/23 09:00 10/18/23 11:04 Sodium Chloride Flush 0.9% 10 Ml Syringe IVP 10 ml 0100,0900,1700 SANDRA Administration Sodium Chloride 10 ml 10/06/23 07:17 10/17/23 21:12 Sodium Chloride Flush 0.9% 10 Ml Syringe IVP 10 ml PRN PRN Administration NEEDED PER PROVIDER ORDERS ALPRAZolam [Alprazolam] 0.5 mg PO HS PRN 06/23/23 Citalopram Hydrobromide [Celexa] 20 mg PO DAILY 06/23/23 Ibuprofen [Motrin] 1 tablet PO Q8H PRN 06/23/23 RX: Losartan Potassium 25 mg PO DAILY 06/23/23 amLODIPine [Norvasc] 5 mg PO DAILY 06/23/23 hydroCHLOROthiazide [Hydrochlorothiazide] 25 mg PO DAILY 06/23/23
--- NOTE | 2023-10-18 13:32 | Ultrasound Report ---
PROCEDURE: Chest INDICATIONS: Loculated right pleural effusion, eval for thora TECHNIQUE: Real-time scanning was performed, and a suitable site was marked by the yarn spinner for thoracentesis to be performed by the referring clinician. COMPARISON: 10/16/2023 radiograph Findings and impression: Only a small effusion is seen on the right. Consider continued imaging follow-up depending on clinica l status. Reviewed by: Chris Alvarez MD on 10/18/2023 1:31 PM PST Approved by: Chris Alvarez MD on 10/18/2023 1:31 PM PST Station ID: [id number]
[2023-10-18] MEDS: oxyCODONE 5 MG TABLET PO PRN ×2 (15:02→21:43)
--- NOTE | 2023-10-18 16:51 | PROVIDER PROGRESS NOTE ---
Subjective - Subjective Pt reports feeling: Improved (still very weak and ambulation is difficult. tolerating diet well.) Objective - Vital Signs/Intake & Output Vital Signs: Vital Signs x48h Temp Pulse Resp BP Pulse Ox 10/18/23 15:50 36.8 C 103 H 18 141/90 H 92 10/18/23 13:00 36.8 C 102 H 18 140/90 H 91 L Intake & Output: Intake & Output 10/15/23 10/16/23 10/17/23 10/18/23 23:59 23:59 23:59 23:59 Intake Total 1960 2490.000 1560 1240 Output Total 360 610 5237 400 Balance 1510 1540.000 -15 840 - Objective General Appearance: positive: No acute distress, Alert Eyes Bilateral: positive: PERRL, EOMI ENT: positive: No signs of dehydration Neck: positive: No JVD Respiratory: positive: No respiratory distress Abdomen: positive: Non-tender, No distention Neurologic/Psychiatric: positive: Oriented x3 - Lab Results Fish Bones: 10/18/23 04:45 10/18/23 04:45 Other Labs: Lab Results x24hrs 10/18/23 10/18/23 Range/Units 04:45 04:45 WBC 12.9 H (4.8-10.8) x10^3/uL RBC 2.40 L (4.20-5.40) 10^6/uL Hgb 7.4 L (12.0-16.0) g/dL Hct 23.3 L (37.0-47.0) % MCV 97.1 (81.0-99.0) fL MCH 30.8 (27.0-31.0) pg MCHC 31.8 L (32.0-36.0) g/dL RDW 13.4 (12.0-15.0) % Plt Count 660 H (130-450) 10^3/uL MPV 9.2 (7.9-10.8) fL Neut # (Auto) 10.3 H (1.5-6.6) 10^3/uL Lymph # (Auto) 1.5 (1.5-3.5) 10^3/uL Ross # (Auto) 0.8 (0.0-1.0) 10^3/uL Eos # (Auto) 0.1 (0.0-0.7) 10^3/uL Baso # (Auto) 0.1 (0.0-0.1) 10^3/uL Absolute Nucleated RBC 0.00 x10^3/uL Nucleated RBC % 0.0 /100WBC Sodium 134 L (135-145) mmol/L Potassium 3.7 (3.5-4.5) mmol/L Chloride 101 (101-111) mmol/L Carbon Dioxide 29 (21-32) mmol/L Anion Gap 4.0 L (6-13) BUN 16 (6-20) mg/dL Creatinine 0.4 L (0.6-1.3) mg/dL Estimated GFR (MDRD) 162 (>89) Glucose 109 H (74-104) mg/dL Calcium 8.3 L (8.5-10.3) mg/dL Total Bilirubin 0.3 (0.2-1.0) mg/dL AST 9 L (10-42) IU/L ALT 5 L (10-60) IU/L Alkaline Phosphatase 74 (42-121) IU/L Total Protein 5.6 L (6.4-8.9) g/dL Albumin 2.0 L (3.2-5.5) g/dL Globulin 3.6 (2.1-4.2) g/dL Albumin/Globulin Ratio 0.6 L (1.0-2.2) Assessment/Plan - Problem List (1) Perforated abdominal viscus Impression: still very weak and ambulation is difficult. home when able to ambulate safely
[2023-10-18] MEDS: LORazepam 2 MG/ML VIAL IVP PRN (21:41)
[2023-10-19] MEDS: SODIUM CHLORIDE FLUSH 0.9% 10 ML SYRINGE IVP SCH ×4 (01:48→23:45)
[2023-10-19] MEDS: oxyCODONE 5 MG TABLET PO PRN ×2 (01:49→15:58)
[2023-10-19] MEDS: ONDANSETRON ODT 4 MG TABLET TL PRN (01:49)
[2023-10-19] MEDS: metroNIDAZOLE 500 MG/100 ML 500 MG/100 ML BAG IV SCH ×3 (03:24→19:29)
[2023-10-19] MEDS: ACETAMINOPHEN 325 MG TABLET PO SCH ×6 (03:28→23:44)
[2023-10-19] MEDS: HYDROmorphone 0.5 MG/0.5 ML SYRINGE IVP PRN ×2 (03:49→19:28)
[2023-10-19 05:40] LABS: BASOPHILS % (AUTO) 0.6 %; EOSINOPHILS % (AUTO) 0.2 %; HCT - HEMATOCRIT 26.8 % (37.0-47.0); HGB - HEMOGLOBIN 8.5 g/dL (12.0-16.0); LYMPHOCYTES % (AUTO) 2.8 %; MEAN CORPUSCULAR HEMOGLOBIN 30.4 pg (27.0-31.0); MEAN CORPUSCULAR HGB CONC 31.7 g/dL (32.0-36.0); MEAN CORPUSCULAR VOLUME 95.7 fL (81.0-99.0); MEAN PLATELET VOLUME 8.7 fL (7.9-10.8); MONOCYTES % (AUTO) 3.8 %; NEUTROPHILS % (AUTO) 91.3 %; PLT - PLATELET COUNT 779 10^3/uL (130-450); RED CELL DISTRIBUTION WIDTH 13.5 % (12.0-15.0); WHITE BLOOD COUNT 26.7 x10^3/uL (4.8-10.8)
[2023-10-19] MEDS: CEFEPIME 1 GM in SODIUM CHLORIDE 0.9% MINIBAG 100 ML IV SCH ×3 (05:42→21:45)
[2023-10-19 05:47] LABS: ABNORMAL LYMPHS % (MANUAL) 0 %
[2023-10-19 05:55] LABS: ALBUMIN 2.1 g/dL (3.2-5.5); ALBUMIN/GLOBULIN RATIO 0.6 (1.0-2.2); BILIRUBIN,TOTAL 0.4 mg/dL (0.2-1.0); CALCIUM 8.6 mg/dL (8.5-10.3); CREATININE 0.3 mg/dL (0.6-1.3); POTASSIUM 3.8 mmol/L (3.5-4.5); TOTAL PROTEIN 5.8 g/dL (6.4-8.9)
[2023-10-19 06:45] LABS: BAND NEUTROPHILS % (MANUAL) 10 %; BASOPHILS # (MANUAL) 0.3 10^3/uL (0-0.1); BASOPHILS % (MANUAL) 1 %; DIFFERENTIAL COMMENT MANUAL DIFFERENTIAL; LYMPHOCYTES # (MANUAL) 0.5 10^3/uL (1.5-3.5); LYMPHOCYTES % (MANUAL) 2 %; MONOCYTES # (MANUAL) 0.8 10^3/uL (0.0-1.0); NEUTROPHILS # (MANUAL) 25.1 10^3/uL (1.5-6.6); PLATELET ESTIMATE, MANUAL INCREASED (>450,000) (NORMAL); RBC MORPHOLOGY (MULTIPLE) NORMAL APPEARANCE (NORMAL)
[2023-10-19] MEDS: FLUCONAZOLE 200 MG/100 ML 200 ML IV SCH (08:15)
[2023-10-19] MEDS: HEPARIN 5,000 UNIT/ML VIAL SUBQ SCH ×2 (08:15→21:01)
[2023-10-19] MEDS: CITALOPRAM HYDROBROMIDE 20 MG TABLET PO SCH (08:17)
--- NOTE | 2023-10-19 12:00 | PROVIDER PROGRESS NOTE ---
Subjective - Subjective Pt reports feeling: Improved (tolerating diet. still cannot ambulate without assist) Objective - Vital Signs/Intake & Output Vital Signs: Vital Signs x48h Temp Pulse Resp BP Pulse Ox O2 Flow Rate 10/19/23 08:05 36.2 C L 111 H 14 124/83 H 94 10/19/23 05:30 36.7 C 130 H 18 125/84 H 95 2 Intake & Output: Intake & Output 10/16/23 10/17/23 10/18/23 10/19/23 23:59 23:59 23:59 23:59 Intake Total 2490.000 1560 1760 870 Output Total 950 1575 650 300 Balance 1540.000 -15 1110 570 - Objective General Appearance: positive: No acute distress, Alert Respiratory: positive: No respiratory distress Abdomen: positive: Non-tender, No distention Neurologic/Psychiatric: positive: Oriented x3 - Lab Results Fish Bones: 10/19/23 05:30 10/19/23 05:30 Other Labs: Lab Results x24hrs 10/19/23 10/19/23 Range/Units 05:30 05:30 WBC 26.7 H (4.8-10.8) x10^3/uL RBC 2.80 L (4.20-5.40) 10^6/uL Hgb 8.5 L (12.0-16.0) g/dL Hct 26.8 L (37.0-47.0) % MCV 95.7 (81.0-99.0) fL MCH 30.4 (27.0-31.0) pg MCHC 31.7 L (32.0-36.0) g/dL RDW 13.5 (12.0-15.0) % Plt Count 779 H (130-450) 10^3/uL MPV 8.7 (7.9-10.8) fL Neut # (Auto) Not Reportable Lymph # (Auto) Not Reportable [place] # (Auto) Not Reportable Eos # (Auto) Not Reportable Baso # (Auto) Not Reportable Absolute Nucleated RBC Not Reportable Total Counted 100 Band Neuts % (Manual) 10 (0 - 10) % Abnorm Lymph % (Manual) 0 % Nucleated RBC % Not Reportable Neutrophils # (Manual) 25.1 H (1.5-6.6) 10^3/uL Lymphocytes # (Manual) 0.5 L (1.5-3.5) 10^3/uL Monocytes # (Manual) 0.8 (0.0-1.0) 10^3/uL Eosinophils # (Manual) 0.0 (0-0.7) 10^3/uL Basophils # (Manual) 0.3 H (0-0.1) 10^3/uL Differential Comment MANUAL DIFFERENTIAL Platelet Estimate INCREASED (>450,000) (NORMAL) RBC Morph Micro Appear NORMAL APPEARANCE (NORMAL) Sodium 134 L (135-145) mmol/L Potassium 3.8 (3.5-4.5) mmol/L Chloride 100 L (101-111) mmol/L Carbon Dioxide 26 (21-32) mmol/L Anion Gap 8.0 (6-13) BUN 15 (6-20) mg/dL Creatinine 0.3 L (0.6-1.3) mg/dL Estimated GFR (MDRD) 225 (>89) Glucose 150 H (74-104) mg/dL Calcium 8.6 (8.5-10.3) mg/dL Total Bilirubin 0.4 (0.2-1.0) mg/dL AST 8 L (10-42) IU/L ALT 4 L (10-60) IU/L Alkaline Phosphatase 80 (42-121) IU/L Total Protein 5.8 L (6.4-8.9) g/dL Albumin 2.1 L (3.2-5.5) g/dL Globulin 3.7 (2.1-4.2) g/dL Albumin/Globulin Ratio 0.6 L (1.0-2.2) Assessment/Plan - Problem List (1) Perforated abdominal viscus Impression: she appears to be improving daily. wbc up today. if wbc still up tomorrow plan ct chest, abd, pelvis tomorrow with contrast.
--- NOTE | 2023-10-19 15:27 | PROVIDER PROGRESS NOTE ---
Assessment/Plan - Problem List (1) Perforated abdominal viscus Assessment/Plan: (1) Thrombocytosis Assessment/Plan: --Elevated WBC this AM --General surg recommending CT chest/abd/pelvis tomorrow if it remains elevated. --Continuing with IV antibiotics (cefepime and metronidazole). Fluconazone was given for 7 days. (2) Perforated abdominal viscus Impression: As per surgical findings. She now has a colostomy (3) Post-op intra-abdominal abscess She has been on several iv antibx and has a very prolonged postoperative hospital stay. Her pain is controlled Plan: This patient needs to be taught colostomy training, and family needs to be taught colostomy training, since she cannot go to SNF from here (she has no insurance coverage for SNF or for Home Health). A barrier to this successful training will be the fact that she has a right wrist fracture. (4) Acute respiratory failure with hypoxia Conclusion/Plan: Hypoxia has been up and down. Postoperatively there was fluid overload, then a mucous plug with consolidation seen on CT of the right lung from the plug. Bronchoscopy done after that and showed open right upper lung. She was on nasal cannula and tolerating it well. --Ultrasound of her lung was performed 10/19 which was unremarkable for drainable effusion. (5) Aspiration pneumonitis due to regurgitated gastric secretions Conclusion/Plan: As per CXR, is clinically improving Plan: Cont antibx as in #1 (6) Mucous plug of bronchi Conclusion/Plan: RESOLVED This required suctioning and even a bronchoscopy and probably added to the HCAP (7) Nutrition deficiency due to insufficient food Conclusion/Plan: We started PPN and she had NG tube in place. Central line placed October 08. PPN was switched to TPN October 09. Plan: Diet order as per Gen surg (8) Generalized weakness Conclusion/Plan: She has been very, very slow to progress and improve. She was intermittently reluctant to get up out of bed. Physical therapy has worked with her. She keeps on telling physical therapy that she wants to go home. She lives alone. Case management explained that this patient does not have outpatient insurance that would allow her to have Home Health services or coverage to go to [facility] for rehab. Plan: We will have to make sure this patient is able to go home with good colostomy instruction, and that her family has good colostomy instruction. We also do not have a colostomy education nurse here anymore. (9) Wrist fracture Conclusion/Plan: The last Hospitalist requested an Orthopedic consult. The Orthopedic spoke to me, learned that the fracture was remote and there is already a plate in place, status post surgery done elsewhere. PT to determine what restrictions are necessary to follow (10) Fever Conclusion/Plan: -- Patient spiked a fever of 38.2 Celsius on 10/16. --I did discuss this with general surgery who felt the etiology was not intra- abdominal. An ultrasound was performed of her lung which did not show a significant amount of fluid. --Blood cultures obtained on 10/16 showed no growth to date. -- Will continue to monitor for fever. - Current Meds Current Meds: Current Medications Generic Name Dose Route Start Last Admin Trade Name Freq PRN Reason Stop Dose Admin Acetaminophen 650 mg 10/12/23 11:00 10/19/23 14:10 Acetaminophen 325 Mg Tablet PO 650 mg Q4H SANDRA Administration Citalopram Hydrobromide 20 mg 10/03/23 09:00 10/19/23 08:17 Citalopram Hydrobromide 20 Mg Tablet PO 20 mg DAILY SANDRA Administration Heparin Sodium (Porcine) 5,000 unit 10/03/23 09:00 10/19/23 08:15 Heparin 5,000 Unit/Ml Vial SUBQ 5,000 unit BID SANDRA Administration Hydromorphone HCl 0.5 mg 10/13/23 11:28 10/19/23 03:49 Hydromorphone 0.5 Mg/0.5 Ml Syringe IVP 0.5 mg Q4H PRN Administration Breakthrough Pain Cefepime HCl 1 gm/ Sodium 100 mls @ 200 mls/hr 10/10/23 22:00 10/19/23 14:10 Chloride IV 200 mls/hr TID SANDRA Administration Metronidazole 500 mg in 100 mls @ 100 mls/hr 10/10/23 19:00 10/19/23 12:05 Flagyl 500 Mg/100 Ml IV Infused Q8H SANDRA Infusion Ibuprofen 600 mg 10/11/23 08:33 10/18/23 16:27 Ibuprofen 600 Mg Tablet PO 600 mg Q6HR PRN Administration Moderate Pain (Level 4-6) Lorazepam 1 mg 10/13/23 11:28 10/18/23 21:41 Lorazepam 2 Mg/Ml Vial IVP 1 mg Q4H PRN Administration Anxiety Ondansetron HCl 4 mg 10/02/23 15:19 10/19/23 01:49 Ondansetron Odt 4 Mg Tablet TL 4 mg Q6HR PRN Administration Nausea / Vomiting Ondansetron HCl 4 mg 10/02/23 15:19 10/16/23 14:58 Ondansetron 4 Mg/2 Ml Vial IVP 4 mg Q6HR PRN Administration Nausea / Vomiting Oxycodone HCl 5 mg 10/11/23 08:34 10/19/23 01:49 Oxycodone 5 Mg Tablet PO 5 mg Q4HR PRN Administration Severe Pain (Level 7-10) Prochlorperazine Edisylate 10 mg 10/08/23 14:14 10/17/23 09:18 Prochlorperazine 10 Mg/2 Ml Vial IVP 10 mg Q6HR PRN Administration Nausea / Vomiting Sodium Chloride 10 ml 10/06/23 09:00 10/19/23 03:50 Sodium Chloride Flush 0.9% 10 Ml Syringe IVP 10 ml 0100,0900,1700 SANDRA Administration Sodium Chloride 10 ml 10/06/23 07:17 10/17/23 21:12 Sodium Chloride Flush 0.9% 10 Ml Syringe IVP 10 ml PRN PRN Administration NEEDED PER PROVIDER ORDERS - Lab Result Fish Bone Diagrams: 10/19/23 05:30 10/19/23 05:30 - Additional Planning My Orders: My Active Orders 10/20/23 05:00 CMP [COMPREHENSIVE METABOLIC PANEL] [CHEM] DAILYLAB 10/21/23 05:00 CMP [COMPREHENSIVE METABOLIC PANEL] [CHEM] DAILYLAB 10/22/23 05:00 CMP [COMPREHENSIVE METABOLIC PANEL] [CHEM] DAILYLAB 10/23/23 05:00 CMP [COMPREHENSIVE METABOLIC PANEL] [CHEM] DAILYLAB 10/24/23 05:00 CMP [COMPREHENSIVE METABOLIC PANEL] [CHEM] DAILYLAB Subjective - Subjective Patient Reports: Feeling Better, Resting Comfortably Nursing Reports: No Complaints Objective Vital Signs: Vital Signs - 24 hr 10/18/23 10/18/23 10/19/23 15:50 19:45 01:30 Temperature 36.8 C 36.7 C 36.6 C Heart Rate [ 103 H 88 93 Monitoring electrodes] Respiratory 18 16 16 Rate Blood Pressure 141/90 H 124/80 150/91 H [Right Brachial artery] O2 Saturation 92 92 92 If not protocol : Oxygen Flow, liters/minute 10/19/23 10/19/23 10/19/23 05:30 08:05 11:45 Temperature 36.7 C 36.2 C L 36.5 C Heart Rate [ 130 H 111 H 95 Monitoring electrodes] Respiratory 18 14 16 Rate Blood Pressure 125/84 H 124/83 H 118/81 H [Right Brachial artery] O2 Saturation 95 94 95 If not protocol 2 2 2 : Oxygen Flow, liters/minute Oxygen O2 Source Nasal cannula I&O (Last 24 Hrs): Intake and Output Totals x24h 10/17/23 10/18/23 10/19/23 23:59 23:59 23:59 Intake Total 1560 1760 1690 Output Total 1575 650 300 Balance -15 1110 1390 General: Alert, Oriented x3 Neuro: Alert Respiratory: Chest non-tender, No respiratory distress Abdomen: Normal bowel sounds, Soft - Results Results: Laboratory Results WBC 26.7 x10^3/uL (4.8-10.8) H 10/19/23 05:30 RBC 2.80 10^6/uL (4.20-5.40) L 10/19/23 05:30 Hgb 8.5 g/dL (12.0-16.0) L 10/19/23 05:30 Hct 26.8 % (37.0-47.0) L 10/19/23 05:30 MCV 95.7 fL (81.0-99.0) 10/19/23 05:30 MCH 30.4 pg (27.0-31.0) 10/19/23 05:30 MCHC 31.7 g/dL (32.0-36.0) L 10/19/23 05:30 RDW 13.5 % (12.0-15.0) 10/19/23 05:30 Plt Count 779 10^3/uL (130-450) H 10/19/23 05:30 MPV 8.7 fL (7.9-10.8) 10/19/23 05:30 Neut # (Auto) Not Reportable 10/19/23 05:30 Lymph # (Auto) Not Reportable 10/19/23 05:30 [place] # (Auto) Not Reportable 10/19/23 05:30 Eos # (Auto) Not Reportable 10/19/23 05:30 Baso # (Auto) Not Reportable 10/19/23 05:30 Absolute Nucleated RBC Not Reportable 10/19/23 05:30 Total Counted 100 10/19/23 05:30 Band Neuts % (Manual) 10 % (0-10) 10/19/23 05:30 Reactive Lymphs % (Man) 1 % 10/03/23 06:51 Abnorm Lymph % (Manual) 0 % 10/19/23 05:30 Metamyelocytes % 4 % (-0) H 10/03/23 06:51 Myelocytes % 1 % (-0) H 10/04/23 07:07 Nucleated RBC % Not Reportable 10/19/23 05:30 Neutrophils # (Manual) 25.1 10^3/uL (1.5-6.6) H 10/19/23 05:30 Lymphocytes # (Manual) 0.5 10^3/uL (1.5-3.5) L 10/19/23 05:30 Monocytes # (Manual) 0.8 10^3/uL (0.0-1.0) 10/19/23 05:30 Eosinophils # (Manual) 0.0 10^3/uL (0-0.7) 10/19/23 05:30 Basophils # (Manual) 0.3 10^3/uL (0-0.1) H 10/19/23 05:30 Differential Comment MANUAL DIFFERENTIAL 10/19/23 05:30 Manual Slide Review Indicated 10/16/23 04:25 WBC Morphology NORMAL APPEARANCE (NORMAL) 10/06/23 10:57 Platelet Estimate INCREASED (>450,000) (NORMAL) 10/19/23 05:30 Platelet Morphology NORMAL APPEARANCE (NORMAL) 10/16/23 04:25 RBC Morph Micro Appear NORMAL APPEARANCE (NORMAL) 10/19/23 05:30 Bld Gas Analysis Time 1646 10/08/23 16:42 Sample Site RIGHT RADIAL 10/08/23 16:42 ABG pH 7.46 (7.35-7.45) H 10/08/23 16:42 ABG pCO2 43 mmHg (34-45) 10/08/23 16:42 ABG pO2 102 mmHg (80-100) H 10/08/23 16:42 ABG HCO3 29.9 mmol/L (22.0-26.0) H 10/08/23 16:42 ABG Total CO2 31.2 MMOL/L (21.0-29.0) H 10/08/23 16:42 ABG O2 Saturation 98 % (94-98) 10/08/23 16:42 ABG Base Excess 5.5 mmol/L (-2.0-3.0) H 10/08/23 16:42 Anuj Test POSITIVE 10/08/23 16:42 VBG pH 7.371 (7.31-7.41) 10/13/23 05:00 Ionized Calcium 1.15 mmol/L (1.15-1.33) 10/13/23 05:00 Respiration Rate 20 b/min 10/06/23 07:20 O2 Delivery Device BiPAP 10/08/23 16:42 Vent Mode SYNCHRONOUS/TIMES 10/08/23 16:42 FiO2 50.00 10/08/23 16:42 EPAP 5 cmH2O 10/08/23 16:42 IPAP 10 cmH2O 10/08/23 16:42 Sodium 134 mmol/L (135-145) L 10/19/23 05:30 Potassium 3.8 mmol/L (3.5-4.5) 10/19/23 05:30 Chloride 100 mmol/L (101-111) L 10/19/23 05:30 Carbon Dioxide 26 mmol/L (21-32) 10/19/23 05:30 Anion Gap 8.0 (6-13) 10/19/23 05:30 BUN 15 mg/dL (6-20) 10/19/23 05:30 Creatinine 0.3 mg/dL (0.6-1.3) L 10/19/23 05:30 Estimated GFR (MDRD) 225 (>89) 10/19/23 05:30 Glucose 150 mg/dL (74-104) H 10/19/23 05:30 Lactic Acid 0.7 mmol/L (0.5-2.2) 10/16/23 17:46 Calcium 8.6 mg/dL (8.5-10.3) 10/19/23 05:30 Phosphorus 4.0 mg/dL (2.5-5.0) 10/14/23 04:30 Magnesium 1.9 mg/dL (1.7-2.3) 10/14/23 04:30 Total Bilirubin 0.4 mg/dL (0.2-1.0) 10/19/23 05:30 AST 8 IU/L (10-42) L 10/19/23 05:30 ALT 4 IU/L (10-60) L 10/19/23 05:30 Alkaline Phosphatase 80 IU/L (42-121) 10/19/23 05:30 Troponin I High Sens 11.8 ng/L (2.3-14.8) 10/06/23 06:38 Total Protein 5.8 g/dL (6.4-8.9) L 10/19/23 05:30 Albumin 2.1 g/dL (3.2-5.5) L 10/19/23 05:30 Globulin 3.7 g/dL (2.1-4.2) 10/19/23 05:30 Albumin/Globulin Ratio 0.6 (1.0-2.2) L 10/19/23 05:30 Prealbumin 8 mg/dL (17-34) L 10/14/23 04:30 Triglycerides 138 mg/dL (48-352) 10/14/23 04:30 Lipase < 10 U/L (11-82) L 10/02/23 09:00 Nasal Screen MRSA (PCR) NEGATIVE (NEGATIVE) 10/02/23 20:40 Ethyl Alcohol < 10.0 mg/dL 10/02/23 09:00 Miscellaneous Test COMMENT (.) 10/10/23 16:07 Current Medications - Current Medications Current Medications: Active Medications Generic Name Dose Route Start Last Admin Trade Name Freq PRN Reason Stop Dose Admin Acetaminophen 650 mg 10/12/23 11:00 10/19/23 14:10 Acetaminophen 325 Mg Tablet PO 650 mg Q4H SANDRA Administration Citalopram Hydrobromide 20 mg 10/03/23 09:00 10/19/23 08:17 Citalopram Hydrobromide 20 Mg Tablet PO 20 mg DAILY SANDRA Administration Heparin Sodium (Porcine) 5,000 unit 10/03/23 09:00 10/19/23 08:15 Heparin 5,000 Unit/Ml Vial SUBQ 5,000 unit BID SANDRA Administration Hydromorphone HCl 0.5 mg 10/13/23 11:28 10/19/23 03:49 Hydromorphone 0.5 Mg/0.5 Ml Syringe IVP 0.5 mg Q4H PRN Administration Breakthrough Pain Cefepime HCl 1 gm/ Sodium 100 mls @ 200 mls/hr 10/10/23 22:00 10/19/23 14:10 Chloride IV 200 mls/hr TID SANDRA Administration Metronidazole 500 mg in 100 mls @ 100 mls/hr 10/10/23 19:00 10/19/23 12:05 Flagyl 500 Mg/100 Ml IV Infused Q8H SANDRA Infusion Ibuprofen 600 mg 10/11/23 08:33 10/18/23 16:27 Ibuprofen 600 Mg Tablet PO 600 mg Q6HR PRN Administration Moderate Pain (Level 4-6) Lorazepam 1 mg 10/13/23 11:28 10/18/23 21:41 Lorazepam 2 Mg/Ml Vial IVP 1 mg Q4H PRN Administration Anxiety Ondansetron HCl 4 mg 10/02/23 15:19 10/19/23 01:49 Ondansetron Odt 4 Mg Tablet TL 4 mg Q6HR PRN Administration Nausea / Vomiting Ondansetron HCl 4 mg 10/02/23 15:19 10/16/23 14:58 Ondansetron 4 Mg/2 Ml Vial IVP 4 mg Q6HR PRN Administration Nausea / Vomiting Oxycodone HCl 5 mg 10/11/23 08:34 10/19/23 01:49 Oxycodone 5 Mg Tablet PO 5 mg Q4HR PRN Administration Severe Pain (Level 7-10) Prochlorperazine Edisylate 10 mg 10/08/23 14:14 10/17/23 09:18 Prochlorperazine 10 Mg/2 Ml Vial IVP 10 mg Q6HR PRN Administration Nausea / Vomiting Sodium Chloride 10 ml 10/06/23 09:00 10/19/23 03:50 Sodium Chloride Flush 0.9% 10 Ml Syringe IVP 10 ml 0100,0900,1700 SANDRA Administration Sodium Chloride 10 ml 10/06/23 07:17 10/17/23 21:12 Sodium Chloride Flush 0.9% 10 Ml Syringe IVP 10 ml PRN PRN Administration NEEDED PER PROVIDER ORDERS ALPRAZolam [Alprazolam] 0.5 mg PO HS PRN 06/23/23 Citalopram Hydrobromide [Celexa] 20 mg PO DAILY 06/23/23 Ibuprofen [Motrin] 1 tablet PO Q8H PRN 06/23/23 Losartan Potassium 25 mg PO DAILY 06/23/23 amLODIPine [Norvasc] 5 mg PO DAILY 06/23/23 hydroCHLOROthiazide [Hydrochlorothiazide] 25 mg PO DAILY 06/23/23
[2023-10-19] MEDS: IBUPROFEN 600 MG TABLET PO PRN (15:57)
[2023-10-19] MEDS: LORazepam 2 MG/ML VIAL IVP PRN (21:01)
[2023-10-20] MEDS: HYDROmorphone 0.5 MG/0.5 ML SYRINGE IVP PRN ×3 (01:24→22:21)
[2023-10-20] MEDS: ACETAMINOPHEN 325 MG TABLET PO SCH ×7 (02:59→22:22)
[2023-10-20] MEDS: metroNIDAZOLE 500 MG/100 ML 500 MG/100 ML BAG IV SCH ×3 (02:59→19:08)
[2023-10-20] MEDS: CEFEPIME 1 GM in SODIUM CHLORIDE 0.9% MINIBAG 100 ML IV SCH ×3 (05:55→22:21)
[2023-10-20 06:36] LABS: ALBUMIN/GLOBULIN RATIO 0.6 (1.0-2.2); BILIRUBIN,TOTAL 0.2 mg/dL (0.2-1.0); CALCIUM 8.3 mg/dL (8.5-10.3); CREATININE 0.3 mg/dL (0.6-1.3); POTASSIUM 3.9 mmol/L (3.5-4.5); TOTAL PROTEIN 5.2 g/dL (6.4-8.9)
[2023-10-20] MEDS: CITALOPRAM HYDROBROMIDE 20 MG TABLET PO SCH (08:11)
[2023-10-20] MEDS: oxyCODONE 5 MG TABLET PO PRN ×3 (08:11→20:59)
[2023-10-20] MEDS: SODIUM CHLORIDE FLUSH 0.9% 10 ML SYRINGE IVP SCH ×3 (08:12→23:20)
[2023-10-20] MEDS: HEPARIN 5,000 UNIT/ML VIAL SUBQ SCH ×2 (08:13→20:59)
[2023-10-20 08:22] LABS: BASOPHILS # (AUTO) 0.1 10^3/uL (0.0-0.1); BASOPHILS % (AUTO) 0.6 %; EOSINOPHILS # (AUTO) 0.2 10^3/uL (0.0-0.7); EOSINOPHILS % (AUTO) 1.1 %; HCT - HEMATOCRIT 23.8 % (37.0-47.0); HGB - HEMOGLOBIN 7.3 g/dL (12.0-16.0); LYMPHOCYTES # (AUTO) 1.2 10^3/uL (1.5-3.5); LYMPHOCYTES % (AUTO) 6.6 %; MEAN CORPUSCULAR HGB CONC 30.7 g/dL (32.0-36.0); MEAN CORPUSCULAR VOLUME 97.9 fL (81.0-99.0); MEAN PLATELET VOLUME 9.1 fL (7.9-10.8); MONOCYTES # (AUTO) 0.8 10^3/uL (0.0-1.0); MONOCYTES % (AUTO) 4.7 %; NEUTROPHILS # (AUTO) 15.3 10^3/uL (1.5-6.6); NEUTROPHILS % (AUTO) 86.3 %; PLT - PLATELET COUNT 648 10^3/uL (130-450); RED BLOOD COUNT 2.43 10^6/uL (4.20-5.40); WHITE BLOOD COUNT 17.7 x10^3/uL (4.8-10.8)
--- NOTE | 2023-10-20 13:17 | PROVIDER PROGRESS NOTE ---
Subjective - Subjective Pt reports feeling: Improved (ambulation getting easier. tolerating diet well) Objective - Vital Signs/Intake & Output Vital Signs: Vital Signs x48h Temp Pulse Resp BP Pulse Ox 10/20/23 07:45 36.6 C 80 14 105/72 93 Intake & Output: Intake & Output 10/17/23 10/18/23 10/19/23 10/20/23 23:59 23:59 23:59 23:59 Intake Total 1560 1760 2530 820 Output Total 1382 119 9604 150 Balance -15 1110 1030 670 - Objective General Appearance: positive: No acute distress, Alert Eyes Bilateral: positive: PERRL, EOMI, No scleral icterus Respiratory: positive: No respiratory distress Abdomen: positive: Non-tender, No distention, Other (open clean wounds/ healing. periumbilical sutures removed.) Neurologic/Psychiatric: positive: Oriented x3 - Lab Results Fish Bones: 10/20/23 05:56 10/20/23 05:53 Other Labs: Lab Results x24hrs 10/20/23 10/20/23 Range/Units 05:56 05:53 WBC 17.7 H (4.8-10.8) x10^3/uL RBC 2.43 L (4.20-5.40) 10^6/uL Hgb 7.3 L (12.0-16.0) g/dL Hct 23.8 L (37.0-47.0) % MCV 97.9 (81.0-99.0) fL MCH 30.0 (27.0-31.0) pg MCHC 30.7 L (32.0-36.0) g/dL RDW 14.0 (12.0-15.0) % Plt Count 648 H (130-450) 10^3/uL MPV 9.1 (7.9-10.8) fL Neut # (Auto) 15.3 H (1.5-6.6) 10^3/uL Lymph # (Auto) 1.2 L (1.5-3.5) 10^3/uL [place] # (Auto) 0.8 (0.0-1.0) 10^3/uL Eos # (Auto) 0.2 (0.0-0.7) 10^3/uL Baso # (Auto) 0.1 (0.0-0.1) 10^3/uL Absolute Nucleated RBC 0.00 x10^3/uL Nucleated RBC % 0.0 /100WBC Sodium 134 L (135-145) mmol/L Potassium 3.9 (3.5-4.5) mmol/L Chloride 101 (101-111) mmol/L Carbon Dioxide 30 (21-32) mmol/L Anion Gap 3.0 L (6-13) BUN 14 (6-20) mg/dL Creatinine 0.3 L (0.6-1.3) mg/dL Estimated GFR (MDRD) 225 (>89) Glucose 124 H (74-104) mg/dL Calcium 8.3 L (8.5-10.3) mg/dL Total Bilirubin 0.2 (0.2-1.0) mg/dL AST 8 L (10-42) IU/L ALT 4 L (10-60) IU/L Alkaline Phosphatase 75 (42-121) IU/L Total Protein 5.2 L (6.4-8.9) g/dL Albumin 2.0 L (3.2-5.5) g/dL Globulin 3.2 (2.1-4.2) g/dL Albumin/Globulin Ratio 0.6 L (1.0-2.2) Assessment/Plan - Problem List (1) Perforated abdominal viscus Impression: improving daily. wbc improved. continue present retirement when ambulating safely and she and her brother are comfortable with stoma care and dressing care
--- NOTE | 2023-10-20 16:40 | PROVIDER PROGRESS NOTE ---
Assessment/Plan - Problem List (1) Perforated abdominal viscus Assessment/Plan: (1) Thrombocytosis Assessment/Plan: --WBC downtrending. --General surg recommending CT chest/abd/pelvis tomorrow if it remains elevated. --Continuing with IV antibiotics (cefepime and metronidazole). Fluconazone was given for 7 days. (2) Perforated abdominal viscus Impression: As per surgical findings. She now has a colostomy (3) Post-op intra-abdominal abscess She has been on several iv antibx and has a very prolonged postoperative hospital stay. Her pain is controlled Plan: This patient needs to be taught colostomy training, and family needs to be taught colostomy training, since she cannot go to SNF from here (she has no insurance coverage for SNF or for Home Health). A barrier to this successful training will be the fact that she has a right wrist fracture. (4) Acute respiratory failure with hypoxia Conclusion/Plan: Hypoxia has been up and down. Postoperatively there was fluid overload, then a mucous plug with consolidation seen on CT of the right lung from the plug. Bronchoscopy done after that and showed open right upper lung. She was on nasal cannula and tolerating it well. --Ultrasound of her lung was performed 10/19 which was unremarkable for drainable effusion. (5) Aspiration pneumonitis due to regurgitated gastric secretions Conclusion/Plan: As per CXR, is clinically improving Plan: Cont antibx as in #1 (6) Mucous plug of bronchi Conclusion/Plan: RESOLVED This required suctioning and even a bronchoscopy and probably added to the HCAP (7) Nutrition deficiency due to insufficient food Conclusion/Plan: We started PPN and she had NG tube in place. Central line placed October 08. PPN was switched to TPN October 09. Plan: Diet order as per Gen surg (8) Generalized weakness Conclusion/Plan: She has been very, very slow to progress and improve. She was intermittently reluctant to get up out of bed. Physical therapy has worked with her. She keeps on telling physical therapy that she wants to go home. She lives alone. Case management explained that this patient does not have outpatient insurance that would allow her to have Home Health services or coverage to go to [facility] for rehab. Plan: We will have to make sure this patient is able to go home with good colostomy instruction, and that her family has good colostomy instruction. We also do not have a colostomy education nurse here anymore. (9) Wrist fracture Conclusion/Plan: The last Hospitalist requested an Orthopedic consult. The Orthopedic spoke to me, learned that the fracture was remote and there is already a plate in place, status post surgery done elsewhere. PT to determine what restrictions are necessary to follow (10) Fever Conclusion/Plan: -- Patient spiked a fever of 38.2 Celsius on 10/16. --I did discuss this with general surgery who felt the etiology was not intra- abdominal. An ultrasound was performed of her lung which did not show a significant amount of fluid. --Blood cultures obtained on 10/16 showed no growth to date. -- Will continue to monitor for fever. - Current Meds Current Meds: Current Medications Generic Name Dose Route Start Last Admin Trade Name Freq PRN Reason Stop Dose Admin Acetaminophen 650 mg 10/12/23 11:00 10/20/23 14:42 Acetaminophen 325 Mg Tablet PO Not Given Q4H SANDRA Citalopram Hydrobromide 20 mg 10/03/23 09:00 10/20/23 08:11 Citalopram Hydrobromide 20 Mg Tablet PO 20 mg DAILY SANDRA Administration Heparin Sodium (Porcine) 5,000 unit 10/03/23 09:00 10/20/23 08:13 Heparin 5,000 Unit/Ml Vial SUBQ 5,000 unit BID SANDRA Administration Hydromorphone HCl 0.5 mg 10/13/23 11:28 10/20/23 14:40 Hydromorphone 0.5 Mg/0.5 Ml Syringe IVP 0.5 mg Q4H PRN Administration Breakthrough Pain Cefepime HCl 1 gm/ Sodium 100 mls @ 200 mls/hr 10/10/23 22:00 10/20/23 13:52 Chloride IV Infused TID SANDRA Infusion Metronidazole 500 mg in 100 mls @ 100 mls/hr 10/10/23 19:00 10/20/23 12:10 Flagyl 500 Mg/100 Ml IV Infused Q8H SANDRA Infusion Ibuprofen 600 mg 10/11/23 08:33 10/19/23 15:57 Ibuprofen 600 Mg Tablet PO 600 mg Q6HR PRN Administration Moderate Pain (Level 4-6) Lorazepam 1 mg 10/13/23 11:28 10/19/23 21:01 Lorazepam 2 Mg/Ml Vial IVP 1 mg Q4H PRN Administration Anxiety Ondansetron HCl 4 mg 10/02/23 15:19 10/19/23 01:49 Ondansetron Odt 4 Mg Tablet TL 4 mg Q6HR PRN Administration Nausea / Vomiting Ondansetron HCl 4 mg 10/02/23 15:19 10/16/23 14:58 Ondansetron 4 Mg/2 Ml Vial IVP 4 mg Q6HR PRN Administration Nausea / Vomiting Oxycodone HCl 5 mg 10/11/23 08:34 10/20/23 13:21 Oxycodone 5 Mg Tablet PO 5 mg Q4HR PRN Administration Severe Pain (Level 7-10) Prochlorperazine Edisylate 10 mg 10/08/23 14:14 10/17/23 09:18 Prochlorperazine 10 Mg/2 Ml Vial IVP 10 mg Q6HR PRN Administration Nausea / Vomiting Sodium Chloride 10 ml 10/06/23 09:00 10/20/23 08:12 Sodium Chloride Flush 0.9% 10 Ml Syringe IVP Not Given 0100,0900,1700 SANDRA Sodium Chloride 10 ml 10/06/23 07:17 10/17/23 21:12 Sodium Chloride Flush 0.9% 10 Ml Syringe IVP 10 ml PRN PRN Administration NEEDED PER PROVIDER ORDERS - Lab Result Fish Bone Diagrams: 10/20/23 05:56 10/20/23 05:53 - Additional Planning My Orders: My Active Orders 10/20/23 17:00 Multivitamin W/Minerals [Theragran M] 1 tab PO DAILYWM 10/21/23 05:00 CBC [CBC - COMP BLD CT W/AUTO DIFF] [HEME] DAILYLAB CMP [COMPREHENSIVE METABOLIC PANEL] [CHEM] DAILYLAB 10/22/23 05:00 CBC [CBC - COMP BLD CT W/AUTO DIFF] [HEME] DAILYLAB CMP [COMPREHENSIVE METABOLIC PANEL] [CHEM] DAILYLAB 10/23/23 05:00 CBC [CBC - COMP BLD CT W/AUTO DIFF] [HEME] DAILYLAB CMP [COMPREHENSIVE METABOLIC PANEL] [CHEM] DAILYLAB 10/24/23 05:00 CBC [CBC - COMP BLD CT W/AUTO DIFF] [HEME] DAILYLAB CMP [COMPREHENSIVE METABOLIC PANEL] [CHEM] DAILYLAB 10/25/23 05:00 CBC [CBC - COMP BLD CT W/AUTO DIFF] [HEME] DAILYLAB Subjective - Subjective Patient Reports: Feeling Better, Resting Comfortably, No Complaints, Other (Afeb rile. She feels subjectively well. Has been ambulating.) Objective Vital Signs: Vital Signs - 24 hr 10/19/23 10/20/23 10/20/23 17:17 00:15 07:45 Temperature 37.0 C 36.6 C Heart Rate [ 98 96 80 Monitoring electrodes] Respiratory 14 16 14 Rate Blood Pressure 116/73 105/72 [Right Brachial artery] O2 Saturation 92 91 L 93 Oxygen O2 Source Room air I&O (Last 24 Hrs): Intake and Output Totals x24h 10/18/23 10/19/23 10/20/23 23:59 23:59 23:59 Intake Total 1760 2530 1240 Output Total 650 1500 550 Balance 1110 1030 690 General: Alert, Oriented x3, Cooperative, No acute distress Neuro: Alert, CN 2-12 Grossly Intact, Oriented Times 3 Cardiovascular: Regular rate, Normal S1, Normal S2, No murmurs Respiratory: Chest non-tender, No respiratory distress Abdomen: Normal bowel sounds, Soft - Results Results: Laboratory Results WBC 17.7 x10^3/uL (4.8-10.8) H 10/20/23 05:56 RBC 2.43 10^6/uL (4.20-5.40) L 10/20/23 05:56 Hgb 7.3 g/dL (12.0-16.0) L 10/20/23 05:56 Hct 23.8 % (37.0-47.0) L 10/20/23 05:56 MCV 97.9 fL (81.0-99.0) 10/20/23 05:56 MCH 30.0 pg (27.0-31.0) 10/20/23 05:56 MCHC 30.7 g/dL (32.0-36.0) L 10/20/23 05:56 RDW 14.0 % (12.0-15.0) 10/20/23 05:56 Plt Count 648 10^3/uL (130-450) H 10/20/23 05:56 MPV 9.1 fL (7.9-10.8) 10/20/23 05:56 Neut # (Auto) 15.3 10^3/uL (1.5-6.6) H 10/20/23 05:56 Lymph # (Auto) 1.2 10^3/uL (1.5-3.5) L 10/20/23 05:56 [place] # (Auto) 0.8 10^3/uL (0.0-1.0) 10/20/23 05:56 Eos # (Auto) 0.2 10^3/uL (0.0-0.7) 10/20/23 05:56 Baso # (Auto) 0.1 10^3/uL (0.0-0.1) 10/20/23 05:56 Absolute Nucleated RBC 0.00 x10^3/uL 10/20/23 05:56 Total Counted 100 10/19/23 05:30 Band Neuts % (Manual) 10 % (0-10) 10/19/23 05:30 Reactive Lymphs % (Man) 1 % 10/03/23 06:51 Abnorm Lymph % (Manual) 0 % 10/19/23 05:30 Metamyelocytes % 4 % (-0) H 10/03/23 06:51 Myelocytes % 1 % (-0) H 10/04/23 07:07 Nucleated RBC % 0.0 /100WBC 10/20/23 05:56 Neutrophils # (Manual) 25.1 10^3/uL (1.5-6.6) H 10/19/23 05:30 Lymphocytes # (Manual) 0.5 10^3/uL (1.5-3.5) L 10/19/23 05:30 Monocytes # (Manual) 0.8 10^3/uL (0.0-1.0) 10/19/23 05:30 Eosinophils # (Manual) 0.0 10^3/uL (0-0.7) 10/19/23 05:30 Basophils # (Manual) 0.3 10^3/uL (0-0.1) H 10/19/23 05:30 Differential Comment MANUAL DIFFERENTIAL 10/19/23 05:30 Manual Slide Review Indicated 10/16/23 04:25 WBC Morphology NORMAL APPEARANCE (NORMAL) 10/06/23 10:57 Platelet Estimate INCREASED (>450,000) (NORMAL) 10/19/23 05:30 Platelet Morphology NORMAL APPEARANCE (NORMAL) 10/16/23 04:25 RBC Morph Micro Appear NORMAL APPEARANCE (NORMAL) 10/19/23 05:30 Bld Gas Analysis Time 1646 10/08/23 16:42 Sample Site RIGHT RADIAL 10/08/23 16:42 ABG pH 7.46 (7.35-7.45) H 10/08/23 16:42 ABG pCO2 43 mmHg (34-45) 10/08/23 16:42 ABG pO2 102 mmHg (80-100) H 10/08/23 16:42 ABG HCO3 29.9 mmol/L (22.0-26.0) H 10/08/23 16:42 ABG Total CO2 31.2 MMOL/L (21.0-29.0) H 10/08/23 16:42 ABG O2 Saturation 98 % (94-98) 10/08/23 16:42 ABG Base Excess 5.5 mmol/L (-2.0-3.0) H 10/08/23 16:42 Anuj Test POSITIVE 10/08/23 16:42 VBG pH 7.371 (7.31-7.41) 10/13/23 05:00 Ionized Calcium 1.15 mmol/L (1.15-1.33) 10/13/23 05:00 Respiration Rate 20 b/min 10/06/23 07:20 O2 Delivery Device BiPAP 10/08/23 16:42 Vent Mode SYNCHRONOUS/TIMES 10/08/23 16:42 FiO2 50.00 10/08/23 16:42 EPAP 5 cmH2O 10/08/23 16:42 IPAP 10 cmH2O 10/08/23 16:42 Sodium 134 mmol/L (135-145) L 10/20/23 05:53 Potassium 3.9 mmol/L (3.5-4.5) 10/20/23 05:53 Chloride 101 mmol/L (101-111) 10/20/23 05:53 Carbon Dioxide 30 mmol/L (21-32) 10/20/23 05:53 Anion Gap 3.0 (6-13) L 10/20/23 05:53 BUN 14 mg/dL (6-20) 10/20/23 05:53 Creatinine 0.3 mg/dL (0.6-1.3) L 10/20/23 05:53 Estimated GFR (MDRD) 225 (>89) 10/20/23 05:53 Glucose 124 mg/dL (74-104) H 10/20/23 05:53 Lactic Acid 0.7 mmol/L (0.5-2.2) 10/16/23 17:46 Calcium 8.3 mg/dL (8.5-10.3) L 10/20/23 05:53 Phosphorus 4.0 mg/dL (2.5-5.0) 10/14/23 04:30 Magnesium 1.9 mg/dL (1.7-2.3) 10/14/23 04:30 Total Bilirubin 0.2 mg/dL (0.2-1.0) 10/20/23 05:53 AST 8 IU/L (10-42) L 10/20/23 05:53 ALT 4 IU/L (10-60) L 10/20/23 05:53 Alkaline Phosphatase 75 IU/L (42-121) 10/20/23 05:53 Troponin I High Sens 11.8 ng/L (2.3-14.8) 10/06/23 06:38 Total Protein 5.2 g/dL (6.4-8.9) L 10/20/23 05:53 Albumin 2.0 g/dL (3.2-5.5) L 10/20/23 05:53 Globulin 3.2 g/dL (2.1-4.2) 10/20/23 05:53 Albumin/Globulin Ratio 0.6 (1.0-2.2) L 10/20/23 05:53 Prealbumin 8 mg/dL (17-34) L 10/14/23 04:30 Triglycerides 138 mg/dL (48-352) 10/14/23 04:30 Lipase < 10 U/L (11-82) L 10/02/23 09:00 Nasal Screen MRSA (PCR) NEGATIVE (NEGATIVE) 10/02/23 20:40 Ethyl Alcohol < 10.0 mg/dL 10/02/23 09:00 Miscellaneous Test COMMENT (.) 10/10/23 16:07 Current Medications - Current Medications Current Medications: Active Medications Generic Name Dose Route Start Last Admin Trade Name Freq PRN Reason Stop Dose Admin Acetaminophen 650 mg 10/12/23 11:00 10/20/23 14:42 Acetaminophen 325 Mg Tablet PO Not Given Q4H SANDRA Citalopram Hydrobromide 20 mg 10/03/23 09:00 10/20/23 08:11 Citalopram Hydrobromide 20 Mg Tablet PO 20 mg DAILY SANDRA Administration Heparin Sodium (Porcine) 5,000 unit 10/03/23 09:00 10/20/23 08:13 Heparin 5,000 Unit/Ml Vial SUBQ 5,000 unit BID SANDRA Administration Hydromorphone HCl 0.5 mg 10/13/23 11:28 10/20/23 14:40 Hydromorphone 0.5 Mg/0.5 Ml Syringe IVP 0.5 mg Q4H PRN Administration Breakthrough Pain Cefepime HCl 1 gm/ Sodium 100 mls @ 200 mls/hr 10/10/23 22:00 10/20/23 13:52 Chloride IV Infused TID [facility] Infusion Metronidazole 500 mg in 100 mls @ 100 mls/hr 10/10/23 19:00 10/20/23 12:10 Flagyl 500 Mg/100 Ml IV Infused Q8H [facility] Infusion Ibuprofen 600 mg 10/11/23 08:33 10/19/23 15:57 Ibuprofen 600 Mg Tablet PO 600 mg Q6HR PRN Administration Moderate Pain (Level 4-6) Lorazepam 1 mg 10/13/23 11:28 10/19/23 21:01 Lorazepam 2 Mg/Ml Vial IVP 1 mg Q4H PRN Administration Anxiety Multivitamins/Minerals 1 tab 10/20/23 17:00 10/20/23 17:39 Multivitamin W/Minerals Tablet PO 1 tab DAILYWM [facility] Administration Ondansetron HCl 4 mg 10/02/23 15:19 10/19/23 01:49 Ondansetron Odt 4 Mg Tablet TL 4 mg Q6HR PRN Administration Nausea / Vomiting Ondansetron HCl 4 mg 10/02/23 15:19 10/16/23 14:58 Ondansetron 4 Mg/2 Ml Vial IVP 4 mg Q6HR PRN Administration Nausea / Vomiting Oxycodone HCl 5 mg 10/11/23 08:34 10/20/23 13:21 Oxycodone 5 Mg Tablet PO 5 mg Q4HR PRN Administration Severe Pain (Level 7-10) Prochlorperazine Edisylate 10 mg 10/08/23 14:14 10/17/23 09:18 Prochlorperazine 10 Mg/2 Ml Vial IVP 10 mg Q6HR PRN Administration Nausea / Vomiting Sodium Chloride 10 ml 10/06/23 09:00 10/20/23 08:12 Sodium Chloride Flush 0.9% 10 Ml Syringe IVP Not Given 0100,0900,1700 SANDRA Sodium Chloride 10 ml 10/06/23 07:17 10/17/23 21:12 Sodium Chloride Flush 0.9% 10 Ml Syringe IVP 10 ml PRN PRN Administration NEEDED PER PROVIDER ORDERS ALPRAZolam [Alprazolam] 0.5 mg PO HS PRN 06/23/23 Citalopram Hydrobromide [Celexa] 20 mg PO DAILY 06/23/23 Ibuprofen [Motrin] 1 tablet PO Q8H PRN 06/23/23 Losartan Potassium 25 mg PO DAILY 06/23/23 amLODIPine [Norvasc] 5 mg PO DAILY 06/23/23 hydroCHLOROthiazide [Hydrochlorothiazide] 25 mg PO DAILY 06/23/23
[2023-10-20] MEDS: MULTIVITAMIN W/MINERALS TABLET PO SCH (17:39)
[2023-10-20] MEDS: LORazepam 2 MG/ML VIAL IVP PRN (20:59)
[2023-10-20] MEDS: ONDANSETRON ODT 4 MG TABLET TL PRN (22:35)
[2023-10-21] MEDS: PROCHLORPERAZINE 10 MG/2 ML VIAL IVP PRN (01:36)
[2023-10-21] MEDS: metroNIDAZOLE 500 MG/100 ML 500 MG/100 ML BAG IV SCH ×3 (02:52→19:17)
[2023-10-21] MEDS: ACETAMINOPHEN 325 MG TABLET PO SCH ×5 (02:52→19:15)
[2023-10-21] MEDS: HYDROmorphone 0.5 MG/0.5 ML SYRINGE IVP PRN ×3 (04:13→20:27)
[2023-10-21] MEDS: ONDANSETRON 4 MG/2 ML VIAL IVP PRN (04:13)
[2023-10-21] MEDS: CEFEPIME 1 GM in SODIUM CHLORIDE 0.9% MINIBAG 100 ML IV SCH ×3 (06:36→20:22)
[2023-10-21 06:39] LABS: BASOPHILS # (AUTO) 0.1 10^3/uL (0.0-0.1); BASOPHILS % (AUTO) 0.4 %; EOSINOPHILS # (AUTO) 0.1 10^3/uL (0.0-0.7); EOSINOPHILS % (AUTO) 0.5 %; HCT - HEMATOCRIT 25.5 % (37.0-47.0); HGB - HEMOGLOBIN 7.9 g/dL (12.0-16.0); LYMPHOCYTES # (AUTO) 1.2 10^3/uL (1.5-3.5); LYMPHOCYTES % (AUTO) 6.1 %; MEAN PLATELET VOLUME 9.1 fL (7.9-10.8); MONOCYTES # (AUTO) 0.9 10^3/uL (0.0-1.0); MONOCYTES % (AUTO) 4.7 %; NEUTROPHILS # (AUTO) 17.5 10^3/uL (1.5-6.6); NEUTROPHILS % (AUTO) 87.4 %; PLT - PLATELET COUNT 664 10^3/uL (130-450); RED BLOOD COUNT 2.63 10^6/uL (4.20-5.40); RED CELL DISTRIBUTION WIDTH 14.3 % (12.0-15.0); WHITE BLOOD COUNT 19.9 x10^3/uL (4.8-10.8)
[2023-10-21] MEDS: oxyCODONE 5 MG TABLET PO PRN ×2 (06:46→19:15)
[2023-10-21 07:02] LABS: ALBUMIN/GLOBULIN RATIO 0.6 (1.0-2.2); BILIRUBIN,TOTAL 0.3 mg/dL (0.2-1.0); CALCIUM 8.3 mg/dL (8.5-10.3); CREATININE 0.2 mg/dL (0.6-1.3); POTASSIUM 4.5 mmol/L (3.5-4.5); TOTAL PROTEIN 5.5 g/dL (6.4-8.9)
[2023-10-21] MEDS: SODIUM CHLORIDE FLUSH 0.9% 10 ML SYRINGE IVP SCH ×3 (08:31→19:17)
[2023-10-21] MEDS: CITALOPRAM HYDROBROMIDE 20 MG TABLET PO SCH (08:31)
[2023-10-21] MEDS: MULTIVITAMIN W/MINERALS TABLET PO SCH (08:31)
[2023-10-21] MEDS: HEPARIN 5,000 UNIT/ML VIAL SUBQ SCH ×2 (08:38→20:19)
--- NOTE | 2023-10-21 10:50 | CT Report ---
PROCEDURE: CHEST W INDICATIONS: history collapsed right lung. elevated wbc CONTRAST: 100ml omni 300 TECHNIQUE: After the administration of intravenous contrast, 1 mm axial images were acquired from the pulmonary apices through the posterior costophrenic angles. Axial 5 mm soft tissue kernel reconstructions were performed as well as 8 mm axial MIP and coronal and sagittal 5 mm reformations. For radiation dose reduction, the following was used: automated exposure control, adjustment of mA and/or kV according to patient size. COMPARISON: None. FINDINGS: Image quality: Excellent. Lungs and pleura: No consolidation. Large right pleural effusion with atelectasis of the right lower lobe and right upper lobe. No suspicious pulmonary nodules which require follow up. Mediastinum: Heart size is normal. No pericardial effusion. No large vessel abnormality. No mediastin al adenopathy by size criteria. Chest wall and lower neck: Thyroid is unremarkable. Prominent lower cervical chain nodes. Right IJ ce ntral venous catheter tip terminates in the high SVC. Bones: No aggressive osseous abnormality. T7 and T8 vertebral hemangiomas. Upper Abdomen: Unremarkable. IMPRESSION: Large right pleural effusion with right-sided atelectasis. Unclear etiology. Reviewed by: Pato Ashton MD on 10/21/2023 10:48 AM PST Approved by: Pato Ashton MD on 10/21/2023 10:48 AM PST Station ID: [id number]
--- NOTE | 2023-10-21 11:00 | CT Report ---
PROCEDURE: ABDOMEN/PELVIS W INDICATIONS: elevated wbc. hx perforated colon CONTRAST: 100ml omni 300 TECHNIQUE: After the administration of intravenous contrast, 5 mm thick sections acquired from the diaphragms to the symphysis. 5 mm thick coronal and sagittal reformats were acquired. For radiation dose reducti on, the following was used: automated exposure control, adjustment of mA and/or kV according to mandy ent size. COMPARISON: None. FINDINGS: Image quality: Excellent. Lung bases and heart: Large right pleural effusion. Liver: Similar multiloculated collection along the posterior margin of the liver, largest locule shu uring 4.6 x 1.7 cm (series 2, image 38). Gallbladder and biliary tree: Gallbladder sludge versus small stones. No wall thickening. No biliary dilation. Spleen: No splenomegaly. Pancreas: No pancreatic ductal dilation. Adrenals: No adrenal nodule. Kidneys and ureters: No hydronephrosis. No renal cystic lesion which requires follow up. No solid mas s. Bowel and peritoneum: Partial colectomy, with a 4 quadrant colostomy. Distended loops of small and la rge bowel, progressed from prior. No discernible transition point or visualized debris within the sma ll bowel. Small infiltrate fluid. No abscess. Lymph nodes: No central or retroperitoneal adenopathy. Vessels: No infrarenal aortic aneurysm. PELVIS Reproductive organs: Myomatous uterus. Bladder: No abnormal wall thickening, accounting for underdistension. Pelvic lymph nodes: No pelvic adenopathy by size criteria. Bones: No aggressive osseous abnormality. Other: Open superficial abdominal incision without abscess. IMPRESSION: Similar size and appearance of the right liver abscess. Distended loops of small large bowel, slightly progressed from prior. Findings most consistent with a dynamic ileus. Open superficial abdominal incision without abscess. Reviewed by: Ptao Ashton MD on 10/21/2023 10:58 AM PST Approved by: Pato Ashton MD on 10/21/2023 10:58 AM PST Station ID: [id number]
--- NOTE | 2023-10-21 11:55 | PROVIDER PROGRESS NOTE ---
Subjective - Subjective Pt reports feeling: No change (feels. well no complaints) Objective - Vital Signs/Intake & Output Vital Signs: Vital Signs x48h Temp Pulse Resp BP Pulse Ox O2 Flow Rate 10/21/23 07:45 36.0 C L 99 18 131/89 H 98 2 Intake & Output: Intake & Output 10/18/23 10/19/23 10/20/23 10/21/23 23:59 23:59 23:59 23:59 Intake Total 1760 2530 1960 350 Output Total 650 1500 1025 200 Balance 1110 1030 935 150 - Objective General Appearance: positive: No acute distress, Alert Eyes Bilateral: positive: PERRL, EOMI Respiratory: positive: No respiratory distress Abdomen: positive: Non-tender Neurologic/Psychiatric: positive: Oriented x3 - Lab Results Fish Bones: 10/21/23 06:34 10/21/23 06:34 Other Labs: Lab Results x24hrs 10/21/23 10/21/23 10/06/23 Range/Units 06:34 06:34 06:05 WBC 19.9 H (4.8-10.8) x10^3/uL RBC 2.63 L (4.20-5.40) 10^6/uL Hgb 7.9 L (12.0-16.0) g/dL Hct 25.5 L (37.0-47.0) % MCV 97.0 (81.0-99.0) fL MCH 30.0 (27.0-31.0) pg MCHC 31.0 L (32.0-36.0) g/dL RDW 14.3 (12.0-15.0) % Plt Count 664 H (130-450) 10^3/uL MPV 9.1 (7.9-10.8) fL Neut # (Auto) 17.5 H (1.5-6.6) 10^3/uL Lymph # (Auto) 1.2 L (1.5-3.5) 10^3/uL [place] # (Auto) 0.9 (0.0-1.0) 10^3/uL Eos # (Auto) 0.1 (0.0-0.7) 10^3/uL Baso # (Auto) 0.1 (0.0-0.1) 10^3/uL Absolute Nucleated RBC 0.00 x10^3/uL Nucleated RBC % 0.0 /100WBC Sodium 132 L (135-145) mmol/L Potassium 4.5 (3.5-4.5) mmol/L Chloride 98 L (101-111) mmol/L Carbon Dioxide 26 (21-32) mmol/L Anion Gap 8.0 (6-13) BUN 14 (6-20) mg/dL Creatinine 0.2 L (0.6-1.3) mg/dL Estimated GFR (MDRD) 360 (>89) Glucose 123 H (74-104) mg/dL POC Whole Bld Glucose 166 H (70 - 100) mg/dL Calcium 8.3 L (8.5-10.3) mg/dL Total Bilirubin 0.3 (0.2-1.0) mg/dL AST 14 (10-42) IU/L ALT 4 L (10-60) IU/L Alkaline Phosphatase 67 (42-121) IU/L Total Protein 5.5 L (6.4-8.9) g/dL Albumin 2.0 L (3.2-5.5) g/dL Globulin 3.5 (2.1-4.2) g/dL Albumin/Globulin Ratio 0.6 L (1.0-2.2) 10/03/23 Range/Units 12:57 WBC (4.8-10.8) x10^3/uL RBC (4.20-5.40) 10^6/uL Hgb (12.0-16.0) g/dL Hct (37.0-47.0) % MCV (81.0-99.0) fL MCH (27.0-31.0) pg MCHC (32.0-36.0) g/dL RDW (12.0-15.0) % Plt Count (130-450) 10^3/uL MPV (7.9-10.8) fL Neut # (Auto) (1.5-6.6) 10^3/uL Lymph # (Auto) (1.5-3.5) 10^3/uL [place] # (Auto) (0.0-1.0) 10^3/uL Eos # (Auto) (0.0-0.7) 10^3/uL Baso # (Auto) (0.0-0.1) 10^3/uL Absolute Nucleated RBC x10^3/uL Nucleated RBC % /100WBC Sodium (135-145) mmol/L Potassium (3.5-4.5) mmol/L Chloride (101-111) mmol/L Carbon Dioxide (21-32) mmol/L Anion Gap (6-13) BUN (6-20) mg/dL Creatinine (0.6-1.3) mg/dL Estimated GFR (MDRD) (>89) Glucose (74-104) mg/dL POC Whole Bld Glucose 175 H (70 - 100) mg/dL Calcium (8.5-10.3) mg/dL Total Bilirubin (0.2-1.0) mg/dL AST (10-42) IU/L ALT (10-60) IU/L Alkaline Phosphatase (42-121) IU/L Total Protein (6.4-8.9) g/dL Albumin (3.2-5.5) g/dL Globulin (2.1-4.2) g/dL Albumin/Globulin Ratio (1.0-2.2) - Diagnostic Imaging Diagnostic Imaging Results: positive: Read independently (no significant abdominal fluid collection to drain right lower lobe still collapsed) Assessment/Plan - Problem List (1) Perforated abdominal viscus Impression: continued slow improvement. home when able to ambulate safely and manage stoma and dressing care
[2023-10-21] MEDS ORDERED: iohexoL-300 100 ML VIAL IVP ONE (12:25)
[2023-10-21] MEDS: SODIUM CHLORIDE FLUSH 0.9% 10 ML SYRINGE IVP PRN ×2 (13:29→21:48)
--- NOTE | 2023-10-21 13:36 | PROVIDER PROGRESS NOTE ---
Assessment/Plan - Problem List (1) Perforated abdominal viscus Assessment/Plan: (1) Thrombocytosis Assessment/Plan: --WBC remains elevated --Performed a CT chest/abdomen/pelvis this morning which revealed a right-sided pleural effusion. This was discussed with interventional radiology and will attempt to perform a thoracentesis today. Will order a fluid culture. --CT abdominal findings were also discussed with general surgery. She does appear to have an adynamic ileus. Fluid around liver was unchanged and does not require intervention. --Continuing with IV antibiotics (cefepime and metronidazole). Fluconazone was given for 7 days. (2) Perforated abdominal viscus Impression: As per surgical findings. She now has a colostomy (3) Post-op intra-abdominal abscess She has been on several iv antibx and has a very prolonged postoperative hospital stay. Her pain is controlled Plan: This patient needs to be taught colostomy training, and family needs to be taught colostomy training, since she cannot go to SNF from here (she has no insurance coverage for SNF or for Home Health). A barrier to this successful training will be the fact that she has a right wrist fracture. (4) Acute respiratory failure with hypoxia Conclusion/Plan: Hypoxia has been up and down. Postoperatively there was fluid overload, then a mucous plug with consolidation seen on CT of the right lung from the plug. Bronchoscopy done after that and showed open right upper lung. She was on nasal cannula and tolerating it well. --Ultrasound of her lung was performed 10/19 which was unremarkable for drainable effusion. -- As mentioned above, we will perform a an ultrasound again to possibly remove fluid. -- Will start her on DuoNeb for atelectasis. (5) Aspiration pneumonitis due to regurgitated gastric secretions Conclusion/Plan: As per CXR, is clinically improving Plan: Cont antibx as in #1 (6) Mucous plug of bronchi Conclusion/Plan: RESOLVED This required suctioning and even a bronchoscopy and probably added to the HCAP (7) Nutrition deficiency due to insufficient food Conclusion/Plan: We started PPN and she had NG tube in place. Central line placed October 08. PPN was switched to TPN October 09. Plan: Diet order as per Gen surg (8) Generalized weakness Conclusion/Plan: She has been very, very slow to progress and improve. She was intermittently reluctant to get up out of bed. Physical therapy has worked with her. She keeps on telling physical therapy that she wants to go home. She lives alone. Case management explained that this patient does not have outpatient insurance that would allow her to have Home Health services or coverage to go to [facility] for rehab. Plan: We will have to make sure this patient is able to go home with good colostomy instruction, and that her family has good colostomy instruction. We also do not have a colostomy education nurse here anymore. (9) Wrist fracture Conclusion/Plan: The last Hospitalist requested an Orthopedic consult. The Orthopedic spoke to me , learned that the fracture was remote and there is already a plate in place, status post surgery done elsewhere. PT to determine what restrictions are necessary to follow (10) Fever Conclusion/Plan: -- Patient spiked a fever of 38.2 Celsius on 10/16. --I did discuss this with general surgery who felt the etiology was not intra- abdominal. An ultrasound was performed of her lung which did not show a significant amount of fluid. --Blood cultures obtained on 10/16 showed no growth to date. -- Will continue to monitor for fever. - Current Meds Current Meds: Current Medications Generic Name Dose Route Start Last Admin Trade Name Freq PRN Reason Stop Dose Admin Acetaminophen 650 mg 10/12/23 11:00 10/21/23 12:10 Acetaminophen 325 Mg Tablet PO 650 mg Q4H SANDRA Administration Citalopram Hydrobromide 20 mg 10/03/23 09:00 10/21/23 08:31 Citalopram Hydrobromide 20 Mg Tablet PO 20 mg DAILY SANDRA Administration Heparin Sodium (Porcine) 5,000 unit 10/03/23 09:00 10/21/23 08:38 Heparin 5,000 Unit/Ml Vial SUBQ 5,000 unit BID SANDRA Administration Hydromorphone HCl 0.5 mg 10/13/23 11:28 10/21/23 08:31 Hydromorphone 0.5 Mg/0.5 Ml Syringe IVP 0.5 mg Q4H PRN Administration Breakthrough Pain Cefepime HCl 1 gm/ Sodium 100 mls @ 200 mls/hr 10/10/23 22:00 10/21/23 13:30 Chloride IV 200 mls/hr TID SANDRA Administration Metronidazole 500 mg in 100 mls @ 100 mls/hr 10/10/23 19:00 10/21/23 13:21 Flagyl 500 Mg/100 Ml IV Infused Q8H SANDRA Infusion Ibuprofen 600 mg 10/11/23 08:33 10/19/23 15:57 Ibuprofen 600 Mg Tablet PO 600 mg Q6HR PRN Administration Moderate Pain (Level 4-6) Lorazepam 1 mg 10/13/23 11:28 10/20/23 20:59 Lorazepam 2 Mg/Ml Vial IVP 1 mg Q4H PRN Administration Anxiety Multivitamins/Minerals 1 tab 10/20/23 17:00 10/21/23 08:31 Multivitamin W/Minerals Tablet PO 1 tab DAILYWM SANDRA Administration Ondansetron HCl 4 mg 10/02/23 15:19 10/20/23 22:35 Ondansetron Odt 4 Mg Tablet TL 4 mg Q6HR PRN Administration Nausea / Vomiting Ondansetron HCl 4 mg 10/02/23 15:19 10/21/23 04:13 Ondansetron 4 Mg/2 Ml Vial IVP 4 mg Q6HR PRN Administration Nausea / Vomiting Oxycodone HCl 5 mg 10/11/23 08:34 10/21/23 06:46 Oxycodone 5 Mg Tablet PO 5 mg Q4HR PRN Administration Severe Pain (Level 7-10) Prochlorperazine Edisylate 10 mg 10/08/23 14:14 10/21/23 01:36 Prochlorperazine 10 Mg/2 Ml Vial IVP 10 mg Q6HR PRN Administration Nausea / Vomiting Sodium Chloride 10 ml 10/06/23 09:00 10/21/23 08:31 Sodium Chloride Flush 0.9% 10 Ml Syringe IVP 10 ml 0100,0900,1700 SANDRA Administration Sodium Chloride 10 ml 10/06/23 07:17 10/21/23 13:29 Sodium Chloride Flush 0.9% 10 Ml Syringe IVP 10 ml PRN PRN Administration NEEDED PER PROVIDER ORDERS - Lab Result Fish Bone Diagrams: 10/21/23 06:34 10/21/23 06:34 - Additional Planning My Orders: My Active Orders 10/20/23 17:00 Multivitamin W/Minerals [Theragran M] 1 tab PO DAILYWM 10/21/23 CUL,BODY FLUID(AEROBIC) [RM] Routine GLUCOSE BODY FLUID [REFLAB] Routine LD BODY FLUID [REFLAB] Routine LDH - LACTATE DEHYDROGENASE [CHEM] Routine PROTEIN BODY FLUID [REFLAB] Routine pH BODY FLUID [REFLAB] Routine 10/21/23 10:29 Central Line Discontinuation [RC] .ONCE 10/21/23 13:28 Chest [US] Routine 10/22/23 05:00 CBC [CBC - COMP BLD CT W/AUTO DIFF] [HEME] DAILYLAB CMP [COMPREHENSIVE METABOLIC PANEL] [CHEM] DAILYLAB 10/23/23 05:00 CBC [CBC - COMP BLD CT W/AUTO DIFF] [HEME] DAILYLAB CMP [COMPREHENSIVE METABOLIC PANEL] [CHEM] DAILYLAB 10/24/23 05:00 CBC [CBC - COMP BLD CT W/AUTO DIFF] [HEME] DAILYLAB CMP [COMPREHENSIVE METABOLIC PANEL] [CHEM] DAILYLAB 10/25/23 05:00 CBC [CBC - COMP BLD CT W/AUTO DIFF] [HEME] DAILYLAB Subjective - Subjective Patient Reports: Feeling Better, Resting Comfortably, No Complaints Objective Vital Signs: Vital Signs - 24 hr 10/20/23 10/20/23 10/20/23 19:37 23:55 23:57 Temperature 36.4 C L 36.3 C L Heart Rate [ 110 H Brachial] Heart Rate [ 109 H Monitoring electrodes] Respiratory 16 20 Rate Blood Pressure 125/83 H 134/85 H [Right Brachial artery] O2 Saturation 93 88 L If not protocol 2 : Oxygen Flow, liters/minute 10/21/23 10/21/23 00:36 07:45 Temperature 36.0 C L Heart Rate [ 99 Brachial] Heart Rate [ Monitoring electrodes] Respiratory 18 Rate Blood Pressure 131/89 H [Right Brachial artery] O2 Saturation 97 98 If not protocol 2 2 : Oxygen Flow, liters/minute Oxygen O2 Source Nasal cannula I&O (Last 24 Hrs): Intake and Output Totals x24h 10/19/23 10/20/23 10/21/23 23:59 23:59 23:59 Intake Total 2530 1960 450 Output Total 1500 1025 200 Balance 1030 935 250 General: Alert, Oriented x3, Cooperative, No acute distress Neuro: Alert, CN 2-12 Grossly Intact, Oriented Times 3 Cardiovascular: Regular rate, Normal S1, Normal S2, No murmurs Respiratory: Chest non-tender, No respiratory distress, Breath sounds nml Abdomen: Normal bowel sounds, Soft, No tenderness, No hepatospenomegaly, No masses - Results Results: Laboratory Results WBC 19.9 x10^3/uL (4.8-10.8) H 10/21/23 06:34 RBC 2.63 10^6/uL (4.20-5.40) L 10/21/23 06:34 Hgb 7.9 g/dL (12.0-16.0) L 10/21/23 06:34 Hct 25.5 % (37.0-47.0) L 10/21/23 06:34 MCV 97.0 fL (81.0-99.0) 10/21/23 06:34 MCH 30.0 pg (27.0-31.0) 10/21/23 06:34 MCHC 31.0 g/dL (32.0-36.0) L 10/21/23 06:34 RDW 14.3 % (12.0-15.0) 10/21/23 06:34 Plt Count 664 10^3/uL (130-450) H 10/21/23 06:34 MPV 9.1 fL (7.9-10.8) 10/21/23 06:34 Neut # (Auto) 17.5 10^3/uL (1.5-6.6) H 10/21/23 06:34 Lymph # (Auto) 1.2 10^3/uL (1.5-3.5) L 10/21/23 06:34 Scurry # (Auto) 0.9 10^3/uL (0.0-1.0) 10/21/23 06:34 Eos # (Auto) 0.1 10^3/uL (0.0-0.7) 10/21/23 06:34 Baso # (Auto) 0.1 10^3/uL (0.0-0.1) 10/21/23 06:34 Absolute Nucleated RBC 0.00 x10^3/uL 10/21/23 06:34 Total Counted 100 10/19/23 05:30 Band Neuts % (Manual) 10 % (0-10) 10/19/23 05:30 Reactive Lymphs % (Man) 1 % 10/03/23 06:51 Abnorm Lymph % (Manual) 0 % 10/19/23 05:30 Metamyelocytes % 4 % (-0) H 10/03/23 06:51 Myelocytes % 1 % (-0) H 10/04/23 07:07 Nucleated RBC % 0.0 /100WBC 10/21/23 06:34 Neutrophils # (Manual) 25.1 10^3/uL (1.5-6.6) H 10/19/23 05:30 Lymphocytes # (Manual) 0.5 10^3/uL (1.5-3.5) L 10/19/23 05:30 Monocytes # (Manual) 0.8 10^3/uL (0.0-1.0) 10/19/23 05:30 Eosinophils # (Manual) 0.0 10^3/uL (0-0.7) 10/19/23 05:30 Basophils # (Manual) 0.3 10^3/uL (0-0.1) H 10/19/23 05:30 Differential Comment MANUAL DIFFERENTIAL 10/19/23 05:30 Manual Slide Review Indicated 10/16/23 04:25 WBC Morphology NORMAL APPEARANCE (NORMAL) 10/06/23 10:57 Platelet Estimate INCREASED (>450,000) (NORMAL) 10/19/23 05:30 Platelet Morphology NORMAL APPEARANCE (NORMAL) 10/16/23 04:25 RBC Morph Micro Appear NORMAL APPEARANCE (NORMAL) 10/19/23 05:30 Bld Gas Analysis Time 1646 10/08/23 16:42 Sample Site RIGHT RADIAL 10/08/23 16:42 ABG pH 7.46 (7.35-7.45) H 10/08/23 16:42 ABG pCO2 43 mmHg (34-45) 10/08/23 16:42 ABG pO2 102 mmHg (80-100) H 10/08/23 16:42 ABG HCO3 29.9 mmol/L (22.0-26.0) H 10/08/23 16:42 ABG Total CO2 31.2 MMOL/L (21.0-29.0) H 10/08/23 16:42 ABG O2 Saturation 98 % (94-98) 10/08/23 16:42 ABG Base Excess 5.5 mmol/L (-2.0-3.0) H 10/08/23 16:42 Anuj Test POSITIVE 10/08/23 16:42 VBG pH 7.371 (7.31-7.41) 10/13/23 05:00 Ionized Calcium 1.15 mmol/L (1.15-1.33) 10/13/23 05:00 Respiration Rate 20 b/min 10/06/23 07:20 O2 Delivery Device BiPAP 10/08/23 16:42 Vent Mode SYNCHRONOUS/TIMES 10/08/23 16:42 FiO2 50.00 10/08/23 16:42 EPAP 5 cmH2O 10/08/23 16:42 IPAP 10 cmH2O 10/08/23 16:42 Sodium 132 mmol/L (135-145) L 10/21/23 06:34 Potassium 4.5 mmol/L (3.5-4.5) 10/21/23 06:34 Chloride 98 mmol/L (101-111) L 10/21/23 06:34 Carbon Dioxide 26 mmol/L (21-32) 10/21/23 06:34 Anion Gap 8.0 (6-13) 10/21/23 06:34 BUN 14 mg/dL (6-20) 10/21/23 06:34 Creatinine 0.2 mg/dL (0.6-1.3) L 10/21/23 06:34 Estimated GFR (MDRD) 360 (>89) 10/21/23 06:34 Glucose 123 mg/dL (74-104) H 10/21/23 06:34 POC Whole Bld Glucose 166 mg/dL (70 - 100) H 10/06/23 06:05 Lactic Acid 0.7 mmol/L (0.5-2.2) 10/16/23 17:46 Calcium 8.3 mg/dL (8.5-10.3) L 10/21/23 06:34 Phosphorus 4.0 mg/dL (2.5-5.0) 10/14/23 04:30 Magnesium 1.9 mg/dL (1.7-2.3) 10/14/23 04:30 Total Bilirubin 0.3 mg/dL (0.2-1.0) 10/21/23 06:34 AST 14 IU/L (10-42) 10/21/23 06:34 ALT 4 IU/L (10-60) L 10/21/23 06:34 Alkaline Phosphatase 67 IU/L (42-121) 10/21/23 06:34 Troponin I High Sens 11.8 ng/L (2.3-14.8) 10/06/23 06:38 Total Protein 5.5 g/dL (6.4-8.9) L 10/21/23 06:34 Albumin 2.0 g/dL (3.2-5.5) L 10/21/23 06:34 Globulin 3.5 g/dL (2.1-4.2) 10/21/23 06:34 Albumin/Globulin Ratio 0.6 (1.0-2.2) L 10/21/23 06:34 Prealbumin 8 mg/dL (17-34) L 10/14/23 04:30 Triglycerides 138 mg/dL (48-352) 10/14/23 04:30 Lipase < 10 U/L (11-82) L 10/02/23 09:00 Nasal Screen MRSA (PCR) NEGATIVE (NEGATIVE) 10/02/23 20:40 Ethyl Alcohol < 10.0 mg/dL 10/02/23 09:00 Miscellaneous Test COMMENT (.) 10/10/23 16:07 ABX Reporting Has patient been on IV antibiotics over the past 48 hours?: Yes
[2023-10-21] MEDS: IPRATROPIUM/ALBUTEROL 3 ML NEB INH SCH ×2 (16:26→22:23)
[2023-10-21] MEDS ORDERED: SODIUM CHLORIDE FOR INHALATION 5 ML NEB INH SCH (21:00)
[2023-10-21] MEDS: LORazepam 2 MG/ML VIAL IVP PRN (21:48)
[2023-10-22] MEDS: ACETAMINOPHEN 325 MG TABLET PO SCH ×6 (01:22→21:59)
[2023-10-22] MEDS: oxyCODONE 5 MG TABLET PO PRN ×6 (01:23→21:59)
[2023-10-22] MEDS: SODIUM CHLORIDE FLUSH 0.9% 10 ML SYRINGE IVP SCH ×2 (01:23→03:11)
[2023-10-22] MEDS: HYDROmorphone 0.5 MG/0.5 ML SYRINGE IVP PRN ×2 (03:11→16:38)
[2023-10-22] MEDS: metroNIDAZOLE 500 MG/100 ML 500 MG/100 ML BAG IV SCH ×3 (03:19→18:21)
[2023-10-22] MEDS: CEFEPIME 1 GM in SODIUM CHLORIDE 0.9% MINIBAG 100 ML IV SCH ×3 (05:16→22:00)
[2023-10-22 06:04] LABS: BASOPHILS # (AUTO) 0.1 10^3/uL (0.0-0.1); BASOPHILS % (AUTO) 0.5 %; EOSINOPHILS # (AUTO) 0.2 10^3/uL (0.0-0.7); EOSINOPHILS % (AUTO) 1.3 %; HCT - HEMATOCRIT 23.5 % (37.0-47.0); HGB - HEMOGLOBIN 7.5 g/dL (12.0-16.0); LYMPHOCYTES # (AUTO) 1.4 10^3/uL (1.5-3.5); MEAN CORPUSCULAR HEMOGLOBIN 30.6 pg (27.0-31.0); MEAN CORPUSCULAR HGB CONC 31.9 g/dL (32.0-36.0); MEAN CORPUSCULAR VOLUME 95.9 fL (81.0-99.0); MEAN PLATELET VOLUME 8.7 fL (7.9-10.8); MONOCYTES % (AUTO) 6.2 %; NEUTROPHILS % (AUTO) 82.2 %; PLT - PLATELET COUNT 647 10^3/uL (130-450); RED BLOOD COUNT 2.45 10^6/uL (4.20-5.40); RED CELL DISTRIBUTION WIDTH 14.2 % (12.0-15.0); WHITE BLOOD COUNT 15.9 x10^3/uL (4.8-10.8)
[2023-10-22 06:29] LABS: ALBUMIN 1.8 g/dL (3.2-5.5); ALBUMIN/GLOBULIN RATIO 0.5 (1.0-2.2); BILIRUBIN,TOTAL 0.2 mg/dL (0.2-1.0); CREATININE 0.2 mg/dL (0.6-1.3); TOTAL PROTEIN 5.1 g/dL (6.4-8.9)
[2023-10-22] MEDS: CITALOPRAM HYDROBROMIDE 20 MG TABLET PO SCH (08:38)
[2023-10-22] MEDS: MULTIVITAMIN W/MINERALS TABLET PO SCH (08:39)
[2023-10-22] MEDS: HEPARIN 5,000 UNIT/ML VIAL SUBQ SCH ×2 (08:39→21:58)
--- NOTE | 2023-10-22 09:03 | Ultrasound Report ---
PROCEDURE: Chest INDICATIONS: R pleural effusion TECHNIQUE: Real-time scanning was performed, and a suitable site was marked by the golf ball molder for thoracentesis to be performed by the referring clinician. COMPARISON: 10/18/2023 Findings and impression: Mild to moderate fluid seen in the right pleural base. This is slightly increased compared to 023. Reviewed by: Chris Alvarez MD on 10/22/2023 9:02 AM PST Approved by: Chris Alvarez MD on 10/22/2023 9:02 AM PST Station ID: [id number]
[2023-10-22] MEDS ORDERED: IPRATROPIUM/ALBUTEROL 3 ML NEB INH PRN (09:56)
--- NOTE | 2023-10-22 13:01 | PROVIDER PROGRESS NOTE ---
Assessment/Plan - Problem List (1) Perforated abdominal viscus Assessment/Plan: (1) Thrombocytosis Assessment/Plan: --WBC remains elevated however downtrending. --Performed a CT chest/abdomen/pelvis this morning which revealed a right-sided pleural effusion. This was discussed with interventional radiology and will attempt to perform a thoracentesis. Will order a fluid culture and analysis. --CT abdominal findings were also discussed with general surgery. She does appear to have an adynamic ileus. Fluid around liver was unchanged and does not require intervention. --Continuing with IV antibiotics (cefepime and metronidazole). Fluconazone was given for 7 days. --I advised her to ambulate TID. (2) Perforated abdominal viscus Impression: As per surgical findings. She now has a colostomy (3) Post-op intra-abdominal abscess She has been on several iv antibx and has a very prolonged postoperative hospital stay. Her pain is controlled Plan: This patient needs to be taught colostomy training, and family needs to be taught colostomy training, since she cannot go to SNF from here (she has no insurance coverage for SNF or for Home Health). A barrier to this successful training will be the fact that she has a right wrist fracture. (4) Acute respiratory failure with hypoxia Conclusion/Plan: Hypoxia has been up and down. Postoperatively there was fluid overload, then a mucous plug with consolidation seen on CT of the right lung from the plug. Bronchoscopy done after that and showed open right upper lung. She was on nasal cannula and tolerating it well. --Ultrasound of her lung was performed 10/19 which was unremarkable for drainable effusion. -- As mentioned above, we will perform a an ultrasound again to possibly remove fluid. -- Will start her on DuoNeb for atelectasis. (5) Aspiration pneumonitis due to regurgitated gastric secretions Conclusion/Plan: --Resolved. --Thoracentesis is pending, will order a pleural fluid culture and analysis. (6) Mucous plug of bronchi Conclusion/Plan: RESOLVED This required suctioning and even a bronchoscopy and probably added to the HCAP --She is currently having some atalectasis. Refusing nebulizers. I recommended incentive spirometry and ambulation. (7) Nutrition deficiency due to insufficient food Conclusion/Plan: We started PPN and she had NG tube in place. Central line placed October 08. PPN was switched to TPN October 09. Plan: Diet order as per Gen surg (8) Generalized weakness Conclusion/Plan: She has been very, very slow to progress and improve. She was intermittently reluctant to get up out of bed. Physical therapy has worked with her. She keeps on telling physical therapy that she wants to go home. She lives alone. Case management explained that this patient does not have outpatient insurance that would allow her to have Home Health services or coverage to go to [facility] for rehab. Plan: We will have to make sure this patient is able to go home with good colostomy instruction, and that her family has good colostomy instruction. We also do not have a colostomy education nurse here anymore. (9) Wrist fracture Conclusion/Plan: The last Hospitalist requested an Orthopedic consult. The Orthopedic spoke to me, learned that the fracture was remote and there is already a plate in place, status post surgery done elsewhere. PT to determine what restrictions are necessary to follow (10) Fever Conclusion/Plan: -- Patient spiked a fever of 38.2 Celsius on 10/16. --I did discuss this with general surgery who felt the etiology was not intra- abdominal. An ultrasound was performed of her lung which did not show a significant amount of fluid. --Blood cultures obtained on 10/16 showed no growth to date. -- Will continue to monitor for fever. - Current Meds Current Meds: Current Medications Generic Name Dose Route Start Last Admin Trade Name Freq PRN Reason Stop Dose Admin Acetaminophen 650 mg 10/22/23 06:00 10/22/23 10:21 Acetaminophen 325 Mg Tablet PO 650 mg Q4H SANDRA Administration Citalopram Hydrobromide 20 mg 10/03/23 09:00 10/22/23 08:38 Citalopram Hydrobromide 20 Mg Tablet PO 20 mg DAILY SANDRA Administration Heparin Sodium (Porcine) 5,000 unit 10/03/23 09:00 10/22/23 08:39 Heparin 5,000 Unit/Ml Vial SUBQ 5,000 unit BID SANDRA Administration Hydromorphone HCl 0.5 mg 10/13/23 11:28 10/22/23 03:11 Hydromorphone 0.5 Mg/0.5 Ml Syringe IVP 0.5 mg Q4H PRN Administration Breakthrough Pain Cefepime HCl 1 gm/ Sodium 100 mls @ 200 mls/hr 10/10/23 22:00 10/22/23 05:46 Chloride IV Infused TID SANDRA Infusion Metronidazole 500 mg in 100 mls @ 100 mls/hr 10/10/23 19:00 10/22/23 11:55 Flagyl 500 Mg/100 Ml IV Infused Q8H SANDRA Infusion Ibuprofen 600 mg 10/11/23 08:33 10/19/23 15:57 Ibuprofen 600 Mg Tablet PO 600 mg Q6HR PRN Administration Moderate Pain (Level 4-6) Lorazepam 1 mg 10/13/23 11:28 10/21/23 21:48 Lorazepam 2 Mg/Ml Vial IVP 1 mg Q4H PRN Administration Anxiety Multivitamins/Minerals 1 tab 10/20/23 17:00 10/22/23 08:39 Multivitamin W/Minerals Tablet PO 1 tab DAILYWM SANDRA Administration Ondansetron HCl 4 mg 10/02/23 15:19 10/20/23 22:35 Ondansetron Odt 4 Mg Tablet TL 4 mg Q6HR PRN Administration Nausea / Vomiting Ondansetron HCl 4 mg 10/02/23 15:19 10/21/23 04:13 Ondansetron 4 Mg/2 Ml Vial IVP 4 mg Q6HR PRN Administration Nausea / Vomiting Oxycodone HCl 5 mg 10/11/23 08:34 10/22/23 10:21 Oxycodone 5 Mg Tablet PO 5 mg Q4HR PRN Administration Severe Pain (Level 7-10) Prochlorperazine Edisylate 10 mg 10/08/23 14:14 10/21/23 01:36 Prochlorperazine 10 Mg/2 Ml Vial IVP 10 mg Q6HR PRN Administration Nausea / Vomiting Sodium Chloride 10 ml 10/06/23 09:00 10/22/23 03:11 Sodium Chloride Flush 0.9% 10 Ml Syringe IVP 10 ml 0100,0900,1700 SANDRA Administration Sodium Chloride 10 ml 10/06/23 07:17 10/21/23 21:48 Sodium Chloride Flush 0.9% 10 Ml Syringe IVP 10 ml PRN PRN Administration NEEDED PER PROVIDER ORDERS - Lab Result Fish Bone Diagrams: 10/22/23 05:43 10/22/23 05:43 - Additional Planning My Orders: My Active Orders 10/21/23 13:37 Nebulizer/MDI Tx. [RC] .QID Resp Teach Nebulizer/MDI [RC] .ONCE 10/21/23 13:38 Incentive Spirometry - RT [RC] .tid 10/22/23 09:56 Ipratropium/Albuterol [Duoneb] 3 ml INH RTQID PRN 10/23/23 05:00 CBC [CBC - COMP BLD CT W/AUTO DIFF] [HEME] DAILYLAB CMP [COMPREHENSIVE METABOLIC PANEL] [CHEM] DAILYLAB 10/24/23 05:00 CBC [CBC - COMP BLD CT W/AUTO DIFF] [HEME] DAILYLAB CMP [COMPREHENSIVE METABOLIC PANEL] [CHEM] DAILYLAB 10/25/23 05:00 CBC [CBC - COMP BLD CT W/AUTO DIFF] [HEME] DAILYLAB Subjective - Subjective Patient Reports: Feeling Better, Resting Comfortably, No Complaints (No fever or chills.) Objective Vital Signs: Vital Signs - 24 hr 10/21/23 10/21/23 10/21/23 16:01 16:27 16:30 Temperature 36.7 C Heart Rate 94 Heart Rate [ Brachial] Heart Rate [ 94 Monitoring electrodes] Respiratory 20 18 Rate Blood Pressure 142/86 H [Right Brachial artery] O2 Saturation 98 If not protocol 2 1 1 : Oxygen Flow, liters/minute 10/21/23 10/21/23 10/22/23 19:15 19:43 01:31 Temperature 37.1 C 36.9 C Heart Rate Heart Rate [ 97 Brachial] Heart Rate [ 94 Monitoring electrodes] Respiratory 16 16 Rate Blood Pressure 131/81 H 136/83 H [Right Brachial artery] O2 Saturation 96 95 If not protocol 1 1 1 : Oxygen Flow, liters/minute 10/22/23 07:45 Temperature 36.5 C Heart Rate Heart Rate [ 95 Brachial] Heart Rate [ Monitoring electrodes] Respiratory 18 Rate Blood Pressure 126/84 H [Right Brachial artery] O2 Saturation 93 If not protocol : Oxygen Flow, liters/minute Oxygen O2 Source Room air I&O (Last 24 Hrs): Intake and Output Totals x24h 10/20/23 10/21/23 10/22/23 23:59 23:59 23:59 Intake Total 1960 1356 1030 Output Total 1025 700 550 Balance 935 656 480 General: Alert, Oriented x3, Cooperative HEENT: Atraumatic, PERRLA, EOMI Cardiovascular: Regular rate, Normal S1, Normal S2 Respiratory: Chest non-tender, No respiratory distress, Breath sounds nml Abdomen: Normal bowel sounds, No tenderness - Results Results: Laboratory Results WBC 15.9 x10^3/uL (4.8-10.8) H 10/22/23 05:43 RBC 2.45 10^6/uL (4.20-5.40) L 10/22/23 05:43 Hgb 7.5 g/dL (12.0-16.0) L 10/22/23 05:43 Hct 23.5 % (37.0-47.0) L 10/22/23 05:43 MCV 95.9 fL (81.0-99.0) 10/22/23 05:43 MCH 30.6 pg (27.0-31.0) 10/22/23 05:43 MCHC 31.9 g/dL (32.0-36.0) L 10/22/23 05:43 RDW 14.2 % (12.0-15.0) 10/22/23 05:43 Plt Count 647 10^3/uL (130-450) H 10/22/23 05:43 MPV 8.7 fL (7.9-10.8) 10/22/23 05:43 Neut # (Auto) 13.0 10^3/uL (1.5-6.6) H 10/22/23 05:43 Lymph # (Auto) 1.4 10^3/uL (1.5-3.5) L 10/22/23 05:43 [place] # (Auto) 1.0 10^3/uL (0.0-1.0) 10/22/23 05:43 Eos # (Auto) 0.2 10^3/uL (0.0-0.7) 10/22/23 05:43 Baso # (Auto) 0.1 10^3/uL (0.0-0.1) 10/22/23 05:43 Absolute Nucleated RBC 0.00 x10^3/uL 10/22/23 05:43 Total Counted 100 10/19/23 05:30 Band Neuts % (Manual) 10 % (0-10) 10/19/23 05:30 Reactive Lymphs % (Man) 1 % 10/03/23 06:51 Abnorm Lymph % (Manual) 0 % 10/19/23 05:30 Metamyelocytes % 4 % (-0) H 10/03/23 06:51 Myelocytes % 1 % (-0) H 10/04/23 07:07 Nucleated RBC % 0.0 /100WBC 10/22/23 05:43 Neutrophils # (Manual) 25.1 10^3/uL (1.5-6.6) H 10/19/23 05:30 Lymphocytes # (Manual) 0.5 10^3/uL (1.5-3.5) L 10/19/23 05:30 Monocytes # (Manual) 0.8 10^3/uL (0.0-1.0) 10/19/23 05:30 Eosinophils # (Manual) 0.0 10^3/uL (0-0.7) 10/19/23 05:30 Basophils # (Manual) 0.3 10^3/uL (0-0.1) H 10/19/23 05:30 Differential Comment MANUAL DIFFERENTIAL 10/19/23 05:30 Manual Slide Review Indicated 10/16/23 04:25 WBC Morphology NORMAL APPEARANCE (NORMAL) 10/06/23 10:57 Platelet Estimate INCREASED (>450,000) (NORMAL) 10/19/23 05:30 Platelet Morphology NORMAL APPEARANCE (NORMAL) 10/16/23 04:25 RBC Morph Micro Appear NORMAL APPEARANCE (NORMAL) 10/19/23 05:30 Bld Gas Analysis Time 1646 10/08/23 16:42 Sample Site RIGHT RADIAL 10/08/23 16:42 ABG pH 7.46 (7.35-7.45) H 10/08/23 16:42 ABG pCO2 43 mmHg (34-45) 10/08/23 16:42 ABG pO2 102 mmHg (80-100) H 10/08/23 16:42 ABG HCO3 29.9 mmol/L (22.0-26.0) H 10/08/23 16:42 ABG Total CO2 31.2 MMOL/L (21.0-29.0) H 10/08/23 16:42 ABG O2 Saturation 98 % (94-98) 10/08/23 16:42 ABG Base Excess 5.5 mmol/L (-2.0-3.0) H 10/08/23 16:42 Anuj Test POSITIVE 10/08/23 16:42 VBG pH 7.371 (7.31-7.41) 10/13/23 05:00 Ionized Calcium 1.15 mmol/L (1.15-1.33) 10/13/23 05:00 Respiration Rate 20 b/min 10/06/23 07:20 O2 Delivery Device BiPAP 10/08/23 16:42 Vent Mode SYNCHRONOUS/TIMES 10/08/23 16:42 FiO2 50.00 10/08/23 16:42 EPAP 5 cmH2O 10/08/23 16:42 IPAP 10 cmH2O 10/08/23 16:42 Sodium 133 mmol/L (135-145) L 10/22/23 05:43 Potassium 4.0 mmol/L (3.5-4.5) 10/22/23 05:43 Chloride 99 mmol/L (101-111) L 10/22/23 05:43 Carbon Dioxide 30 mmol/L (21-32) 10/22/23 05:43 Anion Gap 4.0 (6-13) L 10/22/23 05:43 BUN 13 mg/dL (6-20) 10/22/23 05:43 Creatinine 0.2 mg/dL (0.6-1.3) L 10/22/23 05:43 Estimated GFR (MDRD) 360 (>89) 10/22/23 05:43 Glucose 102 mg/dL (74-104) 10/22/23 05:43 POC Whole Bld Glucose 166 mg/dL (70 - 100) H 10/06/23 06:05 Lactic Acid 0.7 mmol/L (0.5-2.2) 10/16/23 17:46 Calcium 8.0 mg/dL (8.5-10.3) L 10/22/23 05:43 Phosphorus 4.0 mg/dL (2.5-5.0) 10/14/23 04:30 Magnesium 1.9 mg/dL (1.7-2.3) 10/14/23 04:30 Total Bilirubin 0.2 mg/dL (0.2-1.0) 10/22/23 05:43 AST 7 IU/L (10-42) L 10/22/23 05:43 ALT 3 IU/L (10-60) L 10/22/23 05:43 Alkaline Phosphatase 73 IU/L (42-121) 10/22/23 05:43 Lactate Dehydrogenase 122 IU/L (140-271) L 10/21/23 13:44 Troponin I High Sens 11.8 ng/L (2.3-14.8) 10/06/23 06:38 Total Protein 5.1 g/dL (6.4-8.9) L 10/22/23 05:43 Albumin 1.8 g/dL (3.2-5.5) L 10/22/23 05:43 Globulin 3.3 g/dL (2.1-4.2) 10/22/23 05:43 Albumin/Globulin Ratio 0.5 (1.0-2.2) L 10/22/23 05:43 Prealbumin 8 mg/dL (17-34) L 10/14/23 04:30 Triglycerides 138 mg/dL (48-352) 10/14/23 04:30 Lipase < 10 U/L (11-82) L 10/02/23 09:00 Nasal Screen MRSA (PCR) NEGATIVE (NEGATIVE) 10/02/23 20:40 Ethyl Alcohol < 10.0 mg/dL 10/02/23 09:00 Miscellaneous Test COMMENT (.) 10/10/23 16:07
--- NOTE | 2023-10-22 16:03 | PROVIDER PROGRESS NOTE ---
Subjective - Subjective Pt reports feeling: Improved (no complaints. feels up to going home tomorrow) Objective - Vital Signs/Intake & Output Vital Signs: Vital Signs x48h Temp Pulse Resp BP Pulse Ox 10/22/23 15:32 36.6 C 93 16 124/80 92 Intake & Output: Intake & Output 10/19/23 10/20/23 10/21/23 10/22/23 23:59 23:59 23:59 23:59 Intake Total 2530 1960 1356 1530 Output Total 1500 1025 700 650 Balance 1030 935 656 880 - Objective General Appearance: positive: No acute distress, Alert Eyes Bilateral: positive: PERRL, EOMI Neck: positive: No JVD, Trachea midline Respiratory: positive: No respiratory distress Abdomen: positive: Non-tender, No distention Neurologic/Psychiatric: positive: Oriented x3 - Lab Results Fish Bones: 10/22/23 05:43 10/22/23 05:43 Other Labs: Lab Results x24hrs 10/22/23 10/22/23 Range/Units 05:43 05:43 WBC 15.9 H (4.8-10.8) x10^3/uL RBC 2.45 L (4.20-5.40) 10^6/uL Hgb 7.5 L (12.0-16.0) g/dL Hct 23.5 L (37.0-47.0) % MCV 95.9 (81.0-99.0) fL MCH 30.6 (27.0-31.0) pg MCHC 31.9 L (32.0-36.0) g/dL RDW 14.2 (12.0-15.0) % Plt Count 647 H (130-450) 10^3/uL MPV 8.7 (7.9-10.8) fL Neut # (Auto) 13.0 H (1.5-6.6) 10^3/uL Lymph # (Auto) 1.4 L (1.5-3.5) 10^3/uL [place] # (Auto) 1.0 (0.0-1.0) 10^3/uL Eos # (Auto) 0.2 (0.0-0.7) 10^3/uL Baso # (Auto) 0.1 (0.0-0.1) 10^3/uL Absolute Nucleated RBC 0.00 x10^3/uL Nucleated RBC % 0.0 /100WBC Sodium 133 L (135-145) mmol/L Potassium 4.0 (3.5-4.5) mmol/L Chloride 99 L (101-111) mmol/L Carbon Dioxide 30 (21-32) mmol/L Anion Gap 4.0 L (6-13) BUN 13 (6-20) mg/dL Creatinine 0.2 L (0.6-1.3) mg/dL Estimated GFR (MDRD) 360 (>89) Glucose 102 (74-104) mg/dL Calcium 8.0 L (8.5-10.3) mg/dL Total Bilirubin 0.2 (0.2-1.0) mg/dL AST 7 L (10-42) IU/L ALT 3 L (10-60) IU/L Alkaline Phosphatase 73 (42-121) IU/L Total Protein 5.1 L (6.4-8.9) g/dL Albumin 1.8 L (3.2-5.5) g/dL Globulin 3.3 (2.1-4.2) g/dL Albumin/Globulin Ratio 0.5 L (1.0-2.2) Assessment/Plan - Problem List (1) Perforated abdominal viscus Impression: daily improvement. wbc down. plan home tomorrow if doing ok. rx sent for abx, pain pill, nausea pill.
[2023-10-22] MEDS: SODIUM CHLORIDE FLUSH 0.9% 10 ML SYRINGE IVP PRN (16:39)
[2023-10-23] MEDS: HYDROmorphone 0.5 MG/0.5 ML SYRINGE IVP PRN ×4 (00:36→22:19)
[2023-10-23] MEDS: SODIUM CHLORIDE FLUSH 0.9% 10 ML SYRINGE IVP SCH ×3 (00:36→16:20)
[2023-10-23] MEDS: ONDANSETRON ODT 4 MG TABLET TL PRN ×2 (00:47→18:37)
[2023-10-23] MEDS: oxyCODONE 5 MG TABLET PO PRN ×3 (03:34→20:21)
[2023-10-23] MEDS: metroNIDAZOLE 500 MG/100 ML 500 MG/100 ML BAG IV SCH ×3 (03:35→18:54)
[2023-10-23] MEDS: ACETAMINOPHEN 325 MG TABLET PO SCH ×5 (03:35→20:22)
[2023-10-23] MEDS: SODIUM CHLORIDE FLUSH 0.9% 10 ML SYRINGE IVP PRN ×3 (03:37→18:41)
[2023-10-23 06:04] LABS: BASOPHILS # (AUTO) 0.1 10^3/uL (0.0-0.1); BASOPHILS % (AUTO) 0.4 %; EOSINOPHILS # (AUTO) 0.2 10^3/uL (0.0-0.7); EOSINOPHILS % (AUTO) 0.9 %; HCT - HEMATOCRIT 26.1 % (37.0-47.0); LYMPHOCYTES # (AUTO) 1.2 10^3/uL (1.5-3.5); LYMPHOCYTES % (AUTO) 6.6 %; MEAN CORPUSCULAR HEMOGLOBIN 29.7 pg (27.0-31.0); MEAN CORPUSCULAR HGB CONC 30.7 g/dL (32.0-36.0); MEAN PLATELET VOLUME 10.1 fL (7.9-10.8); MONOCYTES # (AUTO) 1.2 10^3/uL (0.0-1.0); MONOCYTES % (AUTO) 6.2 %; NEUTROPHILS # (AUTO) 15.8 10^3/uL (1.5-6.6); NEUTROPHILS % (AUTO) 84.8 %; PLT - PLATELET COUNT 559 10^3/uL (130-450); RED BLOOD COUNT 2.69 10^6/uL (4.20-5.40); RED CELL DISTRIBUTION WIDTH 14.6 % (12.0-15.0); WHITE BLOOD COUNT 18.6 x10^3/uL (4.8-10.8)
[2023-10-23 06:16] LABS: ALBUMIN/GLOBULIN RATIO 0.6 (1.0-2.2); BILIRUBIN,TOTAL 0.3 mg/dL (0.2-1.0); CALCIUM 8.1 mg/dL (8.5-10.3); CREATININE 0.3 mg/dL (0.6-1.3); POTASSIUM 4.4 mmol/L (3.5-4.5); TOTAL PROTEIN 5.6 g/dL (6.4-8.9)
[2023-10-23] MEDS: CEFEPIME 1 GM in SODIUM CHLORIDE 0.9% MINIBAG 100 ML IV SCH ×3 (06:45→21:23)
[2023-10-23] MEDS: CITALOPRAM HYDROBROMIDE 20 MG TABLET PO SCH (08:13)
[2023-10-23] MEDS: MULTIVITAMIN W/MINERALS TABLET PO SCH (08:13)
[2023-10-23] MEDS: HEPARIN 5,000 UNIT/ML VIAL SUBQ SCH ×2 (08:14→21:30)
--- NOTE | 2023-10-23 12:59 | PROVIDER PROGRESS NOTE ---
Subjective - Subjective Pt reports feeling: Improved (still very weak and ambulation is difficult) Objective - Vital Signs/Intake & Output Vital Signs: Vital Signs x48h Temp Pulse Resp BP Pulse Ox O2 Flow Rate 10/23/23 07:23 36.1 C L 97 16 140/90 H 96 1 Intake & Output: Intake & Output 10/20/23 10/21/23 10/22/23 10/23/23 23:59 23:59 23:59 23:59 Intake Total 1960 1356 2280 1200 Output Total 1025 700 750 200 Balance 472 483 7946 1000 - Objective General Appearance: positive: No acute distress, Alert Eyes Bilateral: positive: PERRL, EOMI ENT: positive: No signs of dehydration Respiratory: positive: No respiratory distress Abdomen: positive: Non-tender Neurologic/Psychiatric: positive: Oriented x3 - Lab Results Fish Bones: 10/23/23 05:24 10/23/23 05:24 Other Labs: Lab Results x24hrs 10/23/23 10/23/23 Range/Units 05:24 05:24 WBC 18.6 H (4.8-10.8) x10^3/uL RBC 2.69 L (4.20-5.40) 10^6/uL Hgb 8.0 L (12.0-16.0) g/dL Hct 26.1 L (37.0-47.0) % MCV 97.0 (81.0-99.0) fL MCH 29.7 (27.0-31.0) pg MCHC 30.7 L (32.0-36.0) g/dL RDW 14.6 (12.0-15.0) % Plt Count 559 H (130-450) 10^3/uL MPV 10.1 (7.9-10.8) fL Neut # (Auto) 15.8 H (1.5-6.6) 10^3/uL Lymph # (Auto) 1.2 L (1.5-3.5) 10^3/uL [place] # (Auto) 1.2 H (0.0-1.0) 10^3/uL Eos # (Auto) 0.2 (0.0-0.7) 10^3/uL Baso # (Auto) 0.1 (0.0-0.1) 10^3/uL Absolute Nucleated RBC 0.00 x10^3/uL Nucleated RBC % 0.0 /100WBC Sodium 131 L (135-145) mmol/L Potassium 4.4 (3.5-4.5) mmol/L Chloride 96 L (101-111) mmol/L Carbon Dioxide 29 (21-32) mmol/L Anion Gap 6.0 (6-13) BUN 16 (6-20) mg/dL Creatinine 0.3 L (0.6-1.3) mg/dL Estimated GFR (MDRD) 225 (>89) Glucose 114 H (74-104) mg/dL Calcium 8.1 L (8.5-10.3) mg/dL Total Bilirubin 0.3 (0.2-1.0) mg/dL AST 19 (10-42) IU/L ALT 5 L (10-60) IU/L Alkaline Phosphatase 88 (42-121) IU/L Total Protein 5.6 L (6.4-8.9) g/dL Albumin 2.0 L (3.2-5.5) g/dL Globulin 3.6 (2.1-4.2) g/dL Albumin/Globulin Ratio 0.6 L (1.0-2.2) Assessment/Plan - Problem List (1) Perforated abdominal viscus Impression: slow improvement. ok to shower and get the incision or dressing wet anticipate home tomorrow
--- NOTE | 2023-10-23 14:07 | PROVIDER PROGRESS NOTE ---
Assessment/Plan - Problem List (1) Perforated abdominal viscus Assessment/Plan: (1) Thrombocytosis Assessment/Plan: --WBC remains elevated --Fluid too scant for a thoracentesis. --CT abdominal findings were also discussed with general surgery. She does appear to have an adynamic ileus. Fluid around liver was unchanged and does not require intervention. --Continuing with IV antibiotics (cefepime and metronidazole). Fluconazone was given for 7 days. --I advised her to ambulate TID. (2) Perforated abdominal viscus Impression: As per surgical findings. She now has a colostomy (3) Post-op intra-abdominal abscess She has been on several iv antibx and has a very prolonged postoperative hospital stay. Her pain is controlled Plan: This patient needs to be taught colostomy training, and family needs to be taught colostomy training, since she cannot go to SNF from here (she has no insurance coverage for SNF or for Home Health). A barrier to this successful training will be the fact that she has a right wrist fracture. (4) Acute respiratory failure with hypoxia Conclusion/Plan: Hypoxia has been up and down. Postoperatively there was fluid overload, then a mucous plug with consolidation seen on CT of the right lung from the plug. Bronchoscopy done after that and showed open right upper lung. She was on nasal cannula and tolerating it well. --Ultrasound of her lung was performed 10/19 which was unremarkable for drainable effusion. -- As mentioned above, we will perform a an ultrasound again to possibly remove fluid. -- Will start her on DuoNeb for atelectasis. (5) Aspiration pneumonitis due to regurgitated gastric secretions Conclusion/Plan: --Resolved. --Thoracentesis is pending, will order a pleural fluid culture and analysis. (6) Mucous plug of bronchi Conclusion/Plan: RESOLVED This required suctioning and even a bronchoscopy and probably added to the HCAP --She is currently having some atalectasis. Refusing nebulizers. I recommended incentive spirometry and ambulation. (7) Nutrition deficiency due to insufficient food Conclusion/Plan: We started PPN and she had NG tube in place. Central line placed October 08. PPN was switched to TPN October 09. Plan: Diet order as per Gen surg (8) Generalized weakness Conclusion/Plan: She has been very, very slow to progress and improve. She was intermittently reluctant to get up out of bed. Physical therapy has worked with her. She keeps on telling physical therapy that she wants to go home. She lives alone. Case management explained that this patient does not have outpatient insurance that would allow her to have Home Health services or coverage to go to [facility] for rehab. Plan: We will have to make sure this patient is able to go home with good colostomy instruction, and that her family has good colostomy instruction. We also do not have a colostomy education nurse here anymore. (9) Wrist fracture Conclusion/Plan: The last Hospitalist requested an Orthopedic consult. The Orthopedic spoke to me, learned that the fracture was remote and there is already a plate in place, status post surgery done elsewhere. PT to determine what restrictions are necessary to follow (10) Fever Conclusion/Plan: -- Patient spiked a fever of 38.2 Celsius on 10/16. --I did discuss this with general surgery who felt the etiology was not intra- abdominal. An ultrasound was performed of her lung which did not show a significant amount of fluid. --Blood cultures obtained on 10/16 showed no growth to date. -- Will continue to monitor for fever. - Current Meds Current Meds: Current Medications Generic Name Dose Route Start Last Admin Trade Name Freq PRN Reason Stop Dose Admin Acetaminophen 650 mg 10/23/23 08:00 10/23/23 13:01 Acetaminophen 325 Mg Tablet PO 650 mg Q4H SANDRA Administration Citalopram Hydrobromide 20 mg 10/03/23 09:00 10/23/23 08:13 Citalopram Hydrobromide 20 Mg Tablet PO 20 mg DAILY SANDRA Administration Heparin Sodium (Porcine) 5,000 unit 10/03/23 09:00 10/23/23 08:14 Heparin 5,000 Unit/Ml Vial SUBQ 5,000 unit BID SANDRA Administration Hydromorphone HCl 0.5 mg 10/13/23 11:28 10/23/23 06:41 Hydromorphone 0.5 Mg/0.5 Ml Syringe IVP 0.5 mg Q4H PRN Administration Breakthrough Pain Cefepime HCl 1 gm/ Sodium 100 mls @ 200 mls/hr 10/10/23 22:00 10/23/23 13:02 Chloride IV 200 mls/hr TID SANDRA Administration Metronidazole 500 mg in 100 mls @ 100 mls/hr 10/10/23 19:00 10/23/23 12:10 Flagyl 500 Mg/100 Ml IV Infused Q8H SANDRA Infusion Ibuprofen 600 mg 10/11/23 08:33 10/19/23 15:57 Ibuprofen 600 Mg Tablet PO 600 mg Q6HR PRN Administration Moderate Pain (Level 4-6) Lorazepam 1 mg 10/13/23 11:28 10/21/23 21:48 Lorazepam 2 Mg/Ml Vial IVP 1 mg Q4H PRN Administration Anxiety Multivitamins/Minerals 1 tab 10/20/23 17:00 10/23/23 08:13 Multivitamin W/Minerals Tablet PO 1 tab DAILYWM SANDRA Administration Ondansetron HCl 4 mg 10/02/23 15:19 10/23/23 00:47 Ondansetron Odt 4 Mg Tablet TL 4 mg Q6HR PRN Administration Nausea / Vomiting Ondansetron HCl 4 mg 10/02/23 15:19 10/21/23 04:13 Ondansetron 4 Mg/2 Ml Vial IVP 4 mg Q6HR PRN Administration Nausea / Vomiting Oxycodone HCl 5 mg 10/11/23 08:34 10/23/23 03:34 Oxycodone 5 Mg Tablet PO 5 mg Q4HR PRN Administration Severe Pain (Level 7-10) Prochlorperazine Edisylate 10 mg 10/08/23 14:14 10/21/23 01:36 Prochlorperazine 10 Mg/2 Ml Vial IVP 10 mg Q6HR PRN Administration Nausea / Vomiting Sodium Chloride 10 ml 10/06/23 09:00 10/23/23 08:13 Sodium Chloride Flush 0.9% 10 Ml Syringe IVP Not Given 0100,0900,1700 SANDRA Sodium Chloride 10 ml 10/06/23 07:17 10/23/23 06:41 Sodium Chloride Flush 0.9% 10 Ml Syringe IVP 10 ml PRN PRN Administration NEEDED PER PROVIDER ORDERS - Lab Result Fish Bone Diagrams: 10/23/23 05:24 10/23/23 05:24 - Additional Planning My Orders: My Active Orders 10/24/23 05:00 CBC [CBC - COMP BLD CT W/AUTO DIFF] [HEME] DAILYLAB CMP [COMPREHENSIVE METABOLIC PANEL] [CHEM] DAILYLAB 10/25/23 05:00 CBC [CBC - COMP BLD CT W/AUTO DIFF] [HEME] DAILYLAB Subjective - Subjective Patient Reports: Feeling Better, Resting Comfortably, No Complaints (She would like to shower today. Discharge tomorrow. No fevers or chills noted. Discussed case with radiology, not enough fluid to perform thoracentesis.) Objective Vital Signs: Vital Signs - 24 hr 10/22/23 10/22/23 10/23/23 15:32 22:00 00:32 Temperature 36.6 C 37.2 C 37.0 C Heart Rate [ Brachial] Heart Rate [ 93 111 H 92 Monitoring electrodes] Respiratory 16 20 16 Rate Blood Pressure 124/80 134/89 H 144/98 H [Right Brachial artery] O2 Saturation 92 93 95 If not protocol 1 1 : Oxygen Flow, liters/minute 10/23/23 07:23 Temperature 36.1 C L Heart Rate [ 97 Brachial] Heart Rate [ Monitoring electrodes] Respiratory 16 Rate Blood Pressure 140/90 H [Right Brachial artery] O2 Saturation 96 If not protocol 1 : Oxygen Flow, liters/minute Oxygen O2 Source Nasal cannula I&O (Last 24 Hrs): Intake and Output Totals x24h 10/21/23 10/22/23 10/23/23 23:59 23:59 23:59 Intake Total 1356 2280 1700 Output Total 700 750 500 Balance 656 1530 1200 General: Alert, Oriented x3 Neuro: Alert Cardiovascular: Regular rate, Normal S1, Normal S2 Respiratory: Chest non-tender, No respiratory distress, Breath sounds nml Abdomen: Normal bowel sounds, No tenderness - Results Results: Laboratory Results WBC 18.6 x10^3/uL (4.8-10.8) H 10/23/23 05:24 RBC 2.69 10^6/uL (4.20-5.40) L 10/23/23 05:24 Hgb 8.0 g/dL (12.0-16.0) L 10/23/23 05:24 Hct 26.1 % (37.0-47.0) L 10/23/23 05:24 MCV 97.0 fL (81.0-99.0) 10/23/23 05:24 MCH 29.7 pg (27.0-31.0) 10/23/23 05:24 MCHC 30.7 g/dL (32.0-36.0) L 10/23/23 05:24 RDW 14.6 % (12.0-15.0) 10/23/23 05:24 Plt Count 559 10^3/uL (130-450) H 10/23/23 05:24 MPV 10.1 fL (7.9-10.8) 10/23/23 05:24 Neut # (Auto) 15.8 10^3/uL (1.5-6.6) H 10/23/23 05:24 Lymph # (Auto) 1.2 10^3/uL (1.5-3.5) L 10/23/23 05:24 [place] # (Auto) 1.2 10^3/uL (0.0-1.0) H 10/23/23 05:24 Eos # (Auto) 0.2 10^3/uL (0.0-0.7) 10/23/23 05:24 Baso # (Auto) 0.1 10^3/uL (0.0-0.1) 10/23/23 05:24 Absolute Nucleated RBC 0.00 x10^3/uL 10/23/23 05:24 Total Counted 100 10/19/23 05:30 Band Neuts % (Manual) 10 % (0-10) 10/19/23 05:30 Reactive Lymphs % (Man) 1 % 10/03/23 06:51 Abnorm Lymph % (Manual) 0 % 10/19/23 05:30 Metamyelocytes % 4 % (-0) H 10/03/23 06:51 Myelocytes % 1 % (-0) H 10/04/23 07:07 Nucleated RBC % 0.0 /100WBC 10/23/23 05:24 Neutrophils # (Manual) 25.1 10^3/uL (1.5-6.6) H 10/19/23 05:30 Lymphocytes # (Manual) 0.5 10^3/uL (1.5-3.5) L 10/19/23 05:30 Monocytes # (Manual) 0.8 10^3/uL (0.0-1.0) 10/19/23 05:30 Eosinophils # (Manual) 0.0 10^3/uL (0-0.7) 10/19/23 05:30 Basophils # (Manual) 0.3 10^3/uL (0-0.1) H 10/19/23 05:30 Differential Comment MANUAL DIFFERENTIAL 10/19/23 05:30 Manual Slide Review Indicated 10/16/23 04:25 WBC Morphology NORMAL APPEARANCE (NORMAL) 10/06/23 10:57 Platelet Estimate INCREASED (>450,000) (NORMAL) 10/19/23 05:30 Platelet Morphology NORMAL APPEARANCE (NORMAL) 10/16/23 04:25 RBC Morph Micro Appear NORMAL APPEARANCE (NORMAL) 10/19/23 05:30 Bld Gas Analysis Time 1646 10/08/23 16:42 Sample Site RIGHT RADIAL 10/08/23 16:42 ABG pH 7.46 (7.35-7.45) H 10/08/23 16:42 ABG pCO2 43 mmHg (34-45) 10/08/23 16:42 ABG pO2 102 mmHg (80-100) H 10/08/23 16:42 ABG HCO3 29.9 mmol/L (22.0-26.0) H 10/08/23 16:42 ABG Total CO2 31.2 MMOL/L (21.0-29.0) H 10/08/23 16:42 ABG O2 Saturation 98 % (94-98) 10/08/23 16:42 ABG Base Excess 5.5 mmol/L (-2.0-3.0) H 10/08/23 16:42 Anuj Test POSITIVE 10/08/23 16:42 VBG pH 7.371 (7.31-7.41) 10/13/23 05:00 Ionized Calcium 1.15 mmol/L (1.15-1.33) 10/13/23 05:00 Respiration Rate 20 b/min 10/06/23 07:20 O2 Delivery Device BiPAP 10/08/23 16:42 Vent Mode SYNCHRONOUS/TIMES 10/08/23 16:42 FiO2 50.00 10/08/23 16:42 EPAP 5 cmH2O 10/08/23 16:42 IPAP 10 cmH2O 10/08/23 16:42 Sodium 131 mmol/L (135-145) L 10/23/23 05:24 Potassium 4.4 mmol/L (3.5-4.5) 10/23/23 05:24 Chloride 96 mmol/L (101-111) L 10/23/23 05:24 Carbon Dioxide 29 mmol/L (21-32) 10/23/23 05:24 Anion Gap 6.0 (6-13) 10/23/23 05:24 BUN 16 mg/dL (6-20) 10/23/23 05:24 Creatinine 0.3 mg/dL (0.6-1.3) L 10/23/23 05:24 Estimated GFR (MDRD) 225 (>89) 10/23/23 05:24 Glucose 114 mg/dL (74-104) H 10/23/23 05:24 POC Whole Bld Glucose 166 mg/dL (70 - 100) H 10/06/23 06:05 Lactic Acid 0.7 mmol/L (0.5-2.2) 10/16/23 17:46 Calcium 8.1 mg/dL (8.5-10.3) L 10/23/23 05:24 Phosphorus 4.0 mg/dL (2.5-5.0) 10/14/23 04:30 Magnesium 1.9 mg/dL (1.7-2.3) 10/14/23 04:30 Total Bilirubin 0.3 mg/dL (0.2-1.0) 10/23/23 05:24 AST 19 IU/L (10-42) 10/23/23 05:24 ALT 5 IU/L (10-60) L 10/23/23 05:24 Alkaline Phosphatase 88 IU/L (42-121) 10/23/23 05:24 Lactate Dehydrogenase 122 IU/L (140-271) L 10/21/23 13:44 Troponin I High Sens 11.8 ng/L (2.3-14.8) 10/06/23 06:38 Total Protein 5.6 g/dL (6.4-8.9) L 10/23/23 05:24 Albumin 2.0 g/dL (3.2-5.5) L 10/23/23 05:24 Globulin 3.6 g/dL (2.1-4.2) 10/23/23 05:24 Albumin/Globulin Ratio 0.6 (1.0-2.2) L 10/23/23 05:24 Prealbumin 8 mg/dL (17-34) L 10/14/23 04:30 Triglycerides 138 mg/dL (48-352) 10/14/23 04:30 Lipase < 10 U/L (11-82) L 10/02/23 09:00 Nasal Screen MRSA (PCR) NEGATIVE (NEGATIVE) 10/02/23 20:40 Ethyl Alcohol < 10.0 mg/dL 10/02/23 09:00 Miscellaneous Test COMMENT (.) 10/10/23 16:07
[2023-10-23] MEDS: LORazepam 2 MG/ML VIAL IVP PRN (21:23)
[2023-10-24] MEDS: oxyCODONE 5 MG TABLET PO PRN ×5 (00:35→21:06)
[2023-10-24] MEDS: ACETAMINOPHEN 325 MG TABLET PO SCH ×6 (00:35→21:06)
[2023-10-24] MEDS: SODIUM CHLORIDE FLUSH 0.9% 10 ML SYRINGE IVP SCH ×3 (00:36→21:07)
[2023-10-24] MEDS: metroNIDAZOLE 500 MG/100 ML 500 MG/100 ML BAG IV SCH ×3 (02:22→21:07)
[2023-10-24] MEDS: HYDROmorphone 0.5 MG/0.5 ML SYRINGE IVP PRN (02:37)
[2023-10-24 05:40] LABS: BASOPHILS # (AUTO) 0.1 10^3/uL (0.0-0.1); BASOPHILS % (AUTO) 0.5 %; EOSINOPHILS # (AUTO) 0.2 10^3/uL (0.0-0.7); EOSINOPHILS % (AUTO) 1.1 %; HCT - HEMATOCRIT 24.4 % (37.0-47.0); HGB - HEMOGLOBIN 7.8 g/dL (12.0-16.0); LYMPHOCYTES # (AUTO) 1.3 10^3/uL (1.5-3.5); LYMPHOCYTES % (AUTO) 8.9 %; MEAN CORPUSCULAR HEMOGLOBIN 29.8 pg (27.0-31.0); MEAN CORPUSCULAR VOLUME 93.1 fL (81.0-99.0); MEAN PLATELET VOLUME 8.6 fL (7.9-10.8); MONOCYTES % (AUTO) 6.7 %; NEUTROPHILS # (AUTO) 12.2 10^3/uL (1.5-6.6); NEUTROPHILS % (AUTO) 81.4 %; PLT - PLATELET COUNT 643 10^3/uL (130-450); RED BLOOD COUNT 2.62 10^6/uL (4.20-5.40); RED CELL DISTRIBUTION WIDTH 14.5 % (12.0-15.0)
[2023-10-24 06:06] LABS: ALBUMIN 1.8 g/dL (3.2-5.5); ALBUMIN/GLOBULIN RATIO 0.5 (1.0-2.2); BILIRUBIN,TOTAL 0.2 mg/dL (0.2-1.0); CALCIUM 8.1 mg/dL (8.5-10.3); CREATININE 0.3 mg/dL (0.6-1.3); POTASSIUM 4.1 mmol/L (3.5-4.5); TOTAL PROTEIN 5.2 g/dL (6.4-8.9)
[2023-10-24] MEDS: CEFEPIME 1 GM in SODIUM CHLORIDE 0.9% MINIBAG 100 ML IV SCH ×3 (06:12→22:27)
[2023-10-24] MEDS: MULTIVITAMIN W/MINERALS TABLET PO SCH (08:42)
[2023-10-24] MEDS: CITALOPRAM HYDROBROMIDE 20 MG TABLET PO SCH (08:42)
[2023-10-24] MEDS: HEPARIN 5,000 UNIT/ML VIAL SUBQ SCH ×2 (08:43→21:07)
[2023-10-24] MEDS: IBUPROFEN 600 MG TABLET PO PRN (10:48)
--- NOTE | 2023-10-24 15:48 | PROVIDER PROGRESS NOTE ---
Assessment/Plan - Problem List (1) Perforated abdominal viscus Assessment/Plan: (1) Thrombocytosis Assessment/Plan: --WBC remains elevated --Fluid too scant for a thoracentesis. --CT abdominal findings were also discussed with general surgery. She does appear to have an adynamic ileus. Fluid around liver was unchanged and does not require intervention. --Continuing with IV antibiotics (cefepime and metronidazole). Fluconazone was given for 7 days. --I advised her to ambulate TID. --Per general surgery she is stable to go home. They will have her follow up with thoracic surgery as an outpatient. (2) Perforated abdominal viscus Impression: As per surgical findings. She now has a colostomy (3) Post-op intra-abdominal abscess She has been on several iv antibx and has a very prolonged postoperative hospital stay. Her pain is controlled Plan: This patient needs to be taught colostomy training, and family needs to be taught colostomy training, since she cannot go to SNF from here (she has no insurance coverage for SNF or for Home Health). A barrier to this successful training will be the fact that she has a right wrist fracture. (4) Acute respiratory failure with hypoxia Conclusion/Plan: Hypoxia has been up and down. Postoperatively there was fluid overload, then a mucous plug with consolidation seen on CT of the right lung from the plug. Bronchoscopy done after that and showed open right upper lung. She was on nasal cannula and tolerating it well. --Ultrasound of her lung was performed 10/19 which was unremarkable for drainable effusion. -- As mentioned above, we will perform a an ultrasound again to possibly remove fluid. -- Will start her on DuoNeb for atelectasis. (5) Aspiration pneumonitis due to regurgitated gastric secretions Conclusion/Plan: --Resolved. --Not enough fluids for a thoracentesis. (6) Mucous plug of bronchi Conclusion/Plan: RESOLVED This required suctioning and even a bronchoscopy and probably added to the HCAP --She is currently having some atalectasis. Refusing nebulizers. I recommended incentive spirometry and ambulation. (7) Nutrition deficiency due to insufficient food Conclusion/Plan: We started PPN and she had NG tube in place. Central line placed October 08. PPN was switched to TPN October 09. Plan: Diet order as per Gen surg (8) Generalized weakness Conclusion/Plan: She has been very, very slow to progress and improve. She was intermittently reluctant to get up out of bed. Physical therapy has worked with her. She keeps on telling physical therapy that she wants to go home. She lives alone. Case management explained that this patient does not have outpatient insurance that would allow her to have Home Health services or coverage to go to [facility] for rehab. Plan: We will have to make sure this patient is able to go home with good colostomy instruction, and that her family has good colostomy instruction. We also do not have a colostomy education nurse here anymore. (9) Wrist fracture Conclusion/Plan: The last Hospitalist requested an Orthopedic consult. The Orthopedic spoke to me, learned that the fracture was remote and there is already a plate in place, status post surgery done elsewhere. PT to determine what restrictions are necessary to follow (10) Fever Conclusion/Plan: -- Patient spiked a fever of 38.2 Celsius on 10/16. --I did discuss this with general surgery who felt the etiology was not intra- abdominal. An ultrasound was performed of her lung which did not show a significant amount of fluid. --Blood cultures obtained on 10/16 showed no growth to date. -- Will continue to monitor for fever. - Current Meds Current Meds: Current Medications Generic Name Dose Route Start Last Admin Trade Name Freq PRN Reason Stop Dose Admin Acetaminophen 650 mg 10/23/23 08:00 10/24/23 13:02 Acetaminophen 325 Mg Tablet PO 650 mg Q4H SANDRA Administration Citalopram Hydrobromide 20 mg 10/03/23 09:00 10/24/23 08:42 Citalopram Hydrobromide 20 Mg Tablet PO 20 mg DAILY SANDRA Administration Heparin Sodium (Porcine) 5,000 unit 10/03/23 09:00 10/24/23 08:43 Heparin 5,000 Unit/Ml Vial SUBQ 5,000 unit BID SANDRA Administration Hydromorphone HCl 0.5 mg 10/13/23 11:28 10/24/23 02:37 Hydromorphone 0.5 Mg/0.5 Ml Syringe IVP 0.5 mg Q4H PRN Administration Breakthrough Pain Cefepime HCl 1 gm/ Sodium 100 mls @ 200 mls/hr 10/10/23 22:00 10/24/23 14:52 Chloride IV Infused TID SANDRA Infusion Metronidazole 500 mg in 100 mls @ 100 mls/hr 10/10/23 19:00 10/24/23 12:01 Flagyl 500 Mg/100 Ml IV Infused Q8H SANDRA Infusion Ibuprofen 600 mg 10/11/23 08:33 10/24/23 10:48 Ibuprofen 600 Mg Tablet PO 600 mg Q6HR PRN Administration Moderate Pain (Level 4-6) Lorazepam 1 mg 10/13/23 11:28 10/23/23 21:23 Lorazepam 2 Mg/Ml Vial IVP 1 mg Q4H PRN Administration Anxiety Multivitamins/Minerals 1 tab 10/20/23 17:00 10/24/23 08:42 Multivitamin W/Minerals Tablet PO 1 tab DAILYWM SANDRA Administration Ondansetron HCl 4 mg 10/02/23 15:19 10/23/23 18:37 Ondansetron Odt 4 Mg Tablet TL 4 mg Q6HR PRN Administration Nausea / Vomiting Ondansetron HCl 4 mg 10/02/23 15:19 10/21/23 04:13 Ondansetron 4 Mg/2 Ml Vial IVP 4 mg Q6HR PRN Administration Nausea / Vomiting Oxycodone HCl 5 mg 10/11/23 08:34 10/24/23 10:48 Oxycodone 5 Mg Tablet PO 5 mg Q4HR PRN Administration Severe Pain (Level 7-10) Prochlorperazine Edisylate 10 mg 10/08/23 14:14 10/21/23 01:36 Prochlorperazine 10 Mg/2 Ml Vial IVP 10 mg Q6HR PRN Administration Nausea / Vomiting Sodium Chloride 10 ml 10/06/23 09:00 10/24/23 08:42 Sodium Chloride Flush 0.9% 10 Ml Syringe IVP 10 ml 0100,0900,1700 SANDRA Administration Sodium Chloride 10 ml 10/06/23 07:17 10/23/23 18:41 Sodium Chloride Flush 0.9% 10 Ml Syringe IVP 10 ml PRN PRN Administration NEEDED PER PROVIDER ORDERS - Lab Result Fish Bone Diagrams: 10/24/23 05:26 10/24/23 05:26 - Additional Planning My Orders: My Active Orders 10/24/23 09:09 Shower [RC] PRN 10/25/23 05:00 CBC [CBC - COMP BLD CT W/AUTO DIFF] [HEME] DAILYLAB Subjective - Subjective Patient Reports: Resting Comfortably Objective Vital Signs: Vital Signs - 24 hr 10/23/23 10/24/23 10/24/23 23:39 05:46 07:45 Temperature 36.4 C L Heart Rate [ Brachial] Heart Rate [ 97 Monitoring electrodes] Respiratory 16 Rate Blood Pressure 109/70 [Right Brachial artery] O2 Saturation 97 97 If not protocol 1 1 1 : Oxygen Flow, liters/minute 10/24/23 10/24/23 08:41 15:40 Temperature 36.5 C 36.4 C L Heart Rate [ 87 81 Brachial] Heart Rate [ Monitoring electrodes] Respiratory 16 16 Rate Blood Pressure 126/81 H 130/80 [Right Brachial artery] O2 Saturation 97 94 If not protocol 1 : Oxygen Flow, liters/minute Oxygen O2 Source Room air I&O (Last 24 Hrs): Intake and Output Totals x24h 10/22/23 10/23/23 10/24/23 23:59 23:59 23:59 Intake Total 2280 2450 2280 Output Total 750 800 500 Balance 1530 1650 1780 General: Alert, Oriented x3, Cooperative, No acute distress Neuro: Alert Cardiovascular: Regular rate, Normal S1, Normal S2, No murmurs Respiratory: Chest non-tender, No respiratory distress, Breath sounds nml - Results Results: Laboratory Results WBC 15.0 x10^3/uL (4.8-10.8) H 10/24/23 05:26 RBC 2.62 10^6/uL (4.20-5.40) L 10/24/23 05:26 Hgb 7.8 g/dL (12.0-16.0) L 10/24/23 05:26 Hct 24.4 % (37.0-47.0) L 10/24/23 05:26 MCV 93.1 fL (81.0-99.0) 10/24/23 05:26 MCH 29.8 pg (27.0-31.0) 10/24/23 05:26 MCHC 32.0 g/dL (32.0-36.0) 10/24/23 05:26 RDW 14.5 % (12.0-15.0) 10/24/23 05:26 Plt Count 643 10^3/uL (130-450) H 10/24/23 05:26 MPV 8.6 fL (7.9-10.8) 10/24/23 05:26 Neut # (Auto) 12.2 10^3/uL (1.5-6.6) H 10/24/23 05:26 Lymph # (Auto) 1.3 10^3/uL (1.5-3.5) L 10/24/23 05:26 [place] # (Auto) 1.0 10^3/uL (0.0-1.0) 10/24/23 05:26 Eos # (Auto) 0.2 10^3/uL (0.0-0.7) 10/24/23 05:26 Baso # (Auto) 0.1 10^3/uL (0.0-0.1) 10/24/23 05:26 Absolute Nucleated RBC 0.00 x10^3/uL 10/24/23 05:26 Total Counted 100 10/19/23 05:30 Band Neuts % (Manual) 10 % (0-10) 10/19/23 05:30 Reactive Lymphs % (Man) 1 % 10/03/23 06:51 Abnorm Lymph % (Manual) 0 % 10/19/23 05:30 Metamyelocytes % 4 % (-0) H 10/03/23 06:51 Myelocytes % 1 % (-0) H 10/04/23 07:07 Nucleated RBC % 0.0 /100WBC 10/24/23 05:26 Neutrophils # (Manual) 25.1 10^3/uL (1.5-6.6) H 10/19/23 05:30 Lymphocytes # (Manual) 0.5 10^3/uL (1.5-3.5) L 10/19/23 05:30 Monocytes # (Manual) 0.8 10^3/uL (0.0-1.0) 10/19/23 05:30 Eosinophils # (Manual) 0.0 10^3/uL (0-0.7) 10/19/23 05:30 Basophils # (Manual) 0.3 10^3/uL (0-0.1) H 10/19/23 05:30 Differential Comment MANUAL DIFFERENTIAL 10/19/23 05:30 Manual Slide Review Indicated 10/16/23 04:25 WBC Morphology NORMAL APPEARANCE (NORMAL) 10/06/23 10:57 Platelet Estimate INCREASED (>450,000) (NORMAL) 10/19/23 05:30 Platelet Morphology NORMAL APPEARANCE (NORMAL) 10/16/23 04:25 RBC Morph Micro Appear NORMAL APPEARANCE (NORMAL) 10/19/23 05:30 Bld Gas Analysis Time 1646 10/08/23 16:42 Sample Site RIGHT RADIAL 10/08/23 16:42 ABG pH 7.46 (7.35-7.45) H 10/08/23 16:42 ABG pCO2 43 mmHg (34-45) 10/08/23 16:42 ABG pO2 102 mmHg (80-100) H 10/08/23 16:42 ABG HCO3 29.9 mmol/L (22.0-26.0) H 10/08/23 16:42 ABG Total CO2 31.2 MMOL/L (21.0-29.0) H 10/08/23 16:42 ABG O2 Saturation 98 % (94-98) 10/08/23 16:42 ABG Base Excess 5.5 mmol/L (-2.0-3.0) H 10/08/23 16:42 Anuj Test POSITIVE 10/08/23 16:42 VBG pH 7.371 (7.31-7.41) 10/13/23 05:00 Ionized Calcium 1.15 mmol/L (1.15-1.33) 10/13/23 05:00 Respiration Rate 20 b/min 10/06/23 07:20 O2 Delivery Device BiPAP 10/08/23 16:42 Vent Mode SYNCHRONOUS/TIMES 10/08/23 16:42 FiO2 50.00 10/08/23 16:42 EPAP 5 cmH2O 10/08/23 16:42 IPAP 10 cmH2O 10/08/23 16:42 Sodium 133 mmol/L (135-145) L 10/24/23 05:26 Potassium 4.1 mmol/L (3.5-4.5) 10/24/23 05:26 Chloride 98 mmol/L (101-111) L 10/24/23 05:26 Carbon Dioxide 31 mmol/L (21-32) 10/24/23 05:26 Anion Gap 4.0 (6-13) L 10/24/23 05:26 BUN 15 mg/dL (6-20) 10/24/23 05:26 Creatinine 0.3 mg/dL (0.6-1.3) L 10/24/23 05:26 Estimated GFR (MDRD) 225 (>89) 10/24/23 05:26 Glucose 96 mg/dL (74-104) 10/24/23 05:26 POC Whole Bld Glucose 166 mg/dL (70 - 100) H 10/06/23 06:05 Lactic Acid 0.7 mmol/L (0.5-2.2) 10/16/23 17:46 Calcium 8.1 mg/dL (8.5-10.3) L 10/24/23 05:26 Phosphorus 4.0 mg/dL (2.5-5.0) 10/14/23 04:30 Magnesium 1.9 mg/dL (1.7-2.3) 10/14/23 04:30 Total Bilirubin 0.2 mg/dL (0.2-1.0) 10/24/23 05:26 AST 8 IU/L (10-42) L 10/24/23 05:26 ALT 3 IU/L (10-60) L 10/24/23 05:26 Alkaline Phosphatase 86 IU/L (42-121) 10/24/23 05:26 Lactate Dehydrogenase 122 IU/L (140-271) L 10/21/23 13:44 Troponin I High Sens 11.8 ng/L (2.3-14.8) 10/06/23 06:38 Total Protein 5.2 g/dL (6.4-8.9) L 10/24/23 05:26 Albumin 1.8 g/dL (3.2-5.5) L 10/24/23 05:26 Globulin 3.4 g/dL (2.1-4.2) 10/24/23 05:26 Albumin/Globulin Ratio 0.5 (1.0-2.2) L 10/24/23 05:26 Prealbumin 8 mg/dL (17-34) L 10/14/23 04:30 Triglycerides 138 mg/dL (48-352) 10/14/23 04:30 Lipase < 10 U/L (11-82) L 10/02/23 09:00 Nasal Screen MRSA (PCR) NEGATIVE (NEGATIVE) 10/02/23 20:40 Ethyl Alcohol < 10.0 mg/dL 10/02/23 09:00 Miscellaneous Test COMMENT (.) 10/10/23 16:07
[2023-10-24] MEDS: LORazepam 2 MG/ML VIAL IVP PRN (21:16)
[2023-10-25] MEDS: oxyCODONE 5 MG TABLET PO PRN ×4 (01:12→13:12)
[2023-10-25] MEDS: SODIUM CHLORIDE FLUSH 0.9% 10 ML SYRINGE IVP SCH ×2 (01:12→09:32)
[2023-10-25] MEDS: ACETAMINOPHEN 325 MG TABLET PO SCH ×4 (01:12→13:14)
[2023-10-25] MEDS: metroNIDAZOLE 500 MG/100 ML 500 MG/100 ML BAG IV SCH ×2 (03:01→10:13)
[2023-10-25] MEDS: CEFEPIME 1 GM in SODIUM CHLORIDE 0.9% MINIBAG 100 ML IV SCH (05:24)
[2023-10-25 06:51] LABS: BASOPHILS # (AUTO) 0.1 10^3/uL (0.0-0.1); BASOPHILS % (AUTO) 0.5 %; EOSINOPHILS # (AUTO) 0.1 10^3/uL (0.0-0.7); EOSINOPHILS % (AUTO) 0.7 %; HCT - HEMATOCRIT 26.3 % (37.0-47.0); HGB - HEMOGLOBIN 8.2 g/dL (12.0-16.0); LYMPHOCYTES # (AUTO) 1.4 10^3/uL (1.5-3.5); LYMPHOCYTES % (AUTO) 8.4 %; MEAN CORPUSCULAR HEMOGLOBIN 29.9 pg (27.0-31.0); MEAN CORPUSCULAR HGB CONC 31.2 g/dL (32.0-36.0); MONOCYTES % (AUTO) 6.1 %; NEUTROPHILS # (AUTO) 13.6 10^3/uL (1.5-6.6); NEUTROPHILS % (AUTO) 82.5 %; PLT - PLATELET COUNT 691 10^3/uL (130-450); RED BLOOD COUNT 2.74 10^6/uL (4.20-5.40); RED CELL DISTRIBUTION WIDTH 14.7 % (12.0-15.0); WHITE BLOOD COUNT 16.5 x10^3/uL (4.8-10.8)
[2023-10-25 08:17] VITALS: BP 129/81; O2SAT 94
[2023-10-25] MEDS ORDERED: LORazepam 1 MG TABLET PO PRN (08:27)
[2023-10-25] MEDS: HEPARIN 5,000 UNIT/ML VIAL SUBQ SCH (09:29)
[2023-10-25] MEDS: CITALOPRAM HYDROBROMIDE 20 MG TABLET PO SCH (09:31)
[2023-10-25] MEDS: MULTIVITAMIN W/MINERALS TABLET PO SCH (09:31)
--- NOTE | 2023-10-25 10:55 | Discharge Plan ---
Discharge Plan Problem Reviewed?: Yes Disposition: Home, Self Care Condition: Fair Prescriptions: Oxycodone HCl/Acetaminophen [Percocet 5-325 mg Tablet] 1 tab PO Q6HR PRN #25 tablet PRN Reason: Pain 5-7 Amox/Clav 875/125 [Augmentin 875/125 Tab] 1 tablet PO Q12H 7 Days #14 tablet Ondansetron Odt [Zofran Odt] 4 mg PO Q6H PRN #15 tablet PRN Reason: Nausea / Vomiting Diet: Regular Activity Restrictions: Activity as Tolerated Shower Restrictions: No Driving Restrictions: No Weight Bearing: Full Weight Instruction Topics: Colostomy Pouch Change, Ostomy Pouch Empty, Colostomy, Colostomy Irrigate, Colostomy Stoma Care, Colostomy Select Pouch Health Concerns: You had a long hospital course after you presented here with a perforated colon. You now have a colostomy bag. You had an infection in the abdominal cavity which required many days of IV antibiotics. You are going home with oral antibiotics to take for at least a week, because of a lingering pocket of infection. You and your brother have been taught how to manage the colostomy bag. Prescriptions for as needed Percocet, to deal with severe pain, and Zofran tablets, to deal with any nausea, along with the antibiotic, have been out electronically prescribed to your pharmacy. You may resume all your usual pre-hospital medications EXCEPT you shpoulf no longer take the Amlodipine or the Hydrochlorothiazide for hypertension, just the Losartan, because your blood pressure has not required all 3 meds any longer. You should see your Primary Care Doctor in the next 5 to 10 days for hospital follow-up visit and be seen in the General Surgery clinic in the next 1 to 2 weeks for hospital follow-up visit. Please call Gen Surgery office at [phone], for an appointment. Plan of Treatment: As above. Care Goals: Improvement in symptoms and stabilization are the goals. Assessment: Patient understands the plan. Additional Instructions or Follow Up instructions: You are going home with oral antibiotics to take for at least a week, because of a lingering pocket of infection. If you have a fever or if you have new or worsening symptoms, come to the Emergency Room, since the infection could worsen. No Smoking: If you smoke, Please STOP! Call for help. Follow-up with: Ronda Shelley MD [Primary Care Provider] -
--- NOTE | 2023-10-25 12:44 | DISCHARGE SUMMARY ---
"Discharge Summary Admit Date: 10/02/23 Discharge Date: 10/25/23 Discharging Provider: Dr Bambi Carter Primary Care Provider: Dr Ronda Shelley Code Status: Attempt Resuscitation Condition at Discharge: Fair Discharge Disposition: 01 Home, Self Care - HPI History of Present Illness: H&P of Gen Surgeon: 62 y/o WF with mid to upper abdominal pain starting 5 days ago. much worse and pain everywhere. fell due to weakness/ illness. states otherwise health had been ok. CT imaging shows free air and fluid through out her abdomen. diverticulosis present. significant inflammation entire abdomen. Exam shows rigid abdomen with diffuse peritonitis. Plan is for explor lap, possible repair ruptured stomach, possible colectomy and colostomy. consent obtained. - CONSULTS | PROCEDURES Consultations: Hospitalist service from 10/06/23 thru discharge Procedures: 10/02/23 Exploratory laparotomy, sigmoid colectomy, colostomy, and washout for perforated diverticulitis with diffuse soilage of abdomen - HOSPITAL COURSE Hospital Course: (1) Perforated abdominal viscus As per surgical findings. She now has a colostomy. Her pain was controlled (2) Post-op intra-abdominal abscess She was on several iv antibx and had a very prolonged postoperative hospital stay. She was discharged when felt to be stable by Gen Surgery, and discharged to continue to take oral antibiotics. This patient needed to be taught colostomy training, and family needed to be taught colostomy training, since she could not go to SNF from here (she has no insurance coverage for SNF or coverage for Home Health). A barrier to her successful training was the fact that she has a right wrist fracture. (3) Acute respiratory failure with hypoxia Postoperatively there was fluid overload, then a mucous plug with consolidation seen on CT of the right lung from the plug. Bronchoscopy by Dr Frankel was done after that and showed open right upper lung. (4) Aspiration pneumonitis due to regurgitated gastric secretions As per CXR and she received antibx (5) Mucous plug of bronchi This required suctioning and a bronchoscopy and probably added to the HCAP (6) Nutrition deficiency due to insufficient food She received PPN and TPNand she had NG tube in place. (7) Generalized weakness She was very slow to progress and improve. She was intermittently reluctant to get up out of bed. P and OT worked with her. We had to make sure she could go home with good colostomy training, and that her family has good colostomy instruction. We do not have a colostomy education nurse here anymore. (8) Wrist fracture We requested an Orthopedic consult. We learned that the fracture was remote and there was already a plate in place, status post surgery done elsewhere. - ALLERGIES Allergies/Adverse Reactions: Allergies Allergy/AdvReac Type Severity Reaction Status Date / Time No Known Drug Allergies Allergy Verified 10/02/23 09:08 - MEDICATIONS Home Medications: Ambulatory Orders Medication Instructions Recorded Confirmed ALPRAZolam [Alprazolam] 0.5 mg PO HS PRN 06/23/23 10/03/23 Citalopram Hydrobromide [Celexa] 20 mg PO DAILY 06/23/23 10/02/23 Ibuprofen [Motrin] 1 tablet PO Q8H PRN 06/23/23 10/02/23 Losartan Potassium 25 mg PO DAILY 06/23/23 10/02/23 Amox/Clav 875/125 [Augmentin 1 tablet PO Q12H 7 Days #14 tablet 10/22/23 875/125 Tab] Ondansetron Odt [Zofran Odt] 4 mg PO Q6H PRN #15 tablet 10/22/23 Oxycodone HCl/Acetaminophen 1 tab PO Q6HR PRN #25 tablet 10/22/23 [Percocet 5-325 mg Tablet] - PHYSICAL EXAM AT DISCHARGE General Appearance: positive: No acute distress, Alert Eyes Bilateral: positive: Normal inspection, EOMI ENT: positive: ENT inspection nml, No signs of dehydration Neck: positive: Nml inspection, No JVD Respiratory: positive: No respiratory distress, Breath sounds nml Cardiovascular: positive: Regular rate & rhythm, No murmur Abdomen: positive: Non-tender, Other (ostomy in place) Skin: positive: Warm, Dry Extremities: positive: Non-tender, No pedal edema Neurologic/Psychiatric: positive: Oriented x3, Motor nml, Other (Bradykinrtic) - LABS Result Diagrams: 10/25/23 06:17 10/24/23 05:26 - DIAGNOSTIC IMAGING Diagnostic Imaging Results: Final report reviewed - FOLLOW UP Follow Up: See PCP and Gen Surg in hospital F/U. - TIME SPENT Time Spent in Discharge (Minutes): 45"
== END 2023-10-25 13:25 | disposition home or self-care (01) | DRG 329 ==
LOC: EDUNIT# → SUPCPDRO 08:53 → ED 08:53 → MS2 11:25 → SDS 11:39 → ICU 20:36 → MS2 10-04 21:59 → ICU 10-06 07:34 → MS3 10-14 21:02 → MS2 10-20 21:10
PROVIDERS: ADMIT Surgery; ATTEND Internal Medicine
PROC: 0D1N0Z4 Bypass Sigmoid Colon to Cutaneous, Open Approach (ICD-10-PCS; 2023-10-02)
PROC: 3E1M38Z Irrigation of Peritoneal Cavity using Irrigating Substance, Percutaneous Approach (ICD-10-PCS; 2023-10-02)
PROC: 0DTN0ZZ Resection of Sigmoid Colon, Open Approach (ICD-10-PCS; principal; 2023-10-02 13:00)
PROC: 0BJ08ZZ Inspection of Tracheobronchial Tree, Via Natural or Artificial Opening Endoscopic (ICD-10-PCS; 2023-10-07)
PROC: 3E0336Z Introduction of Nutritional Substance into Peripheral Vein, Percutaneous Approach (ICD-10-PCS; 2023-10-07)
PROC: 02HV33Z Insertion of Infusion Device into Superior Vena Cava, Percutaneous Approach (ICD-10-PCS; 2023-10-08)
DX: K57.20 Diverticulitis of large intestine with perforation and abscess without bleeding (principal); J69.0 Pneumonitis due to inhalation of food and vomit; J96.01 Acute respiratory failure with hypoxia; K65.1 Peritoneal abscess; T17.590A Other foreign object in bronchus causing asphyxiation, initial encounter; J90 Pleural effusion, not elsewhere classified; J98.19 Other pulmonary collapse; T81.43XA Infection following a procedure, organ and space surgical site, initial encounter; E46 Unspecified protein-calorie malnutrition; K56.7 Ileus, unspecified; T73.0XXA Starvation, initial encounter; R53.1 Weakness; I10 Essential (primary) hypertension; F32.A Depression, unspecified; K57.30 Diverticulosis of large intestine without perforation or abscess without bleeding; M19.90 Unspecified osteoarthritis, unspecified site; R00.0 Tachycardia, unspecified; S62.101D Fracture of unspecified carpal bone, right wrist, subsequent encounter for fracture with routine healing; E87.70 Fluid overload, unspecified; Z68.24 Body mass index [BMI] 24.0-24.9, adult; F03.90 Unspecified dementia, unspecified severity, without behavioral disturbance, psychotic disturbance, mood disturbance, and anxiety; D75.838 Other thrombocytosis; X58.XXXD Exposure to other specified factors, subsequent encounter
CPT/HCPCS: 36415; 36600; 70450; 71045; 71046; 71250; 71260; 72125; 73100; 74018; 74177; 76604; 80048; 80053; 80320; 81599; 82330; 82803; 83605; 83615; 83690; 83735; 84100; 84132; 84134; 84478; 84484; 85025; 87040; 87076; 87086; 87150; 87449; 93005; 94640; 94660; 96365; 96375; 97116; 97163; 97164; 97167; 97168; 97530; 97535; 99285; A9270; J0131; J1170; J2060; J2372; J3490; J7040; J7120; J8499; Q0162; Q9967; 82945; 83986; 84157

== ENCOUNTER 2023-11-17 09:02 | Outpatient (CLI) | payer OTHER ==
--- NOTE | 2023-11-17 11:48 | Mammography Report ---
BILATERAL DIGITAL SCREENING MAMMOGRAM 3D/2D WITH EXAGGERATED CC: 11/17/2023 CLINICAL: Routine screening. Comparison is made to exams dated: 08/09/2022 mammogram, 07/30/2021 mammogram, and 07/29/2020 mammogra - [facility]. There are scattered areas of fibroglandular density in both breasts (category b / 25%-50% glandular t issue). No significant masses, calcifications, or other findings are seen in either breast. There has been no significant interval change. IMPRESSION: NEGATIVE There is no mammographic evidence of malignancy. A 1 year screening mammogram is recommended. Based on the Tyrer Cuzick model (a risk assessment model) the patients lifetime risk is 8.1% and her 10 year risk is 3.5%. According to the ACR, ACS, and NCCN guidelines, an annual breast MRI exam along with mammogram is recommended if the patients lifetime risk is 20% or greater. This exam was interpreted at Station ID: [id number]. NOTE: For mammograms, a report in lay terms will be sent to the patient. Approximately 15% of breast malignancies will not be visualized mammographically. In the management of a palpable breast mass, a negative mammogram must not discourage biopsy of a clinically suspicious lesion. Electronically Signed By: Frank [email or web address]/[email or web address]:11/17/2023 10:39:13 letter sent: No_Letter ACR BI-RADS Category 1: Negative 3341F PARENCHYMAL PATTERN: (A) - The breast(s) demonstrate(s) scattered fibroglandular densities. BI-RADS CATEGORY: (1) - 1 Mammogram [id number] 1 year screening LATERALITY: (B)
== END 2023-11-17 09:03 | disposition home or self-care (01) ==
LOC: DI 09:02
PROVIDERS: ATTEND Internal Medicine
DX: Z12.31 Encounter for screening mammogram for malignant neoplasm of breast (principal); R92.323 Mammographic fibroglandular density, bilateral breasts

== ENCOUNTER 2024-01-19 09:50 | Outpatient (CLI) | payer OTHER ==
--- NOTE | 2024-01-19 15:41 | DEXA Report ---
PROCEDURE: Dexa Spine and/or Hip INDICATIONS: POST MENOPAUSAL TECHNIQUE: Dual energy x-ray absorptiometry (DXA) was performed on a [employer] System. Regions measur ed are the AP Spine, femoral neck, and if needed forearm. COMPARISON: DEXA scan dated 06/19/2019 FINDINGS: Lumbar Spine: Bone Mineral Density: 0.844 g/cm/cm,T score: -2.7. -2.5 in 2019 Left Femoral Neck: Bone Mineral Density: 0.685 g/cm/cm, T score: -2.5. -2.6 in 2019. Left Hip: Bone Mineral Density: 0.646 g/cm/cm,T score: -2.9. -2.4 in 2019 (T score greater or equal to -1.0: NORMAL) (T score from -1.1 to -2.4: OSTEOPENIA) (T score less than or equal to -2.5 to: OSTEOPOROSIS) Impression: By WHO criteria, this patient has osteoporosis. Osteoporosis of the lumbar spine. Osteoporosis of the hip. Patients with diagnosis of osteoporosis or osteopenia should have regular bone mineral density assess ment. For those eligible for Medicare, routine testing is allowed once every 2 years. Testing frequ ency can be increased for patients who have rapidly progressing disease or for those who are receivin g medical therapy to restore bone mass. Reviewed by: Shirin Rosenbaum MD on 01/19/2024 3:40 PM PDT Approved by: Shirin Rosenbaum MD on 01/19/2024 3:40 PM PDT Station ID: [id number]
== END 2024-01-19 09:51 | disposition home or self-care (01) ==
LOC: DI 09:50
PROVIDERS: ATTEND Internal Medicine
DX: Z78.0 Asymptomatic menopausal state (principal); M81.0 Age-related osteoporosis without current pathological fracture